=== PATIENT | male | born 1940 | race Caucasian/White ===

== ENCOUNTER → 2020-08-18 15:12 | Outpatient (BNVA) | payer MEDICARE, SELFPAY | PROVIDERS: PCP Internal Medicine; Visit Provider Internal Medicine | DX: Z13.89 Encounter for screening for other disorder (principal) | CPT/HCPCS: Q3014 ==

== ENCOUNTER 2020-11-12 16:02 | Outpatient (REF) | payer MEDICARE, SELFPAY ==
--- NOTE | ~2020-11-12 | XR_ITS ---
EXAMINATION: XR LEFT WRIST XR LEFT SHOULDER CLINICAL INFORMATION: Osteoarthritis. COMPARISON: Prior x-ray images of wrist 01/25/2014 is not available for direct comparison. Left shoulder 01/30/2020. TECHNIQUE: 3 views. FINDINGS: LEFT WRIST Severe radiocarpal arthritis, marked joint space loss, osteophytes. Moderate ulnar-carpal arthritis. Moderate distal radioulnar arthritis. Chronic appearing ossific/calcific densities in the ulnocarpal joint space. Arthritic changes to a lesser degree otherwise seen, including moderate 1st CMC arthritis. No visible acute fracture is seen. No dislocation. LEFT SHOULDER: Severe glenohumeral joint arthritis. Moderate acromioclavicular arthritis. No fracture or dislocation. Calcifications superior to the greater tuberosity, from calcific tendinitis or bursitis. Osteopenia. XR/XR shoulder LT min 2V IMPRESSION: Left Wrist: 1. No radiographic evidence of discrete acute fracture. 2. Arthritic changes present, including severe radiocarpal arthritis. Left Shoulder: 1. Severe glenohumeral joint arthritis. Moderate acromioclavicular arthritis. 2. Subtle calcification of the soft tissues suggesting calcific tendinitis/bursitis. 3. No evidence of acute fracture.
--- NOTE | ~2020-11-12 | XR_ITS ---
EXAMINATION: XR LEFT WRIST XR LEFT SHOULDER CLINICAL INFORMATION: Osteoarthritis. COMPARISON: Prior x-ray images of wrist 01/25/2014 is not available for direct comparison. Left shoulder 01/30/2020. TECHNIQUE: 3 views. FINDINGS: LEFT WRIST Severe radiocarpal arthritis, marked joint space loss, osteophytes. Moderate ulnar-carpal arthritis. Moderate distal radioulnar arthritis. Chronic appearing ossific/calcific densities in the ulnocarpal joint space. Arthritic changes to a lesser degree otherwise seen, including moderate 1st CMC arthritis. No visible acute fracture is seen. No dislocation. LEFT SHOULDER: Severe glenohumeral joint arthritis. Moderate acromioclavicular arthritis. No fracture or dislocation. Calcifications superior to the greater tuberosity, from calcific tendinitis or bursitis. Osteopenia. XR/XR wrist LT min 3V IMPRESSION: Left Wrist: 1. No radiographic evidence of discrete acute fracture. 2. Arthritic changes present, including severe radiocarpal arthritis. Left Shoulder: 1. Severe glenohumeral joint arthritis. Moderate acromioclavicular arthritis. 2. Subtle calcification of the soft tissues suggesting calcific tendinitis/bursitis. 3. No evidence of acute fracture.
--- NOTE | ~2020-11-12 | XR_ITS ---
EXAMINATION: XR HIP, LEFT CLINICAL INFORMATION: Fall. COMPARISON: X-ray 10/07/2019 TECHNIQUE: Two views of the left hip. Pelvis one view. FINDINGS: LEFT HIP: Left total hip arthroplasty present. There is normal articulation of the arthroplasty components. Multiple ossific densities medial to the proximal femoral shaft, were seen the prior study, and I suspect to be chronic. No visible acute periprosthetic fracture is seen. No evidence of hardware loosening is seen. PELVIS: Right total hip arthroplasty present with normal alignment. No acute periprosthetic fracture. No diastasis of the symphysis pubis or SI joints. No acute pelvic fracture seen. XR/XR hip LT w PEL1V IMPRESSION: 1. Stable appearance of the left total hip arthroplasty. No visible acute periprosthetic fracture is seen. 2. Right total hip arthroplasty appears intact without evidence of hardware loosening.
== END 2020-11-12 16:03 | disposition home or self-care (01) ==
LOC: HO.HMGCX 16:02
PROVIDERS: Visit Provider Nurse Practitioner Family
DX: M19.90 Unspecified osteoarthritis, unspecified site (principal); Z91.81 History of falling
CPT/HCPCS: 73030; 73110; 73502

== ENCOUNTER → 2020-11-18 13:34 | Outpatient (BNVA) | payer MEDICARE, SELFPAY | PROVIDERS: PCP Internal Medicine; Visit Provider Internal Medicine | DX: J44.9 Chronic obstructive pulmonary disease, unspecified (principal); G47.33 Obstructive sleep apnea (adult) (pediatric); Z99.89 Dependence on other enabling machines and devices; Z79.899 Other long term (current) drug therapy | CPT/HCPCS: 99212 ==

== ENCOUNTER 2020-11-24 13:51 | Outpatient (REF) | payer MEDICARE, SELFPAY ==
--- NOTE | 2020-11-24 16:44 | PFT_ITS ---
FLOWS: FEV1 90% of predicted at 2.79 L. FVC 90% of predicted at 3.89 L. FEV1 to FVC ratio of 72% of predicted. No bronchodilator response. LUNG VOLUMES: Total lung capacity 96% of predicted at 7.01 L. Residual volume 102% of predicted at 2.74 L. Slow vital capacity 93% of predicted at 4.27 L. Expiratory reserve volume 46% of predicted at 0.59 L. Diffusion capacity is moderately decreased, diffusion capacity adjust to being mildly decreased after correction for alveolar ventilation. IMPRESSION: Reversible mild obstructive ventilatory defect with no bronchodilator response. Decreased diffusion capacity suggests emphysema. MD NINA Juárez/MODL / [id number]
== END 2020-11-24 13:52 | disposition home or self-care (01) ==
LOC: HO.RESP 13:51
PROVIDERS: PCP Internal Medicine; Visit Provider Internal Medicine
DX: J44.9 Chronic obstructive pulmonary disease, unspecified (principal)
CPT/HCPCS: 94060; 94727; 94729

== ENCOUNTER → 2020-12-28 11:02 | Outpatient (BNVA) | payer MEDICARE, SELFPAY | PROVIDERS: PCP Internal Medicine; Visit Provider Internal Medicine | DX: J44.9 Chronic obstructive pulmonary disease, unspecified (principal); R06.00 Dyspnea, unspecified; G47.33 Obstructive sleep apnea (adult) (pediatric); Z99.89 Dependence on other enabling machines and devices | CPT/HCPCS: 99212 ==

== ENCOUNTER 2020-12-31 09:06 | Outpatient (REF) | payer MEDICARE, SELFPAY ==
[2020-12-31 11:16] LABS: MANUAL DIFF FLAG NO
[2020-12-31 11:24] LABS: Basophils Percent Auto 0.5 % (0-2); Eosinophils Absolute Auto 0.1 X10*3/uL (0.0-0.4); Eosinophils Percent Auto 3.2 % (0-4); Hematocrit 46.2 % (42-52); Hemoglobin 15.4 g/dl (14.0-18.0); Imm Gran Abs Auto 0.01 X10*3/uL (0.00-0.03); Imm Gran Pct Auto 0.2 % (0.0-0.4); Lymphocytes Absolute Auto 1.6 X10*3/uL (1.2-4.9); Lymphocytes Percent Auto 39.3 % (20-40); Mean Corpuscular HGB Conc 33.3 g/dl (31.0-36.0); Mean Corpuscular Hemoglobin 29.6 pg (27.0-33.0); Mean Corpuscular Volume 88.8 fL (80-98); Mean Platelet Volume 9.6 fL (9.4-12.4); Monocytes Absolute Auto 0.3 X10*3/uL (0.1-1.2); Monocytes Percent Auto 7.4 % (2-11); Neutrophils Percent Auto 49.4 % (45-73); Platelet Count 160 X10*3/uL (160-400); Red Cell Distribution Width 13.1 % (11.0-16.0); White Blood Count 4.1 X10*3/uL (4.8-10.8)
[2020-12-31 11:55] LABS: Rheumatoid Factor < 15.0 IU/mL (<15.0)
[2020-12-31 11:56] LABS: Alanine Aminotransferase 17 U/L (0-40); Albumin Level 4.5 g/dL (3.5-5.0); Alkaline Phosphatase 53 U/L (39-117); Anion Gap 14 (12-20); Aspartate Amino Transferase 22 U/L (5-37); Bilirubin Total 0.6 mg/dL (0.0-1.0); Blood Urea Nitrogen 16 mg/dL (9-16); C Reactive Protein 0.21 mg/dL (< or = 0.50); Calcium 9.8 mg/dL (8.4-10.2); Carbon Dioxide 23 mmol/L (22-29); Chloride 108 mmol/L (96-108); Estimated Glomerular Filt Rate > 60; Glucose Random 137 mg/dL (60-115); Potassium 3.6 mmol/L (3.3-5.1); Sodium 141 mmol/L (135-145); Total Protein 7.1 g/dL (6.5-8.0)
[2020-12-31 12:10] LABS: Erythrocyte Sedimentation Rate 4 MM/HR (0-15)
== END 2020-12-31 09:07 | disposition home or self-care (01) ==
LOC: HO.HMGCLDS 09:06
PROVIDERS: PCP Internal Medicine; Visit Provider Internal Medicine
DX: R41.3 Other amnesia (principal); R29.6 Repeated falls; M15.0 Primary generalized (osteo)arthritis; N40.1 Benign prostatic hyperplasia with lower urinary tract symptoms
CPT/HCPCS: 36415; 80053; 85025; 85652; 86140; 86431

== ENCOUNTER → 2021-07-05 09:46 | Outpatient (BNVA) | payer MEDICARE, SELFPAY | PROVIDERS: PCP Internal Medicine; Visit Provider Internal Medicine | DX: G47.33 Obstructive sleep apnea (adult) (pediatric) (principal); R06.00 Dyspnea, unspecified; J44.9 Chronic obstructive pulmonary disease, unspecified; Z99.89 Dependence on other enabling machines and devices | CPT/HCPCS: 99212 ==

== ENCOUNTER 2021-11-15 11:03 | Emergency (ER) | payer MEDICARE, SELFPAY ==
--- NOTE | ~2021-11-15 | CT_ITS ---
EXAMINATION: CT ABDOMEN AND PELVIS WITH CONTRAST CLINICAL INFORMATION: Epigastric pain radiating to back COMPARISON: None TECHNIQUE: Multidetector volumetric images were obtained from the superior aspect of the liver through the pubic symphysis following administration 85 mL of Omnipaque 350 intravenous contrast. Sagittal and coronal reformatted images were obtained on the technologist's workstation. Oral contrast: Yes This CT examination was performed using dose optimization techniques as appropriate, variously including the following: *Automated exposure control *Adjustment of mA and/or kV according to patient size (this includes techniques or standardized protocols for targeted exams where dose is matched to indication/reason for exam; i.e. extremities or head) *Use of iterative reconstruction technique DLP: 864 mGy-cm FINDINGS: LUNG BASES: The visualized lung bases are unremarkable. LIVER, GALLBLADDER, AND BILIARY TREE: The liver is normal in size, shape, and attenuation. No focal hepatic lesion or biliary ductal dilatation is present. The gallbladder is unremarkable with no evidence of radiopaque gallstones, gallbladder wall thickening, or obvious pericholecystic inflammatory changes. PANCREAS: Unremarkable. SPLEEN: Unremarkable. ADRENAL GLANDS: Unremarkable. KIDNEYS AND URETERS: There are multiple bilateral renal cysts. There may be bilateral hydronephrosis as well. The ureters do not appear dilated and this may represent bilateral UPJ obstructions. BLADDER: Not well evaluated due to artifact from bilateral hip replacements. The prostate gland is enlarged and protrudes into the base of the bladder. GASTROINTESTINAL TRACT: There is diverticulosis of the colon. There is a duodenal diverticulum adjacent to the head of the pancreas. Small and large bowel is otherwise normal. The appendix is normal. There is an esophageal hernia. ABDOMINAL WALL: There is a small umbilical hernia containing fat. There is a right inguinal hernia containing fat. LYMPH NODES: Normal. VASCULAR: Unremarkable. PELVIC VISCERA: Not well-visualized due to artifact from hip replacements. The prostate gland is enlarged , measures 5 x 6 cm and protrudes into the base of the bladder. OSSEOUS STRUCTURES: There is atrophy of the left rectus muscle. There are multiple calcifications low-attenuation in the left iliopsoas muscle suggestive of iliopsoas bursitis. There are are bilateral hip replacements. There are degenerative changes of the spine. CT/CT abdomen pelvis w con IMPRESSION: Diverticulosis of the colon. No evidence of diverticulitis. Esophageal hernia. Bilateral renal cysts and probable hydronephrosis, question from bilateral UPJ obstructions. Enlarged prostate gland that protrudes into the base of the bladder. Fleischner guidelines were followed.
[2021-11-15 11:11] VITALS: BP 153/76; PULSE 65; RESP 16; TEMP 35.6; O2SAT 96; BMI 26.4
--- NOTE | 2021-11-15 11:16 | PC.NURSE ---
vs on l arm [id number]
--- NOTE | 2021-11-15 11:20 | ECG_ITS ---
Test Reason : abd pain/flank pain Blood Pressure : / mmHG Vent. Rate : 062 BPM Atrial Rate : 062 BPM P-R Int : 192 ms QRS Dur : 094 ms QT Int : 426 ms P-R-T Axes : 017 -10 011 degrees QTc Int : 432 ms Sinus rhythm with Premature atrial complexes Cannot rule out Anterior infarct , age undetermined Abnormal ECG When compared with ECG of 29-JUL-2016 11:13, Premature atrial complexes are now Present Referred By: Generic ED Physician Electronically Signed By:Bret Martinez
[2021-11-15 11:36] LABS: MANUAL DIFF FLAG NO
[2021-11-15 11:38] LABS: Basophils Percent Auto 0.6 % (0-2); Eosinophils Absolute Auto 0.1 X10*3/uL (0.0-0.4); Eosinophils Percent Auto 2.5 % (0-4); Hematocrit 42.2 % (42.0-52.0); Hemoglobin 14.4 g/dl (14.0-18.0); Imm Gran Abs Auto 0.02 X10*3/uL (0.00-0.03); Imm Gran Pct Auto 0.4 % (0.0-0.4); Lymphocytes Absolute Auto 0.9 X10*3/uL (1.2-4.9); Lymphocytes Percent Auto 19.3 % (20-40); Mean Corpuscular HGB Conc 34.1 g/dl (31.0-36.0); Mean Corpuscular Hemoglobin 30.2 pg (27.0-33.0); Mean Corpuscular Volume 88.5 fL (80.0-98.0); Mean Platelet Volume 9.6 fL (9.4-12.4); Monocytes Absolute Auto 0.5 X10*3/uL (0.1-1.2); Monocytes Percent Auto 9.4 % (2-11); Neutrophils Absolute Auto 3.2 x10*3/uL (2.0-8.3); Neutrophils Percent Auto 67.8 % (45-73); Platelet Count 174 X10*3/uL (160-400); Red Blood Count 4.77 X10*6/uL (4.60-5.80); Red Cell Distribution Width 12.6 % (11.0-16.0); White Blood Count 4.8 X10*3/uL (4.8-10.8)
[2021-11-15 11:55] LABS: Alanine Aminotransferase 17 U/L (0-40); Albumin Level 4.2 g/dL (3.5-5.0); Alkaline Phosphatase 57 U/L (39-117); Anion Gap 11 (12-20); Aspartate Amino Transferase 35 U/L (5-37); Bilirubin Total 0.6 mg/dL (0.0-1.0); Blood Urea Nitrogen 17 mg/dL (9-16); Calcium 9.7 mg/dL (8.4-10.2); Carbon Dioxide 25 mmol/L (22-29); Chloride 107 mmol/L (96-108); Creatinine Clr Calc Pharmacy 58.9; Estimated Glomerular Filt Rate > 60; Glucose Random 114 mg/dL (60-115); Potassium 4.1 mmol/L (3.3-5.1); Sodium 139 mmol/L (135-145); Total Protein 6.5 g/dL (6.5-8.0)
[2021-11-15 11:58] LABS: Troponin-I High Sensitivity 9.9 ng/L (<3.5-35.0)
--- NOTE | 2021-11-15 13:28 | ED.ABDPAIN ---
HPI - Abdominal Pain General Chief Complaint: Abdominal Pain Stated Complaint: severe abd pain sweating Time Seen by Provider: 11/15/21 13:17 Source: patient Mode of arrival: ambulatory Limitations: no limitations History of Present Illness HPI narrative: Patient comes to emergency room complaining of an episode of sharp epigastric pain radiating towards the back. Patient states that he was in his appointment with Rheumatology, patient had sudden onset of intense abdominal pain as described above. Patient states it lasted for about 1/2 hour and then self resolved. Patient's states that the patient has had multiple episodes very similar to this in the past. One week ago, patient had the same symptoms, sharp epigastric pain radiating towards the back while he was sitting in religion, they had to leave the service, he went home, slept, then woke up without any pain. Patient denies any nausea vomiting or diarrhea. Denies any chest pain or shortness of breath. At this time, patient states that he feels much better than when he came in. Related Data Home Medications Medication Instructions Recorded Confirmed diclofenac sodium 1 % topical gel g TOPICAL BID 08/18/20 donepezil 10 mg tablet 10 mg PO DAILY 08/18/20 modafinil 200 mg tablet (Provigil) 200 mg PO DAILY 08/18/20 omeprazole 20 mg capsule,delayed 20 mg PO DAILY 08/18/20 release terazosin 10 mg capsule 10 mg PO BEDTIME cap 12/28/20 celecoxib 200 mg capsule (Celebrex) 200 mg PO BID 07/05/21 indomethacin 50 mg capsule 50 mg PO BEDTIME PRN cap 07/05/21 tramadol 50 mg tablet 50 mg PO BID PRN 07/05/21 Previous Rx's Medication Instructions Recorded levalbuterol tartrate 45 2 puff INHALATION Q4-6H PRN 30 07/05/21 mcg/actuation aerosol inhaler Days #15 g Allergies Allergy/AdvReac Type Severity Reaction Status Date / Time lisinopril [LISINOPRIL] Allergy Mild HEADACHES Verified 07/05/21 09:57 amoxicillin [AMOXICILLIN] Allergy Unknown UNKNOWN Verified 07/05/21 09:57 Sulfa (Sulfonamide Allergy Unknown UNKNOWN Verified 07/05/21 09:57 Antibiotics) [SULFA (SULFONAMIDE ANTIBIOTICS)] Review of Systems Review of Systems Constitutional : No Weight loss, No Fever, No Chills, No Night Sweats, No Fatigue, No Malaise ENT/Mouth : No Hearing loss, No Ear Pain, No Nasal Congestion, No Sinus Pain, No Hoarseness, No sore throat, No Rhinorrhea, No Swallowing Difficulty Eyes: No Eye Pain, No Swelling, No Redness, No Foreign Body, No Discharge, No Vision Changes Cardiovascular : No Chest Pain, No SOB, No Dyspnea on Exertion, No Orthopnea, No Edema, No Palpitations Respiratory : No Cough, No Sputum, No Wheezing, No Smoke Exposure, No Dyspnea Gastrointestinal : No Nausea, No Vomiting, No Diarrhea, No Constipation, complaining of multiple episodes of sharp pain radiating from the epigastric area towards the back. Now no pain, self-resolved. No Hematochezia, No Melena Genitourinary : no irregular bleeding, No Dysuria, No Urinary Frequency, No Hematuria, No Urinary Incontinence, No Urgency, No Flank Pain, No Urinary Flow Changes, No Hesitancy Musculoskeletal : No joint pain, No Myalgias, No Joint Swelling Skin : No Skin Lesions, No rash Neuro : No Weakness, No Numbness, No Paresthesias, No Loss of Consciousness, No Dizziness, No Headache Psych : No Anxiety/Panic, No Depression, No SI/HI/AH/VH, No Social Issues, Heme/Lymph: No Bruising, No Bleeding,No Lymphadenopathy Endocrine : No Polyuria, No Polydipsia, No Temperature Intolerance PMFSH Past Medical History Medical History COPD (chronic obstructive pulmonary disease) Dyspnea on exertion KIMBERLEY on CPAP Social History Social History Alcohol intake: never Use of substances other than those prescribed or required for medical reasons: No Advance Directives: Yes Advance Directives Information Provided: Yes Advance Directives on File: No Physical Exam ED Vital Signs: Vital Signs - 24 hr 11/15/21 11:11 11/15/21 13:51 Temperature 96.0 F L Pulse Rate 65 71 Respiratory Rate 16 14 Blood Pressure 153/76 H 162/82 H Pulse Oximetry 96 94 BMI result Body Mass Index 26.4 Const Other: Appearance: Alert. Oriented X3. No acute distress. Well-appearing Eyes: Pupils equal, round and reactive to light. ENT: Pharynx normal. Neck: Normal inspection. Neck supple. No lymph nodes noted. No crepitus CVS: Normal heart rate and rhythm. Pulses normal. Normal S1 and S2 Respiratory: No respiratory distress. Breath sounds normal. No Wheezing. No rales Abdomen: Soft and nontender. No rigidity. No distention. Large defect in the midline of the abdominal wall, every time patient is adopted ultrasound. Self reduces. Skin: Skin warm and dry. Normal skin color. Normal skin turgor. Extremities: No lower extremity edema. No Lacerations. No Rash Neuro: Oriented X 3. No motor deficit. No sensory deficit. Moving all extremities. No slurred speech. CN 2 through 12 grossly intact Psych: calm, cooperative, normal affect Course Course Course Narrative: From the triage note, since the patient came in diaphoretic. At this time that I am seeing the patient, patient is not diaphoretic, has no abdominal pain, well-appearing. Labs do not show any acute pathology, CT scan of the abdomen pending. Patient declined any pain or nausea medication. Patient feels otherwise well. I discussed the CT scans with the patient and his . No acute findings. It is possible that patient may have abdominal migraines, they will follow-up with their primary care physician. Also, I discussed the bilateral UPJ a possible obstructions. At this time, I do not think there is an obstruction, creatinine function is within normal limits MDM - Abdominal Pain Lab Data Result diagrams: 11/15/21 11:21 11/15/21 11:21 Labs: Lab Results 11/15/21 11/15/21 11/15/21 Range/Units 11:21 11:21 11:21 WBC 4.8 (4.8-10.8) X10*3/uL RBC 4.77 (4.60-5.80) X10*6/uL Hgb 14.4 (14.0-18.0) g/dl Hct 42.2 (42.0-52.0) % MCV 88.5 (80.0-98.0) fL MCH 30.2 (27.0-33.0) pg MCHC 34.1 (31.0-36.0) g/dl RDW 12.6 (11.0-16.0) % Plt Count 174 (160-400) X10*3/uL MPV 9.6 (9.4-12.4) fL Immature Gran % (Auto) 0.4 (0.0-0.4) % Neut % (Auto) 67.8 (45-73) % Lymph % (Auto) 19.3 L (20-40) % Bremer % (Auto) 9.4 (2-11) % Eos % (Auto) 2.5 (0-4) % Baso % (Auto) 0.6 (0-2) % Lymph # (Auto) 0.9 L (1.2-4.9) X10*3/uL Bremer # (Auto) 0.5 (0.1-1.2) X10*3/uL Eos # (Auto) 0.1 (0.0-0.4) X10*3/uL Baso # (Auto) 0.0 (0.0-0.2) X10*3/uL Abs Immat Gran (auto) 0.02 (0.00-0.03) X10*3/uL Absolute Neuts (auto) 3.2 (2.0-8.3) x10*3/uL Absolute Nucleated RBC 0.000 (0.0-0.012) X10*3/uL Nucleated RBC % (auto) 0.0 (0.0-0.2) /100WBC Sodium 139 (135-145) mmol/L Potassium 4.1 (3.3-5.1) mmol/L Chloride 107 (96-108) mmol/L Carbon Dioxide 25 (22-29) mmol/L Anion Gap 11 L (12-20) BUN 17 H (9-16) mg/dL Creatinine 1.10 (0.5-1.4) mg/dL Estim Creat Clear Calc 58.9 Estimated GFR > 60 Random Glucose 114 (60-115) mg/dL Calcium 9.7 (8.4-10.2) mg/dL Total Bilirubin 0.6 (0.0-1.0) mg/dL AST 35 D (5-37) U/L ALT 17 (0-40) U/L Alkaline Phosphatase 57 (39-117) U/L Troponin I High Sens 9.9 (<3.5-35.0) ng/L Total Protein 6.5 (6.5-8.0) g/dL Albumin 4.2 (3.5-5.0) g/dL Lipase 307 H (8-78) U/L Urine Color Urine Appearance Urine pH (5.0-8.0) Ur Specific [place] (1.005-1.025) Urine Protein (NEG-TRACE) MG/DL Urine Glucose (UA) (NEG) MG/DL Urine Ketones (NEG) MG/DL Urine Blood (NEG) Urine Nitrite (NEG) Ur Leukocyte Esterase (NEG) 11/15/21 11/15/21 Range/Units 13:49 14:48 WBC (4.8-10.8) X10*3/uL RBC (4.60-5.80) X10*6/uL Hgb (14.0-18.0) g/dl Hct (42.0-52.0) % MCV (80.0-98.0) fL MCH (27.0-33.0) pg MCHC (31.0-36.0) g/dl RDW (11.0-16.0) % Plt Count (160-400) X10*3/uL MPV (9.4-12.4) fL Immature Gran % (Auto) (0.0-0.4) % Neut % (Auto) (45-73) % Lymph % (Auto) (20-40) % [place]mer % (Auto) (2-11) % Eos % (Auto) (0-4) % Baso % (Auto) (0-2) % Lymph # (Auto) (1.2-4.9) X10*3/uL [place]mer # (Auto) (0.1-1.2) X10*3/uL Eos # (Auto) (0.0-0.4) X10*3/uL Baso # (Auto) (0.0-0.2) X10*3/uL Abs Immat Gran (auto) (0.00-0.03) X10*3/uL Absolute Neuts (auto) (2.0-8.3) x10*3/uL Absolute Nucleated RBC (0.0-0.012) X10*3/uL Nucleated RBC % (auto) (0.0-0.2) /100WBC Sodium (135-145) mmol/L Potassium (3.3-5.1) mmol/L Chloride (96-108) mmol/L Carbon Dioxide (22-29) mmol/L Anion Gap (12-20) BUN (9-16) mg/dL Creatinine (0.5-1.4) mg/dL Estim Creat Clear Calc Estimated GFR Random Glucose (60-115) mg/dL Calcium (8.4-10.2) mg/dL Total Bilirubin (0.0-1.0) mg/dL AST (5-37) U/L ALT (0-40) U/L Alkaline Phosphatase (39-117) U/L Troponin I High Sens 12.6 (<3.5-35.0) ng/L Total Protein (6.5-8.0) g/dL Albumin (3.5-5.0) g/dL Lipase (8-78) U/L Urine Color YELLOW Urine Appearance CLEAR Urine pH 5.5 (5.0-8.0) Ur Specific [place] <= 1.005 (1.005-1.025) Urine Protein NEG (NEG-TRACE) MG/DL Urine Glucose (UA) NEG (NEG) MG/DL Urine Ketones NEG (NEG) MG/DL Urine Blood NEG (NEG) Urine Nitrite NEG (NEG) Ur Leukocyte Esterase NEG (NEG) Imaging Data CT scan - abdomen: Radiologist's impression: FINDINGS: LUNG BASES: The visualized lung bases are unremarkable.? LIVER, GALLBLADDER, AND BILIARY TREE: The liver is normal in size, shape, and attenuation. No focal hepatic lesion or biliary ductal dilatation is present. The gallbladder is unremarkable with no evidence of radiopaque gallstones, gallbladder wall thickening, or obvious pericholecystic inflammatory changes.? PANCREAS: Unremarkable.? SPLEEN: Unremarkable.? ADRENAL GLANDS: Unremarkable.? KIDNEYS AND URETERS: There are multiple bilateral renal cysts. There may be bilateral hydronephrosis as well. The ureters do not appear dilated and this may represent bilateral UPJ obstructions. BLADDER: Not well evaluated due to artifact from bilateral hip replacements. The prostate gland is enlarged and protrudes into the base of the bladder. ? GASTROINTESTINAL TRACT: There is diverticulosis of the colon. There is a duodenal diverticulum adjacent to the head of the pancreas. Small and large bowel is otherwise normal. The appendix is normal. There is an esophageal hernia.? ABDOMINAL WALL: There is a small umbilical hernia containing fat. There is a right inguinal hernia containing fat. LYMPH NODES: Normal. VASCULAR: Unremarkable. PELVIC VISCERA: Not well-visualized due to artifact from hip replacements. The prostate gland is enlarged , measures 5 x 6 cm and protrudes into the base of the bladder. OSSEOUS STRUCTURES: There is atrophy of the left rectus muscle. There are multiple calcifications low-attenuation in the left iliopsoas muscle suggestive of iliopsoas bursitis. There are are bilateral hip replacements. There are degenerative changes of the spine. CT/CT abdomen pelvis w con IMPRESSION: Diverticulosis of the colon. No evidence of diverticulitis. Esophageal hernia. Bilateral renal cysts and probable hydronephrosis, question from bilateral UPJ obstructions. Enlarged prostate gland that protrudes into the base of the bladder. ? Fleischner guidelines were followed. Discharge Plan Discharge Clinical Impression: Abdominal pain Patient Disposition: Home, Self-Care Instructions: Abdominal Pain (ED) Additional Instructions: Please follow-up with your primary care physician tomorrow. If you have any worsening or new symptoms, please return to the emergency room or call 911 Prescriptions: No Action donepezil 10 mg tablet 10 mg PO DAILY 0RF omeprazole 20 mg capsule,delayed release(DR/EC) 20 mg PO DAILY 0RF diclofenac sodium 1 % gel topical BID 0RF modafinil [Provigil] 200 mg tablet 200 mg PO DAILY 0RF terazosin 10 mg capsule 10 mg PO BEDTIME 0RF indomethacin 50 mg capsule 50 mg PO BEDTIME PRN0RF tramadol 50 mg tablet 50 mg PO BID PRN0RF celecoxib [Celebrex] 200 mg capsule 200 mg PO BID 0RF levalbuterol tartrate 45 mcg/actuation HFA aerosol inhaler 2 puff inhalation Q4-6H PRN (Reason: shortness of breath or wheezing) 30 Days Qty: 15 3RF
[2021-11-15 13:51] VITALS: BP 162/82; PULSE 71; RESP 14; O2SAT 94
[2021-11-15 14:09] LABS: Lipase 307 U/L (8-78)
[2021-11-15] MEDS: iohexoL 350 MG/ML 100 ML INFUS..BTL 85 ML IV (14:19)
[2021-11-15 14:23] LABS: Troponin-I High Sensitivity 12.6 ng/L (<3.5-35.0)
[2021-11-15 14:56] LABS: Appearance Urine CLEAR; Color Urine YELLOW; Glucose Urine UA NEG (NEG); Leukocyte Esterase Urine NEG (NEG); Nitrite Urine NEG (NEG); PH 5.5 (5.0-8.0); Specific Gravity - Urine <= 1.005 (1.005-1.025); Urine Blood NEG (NEG); Urine Ketones NEG (NEG); Urine Protein NEG (NEG-TRACE)
--- NOTE | 2021-11-15 15:46 | PC.NURSE ---
OK FOR DC PER PRIMARY RN. PT AWAKE, ALERT AND ORIENTED X 3. SKIN WARM AND DRY. RESP UNLABORED. DENIES N/V. NO C/O PAIN PRESENTLY.
== END 2021-11-15 15:48 | disposition home or self-care (01) ==
PROVIDERS: Emergency Provider Emergency Medicine; PCP Internal Medicine
DX: R10.13 Epigastric pain (principal)
CPT/HCPCS: 36415; 74177; 80053; 81003; 83690; 84484; 85025; 93005; 99284; Q9967

== ENCOUNTER 2021-12-02 09:23 | Outpatient (REF) | payer MEDICARE, SELFPAY ==
--- NOTE | ~2021-12-02 | XR_ITS ---
EXAMINATION: XR CHEST CLINICAL INFORMATION: SOB COMPARISON: None TECHNIQUE: 2 views of the chest were obtained. FINDINGS: No significant abnormality is noted involving the heart, lungs, mediastinum, bony thorax or soft tissues. XR/XR chest 2V IMPRESSION: Unremarkable chest exam.
[2021-12-02 11:22] LABS: MANUAL DIFF FLAG NO
[2021-12-02 11:37] LABS: Basophils Percent Auto 0.7 % (0-2); Eosinophils Absolute Auto 0.2 X10*3/uL (0.0-0.4); Eosinophils Percent Auto 2.6 % (0-4); Hematocrit 48.4 % (42.0-52.0); Hemoglobin 15.9 g/dl (14.0-18.0); Imm Gran Abs Auto 0.01 X10*3/uL (0.00-0.03); Imm Gran Pct Auto 0.2 % (0.0-0.4); Lymphocytes Absolute Auto 1.4 X10*3/uL (1.2-4.9); Lymphocytes Percent Auto 24.7 % (20-40); Mean Corpuscular HGB Conc 32.9 g/dl (31.0-36.0); Mean Corpuscular Hemoglobin 29.4 pg (27.0-33.0); Mean Corpuscular Volume 89.6 fL (80.0-98.0); Mean Platelet Volume 9.6 fL (9.4-12.4); Monocytes Absolute Auto 0.5 X10*3/uL (0.1-1.2); Monocytes Percent Auto 8.9 % (2-11); Neutrophils Absolute Auto 3.6 x10*3/uL (2.0-8.3); Neutrophils Percent Auto 62.9 % (45-73); Platelet Count 222 X10*3/uL (160-400); Red Cell Distribution Width 12.6 % (11.0-16.0); White Blood Count 5.7 X10*3/uL (4.8-10.8)
[2021-12-02 12:05] LABS: Alanine Aminotransferase 12 U/L (0-40); Albumin Level 4.6 g/dL (3.5-5.0); Alkaline Phosphatase 59 U/L (39-117); Amylase 120 U/L (28-100); Anion Gap 12 (12-20); Aspartate Amino Transferase 17 U/L (5-37); Bilirubin Total 0.8 mg/dL (0.0-1.0); Blood Urea Nitrogen 21 mg/dL (9-16); C Reactive Protein 0.11 mg/dL (< or = 0.50); Carbon Dioxide 26 mmol/L (22-29); Chloride 105 mmol/L (96-108); Estimated Glomerular Filt Rate 59; Glucose Random 103 mg/dL (60-115); Lipase 77 U/L (8-78); Potassium 3.9 mmol/L (3.3-5.1); Sodium 139 mmol/L (135-145); Total Protein 7.1 g/dL (6.5-8.0)
[2021-12-02 12:08] LABS: TSH reflex Free T4 1.79 uIU/mL (0.32-4.0); Vitamin D 25-OH Total 37.4 ng/mL (>30)
[2021-12-02 12:21] LABS: Erythrocyte Sedimentation Rate 2 MM/HR (0-15)
[2021-12-02 12:22] LABS: Folate 16.3 ng/mL (> or = 4.0); Vitamin B12 389 pg/mL (200-900)
[2021-12-02 12:35] LABS: Appearance Urine CLEAR; Color Urine DK YELLOW; Glucose Urine UA NEG (NEG); Leukocyte Esterase Urine NEG (NEG); Nitrite Urine NEG (NEG); Specific Gravity - Urine 1.025 (1.005-1.025); Urine Blood NEG (NEG); Urine Ketones NEG (NEG); Urine Protein NEG (NEG-TRACE)
[2021-12-02 14:02] LABS: Mucus Urine 1+ /LPF; RBC Urine 0-2 /HPF (0); WBC Urine 0-2 /HPF (0-4)
== END 2021-12-02 09:24 | disposition home or self-care (01) ==
LOC: HO.HMGCLDS 09:23
PROVIDERS: Visit Provider Internal Medicine
DX: Q62.11 Congenital occlusion of ureteropelvic junction (principal); R42 Dizziness and giddiness; M15.0 Primary generalized (osteo)arthritis; N40.1 Benign prostatic hyperplasia with lower urinary tract symptoms; R41.3 Other amnesia; R29.6 Repeated falls; R06.02 Shortness of breath
CPT/HCPCS: 36415; 71046; 80053; 81001; 82150; 82306; 82607; 82746; 83690; 84443; 85025; 85652; 86140

== ENCOUNTER → 2022-01-04 09:50 | Outpatient (BNVA) | payer MEDICARE, SELFPAY | PROVIDERS: PCP Internal Medicine; Visit Provider Internal Medicine | DX: G47.33 Obstructive sleep apnea (adult) (pediatric) (principal); J44.9 Chronic obstructive pulmonary disease, unspecified; R06.00 Dyspnea, unspecified; Z99.89 Dependence on other enabling machines and devices | CPT/HCPCS: 99212 ==

== ENCOUNTER 2022-01-13 14:54 | Outpatient (REF) | payer MEDICARE, SELFPAY ==
--- NOTE | ~2022-01-13 | US_ITS ---
EXAMINATION: US RETROPERITONEAL LIMITED (RENAL ONLY) CLINICAL INFORMATION: Hydronephrosis with UPJ obstruction. COMPARISON: CT abdomen and pelvis with contrast 11/15/2021. US retroperitoneal complete (renal) 06/30/2014. TECHNIQUE: Real-time imaging of the kidneys. FINDINGS: RIGHT KIDNEY: 11.5 x 5.3 x 6.4 cm (SAG x AP x TRV). The kidney is normal in size, contour, and echogenicity. Renal cortical thickness is normal. There is mild right hydronephrosis. There is a 3.6 x 3 x 3 cm cyst in the lower pole. No renal calculi. LEFT KIDNEY: 14.4 x 6.7 x 6.8 cm (SAG x AP x TRV). The kidney is normal in size, contour, and echogenicity. Renal cortical thickness is normal. There is mild left hydronephrosis. There are several left renal cysts, largest measuring 4.7 x 4.9 x 4.3 cm in the upper pole. No renal calculi. US/US renal BI IMPRESSION: Mild bilateral hydronephrosis. Bilateral renal cysts.
--- NOTE | 2022-01-13 17:01 | PFT_ITS ---
INDICATION: Shortness of breath. SPIROMETRY: FEV1 to FVC of 65% with an FEV1 of 2.78 L, which is 91% predicted, an FVC of 4.29 L, 101% predicted. No significant response to bronchodilators noted. To note, the [id number] is down to 50% predicted prior to bronchodilators. The maximum voluntary ventilation 80% predicted. LUNG VOLUMES: Total lung capacity 89% predicted. DIFFUSION CAPACITY: DLCO 55% predicted. COMPARISONS: None. INTERPRETATION: There is an obstructive ventilatory defect consistent with mild COPD. The patient also has evidence of small airways disease. The maximum voluntary ventilation is within normal limits. Lung volumes are within normal limits. The patient, however, has a moderate diffusion impairment likely secondary to emphysema and/or other parenchymal lung conditions should be considered. Correction for hemoglobin should also be considered. Clinical correlation warranted. MD JOSE Aponte/DAYNA / [id number]
== END 2022-01-13 14:55 | disposition home or self-care (01) ==
LOC: HO.RESP 14:54
PROVIDERS: PCP Internal Medicine; Visit Provider Internal Medicine
DX: J44.9 Chronic obstructive pulmonary disease, unspecified (principal); R06.00 Dyspnea, unspecified; Q62.11 Congenital occlusion of ureteropelvic junction
CPT/HCPCS: 76775; 94060; 94727; 94729

== ENCOUNTER → 2022-01-25 12:57 | Outpatient (REF) | payer MEDICARE, SELFPAY ==
--- NOTE | 2022-01-25 13:01 | CA_ITS ---
Transthoracic Echocardiogram Patient (Last, First, Middle): Kenney Fernandez R Gender: Male Date of : 1940 Age: 81 Procedure Date: 01/25/2022 Procedure Type: Transthoracic Echocardiogram Location: OP Height: 180.34 cm Weight: 85.28 kg BSA: 2.05 m2 Heart Rate: 57 bpm BP: 142 / 78 mmHg Farm Management Adviser: SB Referring MD: Storm Lowry DO Energy Efficiency Finance Manager: Agus Redmond MD Symptoms: SOB ON EXERTION Study Quality: Adequate ECG Rhythm: Bradycardia Conclusions: - 1. Normal LV systolic function 2. Trivial aortic regurgitation 3. Normal RV systolic pressure 4. Mildly dilated ascending aorta at 4 cm 5. No gross pericardial effusion Findings Left Ventricle Normal left ventricular size, thickness, and systolic function. The visually estimated ejection fraction is between 65-70%. Spectral Doppler is indicative of a normal filling pattern. Right Ventricle Normal right ventricular cavity size and systolic function. Atria The left atrium is mildly dilated. Interatrial shunt cannot be excluded. The right atrium is normal in size. Aortic Valve There is mild calcification of the aortic valve. There is mild thickening of the aortic valve. There is no aortic valve stenosis. There is trace (trivial) aortic valve regurgitation. Mitral Valve There is mild anterior and posterior mitral leaflet thickening. There is trace mitral valve regurgitation. There is no mitral valve stenosis. Pulmonic Valve The pulmonic valve was not well visualized. Tricuspid Valve Likely normal tricuspid valve structure and function. There is trace tricuspid valve regurgitation. The right ventricular systolic pressure is normal. The right ventricular systolic pressure is 31 mmHg. Normal right atrial pressure. Great Vessels The pulmonary artery was not well visualized. There is mild dilatation of the ascending aorta measuring 4.00 cm. Venous The inferior vena cava is normal in size and collapses greater than 50% with inspiration. Pericardium/Pleural There is no evidence of pericardial effusion. Prior Study Comparison Changes noted compared to prior study dated: 09/27/2017. ascending aorta is measured to be mildly dilated on this study Measurements 2D Linear Measurements IVSd: 1.25 0.6-0.9/0.6-1.0 cm LVIDd: 4.96 3.9-5.3/4.2-5.9 cm LVIDd Index: 2.42 2.4-3.2/2.2-3.1 cm/m2 LVIDs: 3.15 2.0-3.6 cm LVPWd: 0.97 0.7-1.1 cm LA Diam: 3.90 2.7-3.8/3.0-4.0 cm LAIDs Index: 1.90 1.5-2.3 cm/m2 LV Mass: 258.21 67-162/88-224 g LV Mass Index: 125.96 43-95/49-115 g/m2 LVOT Diam: 2.40 3.0+(-)1.3 cm 2D Systolic Function EF 4C: 65.50 >55% EF 2C: 67.60 >55% EF BiP: 67.40 >55% Mitral Valve MV Pk E: 0.75 MV PK A: 0.63 MV Decel Time: 247.00 E/A: 1.20 E'Lateral: 5.55 E'Medial: 5.87 E/E' Med: 12.80 E/E' Lat: 13.60 PHT: 72.00 MVA PHT: 3.06 Decel [place]: 3.05 Aortic Valve AoV Pk Kamran: 1.65 AoV Mn Kamran: 1.27 AoV VTI: 0.38 AoV Pk Grad: 11.00 Aov Mn Grad: 7.00 MAHENDRA Cont.VTI: 2.28 LVOT LVOT Pk Kamran: 0.88 LVOT Mn Kamran: 0.62 LVOT VTI: 0.19 LVOT Pk Grad: 3.00 LVOT Mn Grad: 2.00 LVOT Diam: 2.40 LVOT Area: 4.52 Diastolic Function MV Pk E: 0.75 MV Pk A: 0.63 E/A: 1.20 E'Medial: 5.87 E/E' Med: 12.80 E' Laterial: 5.55 E/E' Lat: 13.60 Right Ventricle TAPSE (mm): 18.80 TVS' Kamran: 14.60 Tricuspid Valve TR Pk Kamran: 2.57 TR Pk Grad: 26.00 RA Press: 3.00 RVSP: 31.00 Great Vessels Aorta Sinus of Valsalva: 3.60 2.0-3.5 cm Ao Asc: 4.00 2.1-3.4 cm Pulmonary Veins Pulm Vein S/D 0.90 Pulmonary Valve PV Pk Kamran: 0.89 Peak PV Grad: 3.00 Updated in Other Vendor System with Status of Final Agus Redmond MD electronically signed on 01/25/2022 4:36:26 PM with status of Final
--- NOTE | 2022-01-25 13:02 | ECG_ITS ---
Test Reason : CP Blood Pressure : / mmHG Vent. Rate : 072 BPM Atrial Rate : 072 BPM P-R Int : 190 ms QRS Dur : 098 ms QT Int : 384 ms P-R-T Axes : 046 -11 018 degrees QTc Int : 420 ms Sinus rhythm with Premature atrial complexes Otherwise normal ECG When compared with ECG of 15-NOV-2021 11:18, No significant change was found Referred By: Storm Lowry Electronically Signed By:ANABEL MADDEN MD
== END ==
LOC: HO.CARD 12:57
PROVIDERS: Visit Provider Internal Medicine
DX: R06.02 Shortness of breath (principal)
CPT/HCPCS: 93005; 93306

== ENCOUNTER → 2022-07-12 10:00 | Outpatient (BNVA) | payer MEDICARE, SELFPAY | PROVIDERS: PCP Internal Medicine; Visit Provider Internal Medicine | DX: J44.9 Chronic obstructive pulmonary disease, unspecified (principal); R06.00 Dyspnea, unspecified; G47.33 Obstructive sleep apnea (adult) (pediatric); Z99.89 Dependence on other enabling machines and devices | CPT/HCPCS: 99212 ==

== ENCOUNTER 2022-09-26 16:40 | Emergency (ER) | payer MEDICARE, SELFPAY ==
--- NOTE | ~2022-09-26 | CT_ITS ---
EXAMINATION: CT ABDOMEN AND PELVIS WITHOUT CONTRAST CLINICAL INFORMATION: Abdominal pain and near-syncope COMPARISON: Ultrasound abdomen 09/26/[address] abdomen pelvis 11/15/2021 TECHNIQUE: Multidetector volumetric imaging was performed from the superior aspect of the liver through the pubic symphysis. Sagittal and coronal reformatted images were obtained on the technologist's workstation. This CT examination was performed using dose optimization techniques as appropriate, variously including the following: *Automated exposure control *Adjustment of mA and/or kV according to patient size (this includes techniques or standardized protocols for targeted exams where dose is matched to indication/reason for exam; i.e. extremities or head) *Use of iterative reconstruction technique DLP: 718 mGy-cm FINDINGS: LUNG BASES: The visualized lung bases are unremarkable. LIVER, GALLBLADDER, AND BILIARY TREE: The liver is normal in size, shape, and attenuation. No focal hepatic lesion or biliary ductal dilatation is present. The gallbladder is unremarkable with no evidence of radiopaque gallstones, gallbladder wall thickening, or obvious pericholecystic inflammatory changes. PANCREAS: Unremarkable. SPLEEN: Splenomegaly at 13.3 cm ADRENAL GLANDS: Unremarkable. KIDNEYS AND URETERS: The kidneys are normal in size, shape, and attenuation. Bilateral Bosniak class I renal cysts are present. It is difficult to exclude bilateral UPJ type obstruction No solid renal masses are seen. However there is no gross hydronephrosis, hydroureter, or calculi seen. No perinephric stranding. BLADDER: Unremarkable. GASTROINTESTINAL TRACT: A moderate-sized hiatal hernia is present The small and large bowel are unremarkable aside from colonic diverticula without diverticulitis.. The appendix is unremarkable. ABDOMINAL WALL: There is a small right inguinal hernia seen containing only fat. LYMPH NODES: No retroperitoneal lymphadenopathy. Again seen is atrophy of the right total shoulder as muscle with some chronic calcifications seen. VASCULAR: Unremarkable. Calcific aorto iliac plaque is present. PELVIC VISCERA: Mild to moderate BPH. Seminal vesicles appear normal. OSSEOUS STRUCTURES: Bilateral hip prostheses. Degenerative changes in mild biconvex scoliosis seen in the spine. CT/CT abdomen pelvis wo IV con IMPRESSION: 1. A cause for the patient's abdominal pain has not been found. 2. Incidental note made of mild splenomegaly, bilateral Bosniak class I renal cysts which need no further imaging or follow-up, possible dilated renal pelvis sees, unchanged suggesting UPJ obstruction, colonic diverticula without diverticulitis, small right inguinal hernia containing only fat, mild BPH and degenerative changes in the spine. Fleischner guidelines were followed.
--- NOTE | ~2022-09-26 | US_ITS ---
EXAMINATION: US ABDOMEN LIMITED CLINICAL INFORMATION: Elevated LFTs and abdominal pain. COMPARISON: Renal ultrasound 01/23/2022, CT abdomen pelvis performed earlier the same date TECHNIQUE: Real-time imaging of the right upper quadrant abdominal viscera. FINDINGS: PANCREAS: Significantly limited visualization due to obscuration by bowel gas. Visualized portions of the pancreas grossly unremarkable. LIVER: Enlarged measuring 19.1 cm in craniocaudal dimension. Diffusely increased echogenicity, suggesting steatosis. No liver lesion. Minimal prominence of central intrahepatic bile ducts. GALLBLADDER: Somewhat enlarged/elongate appearing measuring approximately 11.8 cm in length. There is a 1.5 x 0.7 cm sessile echogenic nodular tissue in the body of the gallbladder without internal vascularity or shadowing. This may represent a small amount of tumefactive sludge or nonshadowing stones, less likely sessile polyp. No echogenic shadowing gallstones. No pericholecystic fluid or gallbladder wall thickening. The patient did not have a sonographic Rosales sign at time of the exam per technologist report. COMMON BILE DUCT: Normal in caliber measuring 0.5 cm in diameter. RIGHT KIDNEY: Normal cortical echogenicity No hydronephrosis or renal calculi. 2.8 x 3.6 x 3.2 cm anechoic simple midpole cyst. Parapelvic renal cysts are better seen on CT. The kidney measures 12.7 cm in maximum dimension. FREE FLUID: None. Trace pericardial fluid noted incidentally. US/US abdomen limited IMPRESSION: 1. No significant biliary ductal dilation. On the comparison CT there does appear to be string of radiodense stones in the distal CBD consistent with choledocholithiasis. 2. Probable small amount of tumefactive sludge versus nonshadowing stones in the gallbladder, less likely sessile polyp. No internal vascularity. No sonographic evidence of acute cholecystitis. 3. Mild hepatomegaly and increased hepatic echotexture suggesting underlying hepatocellular disease or mild steatosis. 4. Limited visualization of the pancreas due to obscuration by bowel gas.
--- NOTE | ~2022-09-26 | XR_ITS ---
EXAMINATION: XR CHEST CLINICAL INFORMATION: Shortness of breath COMPARISON: None TECHNIQUE: Frontal view of the chest was obtained. 1733 hours FINDINGS: No significant abnormality is noted involving the heart, lungs, mediastinum, bony thorax or soft tissues. Moderate-sized hiatal hernia. No significant change since prior study. XR/XR chest 1V IMPRESSION: Unremarkable examination.
[2022-09-26 16:43] VITALS: BP 91/54; PULSE 75; RESP 18; TEMP 36.3; O2SAT 96; BMI 26.4
--- NOTE | 2022-09-26 16:44 | ECG_ITS ---
Test Reason : DYSPNEA Blood Pressure : / mmHG Vent. Rate : 065 BPM Atrial Rate : 065 BPM P-R Int : 186 ms QRS Dur : 090 ms QT Int : 430 ms P-R-T Axes : 025 -18 000 degrees QTc Int : 447 ms Normal sinus rhythm Anterior infarct , age undetermined Abnormal ECG When compared with ECG of 25-JAN-2022 13:03, Premature atrial complexes are no longer Present Referred By: Ora Sanders Electronically Signed By:ONEYDA PUGH
--- NOTE | 2022-09-26 16:44 | ED_ITS ---
HPI - General Adult General Chief complaint: Abdominal Pain <INES Yepez - Last Filed: 09/26/22 16:46> Stated complaint: Dizziness <INES Yepez - Last Filed: 09/26/22 16:46> Time Seen by Provider: 09/26/22 17:37 <INES Yepez - Last Filed: 09/26/22 16:46> Source: patient and family (Spouse) <Tana Escobar MD - Last Filed: 09/26/22 20:50> Mode of arrival: ambulatory <Tana Escobar MD - Last Filed: 09/26/22 20:50> Limitations: no limitations <Tana Escobar MD - Last Filed: 09/26/22 20:50> History of Present Illness HPI narrative: 81-year-old male came in for evaluation of abdominal pain that started this morning after he woke up patient complained to his with mid abdominal pain, that was described as severe 10/10 lasted for about 5 minutes patient became pale and diaphoretic and hyperventilating when he had this episode of pain, no nausea, no vomiting, after the pain patient had urge for bowel movement which was normal bowel movement. Patient declined any dysuria or frequency urination. No fever, no chills. By the time patient was seen by me patient has no symptoms, with improvement of the diaphoresis and the abdominal pain almost resolving. <Tana Escobar MD - Last Filed: 09/26/22 20:50> Related Data Home medications: Home Medications Medication Instructions Recorded Confirmed modafinil 200 mg tablet (Provigil) 200 mg PO DAILY 08/18/20 07/12/22 omeprazole 20 mg capsule,delayed 20 mg PO DAILY 08/18/20 07/12/22 release terazosin 10 mg capsule 10 mg PO BEDTIME 12/28/20 07/12/22 tramadol 50 mg tablet 50 mg PO BID PRN 07/05/21 07/12/22 donepezil 10 mg tablet 10 mg PO BID 07/12/22 07/12/22 sertraline 50 mg tablet 50 mg PO DAILY 07/12/22 07/12/22 Previous Rx's Medication Instructions Recorded levalbuterol tartrate 45 2 puff inhalation Q4-6H PRN 07/05/21 mcg/actuation aerosol inhaler shortness of breath or wheezing 30 days #15 grams mometasone-formoterol HFA 100 2 puff inhalation BID 30 days #13 07/12/22 mcg-5 mcg/actuation aerosol grams inhaler (Dulera) <INES Yepez - Last Filed: 09/26/22 16:46> Allergies/adverse reactions: Allergies Allergy/AdvReac Type Severity Reaction Status Date / Time lisinopril [LISINOPRIL] Allergy Mild HEADACHES Verified 07/12/22 10:28 amoxicillin [AMOXICILLIN] Allergy Unknown UNKNOWN Verified 07/12/22 10:28 Sulfa (Sulfonamide Allergy Unknown UNKNOWN Verified 07/12/22 10:28 Antibiotics) [SULFA (SULFONAMIDE ANTIBIOTICS)] <INES Yepez - Last Filed: 09/26/22 16:46> Review of Systems Review of Systems: All other systems are reviewed and are negative Constitutional: Reports as per HPI and Reports no additional constitutional complaints Eyes: Reports as per HPI and Reports no additional eye complaints Reports system reviewed and no additional complaints, except as documented Cardiovascular: Reports as per HPI and Reports no additional cardiovascular complaints Respiratory: Reports as per HPI and Reports no additional respiratory complaints Gastrointestinal: Reports as per HPI and Reports no additional gastrointestinal complaints Genitourinary: Reports no additional female genitourinary complaints Musculoskeletal: Reports no additional musculoskeletal complaints Skin/Breast: Reports system reviewed and no additional complaints, except as docu Psychiatric: Reports no additional psychiatric complaints Endocrine: Reports no additional endocrine complaints Hematologic/Lymphatic: Reports no additional hematologic/lymphatic complaints Allergic/Immunologic: Reports no additional allergic/immunologic complaints Reports system reviewed and no additional complaints, except as documented and Reports Abnormal speech present <Tana Escobar MD - Last Filed: 09/26/22 20:50> [facility] Past Medical History Medical History: Medical History COPD (chronic obstructive pulmonary disease) Dyspnea on exertion KIMBERLEY on CPAP <INES Yepez - Last Filed: 09/26/22 16:46> Social History Social History: Social History Alcohol intake: never Patient Tobacco Use Status: Former Tobacco user Advance Directives: No Advance Directives Information Provided: No <INES Yepez - Last Filed: 09/26/22 16:46> Physical Exam ED Vital Signs: Vital Signs - 24 hr 09/26/22 16:43 09/26/22 20:35 Temperature 97.4 F 97.8 F Pulse Rate 75 85 Respiratory Rate 18 20 Blood Pressure 91/54 L 178/81 H Pulse Oximetry 96 96 Oxygen Delivery Method Room Air Room Air BMI result Body Mass Index 26.4 <INES Yepez - Last Filed: 09/26/22 16:46> Vital Signs - 24 hr 09/26/22 16:43 09/26/22 20:35 Temperature 97.4 F 97.8 F Pulse Rate 75 85 Respiratory Rate 18 20 Blood Pressure 91/54 L 178/81 H Pulse Oximetry 96 96 Oxygen Delivery Method Room Air Room Air BMI result Body Mass Index 26.4 Vital signs have been reviewed as appeared to be correct. Blood pressure normal. Heart rate normal. Respiration rate normal. Temperature normal. Oxygen saturation normal. <Tana Escobar MD - Last Filed: 09/26/22 20:50> Appearance: Alert. Oriented X3. No acute distress. Head: Normal external exam. Normocephalic. Atraumatic. No Fuller signs noted. No raccoon eyes noted Eyes: PERRLA. EOMI. Conjunctiva and sclera normal. Eyelids normal. ENT: TM's Normal. Pharynx normal. Uvula midline. Moist mucous membranes. No trismus noted. No drooling noted. No muffled voice noted. Neck: Normal inspection. Neck supple. FROM. No adenopathy. Thyroid Normal. No meningeal signs. No neck mass noted. CVS: Normal heart rate and rhythm. Heart sound normal. No murmurs noted. Pulses normal throughout. Respiratory: No respiratory distress. Painless inspiration. Breath sounds normal. No wheezes/rales/rhonchi noted. Chest nontender. No accessory muscle usage noted or decreased air movement noted. Abdomen: Soft and nontender. Bowel sounds normal in all 4 quadrants. No distention noted. No organomegaly noted. No visible injury noted. Back: No CVA tenderness. Full range of motion noted. Skin: Skin warm and dry. Normal skin color. Normal skin turgor. No rashes/lesions/lacerations noted. Extremities: No lower extremity edema. Extremities exhibit normal range of motion. Extremities nontender. Neuro: Oriented X 3. Cranial nerve exam: II-XII are grossly intact No motor deficit. No sensory deficit. Reflexes normal. <Tana Escobar MD - Last Filed: 09/26/22 20:50> Course Course Course Narrative: RME - 89 y/o male with history of osteoarthritis on NSAIDs, COPD, dementia who presents to the ER with acute onset of central abdominal pain that radiates to his back along with dizziness, pallor and diaphoresis that started 10 minutes ago while he was in the waiting in the waiting room with his . [place] like he was going to pass out. He had just eaten a sandwich from the cafeteria. No chest pain, SOB or nausea. While in triage pain started to resolve and pallor started to improve, although hyperventilating at times. BP 91/54 which is his baseline BP. Will check EKG, CXR, lab workup. <INES Yepez - Last Filed: 09/26/22 16:46> Reevaluation(s) Reevaluation #1: Patient feels better, no abdominal pain, unremarkable labs including cardiac labs, because the slight elevation of LFTs patient had CTA and ultrasound which shows possible cholelithiasis, patient is asymptomatic now. Vital signs stable will reassure the patient and discharge patient was instructed to return if recurrence of his symptoms or worsening of his symptoms. <Tana Escobar MD - Last Filed: 09/26/22 20:50> Time: 20:48 <Tana Escobar MD - Last Filed: 09/26/22 20:50> Medical Decision Making Differential Diagnosis Differential Diagnoses: The differential diagnosis associated with the presentation includes (Gastritis, passing kidney stone, biliary colic, AAA.) <Tana Escobar MD - Last Filed: 09/26/22 20:50> Lab Data MDM Lab Attestation statement: I reviewed the patient's lab results. <Tana Escobar MD - Last Filed: 09/26/22 20:50> Result Diagrams: 09/26/22 17:07 09/26/22 17:07 <INES Yepez - Last Filed: 09/26/22 16:46> Labs: Lab Results 09/26/22 09/26/22 09/26/22 Range/Units 17:07 17:07 17:07 WBC 6.3 (4.8-10.8) X10*3/uL RBC 4.73 (4.60-5.80) X10*6/uL Hgb 13.8 L (14.0-18.0) g/dl Hct 42.3 (42.0-52.0) % MCV 89.4 (80.0-98.0) fL MCH 29.2 (27.0-33.0) pg MCHC 32.6 (31.0-36.0) g/dl RDW 13.0 (11.0-16.0) % Plt Count 214 (160-400) X10*3/uL MPV 9.9 (9.4-12.4) fL Immature Gran % (Auto) 0.3 (0.0-0.4) % Neut % (Auto) 67.4 (45-73) % Lymph % (Auto) 21.1 (20-40) % [place] % (Auto) 6.7 (2-11) % Eos % (Auto) 3.5 (0-4) % Baso % (Auto) 1.0 (0-2) % Lymph # (Auto) 1.3 (1.2-4.9) X10*3/uL [place] # (Auto) 0.4 (0.1-1.2) X10*3/uL Eos # (Auto) 0.2 (0.0-0.4) X10*3/uL Baso # (Auto) 0.1 (0.0-0.2) X10*3/uL Abs Immat Gran (auto) 0.02 (0.00-0.03) X10*3/uL Absolute Neuts (auto) 4.2 (2.0-8.3) x10*3/uL Absolute Nucleated RBC 0.000 (0.0-0.012) X10*3/uL Nucleated RBC % (auto) 0.0 (0.0-0.2) /100WBC Sodium 141 (135-145) mmol/L Potassium 4.4 (3.3-5.1) mmol/L Chloride 107 (96-108) mmol/L Carbon Dioxide 26 (22-29) mmol/L Anion Gap 12 (12-20) BUN 17 H (9-16) mg/dL Creatinine 1.32 (0.5-1.4) mg/dL Estim Creat Clear Calc 48.3 Estimated GFR 52 Random Glucose 162 H (60-115) mg/dL Calcium 9.5 (8.4-10.2) mg/dL Magnesium 1.6 (1.6-2.6) mg/dL Total Bilirubin 0.9 (0.0-1.0) mg/dL Direct Bilirubin 0.4 (0.0-0.5) mg/dL AST 47 H (5-37) U/L ALT 51 H (0-40) U/L Alkaline Phosphatase 118 H (39-117) U/L Troponin I High Sens 15.2 (<3.5-35.0) ng/L B-Natriuretic Peptide (<100) pg/mL Total Protein 6.2 L (6.5-8.0) g/dL Albumin 4.0 (3.5-5.0) g/dL Lipase 54 (8-78) U/L COVID-19 (KIMMIE) (Negative) COVID-19 Clin Com 09/26/22 09/26/22 Range/Units 17:07 17:07 WBC (4.8-10.8) X10*3/uL RBC (4.60-5.80) X10*6/uL Hgb (14.0-18.0) g/dl Hct (42.0-52.0) % MCV (80.0-98.0) fL MCH (27.0-33.0) pg MCHC (31.0-36.0) g/dl RDW (11.0-16.0) % Plt Count (160-400) X10*3/uL MPV (9.4-12.4) fL Immature Gran % (Auto) (0.0-0.4) % Neut % (Auto) (45-73) % Lymph % (Auto) (20-40) % [place] % (Auto) (2-11) % Eos % (Auto) (0-4) % Baso % (Auto) (0-2) % Lymph # (Auto) (1.2-4.9) X10*3/uL [place] # (Auto) (0.1-1.2) X10*3/uL Eos # (Auto) (0.0-0.4) X10*3/uL Baso # (Auto) (0.0-0.2) X10*3/uL Abs Immat Gran (auto) (0.00-0.03) X10*3/uL Absolute Neuts (auto) (2.0-8.3) x10*3/uL Absolute Nucleated RBC (0.0-0.012) X10*3/uL Nucleated RBC % (auto) (0.0-0.2) /100WBC Sodium (135-145) mmol/L Potassium (3.3-5.1) mmol/L Chloride (96-108) mmol/L Carbon Dioxide (22-29) mmol/L Anion Gap (12-20) BUN (9-16) mg/dL Creatinine (0.5-1.4) mg/dL Estim Creat Clear Calc Estimated GFR Random Glucose (60-115) mg/dL Calcium (8.4-10.2) mg/dL Magnesium (1.6-2.6) mg/dL Total Bilirubin (0.0-1.0) mg/dL Direct Bilirubin (0.0-0.5) mg/dL AST (5-37) U/L ALT (0-40) U/L Alkaline Phosphatase (39-117) U/L Troponin I High Sens (<3.5-35.0) ng/L B-Natriuretic Peptide 159 H (<100) pg/mL Total Protein (6.5-8.0) g/dL Albumin (3.5-5.0) g/dL Lipase (8-78) U/L COVID-19 (KIMMIE) Negative (Negative) COVID-19 Clin Com See Note <INES Yepez - Last Filed: 09/26/22 16:46> Lab Results 09/26/22 09/26/22 09/26/22 Range/Units 17:07 17:07 17:07 WBC 6.3 (4.8-10.8) X10*3/uL RBC 4.73 (4.60-5.80) X10*6/uL Hgb 13.8 L (14.0-18.0) g/dl Hct 42.3 (42.0-52.0) % MCV 89.4 (80.0-98.0) fL MCH 29.2 (27.0-33.0) pg MCHC 32.6 (31.0-36.0) g/dl RDW 13.0 (11.0-16.0) % Plt Count 214 (160-400) X10*3/uL MPV 9.9 (9.4-12.4) fL Immature Gran % (Auto) 0.3 (0.0-0.4) % Neut % (Auto) 67.4 (45-73) % Lymph % (Auto) 21.1 (20-40) % [place] % (Auto) 6.7 (2-11) % Eos % (Auto) 3.5 (0-4) % Baso % (Auto) 1.0 (0-2) % Lymph # (Auto) 1.3 (1.2-4.9) X10*3/uL [place] # (Auto) 0.4 (0.1-1.2) X10*3/uL Eos # (Auto) 0.2 (0.0-0.4) X10*3/uL Baso # (Auto) 0.1 (0.0-0.2) X10*3/uL Abs Immat Gran (auto) 0.02 (0.00-0.03) X10*3/uL Absolute Neuts (auto) 4.2 (2.0-8.3) x10*3/uL Absolute Nucleated RBC 0.000 (0.0-0.012) X10*3/uL Nucleated RBC % (auto) 0.0 (0.0-0.2) /100WBC Sodium 141 (135-145) mmol/L Potassium 4.4 (3.3-5.1) mmol/L Chloride 107 (96-108) mmol/L Carbon Dioxide 26 (22-29) mmol/L Anion Gap 12 (12-20) BUN 17 H (9-16) mg/dL Creatinine 1.32 (0.5-1.4) mg/dL Estim Creat Clear Calc 48.3 Estimated GFR 52 Random Glucose 162 H (60-115) mg/dL Calcium 9.5 (8.4-10.2) mg/dL Magnesium 1.6 (1.6-2.6) mg/dL Total Bilirubin 0.9 (0.0-1.0) mg/dL Direct Bilirubin 0.4 (0.0-0.5) mg/dL AST 47 H (5-37) U/L ALT 51 H (0-40) U/L Alkaline Phosphatase 118 H (39-117) U/L Troponin I High Sens 15.2 (<3.5-35.0) ng/L B-Natriuretic Peptide (<100) pg/mL Total Protein 6.2 L (6.5-8.0) g/dL Albumin 4.0 (3.5-5.0) g/dL Lipase 54 (8-78) U/L COVID-19 (KIMMIE) (Negative) COVID-19 Clin Com 09/26/22 09/26/22 Range/Units 17:07 17:07 WBC (4.8-10.8) X10*3/uL RBC (4.60-5.80) X10*6/uL Hgb (14.0-18.0) g/dl Hct (42.0-52.0) % MCV (80.0-98.0) fL MCH (27.0-33.0) pg MCHC (31.0-36.0) g/dl RDW (11.0-16.0) % Plt Count (160-400) X10*3/uL MPV (9.4-12.4) fL Immature Gran % (Auto) (0.0-0.4) % Neut % (Auto) (45-73) % Lymph % (Auto) (20-40) % [place] % (Auto) (2-11) % Eos % (Auto) (0-4) % Baso % (Auto) (0-2) % Lymph # (Auto) (1.2-4.9) X10*3/uL [place] # (Auto) (0.1-1.2) X10*3/uL Eos # (Auto) (0.0-0.4) X10*3/uL Baso # (Auto) (0.0-0.2) X10*3/uL Abs Immat Gran (auto) (0.00-0.03) X10*3/uL Absolute Neuts (auto) (2.0-8.3) x10*3/uL Absolute Nucleated RBC (0.0-0.012) X10*3/uL Nucleated RBC % (auto) (0.0-0.2) /100WBC Sodium (135-145) mmol/L Potassium (3.3-5.1) mmol/L Chloride (96-108) mmol/L Carbon Dioxide (22-29) mmol/L Anion Gap (12-20) BUN (9-16) mg/dL Creatinine (0.5-1.4) mg/dL Estim Creat Clear Calc Estimated GFR Random Glucose (60-115) mg/dL Calcium (8.4-10.2) mg/dL Magnesium (1.6-2.6) mg/dL Total Bilirubin (0.0-1.0) mg/dL Direct Bilirubin (0.0-0.5) mg/dL AST (5-37) U/L ALT (0-40) U/L Alkaline Phosphatase (39-117) U/L Troponin I High Sens (<3.5-35.0) ng/L B-Natriuretic Peptide 159 H (<100) pg/mL Total Protein (6.5-8.0) g/dL Albumin (3.5-5.0) g/dL Lipase (8-78) U/L COVID-19 (KIMMIE) Negative (Negative) COVID-19 Clin Com See Note <Tana Escobar MD - Last Filed: 09/26/22 20:50> Independent Interpretation I performed an independent interpretation of an: Ultrasound (Gallbladder: cholelithiasis.) and CT Scan (Abdomen: No acute pathology parental) <Tana Escobar MD - Last Filed: 09/26/22 20:50> Radiology Impression Discussion of test interpretation with radiology: I have reviewed the radiologist's reading. <Tana Escobar MD - Last Filed: 09/26/22 20:50> Discharge Plan Discharge Clinical Impression: Abdominal pain <INES Yepez - Last Filed: 09/26/22 16:46> Patient Disposition: Home, Self-Care <INES Yepez - Last Filed: 09/26/22 16:46> Instructions: Acute Abdominal Pain (ED) <INES Yepez - Last Filed: 02/20/23 16:46> Prescriptions: No Action omeprazole 20 mg capsule,delayed release(DR/EC) 20 mg PO DAILY modafinil [Provigil] 200 mg tablet 200 mg PO DAILY terazosin 10 mg capsule 10 mg PO BEDTIME donepezil 10 mg tablet 10 mg PO BID tramadol 50 mg tablet 50 mg PO BID PRN levalbuterol tartrate 45 mcg/actuation HFA aerosol inhaler 2 puff inhalation Q4-6H PRN (Reason: shortness of breath or wheezing) 30 Days Qty: 15 3RF sertraline 50 mg tablet 50 mg PO DAILY Dulera 100-5 mcg/actuation HFA aerosol inhaler 2 puff inhalation BID 30 Days Qty: 13 0RF <INES Yepez - Last Filed: 09/26/22 16:46> Referrals: Bia Singh PA [Primary Care Provider] - Diandra Fuchs MD [Physician] - <INES Yepez - Last Filed: 09/26/22 16:46>
[2022-09-26 17:15] LABS: MANUAL DIFF FLAG NO
[2022-09-26 17:26] LABS: Basophils Absolute Auto 0.1 X10*3/uL (0.0-0.2); Eosinophils Absolute Auto 0.2 X10*3/uL (0.0-0.4); Eosinophils Percent Auto 3.5 % (0-4); Hematocrit 42.3 % (42.0-52.0); Hemoglobin 13.8 g/dl (14.0-18.0); Imm Gran Abs Auto 0.02 X10*3/uL (0.00-0.03); Imm Gran Pct Auto 0.3 % (0.0-0.4); Lymphocytes Absolute Auto 1.3 X10*3/uL (1.2-4.9); Lymphocytes Percent Auto 21.1 % (20-40); Mean Corpuscular HGB Conc 32.6 g/dl (31.0-36.0); Mean Corpuscular Hemoglobin 29.2 pg (27.0-33.0); Mean Corpuscular Volume 89.4 fL (80.0-98.0); Mean Platelet Volume 9.9 fL (9.4-12.4); Monocytes Absolute Auto 0.4 X10*3/uL (0.1-1.2); Monocytes Percent Auto 6.7 % (2-11); Neutrophils Absolute Auto 4.2 x10*3/uL (2.0-8.3); Neutrophils Percent Auto 67.4 % (45-73); Platelet Count 214 X10*3/uL (160-400); Red Blood Count 4.73 X10*6/uL (4.60-5.80); White Blood Count 6.3 X10*3/uL (4.8-10.8)
[2022-09-26 17:37] LABS: COVID-19 Test Negative (Negative); IDNOW Serial# 16C4AD1C
[2022-09-26 17:39] LABS: Alanine Aminotransferase 51 U/L (0-40); Alkaline Phosphatase 118 U/L (39-117); Anion Gap 12 (12-20); Aspartate Amino Transferase 47 U/L (5-37); Bilirubin Direct 0.4 mg/dL (0.0-0.5); Bilirubin Total 0.9 mg/dL (0.0-1.0); Blood Urea Nitrogen 17 mg/dL (9-16); Calcium 9.5 mg/dL (8.4-10.2); Carbon Dioxide 26 mmol/L (22-29); Chloride 107 mmol/L (96-108); Creatinine Clr Calc Pharmacy 48.3; Estimated Glomerular Filt Rate 52; Glucose Random 162 mg/dL (60-115); Lipase 54 U/L (8-78); Magnesium 1.6 mg/dL (1.6-2.6); Potassium 4.4 mmol/L (3.3-5.1); Sodium 141 mmol/L (135-145); Total Protein 6.2 g/dL (6.5-8.0)
[2022-09-26 17:45] LABS: B Type Natriuretic Peptide 159 pg/mL (<100)
[2022-09-26 17:46] LABS: Troponin-I High Sensitivity 15.2 ng/L (<3.5-35.0)
[2022-09-26 20:35] VITALS: BP 178/81; PULSE 85; RESP 20; TEMP 36.6; O2SAT 96
== END 2022-09-26 21:14 | disposition home or self-care (01) ==
PROVIDERS: Physician Assistant; Emergency Provider Emergency Medicine; PCP Physician Assistant Medical
DX: R10.9 Unspecified abdominal pain (principal); F03.90 Unspecified dementia, unspecified severity, without behavioral disturbance, psychotic disturbance, mood disturbance, and anxiety; R06.02 Shortness of breath; M54.50 Low back pain, unspecified; R42 Dizziness and giddiness; Z20.822 Contact with and (suspected) exposure to COVID-19; Z20.828 Contact with and (suspected) exposure to other viral communicable diseases; Z79.899 Other long term (current) drug therapy; Z87.891 Personal history of nicotine dependence
CPT/HCPCS: 36415; 71045; 74176; 76705; 80048; 80076; 83690; 83735; 83880; 84484; 85025; 87635; 93005; 99281; 99283; 99284

== ENCOUNTER → 2022-10-06 13:30 | Outpatient (BNVA) | payer MEDICARE, SELFPAY | PROVIDERS: PCP Internal Medicine; Visit Provider Internal Medicine | DX: G47.33 Obstructive sleep apnea (adult) (pediatric) (principal); J44.9 Chronic obstructive pulmonary disease, unspecified; Z99.89 Dependence on other enabling machines and devices | CPT/HCPCS: 99212 ==

== ENCOUNTER 2022-12-07 08:49 | Outpatient (REF) | payer MEDICARE, SELFPAY ==
[2022-12-07 11:14] LABS: MANUAL DIFF FLAG NO
[2022-12-07 11:28] LABS: Basophils Absolute Auto 0.1 X10*3/uL (0.0-0.2); Basophils Percent Auto 1.5 % (0-2); Eosinophils Absolute Auto 0.3 X10*3/uL (0.0-0.4); Eosinophils Percent Auto 4.8 % (0-4); Hematocrit 46.7 % (42.0-52.0); Imm Gran Abs Auto 0.01 X10*3/uL (0.00-0.03); Imm Gran Pct Auto 0.2 % (0.0-0.4); Lymphocytes Absolute Auto 1.8 X10*3/uL (1.2-4.9); Lymphocytes Percent Auto 33.8 % (20-40); Mean Corpuscular HGB Conc 32.1 g/dl (31.0-36.0); Mean Corpuscular Volume 87.1 fL (80.0-98.0); Mean Platelet Volume 9.9 fL (9.4-12.4); Monocytes Absolute Auto 0.5 X10*3/uL (0.1-1.2); Monocytes Percent Auto 10.3 % (2-11); Neutrophils Absolute Auto 2.6 x10*3/uL (2.0-8.3); Neutrophils Percent Auto 49.4 % (45-73); Platelet Count 208 X10*3/uL (160-400); Red Blood Count 5.36 X10*6/uL (4.60-5.80); Red Cell Distribution Width 13.2 % (11.0-16.0); White Blood Count 5.2 X10*3/uL (4.8-10.8)
[2022-12-07 12:12] LABS: Alanine Aminotransferase 13 U/L (0-40); Albumin Level 4.3 g/dL (3.5-5.0); Alkaline Phosphatase 70 U/L (39-117); Anion Gap 10 (12-20); Aspartate Amino Transferase 23 U/L (5-37); Bilirubin Total 0.6 mg/dL (0.0-1.0); Blood Urea Nitrogen 23 mg/dL (9-16); Calcium 9.8 mg/dL (8.4-10.2); Carbon Dioxide 29 mmol/L (22-29); Chloride 108 mmol/L (96-108); Cholesterol 226 mg/dL; Estimated Glomerular Filt Rate 44; Glucose Fasting 98 mg/dL (60-99); HDL Cholesterol 52 mg/dL; LDL Cholesterol Calculated 154 mg/dl; Potassium 4.4 mmol/L (3.3-5.1); Sodium 143 mmol/L (135-145); Total Protein 6.8 g/dL (6.5-8.0); Triglycerides 104 mg/dL
[2022-12-07 12:16] LABS: Thyroid Stimulating Hormone 2.51 uIU/mL (0.32-4.0)
== END 2022-12-07 08:50 | disposition home or self-care (01) ==
LOC: HO.HMGCLDS 08:49
PROVIDERS: PCP Internal Medicine; Visit Provider Internal Medicine
DX: M15.0 Primary generalized (osteo)arthritis (principal); N40.1 Benign prostatic hyperplasia with lower urinary tract symptoms; R41.3 Other amnesia; F41.9 Anxiety disorder, unspecified; E78.00 Pure hypercholesterolemia, unspecified
CPT/HCPCS: 36415; 80053; 80061; 84443; 85025

== ENCOUNTER 2022-12-23 09:10 | Inpatient (IN) | payer MEDICARE, SELFPAY ==
[2022-12-23] VITALS (12 sets, daily range): BP systolic 93–118; BP diastolic 48–64; PULSE 69–89; RESP 15–18; TEMP 36.6–37.2; O2SAT 92–96; BMI 28.3; BMI 28.0
--- NOTE | ~2022-12-23 | XR_ITS ---
EXAMINATION: XR KNEE, RIGHT CLINICAL INFORMATION: Fall, swelling COMPARISON: None available. TECHNIQUE: Four views of the right knee. FINDINGS: Loss of tricompartment joint space with moderate periarticular spurring. There is calcification of the articular cartilage likely chondrocalcinosis. There is mild calcification seen superior to patella likely patellar tendon. No acute fracture or dislocation seen. XR/XR knee RT 4V IMPRESSION: Degenerative changes right knee. No visible acute fracture, dislocation or suprapatellar joint effusion.
--- NOTE | ~2022-12-23 | XR_ITS ---
EXAMINATION: XR FOREARM, RIGHT CLINICAL INFORMATION: Status post fall, ecchymosis. COMPARISON: None available. TECHNIQUE: AP and lateral views of the right forearm were obtained. An indicator arrow points to the mid diaphysis of the radius. FINDINGS: The radius and ulna are intact. Mild right elbow and mild to moderate right wrist degenerative joint changes are noted. The soft tissues are unremarkable. XR/XR forearm RT 2V IMPRESSION: 1. No acute fracture. 2. Mild right elbow and mild to moderate right wrist degenerative joint changes.
--- NOTE | ~2022-12-23 | CT_ITS ---
EXAMINATION: CT ABDOMEN AND PELVIS WITH CONTRAST CLINICAL INFORMATION: Abnormal labs. COMPARISON: CT abdomen and pelvis 09/26/2022 and 11/15/2021 TECHNIQUE: Multidetector volumetric images were obtained from the superior aspect of the liver through the pubic symphysis following administration 85 mL of Omnipaque 350 intravenous contrast. Sagittal and coronal reformatted images were obtained on the technologist's workstation. Oral contrast: No This CT examination was performed using dose optimization techniques as appropriate, variously including the following: *Automated exposure control *Adjustment of mA and/or kV according to patient size (this includes techniques or standardized protocols for targeted exams where dose is matched to indication/reason for exam; i.e. extremities or head) *Use of iterative reconstruction technique DLP: 629 mGy-cm FINDINGS: LUNG BASES: Minimal atelectatic changes or scarring seen in both lung bases. There is a small hiatal hernia. LIVER, GALLBLADDER, AND BILIARY TREE: The liver is normal in size, shape, and attenuation. No focal hepatic lesion or biliary ductal dilatation is present. The gallbladder is distended with mild luis gallbladder haziness/fat stranding but no radiopaque stones visualized. There are several hypodense stones seen in the distal CBD largest measuring 6 mm on sagittal image 78/7. Mild CBD dilatation is seen measuring 1 cm. PANCREAS: The pancreas is homogeneous in density and appears unremarkable. There is a small duodenal diverticulum suspected at the insertion of pancreatic duct SPLEEN: Unremarkable. ADRENAL GLANDS: Unremarkable. KIDNEYS AND URETERS: The kidneys are normal in size, shape, and attenuation. No hydronephrosis, hydroureter, or calculi seen. No perinephric stranding. There are bilateral cortical and parapelvic renal cyst. Largest cyst is visualized in the upper pole left kidney and peripelvic regions BLADDER: The bladder is distended. GASTROINTESTINAL TRACT: There is scattered stool, diverticula and gas seen throughout the colon without distention or diverticulitis. The small bowel loops are normal caliber. Appendix is normal caliber. No free air or inflammatory process seen. Air ABDOMINAL WALL: There is a small umbilical hernia containing fat. LYMPH NODES: No abnormal pelvic or inguinal lymph nodes seen. VASCULAR: Unremarkable. PELVIC VISCERA: There is atrophy of the left proximal ileal psoas muscle with a calcified density in the iliac crests and the psoas muscle likely old trauma and hemorrhage. It is unchanged in size and density from previous study 09/26/2022 and 11/15/2021. The lower pelvis is limited evaluation due to beam hardening artifact from bilateral hip prosthesis. OSSEOUS STRUCTURES: There is bilateral hip prosthesis in satisfactory alignment. There are degenerative disc changes with vacuum disc phenomenon at all lumbar disc levels. No visible acute fracture, dislocation or lytic process seen. CT/CT abdomen pelvis w IV con IMPRESSION: Distended gallbladder with mild pericolic haziness and mild prominence of CBD likely from obstructive distal CBD stones. Multiple bilateral cortical and peripelvic renal cysts. No hydronephrosis or radiopaque calculi. Colonic diverticulosis without diverticulitis. Normal appendix. Chronic left proximal ileal psoas atrophy with calcification likely previous injury or old hematoma. It is stable compared to 11/15/2021. Fleischner guidelines were followed.
--- NOTE | ~2022-12-23 | XR_ITS ---
EXAMINATION: XR CHEST CLINICAL INFORMATION: Multiple falls, rule out traumatic injury. COMPARISON: 09/26/2022 chest radiograph. TECHNIQUE: 2 views of the chest were obtained. FINDINGS: No significant abnormality is noted involving the heart, lungs, mediastinum, bony thorax or soft tissues. XR/XR chest 2V IMPRESSION: No acute cardiopulmonary process. No evidence for overt acute traumatic injury.
--- NOTE | ~2022-12-23 | XR_ITS ---
EXAMINATION: XR SHOULDER, RIGHT CLINICAL INFORMATION: Right shoulder pain with palpation status post fall. COMPARISON: Left shoulder radiographs dated 11/12/2020. TECHNIQUE: AP external rotation, Grashey, scapular Y, and axillary views of the right shoulder. FINDINGS: Moderate to severe right glenohumeral and moderate right acromioclavicular degenerative joint changes are seen. There is no acute fracture or dislocation. The visualized right ribs are intact. Mild calcifications are seen at the insertion of the rotator cuff on the greater tuberosity. The soft tissues are unremarkable. XR/XR shoulder RT min 2V IMPRESSION: Moderate to severe right glenohumeral and moderate right acromioclavicular degenerative joint changes. No acute fracture.
--- NOTE | ~2022-12-23 | CT_ITS ---
EXAMINATION: CT brain, CT cervical spine without contrast. Left wrist x-ray. CLINICAL INDICATION: Fall and swelling and headache. COMPARISON: CT brain 11/05/2018. TECHNIQUE: 5 mm thin axial and reformatted 2 mm thin sagittal and coronal images of cervical spine were obtained. Subsequently axial 3 mm thin and reformatted 2 mm thin sagittal and coronal images of cervical spine were obtained. DLP [address] examination was performed using dose optimization technique as appropriate, variously including the following: Automated exposure control Adjustment of MA and/or KV according to patient size(this includes techniques or standardized protocols for targeted exams where dose is matched to indication/reason for exam; extremities or head. Use of iterative reconstruction techniques. FINDINGS: BRAIN: There is no acute intra-axial, extra-axial bleed, masses or midline shift. There is no acute infarction in evolution. There is no edema. There is diffuse periventricular hypodensity in both cerebral hemispheres without mass effect. The lateral ventricles are symmetrical in size and configuration but mildly enlarged. Mild atherosclerosis of basilar artery is noted. Bone windows reveal no calvarial abnormality. There is no scalp soft tissue abnormality either. The paranasal sinuses and mastoid air cells are well-aerated. CERVICAL SPINE: There is mild straightening of cervical lordosis. The vertebral heights and alignment is normal. There is loss of C5-C6, C6-C7 disc heights with mild ventral and posterior cervical spondylosis. . Rest of the disc heights are normal. The craniovertebral junction and the C1-C2 alignment is normal. C2-C3, C3-C4 and C4-C5 facet joint arthropathy and hypertrophy. The prevertebral and paravertebral soft tissues are normal. LEFT WRIST: There is severe loss of radiocarpal joint space with moderate periarticular enthesophytes. There is mild osteopenia. No acute fracture or dislocation seen. The soft tissues are normal. CT/CT cervical spine wo IV con IMPRESSION: No acute intracranial process seen. Mild straightening of cervical lordosis likely spasm. There are degenerative disc changes and spondylosis as described above. No acute fracture or dislocation seen. Severe degenerative changes left wrist joint. No visible acute fracture or dislocation seen.
--- NOTE | 2022-12-23 09:24 | ED_ITS ---
HPI - General Adult General Chief complaint: Fall Stated complaint: fall trying to grab walker per ems Time Seen by Provider: 12/23/22 09:12 Source: patient, family, EMS, RN notes reviewed and old records reviewed Mode of arrival: EMS Limitations: no limitations History of Present Illness HPI narrative: Patient is an 82-year-old male with history of osteoarthritis, KIMBERLEY, and COPD, not anticoagulated, presenting with right shoulder, right forearm and left wrist pain after a fall at home this morning. Patient states that he was ambulating with his walker when the walker slipped, causing him to fall into the side of a closet as well as his 's sewing table. Patient's states that the sound of the patient following woke her from sleep. She denies any loss of consciousness this morning. Patient states I think I might have been dizzy right before I fell, but I can't remember. reports that patient fell outdoors yesterday afternoon as well. Patient states that he went outside to bring a bottle of water to the workers mowing his lawn, and as he was walking back up his cement stairs he fell around the railing onto rocks. reports that she was inside the condo when happened but does not believe the patient had a loss of consciousness as he returned back into the house. Patient states he is also unsure what caused this fall yesterday. Patient states he feels as though his mouth is extremely dry and this is affecting his speech. He denies any chest pain or shortness of breath, denies any abdominal pain, nausea, vomiting, diarrhea. MD complaint: fall from standing Onset (ago): hour(s) Location: upper extremity Quality: aching Pain Consistency: constant Relieving factors: rest Exacerbating factors: movement Treatments prior to arrival: none Related Data Home Medications Medication Instructions Recorded Confirmed modafinil 200 mg tablet (Provigil) 200 mg PO DAILY 08/18/20 12/23/22 omeprazole 20 mg capsule,delayed 20 mg PO DAILY 08/18/20 12/23/22 release terazosin 10 mg capsule 10 mg PO BID 12/28/20 12/23/22 sertraline 50 mg tablet 50 mg PO DAILY 07/12/22 12/23/22 donepezil 10 mg tablet 10 mg PO DAILY 12/23/22 12/23/22 indomethacin 50 mg capsule 100 mg PO BID 12/23/22 12/23/22 memantine 10 mg tablet 10 mg PO BID 12/23/22 12/23/22 Previous Rx's Medication Instructions Recorded albuterol sulfate 90 mcg/actuation 2 puff inhalation Q4-6H PRN 10/06/22 aerosol inhaler shortness of breath or wheezing 90 days #8.5 grams Allergies Allergy/AdvReac Type Severity Reaction Status Date / Time lisinopril [LISINOPRIL] Allergy Mild HEADACHES Verified 10/06/22 13:51 amoxicillin [AMOXICILLIN] Allergy Unknown UNKNOWN Verified 10/06/22 13:51 Sulfa (Sulfonamide Allergy Unknown UNKNOWN Verified 10/06/22 13:51 Antibiotics) [SULFA (SULFONAMIDE ANTIBIOTICS)] Review of Systems Review of Systems: Yes all other systems are reviewed and are negative Constitutional: Constitutional: Denies chills, Denies fatigue, Denies fever(s), Reports frequent falls, Denies headache(s), Denies lethargy and Denies weakness Eyes: Eyes: Reports no additional eye complaints and Denies loss of vision ENT: Reports system reviewed and no additional complaints, except as documented, Reports dizziness and Denies headache(s) Cardiovascular: Cardiovascular: Denies chest pain, Denies Epigastric Pain, Denies rapid heart rate, Denies irregular heart rhythm, Denies lightheadedness, Denies Loss of Consciousness, Denies dyspnea and Denies dyspnea on exertion Respiratory: Respiratory: Reports no additional respiratory complaints, Denies cough, Denies dyspnea and Denies dyspnea on exertion Gastrointestinal: Gastrointestinal: Reports no additional gastrointestinal complaints Genitourinary: Genitourinary: Reports no additional male genitourinary complaints Musculoskeletal: Musculoskeletal: Reports as per HPI Integumentary/Breasts: Skin/Breast: Reports system reviewed and no additional complaints, except as docu Neurologic: Reports Abnormal speech present, Denies confusion, Reports dizziness, Reports frequent falls, Denies headache(s), Denies focal weakness, Denies loss of vision, Denies Other visual disturbances, Denies Sensory deficit (Neuro) and Denies weakness Psychiatric: Psychiatric: Reports no additional psychiatric complaints and Denies confusion Endocrine: Endocrine: Reports no additional endocrine complaints and Denies fatigue Hematologic/Lymphatic: Hematologic/Lymphatic: Reports no additional hematologic/lymphatic complaints Allergic/Immunologic: Allergic/Immunologic: Reports no additional allergic/immunologic complaints PMFSH Past Medical History Medical History COPD (chronic obstructive pulmonary disease) Dyspnea on exertion KIMBERLEY on CPAP Social History Social History Alcohol intake: never Patient Tobacco Use Status: Former Tobacco user Smoked in Last 30 Days: No Use of substances other than those prescribed or required for medical reasons: Yes Substance Use Type: Marijuana Advance Directives: Yes Advance Directives Information Provided: Yes Advance Directives on File: No Physical Exam ED Vital Signs: Vital Signs - 24 hr 12/23/22 09:19 12/23/22 10:12 12/23/22 12:17 Temperature 98.9 F Pulse Rate 88 78 76 Respiratory Rate 16 15 16 Blood Pressure 111/64 104/61 102/60 Pulse Oximetry 94 96 93 Oxygen Delivery Method Room Air Room Air Room Air BMI result Body Mass Index 28.3 Vital signs have been reviewed and appear to be correct. Blood pressure normal. Heart rate normal. Respiratory rate normal. Temperature normal. Oxygen saturation normal. Const General: cooperative; No confusion Orientation/consciousness: patient oriented x3 and No confusion Limitations: no limitations HENDE Head: Yes normal to inspection, No No palpable skull fracture present, Yes normocephalic, Yes atraumatic, No Fuller's sign, No contusion, No hematoma, No laceration, No raccoon eyes, No scalp tenderness and No periorbital ecchymosis Ears: external ears normal and TM's normal bilaterally General nose exam: Normal external nose present Face and sinus: Yes face symmetric Mouth: oropharynx normal and moist mucous membranes abnormal (dry) Throat: Yes uvula midline Eyes Pupils: Equal, round and reactive pupils present Neck Neck: Yes normal visual inspection, Yes full ROM, Yes supple and No midline deformity Chest Chest palpation & inspection: normal inspection of the chest and normal palpation of entire chest wall Resp Effort & Inspection: normal respiratory effort and able to speak in complete sentences Auscultation: clear to auscultation bilaterally Cardio Rate: regular rate Rhythm: regular rhythm Heart sounds: S1 normal heart sound present and S2 normal heart sound present GI Inspection: Yes normal to inspection Palpation (GI): Soft to palpation, nontender, no guarding and No Rebound tenderness present Auscultation: normoactive bowel sounds General: Yes no CVA tenderness Back/Spine/Pelvis Back: no CVA tenderness and No ecchymosis Cervical Spine: cervical ROM normal, No collar present, No Cervical spine tenderness and No step off deformity Thoracic/Lumbar Spine: No thoracic spinal tenderness and No lumbar spinal tenderness Pelvis: no pain with anterior-posterior compression and no pain with lateral co mpression Skin General skin exam: elasticity normal and turgor normal Neuro General: patient oriented x3, tone normal, moves all extremities, Normal light touch and pain sensation, CN's II-XI intact bilaterally, No confusion and Unable to assess gait Cranial nerves: Yes Equal, round and reactive pupils present Cognition (Neuro): normal cognition Speech: Abnormal speech present Gait exam (Neuro): Unable to assess gait Motor exam (neuro): 5/5 motor strength present throughout, Pronator motor function not present, no tremor noted, Motor fasciculations not present and Normal motor muscle tone present throughout Sensory Exam: No Sensory deficit (Neuro) Coordination: [id number] test normal Pupils: Normal pupillary reactivity/response: bilateral Extrem General: Yes full ROM, Yes no pedal edema and Yes no calf tenderness Right upper extremity: normal to inspection, shoulder/upper arm Details: tenderness, elbow/forearm Details: tenderness Location: of the mid-shaft forearm; not of the lateral epicondyle and not of the medial epicondyle, normal ROM and ecchymosis forearm mid anterior and Extremity exam: right hand Details: normal capillary refill and normal ROM of fingers Left upper extremity: full ROM, normal capillary refill and wrist distal ulna Details: swelling Location: of the dorsal wrist, normal ROM, abrasion distal ulna - wrist distal lateral and normal vascular exam; no ecchymosis Psych Mental Status: mental status grossly normal Affect: normal affect Thought process: Normal thought process present Course Course Course Narrative: 1015 Rectal exam performed, chaperoned by Hanane Diaz RN. No danny blood or dark, tarry stool noted. Specimen sent to lab. Mag 1.3, 2g IV ordered. FINDINGS: The radius and ulna are intact. Mild right elbow and mild to moderate right wrist degenerative joint changes are noted. The soft tissues are unremarkable. XR/XR forearm RT 2V IMPRESSION: 1.? No acute fracture. 2.? Mild right elbow and mild to moderate right wrist degenerative joint changes. FINDINGS: Moderate to severe right glenohumeral and moderate right acromioclavicular degenerative joint changes are seen. There is no acute fracture or dislocation. The visualized right ribs are intact. Mild calcifications are seen at the insertion of the rotator cuff on the greater tuberosity. The soft tissues are unremarkable.? XR/XR shoulder RT min 2V IMPRESSION: Moderate to severe right glenohumeral and moderate right acromioclavicular degenerative joint changes. No acute fracture.? FINDINGS: No significant abnormality is noted involving the heart, lungs, mediastinum, bony thorax or soft tissues. XR/XR chest 2V IMPRESSION: No acute cardiopulmonary process. No evidence for overt acute traumatic injury. Significant drop in H&H and elevated LFTs from prior labs on 12/07/22, occult stool sample positive, will obtain CT abdomen pelvis, concern for GI bleed, malignancy/mass. FINDINGS: BRAIN: There is no acute intra-axial, extra-axial bleed, masses or midline shift. There is no acute infarction in evolution. There is no edema. There is diffuse periventricular hypodensity in both cerebral hemispheres without mass effect. The lateral ventricles are symmetrical in size and configuration but mildly enlarged. Mild atherosclerosis of basilar artery is noted. Bone windows reveal no calvarial abnormality. There is no scalp soft tissue abnormality either. The paranasal sinuses and mastoid air cells are well-aerated. CERVICAL SPINE: There is mild straightening of cervical lordosis. The vertebral heights and alignment is normal. There is loss of C5-C6, C6-C7 disc heights with mild ventral and posterior cervical spondylosis. . Rest of the disc heights are normal. The craniovertebral junction and the C1-C2 alignment is normal. C2-C3, C3-C4 and C4-C5 facet joint arthropathy and hypertrophy. The prevertebral and paravertebral soft tissues are normal. LEFT WRIST: There is severe loss of radiocarpal joint space with moderate periarticular enthesophytes. There is mild osteopenia. No acute fracture or dislocation seen. The soft tissues are normal. XR/XR wrist LT 2V IMPRESSION: No acute intracranial process seen. ? Mild straightening of cervical lordosis likely spasm. There are degenerative disc changes and spondylosis as described above. No acute fracture or dislocation seen. ? Severe degenerative changes left wrist joint. No visible acute fracture or dislocation seen. 11:[address] Beaver regarding results of CT abd/pelvis. Patient's now reporting that patient has been taking 5mg THC gummies for the past 4 months for his osteoarthritis. She also reports that patient's speech seemed as though he has a dry mouth yesterday afternoon but seems worse today. 12:[address] Beaver via telephone who feels patient could be admitted for ERCP or be seen in the office on Monday as he is not currently having abdominal pain, feels patient will also need a colonoscopy to assess for GI bleed causing his anemia. 13:10 Patient now complaining of right knee pain, states is unable to fully extend knee, x-ray ordered. Given patient's symptomatic anemia, feel he should be admitted at this time. Tigertexted Dr. Rhodes for admission. FINDINGS: Loss of tricompartment joint space with moderate periarticular spurring. There is calcification of the articular cartilage likely chondrocalcinosis. There is mild calcification seen superior to patella likely patellar tendon. No acute fracture or dislocation seen. XR/XR knee RT 4V IMPRESSION: Degenerative changes right knee. No visible acute fracture, dislocation or suprapatellar joint effusion. Medications Administered Discontinued Medications Generic Name Dose Route Start Last Admin Trade Name Freq PRN Reason Stop Dose Admin Magnesium Sulfate 2 gm in 50 mls @ 25 mls/hr 12/23/22 10:13 12/23/22 12:28 Magnesium Sulfate/H2o IV 12/23/22 12:12 Infused ONCE ONE Infusion Iohexol 85 ml 12/23/22 10:59 12/23/22 11:00 Iohexol 350 Mg/Ml 100 Ml Infus..Btl IV 12/23/22 11:00 85 ml ONCE ONE Administration Medical Decision Making Medical Decision Making MDM Narrative: Patient is an 82-year-old male with history of osteoarthritis and COPD presenting with right shoulder, right forearm and left wrist pain after a fall at home this morning. On exam patient is awake, A+Ox3, dry mucous membranes, no focal neurological findings, tenderness to palpation of right shoulder, ecchymosis and tenderness to right forearm, and swelling with minor abrasion to left wrist. Given patient's report of multiple falls preceded by episodes of dizziness, concern for ICH/CVA, anemia, infection, dehydration. Less likely carotid dissection, BPPV, labrynthitis, Meniere's. Plan: labs including troponin, PT/INR, UA, CXR, CT head and neck, extremity x- rays Please refer to course for remaining clinical decision making. Differential Diagnosis Differential Diagnoses: The differential diagnosis associated with the presentation includes As above Lab Data MDM Lab Attestation statement: I reviewed the patient's lab results. 12/23/22 09:41 12/23/22 09:41 Labs: Lab Results 12/23/22 12/23/22 12/23/22 Range/Units 09:41 09:41 09:41 WBC 7.9 (4.8-10.8) X10*3/uL RBC 4.54 L (4.60-5.80) X10*6/uL Hgb 12.9 L (14.0-18.0) g/dl Hct 39.6 L (42.0-52.0) % MCV 87.2 (80.0-98.0) fL MCH 28.4 (27.0-33.0) pg MCHC 32.6 (31.0-36.0) g/dl RDW 13.2 (11.0-16.0) % Plt Count 152 L D (160-400) X10*3/uL MPV 9.5 (9.4-12.4) fL Immature Gran % (Auto) 0.4 (0.0-0.4) % Neut % (Auto) 91.0 H (45-73) % Lymph % (Auto) 2.5 L (20-40) % [place] % (Auto) 5.4 (2-11) % Eos % (Auto) 0.3 (0-4) % Baso % (Auto) 0.4 (0-2) % Lymph # (Auto) 0.2 L (1.2-4.9) X10*3/uL [place] # (Auto) 0.4 (0.1-1.2) X10*3/uL Eos # (Auto) 0.0 (0.0-0.4) X10*3/uL Baso # (Auto) 0.0 (0.0-0.2) X10*3/uL Abs Immat Gran (auto) 0.03 (0.00-0.03) X10*3/uL Absolute Neuts (auto) 7.2 (2.0-8.3) x10*3/uL Absolute Nucleated RBC 0.000 (0.0-0.012) X10*3/uL Nucleated RBC % (auto) 0.0 (0.0-0.2) /100WBC Smear Tech's Comments VERIFIED PT 12.3 (10.0-13.1) SEC INR 1.1 (0.9-1.1) Sodium (135-145) mmol/L Potassium (3.3-5.1) mmol/L Chloride (96-108) mmol/L Carbon Dioxide (22-29) mmol/L Anion Gap (12-20) BUN (9-16) mg/dL Creatinine (0.5-1.4) mg/dL Estim Creat Clear Calc Estimated GFR Random Glucose (60-115) mg/dL Calcium (8.4-10.2) mg/dL Magnesium (1.6-2.6) mg/dL Total Bilirubin (0.0-1.0) mg/dL AST (5-37) U/L ALT (0-40) U/L Alkaline Phosphatase (39-117) U/L Troponin I High Sens 16.7 (<3.5-35.0) ng/L Total Protein (6.5-8.0) g/dL Albumin (3.5-5.0) g/dL Urine Color Urine Appearance Urine pH (5.0-9.0) Ur Specific [place] (1.005-1.025) Urine Protein (Neg-Trace) mg/dL Urine Glucose (UA) (Negative) mg/dL Urine Ketones (Negative) mg/dL Urine Blood (Negative) Urine Nitrite (Negative) Ur Leukocyte Esterase (Negative) Urine RBC (0-2) /HPF Urine WBC (0-5) /HPF Ur Squamous Epith Cells (0-2) /HPF Urine Bacteria (None Seen) Hyaline Casts (0-2) /LPF Stool Occult Blood (NEGATIVE) 12/23/22 12/23/22 12/23/22 Range/Units 09:41 10:17 11:13 WBC (4.8-10.8) X10*3/uL RBC (4.60-5.80) X10*6/uL Hgb (14.0-18.0) g/dl Hct (42.0-52.0) % MCV (80.0-98.0) fL MCH (27.0-33.0) pg MCHC (31.0-36.0) g/dl RDW (11.0-16.0) % Plt Count (160-400) X10*3/uL MPV (9.4-12.4) fL Immature Gran % (Auto) (0.0-0.4) % Neut % (Auto) (45-73) % Lymph % (Auto) (20-40) % [place] % (Auto) (2-11) % Eos % (Auto) (0-4) % Baso % (Auto) (0-2) % Lymph # (Auto) (1.2-4.9) X10*3/uL [place] # (Auto) (0.1-1.2) X10*3/uL Eos # (Auto) (0.0-0.4) X10*3/uL Baso # (Auto) (0.0-0.2) X10*3/uL Abs Immat Gran (auto) (0.00-0.03) X10*3/uL Absolute Neuts (auto) (2.0-8.3) x10*3/uL Absolute Nucleated RBC (0.0-0.012) X10*3/uL Nucleated RBC % (auto) (0.0-0.2) /100WBC Smear Tech's Comments PT (10.0-13.1) SEC INR (0.9-1.1) Sodium 141 (135-145) mmol/L Potassium 4.3 (3.3-5.1) mmol/L Chloride 111 H (96-108) mmol/L Carbon Dioxide 24 (22-29) mmol/L Anion Gap 10 L (12-20) BUN 21 H (9-16) mg/dL Creatinine 1.36 (0.5-1.4) mg/dL Estim Creat Clear Calc 50.2 Estimated GFR 50 Random Glucose 87 (60-115) mg/dL Calcium 8.8 D (8.4-10.2) mg/dL Magnesium 1.3 L* (1.6-2.6) mg/dL Total Bilirubin 3.7 H (0.0-1.0) mg/dL AST 270 H (5-37) U/L ALT 248 H (0-40) U/L Alkaline Phosphatase 147 H (39-117) U/L Troponin I High Sens (<3.5-35.0) ng/L Total Protein 5.6 L (6.5-8.0) g/dL Albumin 3.5 (3.5-5.0) g/dL Urine Color Dark Yellow Urine Appearance Clear Urine pH 5.5 (5.0-9.0) Ur Specific [place] 1.020 (1.005-1.025) Urine Protein Negative (Neg-Trace) mg/dL Urine Glucose (UA) Negative (Negative) mg/dL Urine Ketones Negative (Negative) mg/dL Urine Blood Negative (Negative) Urine Nitrite Negative (Negative) Ur Leukocyte Esterase Small (1+) H (Negative) Urine RBC 0-2 (0-2) /HPF Urine WBC 0-5 (0-5) /HPF Ur Squamous Epith Cells 0-2 (0-2) /HPF Urine Bacteria None Seen (None Seen) Hyaline Casts 0-2 (0-2) /LPF Stool Occult Blood POSITIVE (NEGATIVE) Independent Interpretation I performed an independent interpretation of an: EKG, Plain X-Ray and CT Scan Interpretation: EKG: normal sinus rhythm, rate 78bpm, normal QTc; I independently reviewed the x-rays and CTs and agree with the radiologist's interpretation. Radiology Impression Discussion of test interpretation with radiology: I have reviewed the radiologist's reading. Radiologist Impression: See course Independent Historian Clinical information obtained from an independent historian. History obtained from or confirmed by: Spouse and EMS External Record Review External record reviewed: Inpatient record, Office record and Outpatient record Chronic Conditions Patient?s care impacted by: Other (osteoarthritis, COPD, KIMBERLEY) Discharge Plan Discharge Clinical Impression: Anemia, Falls, Occult blood positive stool Patient Disposition: Admitted As Inpatient
--- NOTE | 2022-12-23 09:26 | ECG_ITS ---
Test Reason : fall Blood Pressure : / mmHG Vent. Rate : 078 BPM Atrial Rate : 078 BPM P-R Int : 206 ms QRS Dur : 088 ms QT Int : 376 ms P-R-T Axes : 057 003 000 degrees QTc Int : 428 ms Normal sinus rhythm Normal ECG When compared with ECG of 26-SEP-2022 16:51, No significant change was found Referred By: Dave Gould Electronically Signed By:Bret Martinez
[2022-12-23 09:47] LABS: Basophils Percent Auto 0.4 % (0-2); Eosinophils Percent Auto 0.3 % (0-4); Hematocrit 39.6 % (42.0-52.0); Hemoglobin 12.9 g/dl (14.0-18.0); Imm Gran Abs Auto 0.03 X10*3/uL (0.00-0.03); Imm Gran Pct Auto 0.4 % (0.0-0.4); Lymphocytes Absolute Auto 0.2 X10*3/uL (1.2-4.9); Lymphocytes Percent Auto 2.5 % (20-40); MANUAL DIFF FLAG SCAN; Mean Corpuscular HGB Conc 32.6 g/dl (31.0-36.0); Mean Corpuscular Hemoglobin 28.4 pg (27.0-33.0); Mean Corpuscular Volume 87.2 fL (80.0-98.0); Mean Platelet Volume 9.5 fL (9.4-12.4); Monocytes Absolute Auto 0.4 X10*3/uL (0.1-1.2); Monocytes Percent Auto 5.4 % (2-11); Neutrophils Absolute Auto 7.2 x10*3/uL (2.0-8.3); Platelet Count 152 X10*3/uL (160-400); Red Blood Count 4.54 X10*6/uL (4.60-5.80); Red Cell Distribution Width 13.2 % (11.0-16.0); SCAN SMEAR FLAG 1; White Blood Count 7.9 X10*3/uL (4.8-10.8)
[2022-12-23 09:57] LABS: INTERNATIONAL NORM RATIO 1.1 (0.9-1.1); Prothrombin Time 12.3 SEC (10.0-13.1)
[2022-12-23 10:04] LABS: Alanine Aminotransferase 248 U/L (0-40); Albumin Level 3.5 g/dL (3.5-5.0); Alkaline Phosphatase 147 U/L (39-117); Anion Gap 10 (12-20); Aspartate Amino Transferase 270 U/L (5-37); Bilirubin Total 3.7 mg/dL (0.0-1.0); Blood Urea Nitrogen 21 mg/dL (9-16); Calcium 8.8 mg/dL (8.4-10.2); Carbon Dioxide 24 mmol/L (22-29); Chloride 111 mmol/L (96-108); Creatinine Clr Calc Pharmacy 50.2; Estimated Glomerular Filt Rate 50; Glucose Random 87 mg/dL (60-115); Magnesium 1.3 mg/dL (1.6-2.6); Potassium 4.3 mmol/L (3.3-5.1); Sodium 141 mmol/L (135-145); Total Protein 5.6 g/dL (6.5-8.0)
[2022-12-23 10:09] LABS: Troponin-I High Sensitivity 16.7 ng/L (<3.5-35.0)
[2022-12-23] MEDS: Magnesium Sulfate/H2O 2 GM/50 ML PIGGYBACK IV ×2 (10:21→15:45)
[2022-12-23 10:24] LABS: SLIDE REVIEW VERIFIED
[2022-12-23 10:25] LABS: OBS Int Ctl Valid YES; OBS1 POSITIVE (NEGATIVE)
[2022-12-23] MEDS: iohexoL 350 MG/ML 100 ML INFUS..BTL 85 ML IV (11:00)
[2022-12-23 11:52] LABS: Appearance Urine Clear; Color Urine Dark Yellow; Glucose Urine UA Negative (Negative); Leukocyte Esterase Urine Small (1+) (Negative); Nitrite Urine Negative (Negative); PH 5.5 (5.0-9.0); UMIC TRIGGER UACC YES; Urine Blood Negative (Negative); Urine Ketones Negative (Negative); Urine Protein Negative (Neg-Trace)
[2022-12-23 12:04] LABS: Bacteria Urine None Seen (None Seen); Hyaline Casts Urine 0-2 /LPF (0-2); RBC Urine 0-2 /HPF (0-2); Squamous Epithelial Cell Urine 0-2 /HPF (0-2); UACC Culture Trigger YES; WBC Urine 0-5 /HPF (0-5)
--- NOTE | 2022-12-23 13:08 | P.HPHOSP_ITS ---
History of Present Illness Date of Service: 12/23/22 Attending physician on admission: Christi Pinto Chief Complaint: Falls at home Pt is an 82-year-old male with a PMH significant for?mild dementia unspecified, COPD, KIMBERLEY on CPAP, and osteoarthritis on chronic indomethacin who presents to the ED for evaluation after two recent falls yesterday and today. Pt has a history of multiple falls in the last year, for which he has often refused evaluation. 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 The mechanics of the fall are unclear: pt denies tripping over anything and does not remember any lightheadedness. This morning pt fell on the floor in his bedroom after turning around while trying to get to the bathroom. Pt says he lost his balance; denies tripping, not sure if he had any lightheadedness or dizziness. Pt denies headstrike or LOC. He stayed on the floor until EMS came to take him to the ED. Pt currently complains of new pain in his right shoulder, elbow, and knee. Complains of chronic pain in his fingers from osteoarthritis. Has not tried to stand or walk since his last fall. Patient also notes occasional abdominal pain with 1 episode of severe abdominal pain 6-7 months ago that was diagnosed as an abdominal migraine, and occasional milder pains. Pt last experienced abdominal pain approximately one month ago. Pt's notes he likely had one episode of hematochezia a few weeks ago. Denies fever, chills, N/V, diarrhea, abdominal pain. No chest pain/pressure, palpitations. In the ED labs were significant for mild anemia of H&H of 12.9/39.6, platelets 152, magnesium 1.3, elevated bilirubin of 3.7, transaminitis with AST of 270, ALT of 248, alk-phos of 147. Renal function baseline. UA negative for UTI. Stool positive for occult blood. CXR showed no acute cardiopulmonary process or evidence for acute traumatic injury. Right shoulder, forearm, and knee x-rays negative for acute fractures. Left wrist wrist x-ray negative for acute fract ure. Head CT showed no intracranial process. CT of cervical spine showed no acute fracture or dislocation but did show degenerative disc changes and spondylolysis. CT abdomen with contrast showed distended gallbladder with mild pericolic haziness and mild prominence of CBD likely from obstructive distal CBD stones. EKG demonstrated normal sinus rhythm without evidence of ST elevations or depressions. Pt was treated with magnesium sulfate. Pt will be admitted to the hospital for treatment and further evaluation of obstructing choledocholithiasis and acute GI bleed. Review of Systems Review of Systems: Falls at home Possible lightheadedness Right knee pain Numbness and shooting pain in fingers Yes all other systems are reviewed and are negative [facility] Medical History COPD (chronic obstructive pulmonary disease) Dyspnea on exertion KIMBERLEY on CPAP Social History Alcohol intake: never Patient Tobacco Use Status: Former Tobacco user Smoked in Last 30 Days: No Use of substances other than those prescribed or required for medical reasons: Yes Substance Use Type: Marijuana Advance Directives: Yes Advance Directives Information Provided: Yes Advance Directives on File: No Nutrition Risks: No Nutritional Risk Meds Allergies Allergy/AdvReac Type Severity Reaction Status Date / Time lisinopril [LISINOPRIL] Allergy Mild HEADACHES Verified 10/06/22 13:51 amoxicillin [AMOXICILLIN] Allergy Unknown UNKNOWN Verified 10/06/22 13:51 Sulfa (Sulfonamide Allergy Unknown UNKNOWN Verified 10/06/22 13:51 Antibiotics) [SULFA (SULFONAMIDE ANTIBIOTICS)] Home Medications Medication Instructions Recorded Confirmed Last Taken Type modafinil 200 mg tablet (Provigil) 200 mg PO DAILY 08/18/20 12/23/22 12/22/22 History omeprazole 20 mg capsule,delayed 20 mg PO DAILY 08/18/20 12/23/22 12/22/22 History release terazosin 10 mg capsule 10 mg PO BID 12/28/20 12/23/22 12/22/22 History sertraline 50 mg tablet 50 mg PO DAILY 07/12/22 12/23/22 Unknown History donepezil 10 mg tablet 10 mg PO DAILY 12/23/22 12/23/22 12/22/22 History indomethacin 50 mg capsule 100 mg PO BID 12/23/22 12/23/22 12/22/22 History memantine 10 mg tablet 10 mg PO BID 12/23/22 12/23/22 12/22/22 History Physical Exam Vital Signs and Narrative: Vital Signs: Last Vital Signs Temp 98.9 F 12/23/22 09:19 Pulse 76 12/23/22 12:17 Resp 16 12/23/22 12:17 BP 102/60 12/23/22 12:17 Pulse Ox 93 12/23/22 12:17 O2 Del Method Room Air 12/23/22 12:17 BMI result Body Mass Index 28.3 Constitutional: Alert, in no acute distress. Mental Status: Oriented to person, place and time. Mild short-term memory cognitive impairment Eyes: Pupils are equal, round, and reactive to light. Ear, Nose, and Throat: Oropharynx clear, mucous membranes moist. Ears and nose without deformities. Trachea midline. Respiratory: Clear to auscultation bilaterally. No wheezing, rales, or rhonchi. Cardiovascular: S1, S2 regular. No murmurs, rubs, or gallops. Gastrointestinal: Abdomen soft, non-tender, non-distended. Normal bowel sounds. Neurologic: Cranial nerves II-XII are grossly intact bilaterally. No focal neurological deficits. Moves all extremities spontaneously. Skin: Bruising on lateral aspect of right forearm and upper arm. Bruising on lower right extremity. Musculoskeletal: Diffuse right shoulder, elbow, and knee pain. Extremities: No edema. Psychiatric: Normal mood and affect. Results Labs 12/23/22 09:41 12/23/22 09:41 Labs: Laboratory Results - last 24 hr 12/23/22 12/23/22 12/23/22 09:41 09:41 09:41 MCV 87.2 MCH 28.4 MCHC 32.6 RDW 13.2 Plt Count 152 L D MPV 9.5 Immature Gran % (Auto) 0.4 Neut % (Auto) 91.0 H Lymph % (Auto) 2.5 L Isabella % (Auto) 5.4 Eos % (Auto) 0.3 Baso % (Auto) 0.4 Lymph # (Auto) 0.2 L Isabella # (Auto) 0.4 Eos # (Auto) 0.0 Baso # (Auto) 0.0 Abs Immat Gran (auto) 0.03 Absolute Neuts (auto) 7.2 Absolute Nucleated RBC 0.000 Nucleated RBC % (auto) 0.0 Smear Tech's Comments VERIFIED PT 12.3 INR 1.1 Anion Gap Estim Creat Clear Calc Estimated GFR Random Glucose Calcium Magnesium Total Bilirubin AST ALT Alkaline Phosphatase Troponin I High Sens 16.7 Total Protein Albumin Urine Color Urine Appearance Urine pH Ur Specific [place] Urine Protein Urine Glucose (UA) Urine Ketones Urine Blood Urine Nitrite Ur Leukocyte Esterase Urine RBC Urine WBC Ur Squamous Epith Cells Urine Bacteria Hyaline Casts Stool Occult Blood 12/23/22 12/23/22 12/23/22 09:41 10:17 11:13 MCV MCH MCHC RDW Plt Count MPV Immature Gran % (Auto) Neut % (Auto) Lymph % (Auto) Isabella % (Auto) Eos % (Auto) Baso % (Auto) Lymph # (Auto) Isabella # (Auto) Eos # (Auto) Baso # (Auto) Abs Immat Gran (auto) Absolute Neuts (auto) Absolute Nucleated RBC Nucleated RBC % (auto) Smear Tech's Comments PT INR Anion Gap 10 L Estim Creat Clear Calc 50.2 Estimated GFR 50 Random Glucose 87 Calcium 8.8 D Magnesium 1.3 L* Total Bilirubin 3.7 H AST 270 H ALT 248 H Alkaline Phosphatase 147 H Troponin I High Sens Total Protein 5.6 L Albumin 3.5 Urine Color Dark Yellow Urine Appearance Clear Urine pH 5.5 Ur Specific [place] 1.020 Urine Protein Negative Urine Glucose (UA) Negative Urine Ketones Negative Urine Blood Negative Urine Nitrite Negative Ur Leukocyte Esterase Small (1+) H Urine RBC 0-2 Urine WBC 0-5 Ur Squamous Epith Cells 0-2 Urine Bacteria None Seen Hyaline Casts 0-2 Stool Occult Blood POSITIVE Imaging Radiologist's Impressions: Impressions Cervical Spine CT 12/23/22 09:59 IMPRESSION: No acute intracranial process seen. Mild straightening of cervical lordosis likely spasm. There are degenerative disc changes and spondylosis as described above. No acute fracture or dislocation seen. Severe degenerative changes left wrist joint. No visible acute fracture or dislocation seen. Head CT 12/23/22 09:59 IMPRESSION: No acute intracranial process seen. Mild straightening of cervical lordosis likely spasm. There are degenerative disc changes and spondylosis as described above. No acute fracture or dislocation seen. Severe degenerative changes left wrist joint. No visible acute fracture or dislocation seen. Chest X-Ray 12/23/22 10:08 IMPRESSION: No acute cardiopulmonary process. No evidence for overt acute traumatic injury. Forearm X-Ray 12/23/22 10:08 IMPRESSION: 1. No acute fracture. 2. Mild right elbow and mild to moderate right wrist degenerative joint changes. Shoulder X-Ray 12/23/22 10:08 IMPRESSION: Moderate to severe right glenohumeral and moderate right acromioclavicular degenerative joint changes. No acute fracture. Wrist X-Ray 12/23/22 10:08 IMPRESSION: No acute intracranial process seen. Mild straightening of cervical lordosis likely spasm. There are degenerative disc changes and spondylosis as described above. No acute fracture or dislocation seen. Severe degenerative changes left wrist joint. No visible acute fracture or dislocation seen. Abdomen/Pelvis CT 12/23/22 10:58 IMPRESSION: Distended gallbladder with mild pericolic haziness and mild prominence of CBD likely from obstructive distal CBD stones. Multiple bilateral cortical and peripelvic renal cysts. No hydronephrosis or radiopaque calculi. Colonic diverticulosis without diverticulitis. Normal appendix. Chronic left proximal ileal psoas atrophy with calcification likely previous injury or old hematoma. It is stable compared to 11/15/2021. Fleischner guidelines were followed. Assessment and Plan (1) Anemia: Status: Acute (2) Falls: Status: Acute (3) Occult blood positive stool: Status: Acute (4) Choledocholithiasis with obstruction: Status: Acute Plan Pt is an 82-year-old male with a PMH significant for?mild dementia unspecified, COPD, KIMBERLEY on CPAP, and osteoarthritis on chronic indomethacin who presents to the ED for evaluation after two recent falls yesterday and today. Pt will be admitted to the hospital for treatment and further evaluation of obstructing choledocholithiasis and acute GI bleed. Choledocholithiasis with obstruction CT of abdomen/pelvis showed distended gallbladder with mild pericolic haziness and mild prominence of CBD likely from obstructive distal CBD stones Pt with intermittent abdominal pain past 6-7 months but no pain since one month ago Labs show hyperbilirubinemia and transaminitis GI consult Patient will be made and p.o. on Monday midnight in anticipation ERCP on Monday by Dr. Beaver Transaminitis Bilirubin 3.7, AST 270, ALT 248, alk-phos 147 Likely secondary to choledocholithiasis with obstruction Patient asymptomatic Repeat liver panel tomorrow Recent falls at home Patient with a long history of falling at home, most recently yesterday outside on his walkway and earlier this morning in his bedroom Pt denies tripping over anything, unclear if was lightheaded or dizzy Unlikely to be caused by anemia of 12//39.6 CT of head and abdomen/pelvis, x-rays of chest, forearm, shoulder, wrist, knee all negative for acute fracture or subluxation or trauma Acetaminophen and Oxy for pain Will check orthostatics PT evaluation New onset anemia Patient with H&H of 12.9/39.6, reduced from baseline of 15.0/40 6.0 Platelets 152, down from baseline around 200 Patient with stool positive for occult blood Source unknown: likely secondary to acute GI blood loss, possibly secondary to chronic indomethacin use Hold indomethacin GI consult Follow CBC Hypomagnesemia Mag 1.3 Pt given Mag 2g IV in ED Will receive another Mag 2g IV Check Mag in the morning Osteoarthritis Patient chronically on indomethacin for osteoarthritis Hold indomethacin for possible GI bleed Acetaminophen, oxycodone for pain management Neuropathy Patient complains of tingling and sharp shooting pains in his fingers especially while lying in bed Most likely secondary to neuropathy rather than a vascular issue: capillary refill WNL, fingers warm At home patient has been using his 's gabapentin with some relief Patient will be given gabapentin 100 mg b.i.d. Patient should follow-up outpatient with Rheumatology KIMBERLEY on CPAP Patient will be bringing in his home CPAP Continue donepezil Mood disorder Continue sertraline Early dementia unspecified Continue memantine BPH Continue terazosin DNR/DNI Attending:?Dr. Pinto DVT Prophylaxis: Pneumatic boots Pt will require a hospitalization of at least two nights for treatment and further evaluation of obstructing choledocholithiasis and acute GI bleed. Time Spent With Patient Time: Total time managing care of this patient today ____ minutes. Quality Stroke Does the patient have a stroke diagnosis?: No VTE Prior VTE?: No VTE Risk Level:: Medical - moderate - high VTE Device Contraindication: N/A - Device Ordered VTE Drug Contraindication: Treatment Not Indicated
--- NOTE | 2022-12-23 13:43 | PHA.MEDREC ---
Pharmacy Consult ? Medication Reconciliation Pharmacy has completed the medication reconciliation. spoke to patient and . patient has old list from 2019 with them so we went through each med in detail rajinder
--- NOTE | 2022-12-23 16:10 | MHC.EDTECH ---
THIS PCT ASSUMED CARE OF PT AT 1500 ,PATIENT WAS ASSIST TO WALK TO BATHROOM AND BACK TO BED ,PATIENT VITALS SIGN TAKEN ,ALSO ORTHOSTATICS VITALS TAKEN .
[2022-12-23] MEDS: oxyCODONE HCl Immed Release 5 MG TABLET PO (20:36)
[2022-12-23] MEDS: Memantine HCl 10 MG TABLET PO (20:37)
[2022-12-23] MEDS: Gabapentin 100 MG CAPSULE PO (20:37)
[2022-12-23] MEDS: Doxazosin Mesylate 2 MG TABLET 8 MG PO (20:43)
[2022-12-23] MEDS: 0.9 % Sodium Chloride Flush 3 ML SYRINGE IVFLUSH (22:32)
[2022-12-24] MEDS: traMADoL HCL 50 MG TABLET PO (00:35)
[2022-12-24 04:00] VITALS: BP 124/61; PULSE 67; RESP 16; TEMP 36.2; O2SAT 92
[2022-12-24] MEDS: Omeprazole 20 MG CAPSULE.DR PO (06:08)
[2022-12-24] MEDS: Acetaminophen 325 MG TABLET 650 MG PO ×2 (06:12→15:05)
[2022-12-24 06:51] LABS: Hematocrit 38.5 % (42.0-52.0); Hemoglobin 12.7 g/dl (14.0-18.0); Mean Corpuscular Hemoglobin 28.5 pg (27.0-33.0); Mean Corpuscular Volume 86.5 fL (80.0-98.0); Mean Platelet Volume 9.9 fL (9.4-12.4); Platelet Count 184 X10*3/uL (160-400); Red Blood Count 4.45 X10*6/uL (4.60-5.80); Red Cell Distribution Width 13.9 % (11.0-16.0); White Blood Count 8.8 X10*3/uL (4.8-10.8)
[2022-12-24 07:06] LABS: Alanine Aminotransferase 181 U/L (0-40); Albumin Level 3.6 g/dL (3.5-5.0); Alkaline Phosphatase 153 U/L (39-117); Anion Gap 12 (12-20); Aspartate Amino Transferase 143 U/L (5-37); Bilirubin Direct 1.7 mg/dL (0.0-0.5); Bilirubin Total 2.7 mg/dL (0.0-1.0); Blood Urea Nitrogen 20 mg/dL (9-16); Calcium 9.2 mg/dL (8.4-10.2); Carbon Dioxide 23 mmol/L (22-29); Chloride 109 mmol/L (96-108); Creatinine Clr Calc Pharmacy 52.7; Estimated Glomerular Filt Rate 54; Glucose Random 86 mg/dL (60-115); Magnesium 2.2 mg/dL (1.6-2.6); Potassium 4.2 mmol/L (3.3-5.1); Sodium 140 mmol/L (135-145); Total Protein 5.9 g/dL (6.5-8.0)
[2022-12-24 07:20] VITALS: BP 149/71; PULSE 76; RESP 18; TEMP 36.5; O2SAT 93
[2022-12-24] MEDS: Sertraline HCL 50 MG TABLET PO (08:28)
[2022-12-24] MEDS: Gabapentin 100 MG CAPSULE PO ×2 (08:28→20:22)
[2022-12-24] MEDS: Memantine HCl 10 MG TABLET PO ×2 (08:28→20:22)
[2022-12-24] MEDS: Doxazosin Mesylate 2 MG TABLET 8 MG PO ×2 (08:28→20:23)
[2022-12-24] MEDS: oxyCODONE HCl Immed Release 5 MG TABLET PO (08:28)
[2022-12-24] MEDS: Donepezil HCl 10 MG TABLET PO (08:29)
[2022-12-24] MEDS: modafiniL 100 MG TABLET 200 MG PO (08:29)
[2022-12-24] MEDS: 0.9 % Sodium Chloride Flush 3 ML SYRINGE IVFLUSH ×3 (08:29→20:25)
--- NOTE | 2022-12-24 10:43 | P.PNIM_ITS ---
Subjective Subjective Date of Service: 12/24/22 Interval History: being followed for elevated LFTs, low magnesium, resting comfortably in bed offers no acute complaints, tolerating diet, no nausea, no vomiting, no abdominal pain, no other acute issues overnight. Review of Systems Review of Systems: Yes all other systems are reviewed and are negative Physical Exam Vital Signs: Vital Signs: Last Vital Signs Temp 97.7 F 12/24/22 07:20 Pulse 76 12/24/22 07:20 Resp 18 12/24/22 07:20 BP 149/71 H 12/24/22 07:20 Pulse Ox 93 12/24/22 07:20 O2 Del Method Room Air 12/24/22 07:20 BMI result Body Mass Index 28.0 Const: Other: General awake alert , resting comfortably in no acute distress. Neck supple no JVD. CVS regular rate rhythm, Respiratory lungs clear to auscultation, no respiratory distress, no wheeze, no rhonchi. Gastrointestinal abdomen soft, nontender, bowel sounds audible, no guarding , no rigidity. Extremities no edema. Neuro nonfocal patient moving all 4 extremity speech clear. Skin bruising psych appropriate affect Objective Data Active Medications Acetaminophen (Acetaminophen 325 Mg Tablet) 650 mg PO Q6H PRN PRN Reason: Pain, Mild (Pain Scale 1-3) Last Admin: 12/24/22 06:12 Dose: 650 mg Documented By: OLIVER Albuterol Sulfate (Albuterol Sulfate 90 Mcg 8 Gm Inhaler) 2 puff INHALE Q4H PRN PRN Reason: shortness of breath or wheezing Docusate Sodium (Docusate Sodium 100 Mg Capsule) 100 mg PO DAILY PRN PRN Reason: Constipation Donepezil HCl (Donepezil Hcl 10 Mg Tablet) 10 mg PO DAILY REPLACED BY [facility] Last Admin: 12/24/22 08:29 Dose: 10 mg Documented By: COTEMA Doxazosin Mesylate (Doxazosin Mesylate 2 Mg Tablet) 8 mg PO BID REPLACED BY [facility] Last Admin: 12/24/22 08:28 Dose: 8 mg Documented By: COTEMA Gabapentin (Gabapentin 100 Mg Capsule) 100 mg PO BID REPLACED BY [facility] Last Admin: 12/24/22 08:28 Dose: 100 mg Documented By: COTEMA Memantine (Memantine Hcl 10 Mg Tablet) 10 mg PO BID REPLACED BY [facility] Last Admin: 12/24/22 08:28 Dose: 10 mg Documented By: JOSE Modafinil (Modafinil 100 Mg Tablet) 200 mg PO DAILY REPLACED BY [facility] Last Admin: 12/24/22 08:29 Dose: 200 mg Documented By: JOSE Omeprazole (Omeprazole 20 Mg Capsule.Dr) 20 mg PO DAILY@0630 REPLACED BY [facility] Last Admin: 12/24/22 06:08 Dose: 20 mg Documented By: OLIVER Ondansetron HCl (Ondansetron Hcl 4 Mg/2 Ml Vial) 4 mg IVPUSH Q8H PRN PRN Reason: Nausea and Vomiting Oxycodone HCl (Oxycodone Hcl Immed Release 5 Mg Tablet) 5 mg PO Q6H PRN PRN Reason: Pain, Severe (Pain Scale 7-10) Last Admin: 12/24/22 08:28 Dose: 5 mg Documented By: JOSE Pharmacy Consult (Consult Rx Perform Med Rec) 1 each MISCELLANE ONCE PRN PRN Reason: Consult order Sertraline HCl (Sertraline Hcl 50 Mg Tablet) 50 mg PO DAILY REPLACED BY [facility] Last Admin: 12/24/22 08:28 Dose: 50 mg Documented By: JOSE Sodium Chloride (0.9 % Sodium Chloride Flush 3 Ml Syringe) 3 ml IVFLUSH QSHIFT REPLACED BY [facility] Last Admin: 12/24/22 08:29 Dose: 3 ml Documented By: JOSE Labs 12/24/22 06:17 12/24/22 06:17 Labs: Laboratory Results - last 24 hr 12/23/22 12/24/22 12/24/22 11:13 06:17 06:17 MCV 86.5 MCH 28.5 MCHC 33.0 RDW 13.9 Plt Count 184 MPV 9.9 Absolute Nucleated RBC 0.000 Nucleated RBC % (auto) 0.0 Anion Gap 12 Estim Creat Clear Calc 52.7 Estimated GFR 54 Random Glucose 86 Calcium 9.2 Magnesium 2.2 Total Bilirubin 2.7 H Direct Bilirubin 1.7 H AST 143 H ALT 181 H Alkaline Phosphatase 153 H Total Protein 5.9 L Albumin 3.6 Urine Color Dark Yellow Urine Appearance Clear Urine pH 5.5 Ur Specific [place] 1.020 Urine Protein Negative Urine Glucose (UA) Negative Urine Ketones Negative Urine Blood Negative Urine Nitrite Negative Ur Leukocyte Esterase Small (1+) H Urine RBC 0-2 Urine WBC 0-5 Ur Squamous Epith Cells 0-2 Urine Bacteria None Seen Hyaline Casts 0-2 Microbiology Microbiology Results: Microbiology 12/23/22 Unknown Urine Culture - Final Urine clean catch - Urine tony top No growth. Assessment and Plan (1) Choledocholithiasis with obstruction: Status: Acute (2) Anemia: Status: Acute (3) Falls: Status: Acute (4) Occult blood positive stool: Status: Acute Plan 82-year-old male with a PMH significant for?mild dementia unspecified, COPD, KIMBERLEY on CPAP, and osteoarthritis on chronic indomethacin who presents to the ED for evaluation after two recent falls yesterday and today. Pt will be admitted to the hospital for treatment and further evaluation of obstructing choledocholithiasis and acute GI bleed. Choledocholithiasis with obstruction asymptomatic ,CT of abdomen/pelvis showed distended gallbladder with mild pericolic haziness and mild prominence of CBD likely from obstructive distal CBD stones liver enzymes trending down n. p.o. on Monday midnight in anticipation ERCP on Monday by Dr. Beaver Recent falls at home long history of falling at home, most recently yesterday outside on his walkway and earlier this morning in his bedroom Pt denies tripping over anything, unclear if was lightheaded or dizzy Unlikely to be caused by anemia of 12//39.6 CT of head and abdomen/pelvis, x-rays of chest, forearm, shoulder, wrist, knee all negative for acute fracture or subluxation or trauma continue Acetaminophen and Oxy for pain normal orthostatics PT rec STR New onset anemia H&H of 12.9/39.6, reduced from baseline of 15.0/40 6.0,Platelets 152, down from baseline around 200 stool positive for occult blood Source unknown: likely secondary to acute GI blood loss, possibly secondary to chronic indomethacin use Hold indomethacin, repeat hematocrit stable, continue PPI GI consult, follow CBC, avoid NSAIDs Hypomagnesemia Mag 1.3 on admission improved to 2.2 with replacement Osteoarthritis Patient chronically on indomethacin for osteoarthritis,Hold indomethacin for possible GI bleed Acetaminophen, oxycodone for pain management Neuropathy Patient complains of tingling and sharp shooting pains in his fingers especially while lying in bed question related to neuropathy since using wives gabapentin with some relief placed on gabapentin 100 mg b.i.d. Patient should follow-up outpatient with Rheumatology KIMBERLEY on CPAP home CPAP Mood disorder Continue sertraline Early dementia unspecified Continue memantine and Aicept BPH Continue terazosin DNR/DNI DVT Prophylaxis: Pneumatic boots Pt will require continued inpatient hospitalization for treatment and further evaluation of obstructing choledocholithiasis and acute GI bleed. Time Spent With Patient Time: Total time managing care of this patient today ____ minutes. Quality Stroke Does the patient have a stroke diagnosis?: No VTE Prior VTE?: No VTE Risk Level:: Medical - moderate - high VTE Device Contraindication: N/A - Device Ordered VTE Drug Contraindication: Treatment Not Indicated
--- NOTE | 2022-12-24 11:37 | PM.EVENT ---
Event Note Date of Service: 12/24/22 Event Note: GI consult dictated EGD/ERCP planned 12/26 for further evaluation of anemia/heme pos stools and cbd stones. Omeprazole increased to 40 mg daily. Indomethacin discontinued. Time Spent With Patient Time: Total time managing care of this patient today ____ minutes.
--- NOTE | 2022-12-24 14:11 | MHC.CM.PN ---
Lives with at home, no prior services, owns 3 pronged cane and rollator. drives him where he needs to go. At time of D/C, plan is to return home w/ via . May require in-home VNA. CM to follow.
--- NOTE | 2022-12-24 14:45 | CONS_ITS ---
DATE OF SERVICE: 12/24/2022 REFERRING PROVIDER: INES Suárez REASON FOR CONSULTATION: Anemia and Hemoccult-positive stools and common bile duct stones with elevated liver function tests. HISTORY OF PRESENT ILLNESS: The patient is a pleasant 82-year-old man who presented to the emergency room yesterday after falling at home. His evaluation included blood work, which showed elevation of his liver function tests and a slight drop in his hematocrit from previous laboratory values. Further evaluation indicated that stool was Hemoccult positive without any evidence of melena or hematochezia. CT scanning showed stones in the common bile duct, which in retrospect were also seen on a previous CT scan from earlier in the year. The patient has no complaints of abdominal pain. He did have an episode of hematochezia about a month ago, but has had no history of melena or hematochezia recently or since admission to the hospital. He was previously evaluated with colonoscopy last in December of 2014 for colon cancer screening, which was basically normal examination. He has not had upper endoscopy. He does use indomethacin for arthritic complaints and this has been held since admission. He has no epigastric or right upper quadrant pain. PAST MEDICAL HISTORY: 1. Dementia. 2. COPD. 3. Sleep apnea, for which he uses CPAP. 4. Osteoarthritis. CURRENT MEDICATIONS: Current medication list is reviewed in the chart. ALLERGIES: MULTIPLE MEDICATION ALLERGIES ARE REVIEWED. FAMILY HISTORY: This is reviewed with the patient and is noncontributory. SOCIAL HISTORY: There is no current tobacco, alcohol, or substance abuse. REVIEW OF SYSTEMS: SKIN: No pruritus. HEENT: Negative. CARDIOPULMONARY: No shortness of breath or chest pain. GASTROINTESTINAL: As above. GENITOURINARY: Negative. NEUROPSYCHIATRIC: Negative. PHYSICAL EXAMINATION: GENERAL: Shows a pleasant male, lying comfortably in bed. He is interviewed in the presence of his and his daughter. VITAL SIGNS: Stable. SKIN: Anicteric. HEENT: Shows no scleral icterus. NECK: Without lymphadenopathy or thyromegaly. LUNGS: Clear. HEART: Shows a regular rate and rhythm. S1, S2. No murmur. ABDOMEN: Soft without focal masses or tenderness. Bowel sounds are present. No organomegaly is noted. EXTREMITIES: Without edema. DIAGNOSTIC DATA: Laboratory data and CT scans are reviewed. IMPRESSION: 1. Anemia with Hemoccult-positive stools. 2. Common bile duct stones with mild elevations of his liver function tests. I discussed the ER evaluation and the findings with the patient and his . He has no symptoms of active GI bleeding. I would recommend increasing his omeprazole to 40 mg daily and holding his indomethacin as is being done. It is possible he could have a NSAID induced ulcer even with omeprazole prophylaxis. He should undergo further evaluation for this. This does not need to be done emergently. His common bile duct stones are not symptomatic. He does have mild elevations of his liver function tests and no evidence of cholangitis. I would recommend ERCP. This will be scheduled for 12/26. I have discussed risks and benefits of the procedure with the patient and his . They understand these and agreed to proceed. He will have upper endoscopy at the same time to formally evaluate for a NSAID induced gastritis or ulcer. If this is negative, we will consider elective outpatient colonoscopy, pending his clinical course. Thanks for asking me to see him. I will follow him in the hospital with you. MD CAROL Martini/DAYNA / [phone]
[2022-12-24] MEDS: ondansetron HCL 4 MG/2 ML VIAL IVPUSH (15:05)
[2022-12-24 15:16] VITALS: BP 126/64; PULSE 72; RESP 18; TEMP 36.6; O2SAT 92
[2022-12-24 19:21] VITALS: BP 158/84; PULSE 71; RESP 18; TEMP 36.8; O2SAT 92
--- NOTE | 2022-12-24 19:56 | PC.RT ---
has machine from home all set up
[2022-12-25 04:00] VITALS: BP 157/80; PULSE 65; RESP 16; TEMP 36.6; O2SAT 93
[2022-12-25] MEDS: Omeprazole 40 MG CAPSULE.DR PO (06:13)
[2022-12-25 06:57] LABS: Alanine Aminotransferase 134 U/L (0-40); Albumin Level 3.7 g/dL (3.5-5.0); Alkaline Phosphatase 145 U/L (39-117); Aspartate Amino Transferase 78 U/L (5-37); Bilirubin Direct 0.5 mg/dL (0.0-0.5); Bilirubin Total 1.1 mg/dL (0.0-1.0); Iron 32 mcg/dL (45-160); Percent Iron Saturation 15 % (15-50); Total Iron Binding Capacity 216 mcg/dL (228-428); Unsaturated Iron Binding 184 ug/dL
[2022-12-25 07:11] LABS: Ferritin 99 ng/mL (20-250)
[2022-12-25 07:21] VITALS: BP 151/78; PULSE 68; RESP 18; TEMP 36.6; O2SAT 94
[2022-12-25] MEDS: modafiniL 100 MG TABLET 200 MG PO (07:35)
[2022-12-25] MEDS: Donepezil HCl 10 MG TABLET PO (07:36)
[2022-12-25] MEDS: Memantine HCl 10 MG TABLET PO ×2 (07:36→20:45)
[2022-12-25] MEDS: Sertraline HCL 50 MG TABLET PO (07:36)
[2022-12-25] MEDS: Gabapentin 100 MG CAPSULE PO ×2 (07:36→20:45)
[2022-12-25] MEDS: Doxazosin Mesylate 2 MG TABLET 8 MG PO ×2 (07:36→20:45)
[2022-12-25] MEDS: 0.9 % Sodium Chloride Flush 3 ML SYRINGE IVFLUSH ×3 (07:39→20:46)
--- NOTE | 2022-12-25 12:05 | P.PNIM_ITS ---
Subjective Subjective Date of Service: 12/25/22 Interval History: Being followed for choledocholithiasis denies abdominal pain, no nausea, no vomiting, tolerating diet, IV site left antecubital fossa causing discomfort, otherwise no acute issues, no acute events overnight. Review of Systems Review of Systems: Yes all other systems are reviewed and are negative Physical Exam Vital Signs: Vital Signs: Last Vital Signs Temp 97.9 F 12/25/22 07:21 Pulse 68 12/25/22 07:21 Resp 18 12/25/22 07:21 BP 151/78 H 12/25/22 07:21 Pulse Ox 94 12/25/22 07:21 O2 Del Method Room Air 12/25/22 07:21 BMI result Body Mass Index 28.0 Const: Other: General awake aler t , resting comfor tably in no acute distress.? Neck? s upple no JVD. CVS? regular rate rhyt hm, Respiratory kaylee ngs clear to auscu ltation, no respir atory distress, no wheeze, no rhonch i. Gastrointestina l abdomen soft, no ntender, bowel isabel nds audible, no gu arding , no rigidi ty. Extremities no edema. Left forea rm IV site at ante cubital fossa with so surrounding re dness or swelling Neuro nonfocal pat ient moving all 4 extremity speech c lear. Skin bruisin g psych appropriat e affect Objective Data Active Medications Acetaminophen (Acetaminophen 325 Mg Tablet) 650 mg PO Q6H PRN PRN Reason: Pain, Mild (Pain Scale 1-3) Last Admin: 12/24/22 15:05 Dose: 650 mg Documented By: COTEMA Albuterol Sulfate (Albuterol Sulfate 90 Mcg 8 Gm Inhaler) 2 puff INHALE Q4H PRN PRN Reason: shortness of breath or wheezing Docusate Sodium (Docusate Sodium 100 Mg Capsule) 100 mg PO DAILY PRN PRN Reason: Constipation Donepezil HCl (Donepezil Hcl 10 Mg Tablet) 10 mg PO DAILY [facility] Last Admin: 12/25/22 07:36 Dose: 10 mg Documented By: [email or web address] Doxazosin Mesylate (Doxazosin Mesylate 2 Mg Tablet) 8 mg PO BID [facility] Last Admin: 12/25/22 07:36 Dose: 8 mg Documented By: COTEMA Gabapentin (Gabapentin 100 Mg Capsule) 100 mg PO BID [facility] Last Admin: 12/25/22 07:36 Dose: 100 mg Documented By: COTEMA Indomethacin (Indomethacin 50 Mg Supp.Rect) 100 mg WI PRE PROCEDURE ONE Stop: 12/26/22 07:01 Memantine (Memantine Hcl 10 Mg Tablet) 10 mg PO BID [facility] Last Admin: 12/25/22 07:36 Dose: 10 mg Documented By: COTEMA Modafinil (Modafinil 100 Mg Tablet) 200 mg PO DAILY [facility] Last Admin: 12/25/22 07:35 Dose: 200 mg Documented By: JOSE Omeprazole (Omeprazole 40 Mg Capsule.Dr) 40 mg PO DAILY@0630 [facility] Last Admin: 12/25/22 06:13 Dose: 40 mg Documented By: OLIVER Ondansetron HCl (Ondansetron Hcl 4 Mg/2 Ml Vial) 4 mg IVPUSH Q8H PRN PRN Reason: Nausea and Vomiting Last Admin: 12/24/22 15:05 Dose: 4 mg Documented By: JOSE Oxycodone HCl (Oxycodone Hcl Immed Release 5 Mg Tablet) 5 mg PO Q6H PRN PRN Reason: Pain, Severe (Pain Scale 7-10) Last Admin: 12/24/22 08:28 Dose: 5 mg Documented By: JOSE Pharmacy Consult (Consult Rx Perform Med Rec) 1 each MISCELLANE ONCE PRN PRN Reason: Consult order Sertraline HCl (Sertraline Hcl 50 Mg Tablet) 50 mg PO DAILY [facility] Last Admin: 12/25/22 07:36 Dose: 50 mg Documented By: JOSE Sodium Chloride (0.9 % Sodium Chloride Flush 3 Ml Syringe) 3 ml IVFLUSH QSHIFT [facility] Last Admin: 12/25/22 07:39 Dose: 3 ml Documented By: JOSE Labs 12/24/22 06:17 12/24/22 06:17 Labs: Laboratory Results - last 24 hr 12/25/22 06:01 Iron 32 L TIBC 216 L % Saturation 15 Unsat Iron Binding 184 Ferritin 99 Total Bilirubin 1.1 H Direct Bilirubin 0.5 AST 78 H ALT 134 H Alkaline Phosphatase 145 H Total Protein 6.0 L Albumin 3.7 Microbiology Microbiology Results: Microbiology 12/23/22 Unknown Urine Culture - Final Urine clean catch - Urine tony top No growth. Assessment and Plan (1) Choledocholithiasis with obstruction: Status: Acute (2) Anemia: Status: Acute (3) Falls: Status: Acute (4) Occult blood positive stool: Status: Acute Plan 82-year-old male with a PMH significant for?mild dementia unspecified, COPD, KIMBERLEY on CPAP, and osteoarthritis on chronic indomethacin who presents to the ED for evaluation after two recent falls yesterday and today. Pt will be admitted to the hospital for treatment and further evaluation of obstructing choledocholithiasis and acute GI bleed. Choledocholithiasis with obstruction asymptomatic ,CT of abdomen/pelvis showed distended gallbladder with mild luis colic haziness and mild prominence of CBD likely from obstructive distal CBD stones liver enzymes trending down n. p.o. on Monday midnight in anticipation ERCP on Monday by Dr. Beaver Recent falls at home long history of falling at home, most recently prior to admission outside on his walkway and again in his bedroom in the morning of admission Pt denies tripping over anything, unclear if was lightheaded or dizzy Unlikely to be caused by anemia of 12//39.6 CT of head and abdomen/pelvis, x-rays of chest, forearm, shoulder, wrist, knee all negative for acute fracture or subluxation or trauma continue Acetaminophen and Oxy for pain normal orthostatics PT rec STR New onset anemia H&H of 12.9/39.6, reduced from baseline of 15.0/40 6.0,Platelets 152, down from baseline around 200 stool positive for occult blood Source unknown: likely secondary to acute GI blood loss, possibly secondary g astritis due to chronic indomethacin use Hold indomethacin, repeat hematocrit stable, continue PPI avoid NSAIDs Hypomagnesemia Mag 1.3 on admission improved to 2.2 with replacement Osteoarthritis Patient chronically on indomethacin for osteoarthritis,Hold indomethacin for possible GI bleed Acetaminophen, oxycodone for pain management Neuropathy tingling and sharp shooting pains in his fingers especially while lying in bed question related to neuropathy since using wives gabapentin with some relief placed on gabapentin 100 mg b.i.d. with good relief when symptoms Patient should follow-up outpatient with Rheumatology KIMBERLEY on CPAP home CPAP Mood disorder Continue sertraline Early dementia unspecified Continue memantine and Aicept BPH Continue terazosin DNR/DNI DVT Prophylaxis: Pneumatic boots Pt will require continued inpatient hospitalization for treatment and further evaluation of obstructing choledocholithiasis and acute GI bleed. Time Spent With Patient Time: Total time managing care of this patient today ____ minutes. Quality Stroke Does the patient have a stroke diagnosis?: No VTE Prior VTE?: No VTE Risk Level:: Medical - moderate - high VTE Device Contraindication: N/A - Device Ordered VTE Drug Contraindication: Treatment Not Indicated
[2022-12-25 15:14] VITALS: BP 146/70; PULSE 69; RESP 18; TEMP 37.2; O2SAT 98
[2022-12-25 19:25] VITALS: BP 164/81; PULSE 64; RESP 17; TEMP 36.6; O2SAT 95
[2022-12-26 04:00] VITALS: BP 160/82; PULSE 65; RESP 16; TEMP 36.3; O2SAT 93
[2022-12-26] MEDS: Omeprazole 40 MG CAPSULE.DR PO (06:23)
[2022-12-26 07:36] VITALS: BP 166/86; PULSE 62; RESP 20; TEMP 36.3; O2SAT 92
[2022-12-26] MEDS: levoFLOXacin/D5W 500 MG/100 ML PIGGYBACK 100 MG IV (07:59)
[2022-12-26] MEDS: Gabapentin 100 MG CAPSULE PO ×2 (08:03→21:12)
[2022-12-26] MEDS: modafiniL 100 MG TABLET 200 MG PO (08:04)
[2022-12-26] MEDS: Doxazosin Mesylate 2 MG TABLET 8 MG PO ×2 (08:04→21:13)
[2022-12-26] MEDS: Donepezil HCl 10 MG TABLET PO (08:04)
[2022-12-26] MEDS: Memantine HCl 10 MG TABLET PO ×2 (08:04→21:12)
[2022-12-26] MEDS: Sertraline HCL 50 MG TABLET PO (08:04)
[2022-12-26] MEDS: 0.9 % Sodium Chloride Flush 3 ML SYRINGE IVFLUSH ×2 (08:07→19:50)
[2022-12-26] MEDS: Indomethacin 50 MG SUPP.RECT 100 MG PR (08:23)
--- NOTE | 2022-12-26 13:31 | MHC.CM.PN ---
NO PLAN FOR DC TODAY PLAN IS FOR ERCP
--- NOTE | 2022-12-26 13:46 | P.PNIM_ITS ---
Subjective Subjective Date of Service: 12/26/22 Interval History: NPO for ERCP and EGD, no acute symptoms, no fevers, no chills, no nausea, no vomiting, no urinary symptoms no lightheadedness, no dizziness. no events overnight noted to have elevated blood pressures with no history of hyp ertension, Review of Systems Review of Systems: Yes all other systems are reviewed and are negative Physical Exam Vital Signs: Vital Signs: Last Vital Signs Temp 97.3 F 12/26/22 07:36 Pulse 62 12/26/22 07:36 Resp 20 12/26/22 07:36 BP 166/86 H 12/26/22 07:36 Pulse Ox 92 12/26/22 07:36 O2 Del Method Room Air 12/26/22 07:36 BMI result Body Mass Index 28.0 Const: Other: General awake alert , resting comfortably in no acute distress.? Neck? supple no JVD. CVS? regular rate rhythm, Respiratory lungs clear to auscultation, no respiratory distress, no wheeze, no rhonchi. Gastrointestinal abdomen soft, non tender, bowel sounds audible, no guarding , no rigidity. Extremities no edema. Neuro non focal patient moving all 4 extremity speech clear. Skin bruising psych appropriate affect Objective Data Active Medications Acetaminophen (Acetaminophen 325 Mg Tablet) 650 mg PO Q6H PRN PRN Reason: Pain, Mild (Pain Scale 1-3) Last Admin: 12/24/22 15:05 Dose: 650 mg Documented By: COTYIFAN Albuterol Sulfate (Albuterol Sulfate 90 Mcg 8 Gm Inhaler) 2 puff INHALE Q4H PRN PRN Reason: shortness of breath or wheezing Docusate Sodium (Docusate Sodium 100 Mg Capsule) 100 mg PO DAILY PRN PRN Reason: Constipation Donepezil HCl (Donepezil Hcl 10 Mg Tablet) 10 mg PO DAILY [facility] Last Admin: 12/26/22 08:04 Dose: 10 mg Documented By: BARBARA Doxazosin Mesylate (Doxazosin Mesylate 2 Mg Tablet) 8 mg PO BID [facility] Last Admin: 12/26/22 08:04 Dose: 8 mg Documented By: BARBARA Gabapentin (Gabapentin 100 Mg Capsule) 100 mg PO BID [facility] Last Admin: 12/26/22 08:03 Dose: 100 mg Documented By: BARBARA Memantine (Memantine Hcl 10 Mg Tablet) 10 mg PO BID [facility] Last Admin: 12/26/22 08:04 Dose: 10 mg Documented By: BARBARA Modafinil (Modafinil 100 Mg Tablet) 200 mg PO DAILY [facility] Last Admin: 12/26/22 08:04 Dose: 200 mg Documented By: BARBARA Omeprazole (Omeprazole 40 Mg Capsule.Dr) 40 mg PO DAILY@0630 [facility] Last Admin: 12/26/22 06:23 Dose: 40 mg Documented By: OLIVER Ondansetron HCl (Ondansetron Hcl 4 Mg/2 Ml Vial) 4 mg IVPUSH Q8H PRN PRN Reason: Nausea and Vomiting Last Admin: 12/24/22 15:05 Dose: 4 mg Documented By: JOSE Oxycodone HCl (Oxycodone Hcl Immed Release 5 Mg Tablet) 5 mg PO Q6H PRN PRN Reason: Pain, Severe (Pain Scale 7-10) Last Admin: 12/24/22 08:28 Dose: 5 mg Documented By: JOSE Pharmacy Consult (Consult Rx Perform Med Rec) 1 each MISCELLANE ONCE PRN PRN Reason: Consult order Sertraline HCl (Sertraline Hcl 50 Mg Tablet) 50 mg PO DAILY [facility] Last Admin: 12/26/22 08:04 Dose: 50 mg Documented By: BARBARA Sodium Chloride (0.9 % Sodium Chloride Flush 3 Ml Syringe) 3 ml IVFLUSH QSHIFT [facility] Last Admin: 12/26/22 08:07 Dose: 3 ml Documented By: BARBARA Labs 12/24/22 06:17 12/24/22 06:17 Assessment and Plan (1) Choledocholithiasis with obstruction: Status: Acute (2) Anemia: Status: Acute (3) Falls: Status: Acute (4) Occult blood positive stool: Status: Acute Plan 82-year-old male with a PMH significant for?mild dementia unspecified, COPD, KIMBERLEY on CPAP, and osteoarthritis on chronic indomethacin who presents to the ED for evaluation after two recent falls yesterday and today. Pt will be admitted to the hospital for treatment and further evaluation of obstructing choledoc holithiasis and acute GI bleed. Choledocholithiasis with obstruction asymptomatic ,CT of abdomen/pelvis showed distended gallbladder with mild pericolic haziness and mild prominence of CBD likely from obstructive distal CBD stones liver enzymes trending down n. p.o. for ERCP /egd by Dr. Beaver Recent falls at home long history of falling at home, most recently prior to admission outside on his walkway and again in his bedroom in the morning of admission Pt denies tripping over anything, unclear if was lightheaded or dizzy Unlikely to be caused by anemia of 12.9/39.6 CT of head and abdomen/pelvis, x-rays of chest, forearm, shoulder, wrist, knee all negative for acute fracture or subluxation or trauma continue Acetaminophen and Oxy for pain normal orthostatics PT rec STR New onset anemia H&H of 12.9/39.6, reduced from baseline of 15.0/40 6.0,Platelets 152, down from baseline around 200 stool positive for occult blood Source unknown: likely secondary to acute GI blood loss, possibly secondary gastritis due to chronic indomethacin use Hold indomethacin, repeat hematocrit stable, continue PPI avoid NSAIDs Hypomagnesemia Mag 1.3 on admission improved to 2.2 with replacement Osteoarthritis Patient chronically on indomethacin for osteoarthritis,dc indomethacin for po ssible GI bleed Acetaminophen, oxycodone for pain management Neuropathy tingling and sharp shooting pains in his fingers especially while lying in bed question related to neuropathy since using wives gabapentin with some relief placed on gabapentin 100 mg b.i.d. with good relief in symptoms follow-up outpatient with Rheumatology KIMBERLEY on CPAP home CPAP Mood disorder Continue sertraline Early dementia unspecified Continue memantine and Aicept BPH Continue terazosin DNR/DNI DVT Prophylaxis: Pneumatic boots Pt will require continued inpatient hospitalization for treatment and further evaluation of obstructing choledocholithiasis and acute GI bleed. Time Spent With Patient Time: Total time managing care of this patient today ____ minutes. Quality Stroke Does the patient have a stroke diagnosis?: No VTE Prior VTE?: No VTE Risk Level:: Medical - moderate - high VTE Device Contraindication: N/A - Device Ordered VTE Drug Contraindication: Treatment Not Indicated
[2022-12-26 15:19] VITALS: BP 156/86; PULSE 71; RESP 17; TEMP 36.2; O2SAT 92
--- NOTE | 2022-12-26 15:26 | P.CONAN_ITS ---
HPI - Anesthesia Eval Consult details Narrative: ERCP [facility] Active Problems Active Problems: All Active Problems (Updated 12/23/22 @ 15:04 by INES Suárez) Choledocholithiasis with obstruction (Acute) Anemia (Acute) Falls (Acute) Occult blood positive stool (Acute) Dyspnea on exertion (Acute) Osteoarthritis (Acute) Fall as cause of accidental injury at home as place of occurrence (Acute) COPD (chronic obstructive pulmonary disease) (Acute) KIMBERLEY on CPAP (Acute) Past Medical History Medical History COPD (chronic obstructive pulmonary disease) Dyspnea on exertion KIMBERLEY on CPAP Family History Family history of problems with anesthesia: No Surgical History History of Problems with Anesthesia: No Social History Social History Household Members: Spouse Housing: House Do you presently have visiting nurse or other home services: No Alcohol intake: never Patient Tobacco Use Status: Former Tobacco user Substance Use Type: Marijuana Advance Directives Date on File: 12/23/22 Current occupational status: retired Meds Allergies Allergy/AdvReac Type Severity Reaction Status Date / Time lisinopril [LISINOPRIL] Allergy Mild HEADACHES Verified 12/24/22 00:38 amoxicillin [AMOXICILLIN] Allergy Unknown UNKNOWN Verified 12/24/22 00:38 Sulfa (Sulfonamide Allergy Unknown UNKNOWN Verified 12/24/22 00:38 Antibiotics) [SULFA (SULFONAMIDE ANTIBIOTICS)] Active Medications: Current Medications Acetaminophen (Acetaminophen 325 Mg Tablet) 650 mg PO Q6H PRN PRN Reason: Pain, Mild (Pain Scale 1-3) Last Admin: 12/24/22 15:05 Dose: 650 mg Albuterol Sulfate (Albuterol Sulfate 90 Mcg 8 Gm Inhaler) 2 puff INHALE Q4H PRN PRN Reason: shortness of breath or wheezing Docusate Sodium (Docusate Sodium 100 Mg Capsule) 100 mg PO DAILY PRN PRN Reason: Constipation Donepezil HCl (Donepezil Hcl 10 Mg Tablet) 10 mg PO DAILY [facility] Last Admin: 12/26/22 08:04 Dose: 10 mg Doxazosin Mesylate (Doxazosin Mesylate 2 Mg Tablet) 8 mg PO BID [facility] Last Admin: 12/26/22 08:04 Dose: 8 mg Gabapentin (Gabapentin 100 Mg Capsule) 100 mg PO BID [facility] Last Admin: 12/26/22 08:03 Dose: 100 mg Memantine (Memantine Hcl 10 Mg Tablet) 10 mg PO BID [facility] Last Admin: 12/26/22 08:04 Dose: 10 mg Modafinil (Modafinil 100 Mg Tablet) 200 mg PO DAILY [facility] Last Admin: 12/26/22 08:04 Dose: 200 mg Omeprazole (Omeprazole 40 Mg Capsule.Dr) 40 mg PO DAILY@0630 [facility] Last Admin: 12/26/22 06:23 Dose: 40 mg Ondansetron HCl (Ondansetron Hcl 4 Mg/2 Ml Vial) 4 mg IVPUSH Q8H PRN PRN Reason: Nausea and Vomiting Last Admin: 12/24/22 15:05 Dose: 4 mg Oxycodone HCl (Oxycodone Hcl Immed Release 5 Mg Tablet) 5 mg PO Q6H PRN PRN Reason: Pain, Severe (Pain Scale 7-10) Last Admin: 12/24/22 08:28 Dose: 5 mg Pharmacy Consult (Consult Rx Perform Med Rec) 1 each MISCELLANE ONCE PRN PRN Reason: Consult order Sertraline HCl (Sertraline Hcl 50 Mg Tablet) 50 mg PO DAILY [facility] Last Admin: 12/26/22 08:04 Dose: 50 mg Sodium Chloride (0.9 % Sodium Chloride Flush 3 Ml Syringe) [facility] Last Admin: 12/26/22 08:07 Dose: 3 ml Home Medications Medication Instructions Recorded Confirmed Last Taken Type modafinil 200 mg tablet (Provigil) 200 mg PO DAILY 08/18/20 12/23/22 12/22/22 History omeprazole 20 mg capsule,delayed 20 mg PO DAILY 08/18/20 12/23/22 12/22/22 History release terazosin 10 mg capsule 10 mg PO BID 12/28/20 12/23/22 12/22/22 History sertraline 50 mg tablet 50 mg PO DAILY 07/12/22 12/23/22 Unknown History donepezil 10 mg tablet 10 mg PO DAILY 12/23/22 12/23/22 12/22/22 History indomethacin 50 mg capsule 100 mg PO BID 12/23/22 12/23/22 12/22/22 History memantine 10 mg tablet 10 mg PO BID 0512/23/22 12/22/22 History Exam Exam Date and Time: December 26, 2022 1526 Height,Weight and Vital Signs: Height 5 ft 11 in Weight 91 kg Last Vital Signs Temp 97.2 F 12/26/22 15:19 Pulse 71 12/26/22 15:19 Resp 17 12/26/22 15:19 BP 156/86 H 12/26/22 15:19 Pulse Ox 92 12/26/22 15:19 O2 Del Method Room Air 12/26/22 15:19 Pertinent Lab Results Pertinent Lab Results: Laboratory Tests 12/23/22 12/23/22 12/23/22 09:41 09:41 09:41 WBC 7.9 RBC 4.54 L Hgb 12.9 L Hct 39.6 L MCV 87.2 MCH 28.4 MCHC 32.6 RDW 13.2 Plt Count 152 L D MPV 9.5 Immature Gran % (Auto) 0.4 Neut % (Auto) 91.0 H Lymph % (Auto) 2.5 L Merrick % (Auto) 5.4 Eos % (Auto) 0.3 Baso % (Auto) 0.4 Lymph # (Auto) 0.2 L Merrick # (Auto) 0.4 Eos # (Auto) 0.0 Baso # (Auto) 0.0 Abs Immat Gran (auto) 0.03 Absolute Neuts (auto) 7.2 Absolute Nucleated RBC 0.000 Nucleated RBC % (auto) 0.0 Smear Tech's Comments VERIFIED PT 12.3 INR 1.1 Sodium Potassium Chloride Carbon Dioxide Anion Gap BUN Creatinine Estim Creat Clear Calc Estimated GFR Random Glucose Calcium Magnesium Iron TIBC % Saturation Unsat Iron Binding Ferritin Total Bilirubin Direct Bilirubin AST ALT Alkaline Phosphatase Troponin I High Sens 16.7 Total Protein Albumin Urine Color Urine Appearance Urine pH Ur Specific Wiggins Urine Protein Urine Glucose (UA) Urine Ketones Urine Blood Urine Nitrite Ur Leukocyte Esterase Urine RBC Urine WBC Ur Squamous Epith Cells Urine Bacteria Hyaline Casts Stool Occult Blood 12/23/22 12/23/22 12/23/22 09:41 10:17 11:13 WBC RBC Hgb Hct MCV MCH MCHC RDW Plt Count MPV Immature Gran % (Auto) Neut % (Auto) Lymph % (Auto) Merrick % (Auto) Eos % (Auto) Baso % (Auto) Lymph # (Auto) Merrick # (Auto) Eos # (Auto) Baso # (Auto) Abs Immat Gran (auto) Absolute Neuts (auto) Absolute Nucleated RBC Nucleated RBC % (auto) Smear Tech's Comments PT INR Sodium 141 Potassium 4.3 Chloride 111 H Carbon Dioxide 24 Anion Gap 10 L BUN 21 H Creatinine 1.36 Estim Creat Clear Calc 50.2 Estimated GFR 50 Random Glucose 87 Calcium 8.8 D Magnesium 1.3 L* Iron TIBC % Saturation Unsat Iron Binding Ferritin Total Bilirubin 3.7 H Direct Bilirubin AST 270 H ALT 248 H Alkaline Phosphatase 147 H Troponin I High Sens Total Protein 5.6 L Albumin 3.5 Urine Color Dark Yellow Urine Appearance Clear Urine pH 5.5 Ur Specific Wiggins 1.020 Urine Protein Negative Urine Glucose (UA) Negative Urine Ketones Negative Urine Blood Negative Urine Nitrite Negative Ur Leukocyte Esterase Small (1+) H Urine RBC 0-2 Urine WBC 0-5 Ur Squamous Epith Cells 0-2 Urine Bacteria None Seen Hyaline Casts 0-2 Stool Occult Blood POSITIVE 12/24/22 12/24/22 12/25/22 06:17 06:17 06:01 WBC 8.8 RBC 4.45 L Hgb 12.7 L Hct 38.5 L MCV 86.5 MCH 28.5 MCHC 33.0 RDW 13.9 Plt Count 184 MPV 9.9 Immature Gran % (Auto) Neut % (Auto) Lymph % (Auto) Merrick % (Auto) Eos % (Auto) Baso % (Auto) Lymph # (Auto) Merrick # (Auto) Eos # (Auto) Baso # (Auto) Abs Immat Gran (auto) Absolute Neuts (auto) Absolute Nucleated RBC 0.000 Nucleated RBC % (auto) 0.0 Smear Tech's Comments PT INR Sodium 140 Potassium 4.2 Chloride 109 H Carbon Dioxide 23 Anion Gap 12 BUN 20 H Creatinine 1.29 Estim Creat Clear Calc 52.7 Estimated GFR 54 Random Glucose 86 Calcium 9.2 Magnesium 2.2 Iron 32 L TIBC 216 L % Saturation 15 Unsat Iron Binding 184 Ferritin 99 Total Bilirubin 2.7 H 1.1 H Direct Bilirubin 1.7 H 0.5 AST 143 H 78 H ALT 181 H 134 H Alkaline Phosphatase 153 H 145 H Troponin I High Sens Total Protein 5.9 L 6.0 L Albumin 3.6 3.7 Urine Color Urine Appearance Urine pH Ur Specific Wiggins Urine Protein Urine Glucose (UA) Urine Ketones Urine Blood Urine Nitrite Ur Leukocyte Esterase Urine RBC Urine WBC Ur Squamous Epith Cells Urine Bacteria Hyaline Casts Stool Occult Blood Airway Mallampati Class: II TM Dist: >3cm Neck ROM: Limited Loose/Missing/Broken Teeth: No Heart: rrr Lungs: cta Assessment and Plan Assessment Anesthesia Assessment: Anesthesia Plan Discussed Final Anesthetic Review Family History of Problems with Anesthesia: No History of Problems with Anesthesia: No NPO: Yes ASA Class: III Final Preanesthetic Review: No Changes in Pt Med Stat, Meds/Allgs Chart Reviewed, Consent Obtained/Reviewed and Anes Risks/Benef Reviewed Patient Risk: Intermediate Procedure Risk: Intermediate Anesthetic Plan Anesthetic Plan: GA Disposition: Standard PACU
--- NOTE | 2022-12-26 17:23 | P.EN_ITS ---
Event Note Date of Service: 12/26/22 Event Note: GI ERCP canceled for today due to malfunctioning of ERCP scope and no availability until tomorrow, 12/27/2022. Will advance diet now and then NPO after midnight. F/U labs tomorrow as well. Patient is presently quite comfortable and denies any abdominal pain. His abd ominal exam is benign. He has been afebrile. Therefore, the ERCP is not needed urgently and will plan for tomorrow. D/W patient in detail and he is comfortable with that. Thanks Time Spent With Patient Time: Total time managing care of this patient today ____ minutes.
[2022-12-26] MEDS: oxyCODONE HCl Immed Release 5 MG TABLET PO (19:49)
[2022-12-27] VITALS (11 sets, daily range): BP systolic 119–153; BP diastolic 68–90; PULSE 63–76; RESP 12–18; TEMP 35.8–36.7; O2SAT 92–99
[2022-12-27 05:59] LABS: MANUAL DIFF FLAG NO
[2022-12-27 06:08] LABS: Basophils Absolute Auto 0.1 X10*3/uL (0.0-0.2); Basophils Percent Auto 1.5 % (0-2); Eosinophils Absolute Auto 0.2 X10*3/uL (0.0-0.4); Eosinophils Percent Auto 3.8 % (0-4); Hematocrit 41.3 % (42.0-52.0); Hemoglobin 13.7 g/dl (14.0-18.0); Imm Gran Abs Auto 0.02 X10*3/uL (0.00-0.03); Imm Gran Pct Auto 0.3 % (0.0-0.4); Lymphocytes Absolute Auto 1.6 X10*3/uL (1.2-4.9); Mean Corpuscular HGB Conc 33.2 g/dl (31.0-36.0); Mean Corpuscular Hemoglobin 28.6 pg (27.0-33.0); Mean Corpuscular Volume 86.2 fL (80.0-98.0); Mean Platelet Volume 9.5 fL (9.4-12.4); Monocytes Absolute Auto 0.6 X10*3/uL (0.1-1.2); Monocytes Percent Auto 9.3 % (2-11); Neutrophils Absolute Auto 3.5 x10*3/uL (2.0-8.3); Neutrophils Percent Auto 59.1 % (45-73); Platelet Count 226 X10*3/uL (160-400); Red Blood Count 4.79 X10*6/uL (4.60-5.80); Red Cell Distribution Width 13.5 % (11.0-16.0)
[2022-12-27] MEDS: Omeprazole 40 MG CAPSULE.DR PO (06:11)
[2022-12-27 06:33] LABS: Alanine Aminotransferase 76 U/L (0-40); Albumin Level 3.7 g/dL (3.5-5.0); Alkaline Phosphatase 123 U/L (39-117); Anion Gap 12 (12-20); Aspartate Amino Transferase 39 U/L (5-37); Bilirubin Direct 0.3 mg/dL (0.0-0.5); Bilirubin Total 0.8 mg/dL (0.0-1.0); Blood Urea Nitrogen 21 mg/dL (9-16); Calcium 9.5 mg/dL (8.4-10.2); Carbon Dioxide 25 mmol/L (22-29); Chloride 107 mmol/L (96-108); Creatinine Clr Calc Pharmacy 55.2; Estimated Glomerular Filt Rate 57; Glucose Fasting 116 mg/dL (60-99); Sodium 140 mmol/L (135-145); Total Protein 6.1 g/dL (6.5-8.0)
[2022-12-27] MEDS: modafiniL 100 MG TABLET 200 MG PO (08:12)
[2022-12-27] MEDS: 0.9 % Sodium Chloride Flush 3 ML SYRINGE IVFLUSH ×2 (08:12→20:34)
[2022-12-27] MEDS: Doxazosin Mesylate 2 MG TABLET 8 MG PO ×2 (08:12→20:34)
[2022-12-27] MEDS: Donepezil HCl 10 MG TABLET PO (08:12)
[2022-12-27] MEDS: Sertraline HCL 50 MG TABLET PO (08:12)
[2022-12-27] MEDS: Memantine HCl 10 MG TABLET PO ×2 (08:12→20:34)
[2022-12-27] MEDS: Gabapentin 100 MG CAPSULE PO ×2 (08:12→20:34)
[2022-12-27] MEDS: oxyCODONE HCl Immed Release 5 MG TABLET PO ×2 (10:56→20:34)
--- NOTE | 2022-12-27 12:16 | MHC.CM.PN ---
ERCP PLANNED FOR TODAY WAS CANCELLED YESTERDAY PATIENT STATES HE WANTS TO RETURN HOME WITH NO SERVICES. (IN ROOM) TO TRANSPORT
--- NOTE | 2022-12-27 13:28 | P.CDIM_ITS ---
PROVIDER RESPONSE TEXT: To clarify, the appropriate diagnosis supported by the clinical indicators: Peripheral neuropathy QUERY TEXT: PHYSICIAN'S DOCUMENTATION REQUEST Date of Query: 12/26/2022 09:44 AM EDT Patient Name: Kenney Fernandez Admit Date: 12/23/2022 Dear Christi Pinto, A review of the medical record indicates additional documentation may be needed. Please review below and update the documentation accordingly. Clinical Indicators: PN: Neuropathy, patient complains of tingling and sharp shooting pains in his fingers especially whil e lying in bed question neuropathy, gabapentin at home. Placed on gabapentin 100 mg b.i.d Based on the above, could you clarify any specifics to the documented Neuropathy: Peripheral neuropathy Other Unable to determine Other (explain)Clinically unable to determine (explain)Thank you, Shannon Peck, CCS, CDIS Use of terms such as suspected, likely, concern for, or probable (associated with a specific diagnosi s that is being evaluated, monitored, or treated as if it exists) are acceptable and can be coded in the inpatient se tting, when documented at the time of discharge. Please use your independent medical judgment in providing your response. THIS QUERY IS PART OF THE PERMANENT MEDICAL RECORD
--- NOTE | 2022-12-27 14:57 | P.PNIM_ITS ---
Subjective Subjective Date of Service: 12/27/22 Interval History: Resting comfortably in bed NPO for ERCP his scheduled for this afternoon, denies abdominal pain no lightheadedness, no dizziness, no nausea no vomiting no abdominal pain no other acute issues overnight. Review of Systems Review of Systems: Yes all other systems are reviewed and are negative Physical Exam Vital Signs: Vital Signs: Last Vital Signs Temp 97.3 F 12/27/22 13:08 Pulse 63 12/27/22 13:08 Resp 18 12/27/22 13:08 BP 134/83 12/27/22 13:08 Pulse Ox 93 12/27/22 13:08 O2 Del Method Room Air 12/27/22 13:08 BMI result Body Mass Index 28.0 Const: Other: General awake alert , resting comfortably in no acute distress.? Neck? supple no JVD. CVS? regular rate rhythm, Respiratory lungs clear to auscultation, no respiratory distress, no wheeze, no rhonchi. Gastrointestinal abdomen soft, non tender, bowel sounds audible, no guarding , no rigidity. Extremities no edema. Neuro non focal patient moving all 4 extremity speech clear. Skin bruising psych appropriate affect Objective Data Active Medications Acetaminophen (Acetaminophen 325 Mg Tablet) 650 mg PO Q6H PRN PRN Reason: Pain, Mild (Pain Scale 1-3) Last Admin: 12/24/22 15:05 Dose: 650 mg Documented By: COTEMA Albuterol Sulfate (Albuterol Sulfate 90 Mcg 8 Gm Inhaler) 2 puff INHALE Q4H PRN PRN Reason: shortness of breath or wheezing Docusate Sodium (Docusate Sodium 100 Mg Capsule) 100 mg PO DAILY PRN PRN Reason: Constipation Donepezil HCl (Donepezil Hcl 10 Mg Tablet) 10 mg PO DAILY [facility] Last Admin: 12/27/22 08:12 Dose: 10 mg Documented By: [email or web address] Doxazosin Mesylate (Doxazosin Mesylate 2 Mg Tablet) 8 mg PO BID [facility] Last Admin: 12/27/22 08:12 Dose: 8 mg Documented By: EYAD.[email or web address] Gabapentin (Gabapentin 100 Mg Capsule) 100 mg PO BID [facility] Last Admin: 12/27/22 08:12 Dose: 100 mg Documented By: COTEMA Levofloxacin (Levaquin) 500 mg in 100 mls @ 100 mls/hr IV PREOP ONE Stop: 12/27/22 15:14 Memantine (Memantine Hcl 10 Mg Tablet) 10 mg PO BID [facility] Last Admin: 12/27/22 08:12 Dose: 10 mg Documented By: JOSE Modafinil (Modafinil 100 Mg Tablet) 200 mg PO DAILY [facility] Last Admin: 12/27/22 08:12 Dose: 200 mg Documented By: JOSE Omeprazole (Omeprazole 40 Mg Capsule.Dr) 40 mg PO DAILY@0630 [facility] Last Admin: 12/27/22 06:11 Dose: 40 mg Documented By: ESTEFANÍA Ondansetron HCl (Ondansetron Hcl 4 Mg/2 Ml Vial) 4 mg IVPUSH Q8H PRN PRN Reason: Nausea and Vomiting Last Admin: 12/24/22 15:05 Dose: 4 mg Documented By: JOSE Oxycodone HCl (Oxycodone Hcl Immed Release 5 Mg Tablet) 5 mg PO Q6H PRN PRN Reason: Pain, Severe (Pain Scale 7-10) Last Admin: 12/27/22 10:56 Dose: 5 mg Documented By: JOSE Pharmacy Consult (Consult Rx Perform Med Rec) 1 each MISCELLANE ONCE PRN PRN Reason: Consult order Sertraline HCl (Sertraline Hcl 50 Mg Tablet) 50 mg PO DAILY [facility] Last Admin: 12/27/22 08:12 Dose: 50 mg Documented By: JOSE Sodium Chloride (0.9 % Sodium Chloride Flush 3 Ml Syringe) 3 ml IVFLUSH QSHIFT [facility] Last Admin: 12/27/22 08:12 Dose: 3 ml Documented By: JOSE Labs 12/27/22 05:46 12/27/22 05:46 Labs: Laboratory Results - last 24 hr 12/27/22 12/27/22 05:46 05:46 MCV 86.2 MCH 28.6 MCHC 33.2 RDW 13.5 Plt Count 226 MPV 9.5 Immature Gran % (Auto) 0.3 Neut % (Auto) 59.1 Lymph % (Auto) 26.0 Alfalfa % (Auto) 9.3 Eos % (Auto) 3.8 Baso % (Auto) 1.5 Lymph # (Auto) 1.6 Alfalfa # (Auto) 0.6 Eos # (Auto) 0.2 Baso # (Auto) 0.1 Abs Immat Gran (auto) 0.02 Absolute Neuts (auto) 3.5 Absolute Nucleated RBC 0.000 Nucleated RBC % (auto) 0.0 Anion Gap 12 Estim Creat Clear Calc 55.2 Estimated GFR 57 Fasting Glucose 116 H Calcium 9.5 Total Bilirubin 0.8 Direct Bilirubin 0.3 AST 39 H ALT 76 H Alkaline Phosphatase 123 H Total Protein 6.1 L Albumin 3.7 Assessment and Plan (1) Choledocholithiasis with obstruction: Status: Acute (2) Anemia: Status: Acute (3) Falls: Status: Acute (4) Occult blood positive stool: Status: Acute Plan 82-year-old male with a PMH significant for?mild dementia unspecified, COPD, KIMBERLEY on CPAP, and osteoarthritis on chronic indomethacin who presents to the ED for evaluation after two recent falls yesterday and today. Pt will be admitted to the hospital for treatment and further evaluation of obstructing choledocholithiasis and acute GI bleed. Choledocholithiasis with obstruction asymptomatic ,CT of abdomen/pelvis showed distended gallbladder with mild pericolic haziness and mild prominence of CBD likely from obstructive distal CBD stones liver enzymes trending down n. p.o. for ERCP /egd by Dr. Beaver/Dr. Calles this afternoon Recent falls at home long history of falling at home, noted to have fall twice in last [address] of head and abdomen/pelvis, x-rays of chest, forearm, shoulder, wrist, knee all negative for acute fracture or subluxation or trauma continue Acetaminophen and Oxy for pain normal orthostatics PT rec STR New onset anemia H&H of 12.9/39.6, reduced from baseline of 15.0/40 6.0,Platelets 152, down from baseline around 200 stool positive for occult blood Source unknown: likely secondary to acute GI blood loss, possibly secondary gastritis due to chronic indomethacin use Hold indomethacin, repeat hematocrit stable, continue PPI avoid NSAIDs Hypomagnesemia Mag 1.3 on admission improved to 2.2 with replacement Osteoarthritis chronically on indomethacin for osteoarthritis,dc indomethacin for possible GI bleed Acetaminophen, oxycodone for pain management Peripheral Neuropathy tingling and sharp shooting pains in his fingers especially while lying in bed question related to neuropathy since using wives gabapentin with some relief placed on gabapentin 100 mg b.i.d. with good relief in symptoms follow-up outpatient with Rheumatology KIMBERLEY on CPAP home CPAP Mood disorder Continue sertraline Early dementia unspecified Continue memantine and Aicept BPH Continue terazosin DNR/DNI DVT Prophylaxis: Pneumatic boots Pt will require continued inpatient hospitalization for treatment and further evaluation of obstructing choledocholithiasis Time Spent With Patient Time: Total time managing care of this patient today ____ minutes. Quality Stroke Does the patient have a stroke diagnosis?: No VTE Prior VTE?: No VTE Risk Level:: Medical - moderate - high VTE Device Contraindication: N/A - Device Ordered VTE Drug Contraindication: Treatment Not Indicated
--- NOTE | 2022-12-27 15:54 | P.BOP_ITS ---
Brief Operative Note Date of Service: 12/27/22 Pre-op diagnosis: CBD stones Post-op diagnosis: same Procedure: EGD balloon dilation attempted ERCP Surgeon: Jason Beaver Anesthesia: MAC Was an Supervisor [employer] used for this Procedure?: No Estimated blood loss (mL): 0 Pathology: none sent Condition: stable Disposition: PACU
--- NOTE | 2022-12-27 16:02 | PM.EVENT ---
Event Note Date of Service: 12/27/22 Event Note: EGD/attempted ERCP note dictated EGD showed hiatal hernia, and a large duodenal diverticulum UES balloon dilation to 15mm performed, no definite stricture seen. Esophagus could not be intubated with the duodenoscope despite multiple attempts. Rec: Advance diet, d/c when stable I will arrange repeat ercp at tertiary facility as outpt. Time Spent With Patient Time: Total time managing care of this patient today ____ minutes.
--- NOTE | 2022-12-27 16:13 | HO.ANESPROP2 ---
[facility] Active Problems Active Problems: All Active Problems (Updated 12/23/22 @ 15:04 by INES Suárez) Choledocholithiasis with obstruction (Acute) Anemia (Acute) Falls (Acute) Occult blood positive stool (Acute) Dyspnea on exertion (Acute) Osteoarthritis (Acute) Fall as cause of accidental injury at home as place of occurrence (Acute) COPD (chronic obstructive pulmonary disease) (Acute) KIMBERLEY on CPAP (Acute) Past Medical History Medical History COPD (chronic obstructive pulmonary disease) Dyspnea on exertion KIMBERLEY on CPAP Family History Family history of problems with anesthesia: No Surgical History History of Problems with Anesthesia: No Social History Social History Household Members: Spouse Housing: House Do you presently have visiting nurse or other home services: No Alcohol intake: never Patient Tobacco Use Status: Former Tobacco user Substance Use Type: Marijuana Advance Directives Date on File: 12/23/22 Current occupational status: retired Meds Allergies Allergy/AdvReac Type Severity Reaction Status Date / Time lisinopril [LISINOPRIL] Allergy Mild HEADACHES Verified 12/24/22 00:38 amoxicillin [AMOXICILLIN] Allergy Unknown UNKNOWN Verified 12/24/22 00:38 Sulfa (Sulfonamide Allergy Unknown UNKNOWN Verified 12/24/22 00:38 Antibiotics) [SULFA (SULFONAMIDE ANTIBIOTICS)] Active Medications: Current Medications Acetaminophen (Acetaminophen 325 Mg Tablet) 650 mg PO Q6H PRN PRN Reason: Pain, Mild (Pain Scale 1-3) Last Admin: 12/24/22 15:05 Dose: 650 mg Albuterol Sulfate (Albuterol Sulfate 90 Mcg 8 Gm Inhaler) 2 puff INHALE Q4H PRN PRN Reason: shortness of breath or wheezing Docusate Sodium (Docusate Sodium 100 Mg Capsule) 100 mg PO DAILY PRN PRN Reason: Constipation Donepezil HCl (Donepezil Hcl 10 Mg Tablet) 10 mg PO DAILY [facility] Last Admin: 12/27/22 08:12 Dose: 10 mg Doxazosin Mesylate (Doxazosin Mesylate 2 Mg Tablet) 8 mg PO BID [facility] Last Admin: 12/27/22 08:12 Dose: 8 mg Gabapentin (Gabapentin 100 Mg Capsule) 100 mg PO BID [facility] Last Admin: 12/27/22 08:12 Dose: 100 mg Memantine (Memantine Hcl 10 Mg Tablet) 10 mg PO BID [facility] Last Admin: 12/27/22 08:12 Dose: 10 mg Modafinil (Modafinil 100 Mg Tablet) 200 mg PO DAILY [facility] Last Admin: 12/27/22 08:12 Dose: 200 mg Omeprazole (Omeprazole 40 Mg Capsule.Dr) 40 mg PO DAILY@0630 [facility] Last Admin: 12/27/22 06:11 Dose: 40 mg Ondansetron HCl (Ondansetron Hcl 4 Mg/2 Ml Vial) 4 mg IVPUSH Q8H PRN PRN Reason: Nausea and Vomiting Last Admin: 12/24/22 15:05 Dose: 4 mg Oxycodone HCl (Oxycodone Hcl Immed Release 5 Mg Tablet) 5 mg PO Q6H PRN PRN Reason: Pain, Severe (Pain Scale 7-10) Last Admin: 12/27/22 10:56 Dose: 5 mg Pharmacy Consult (Consult Rx Perform Med Rec) 1 each MISCELLANE ONCE PRN PRN Reason: Consult order Sertraline HCl (Sertraline Hcl 50 Mg Tablet) 50 mg PO DAILY [facility] Last Admin: 12/27/22 08:12 Dose: 50 mg Sodium Chloride (0.9 % Sodium Chloride Flush 3 Ml Syringe) [facility] [place] Last Admin: 12/27/22 08:12 Dose: 3 ml Home Medications Medication Instructions Recorded Confirmed Last Taken Type modafinil 200 mg tablet (Provigil) 200 mg PO DAILY 08/18/20 12/23/22 12/22/22 History omeprazole 20 mg capsule,delayed 20 mg PO DAILY 08/18/20 12/23/22 12/22/22 History release terazosin 10 mg capsule 10 mg PO BID 12/28/20 12/23/22 12/22/22 History sertraline 50 mg tablet 50 mg PO DAILY 07/12/22 12/23/22 Unknown History donepezil 10 mg tablet 10 mg PO DAILY 12/23/22 12/23/22 12/22/22 History indomethacin 50 mg capsule 100 mg PO BID 12/23/22 12/23/22 12/22/22 History memantine 10 mg tablet 10 mg PO BID 12/23/22 12/23/22 12/22/22 History Exam Exam Date and Time: December 27, 2022 1613 Height,Weight and Vital Signs: Height 5 ft 11 in Weight 91 kg Last Vital Signs Temp 97.3 F 12/27/22 16:07 Pulse 71 12/27/22 16:07 Resp 16 12/27/22 16:07 BP 124/70 12/27/22 16:07 Pulse Ox 98 12/27/22 16:07 O2 Del Method Simple Mask 12/27/22 16:07 O2 Flow Rate 8 12/27/22 16:07 Pertinent Lab Results Pertinent Lab Results: Laboratory Tests 12/23/22 12/23/22 12/23/22 09:41 09:41 09:41 WBC 7.9 RBC 4.54 L Hgb 12.9 L Hct 39.6 L MCV 87.2 MCH 28.4 MCHC 32.6 RDW 13.2 Plt Count 152 L D MPV 9.5 Immature Gran % (Auto) 0.4 Neut % (Auto) 91.0 H Lymph % (Auto) 2.5 L [place] % (Auto) 5.4 Eos % (Auto) 0.3 Baso % (Auto) 0.4 Lymph # (Auto) 0.2 L [place] # (Auto) 0.4 Eos # (Auto) 0.0 Baso # (Auto) 0.0 Abs Immat Gran (auto) 0.03 Absolute Neuts (auto) 7.2 Absolute Nucleated RBC 0.000 Nucleated RBC % (auto) 0.0 Smear Tech's Comments VERIFIED PT 12.3 INR 1.1 Sodium Potassium Chloride Carbon Dioxide Anion Gap BUN Creatinine Estim Creat Clear Calc Estimated GFR Random Glucose Fasting Glucose Calcium Magnesium Iron TIBC % Saturation Unsat Iron Binding Ferritin Total Bilirubin Direct Bilirubin AST ALT Alkaline Phosphatase Troponin I High Sens 16.7 Total Protein Albumin Urine Color Urine Appearance Urine pH Ur Specific [place] Urine Protein Urine Glucose (UA) Urine Ketones Urine Blood Urine Nitrite Ur Leukocyte Esterase Urine RBC Urine WBC Ur Squamous Epith Cells Urine Bacteria Hyaline Casts Stool Occult Blood 12/23/22 12/23/22 12/23/22 09:41 10:17 11:13 WBC RBC Hgb Hct MCV MCH MCHC RDW Plt Count MPV Immature Gran % (Auto) Neut % (Auto) Lymph % (Auto) [place] % (Auto) Eos % (Auto) Baso % (Auto) Lymph # (Auto) [place] # (Auto) Eos # (Auto) Baso # (Auto) Abs Immat Gran (auto) Absolute Neuts (auto) Absolute Nucleated RBC Nucleated RBC % (auto) Smear Tech's Comments PT INR Sodium 141 Potassium 4.3 Chloride 111 H Carbon Dioxide 24 Anion Gap 10 L BUN 21 H Creatinine 1.36 Estim Creat Clear Calc 50.2 Estimated GFR 50 Random Glucose 87 Fasting Glucose Calcium 8.8 D Magnesium 1.3 L* Iron TIBC % Saturation Unsat Iron Binding Ferritin Total Bilirubin 3.7 H Direct Bilirubin AST 270 H ALT 248 H Alkaline Phosphatase 147 H Troponin I High Sens Total Protein 5.6 L Albumin 3.5 Urine Color Dark Yellow Urine Appearance Clear Urine pH 5.5 Ur Specific [place] 1.020 Urine Protein Negative Urine Glucose (UA) Negative Urine Ketones Negative Urine Blood Negative Urine Nitrite Negative Ur Leukocyte Esterase Small (1+) H Urine RBC 0-2 Urine WBC 0-5 Ur Squamous Epith Cells 0-2 Urine Bacteria None Seen Hyaline Casts 0-2 Stool Occult Blood POSITIVE 12/24/22 12/24/22 12/25/22 06:17 06:17 06:01 WBC 8.8 RBC 4.45 L Hgb 12.7 L Hct 38.5 L MCV 86.5 MCH 28.5 MCHC 33.0 RDW 13.9 Plt Count 184 MPV 9.9 Immature Gran % (Auto) Neut % (Auto) Lymph % (Auto) [place] % (Auto) Eos % (Auto) Baso % (Auto) Lymph # (Auto) [place] # (Auto) Eos # (Auto) Baso # (Auto) Abs Immat Gran (auto) Absolute Neuts (auto) Absolute Nucleated RBC 0.000 Nucleated RBC % (auto) 0.0 Smear Tech's Comments PT INR Sodium 140 Potassium 4.2 Chloride 109 H Carbon Dioxide 23 Anion Gap 12 BUN 20 H Creatinine 1.29 Estim Creat Clear Calc 52.7 Estimated GFR 54 Random Glucose 86 Fasting Glucose Calcium 9.2 Magnesium 2.2 Iron 32 L TIBC 216 L % Saturation 15 Unsat Iron Binding 184 Ferritin 99 Total Bilirubin 2.7 H 1.1 H Direct Bilirubin 1.7 H 0.5 AST 143 H 78 H ALT 181 H 134 H Alkaline Phosphatase 153 H 145 H Troponin I High Sens Total Protein 5.9 L 6.0 L Albumin 3.6 3.7 Urine Color Urine Appearance Urine pH Ur Specific [place] Urine Protein Urine Glucose (UA) Urine Ketones Urine Blood Urine Nitrite Ur Leukocyte Esterase Urine RBC Urine WBC Ur Squamous Epith Cells Urine Bacteria Hyaline Casts Stool Occult Blood 12/27/22 12/27/22 05:46 05:46 WBC 6.0 RBC 4.79 Hgb 13.7 L Hct 41.3 L MCV 86.2 MCH 28.6 MCHC 33.2 RDW 13.5 Plt Count 226 MPV 9.5 Immature Gran % (Auto) 0.3 Neut % (Auto) 59.1 Lymph % (Auto) 26.0 Cas[place] % (Auto) 9.3 Eos % (Auto) 3.8 Baso % (Auto) 1.5 Lymph # (Auto) 1.6 [place] # (Auto) 0.6 Eos # (Auto) 0.2 Baso # (Auto) 0.1 Abs Immat Gran (auto) 0.02 Absolute Neuts (auto) 3.5 Absolute Nucleated RBC 0.000 Nucleated RBC % (auto) 0.0 Smear Tech's Comments PT INR Sodium 140 Potassium 4.0 Chloride 107 Carbon Dioxide 25 Anion Gap 12 BUN 21 H Creatinine 1.23 Estim Creat Clear Calc 55.2 Estimated GFR 57 Random Glucose Fasting Glucose 116 H Calcium 9.5 Magnesium Iron TIBC % Saturation Unsat Iron Binding Ferritin Total Bilirubin 0.8 Direct Bilirubin 0.3 AST 39 H ALT 76 H Alkaline Phosphatase 123 H Troponin I High Sens Total Protein 6.1 L Albumin 3.7 Urine Color Urine Appearance Urine pH Ur Specific [place] Urine Protein Urine Glucose (UA) Urine Ketones Urine Blood Urine Nitrite Ur Leukocyte Esterase Urine RBC Urine WBC Ur Squamous Epith Cells Urine Bacteria Hyaline Casts Stool Occult Blood Airway Mallampati Class: II TM Dist: >3cm Neck ROM: Full Heart: RRR Lungs: CTA Assessment and Plan Final Anesthetic Review Family History of Problems with Anesthesia: No History of Problems with Anesthesia: No ASA Class: III and Emergency Final Preanesthetic Review: Meds/Allgs Chart Reviewed, Consent Obtained/Reviewed and Anes Risks/Benef Reviewed Patient Risk: Intermediate Procedure Risk: Intermediate Anesthetic Plan Anesthetic Plan: GA Disposition: Standard PACU
--- NOTE | 2022-12-28 00:56 | OP_ITS ---
DATE OF SERVICE: 12/27/2022 SURGEON: Jason Beaver MD INDICATIONS: Common bile duct stones on CT imaging. PREOPERATIVE DIAGNOSIS: POSTOPERATIVE DIAGNOSIS: PROCEDURE PERFORMED: 1. Esophagogastroduodenoscopy with balloon dilation. 2. Attempted endoscopic retrograde cholangiopancreatography. ESTIMATED BLOOD LOSS: COMPLICATIONS: ANESTHESIA: General anesthesia. ASSISTANTS: SPECIMENS: DESCRIPTION OF PROCEDURE: A history and physical performed. The risks and benefits of the procedure explained to the patient. Informed consent was obtained. The patient was placed in the prone position with a wedge under the right shoulder. The Olympus therapeutic duodenoscope was introduced into the hypopharynx, but intubation of the esophagus was not possible. Next, the gastroscope was brought in and the esophagus was successfully intubated with minimal resistance. No definite stricture was identified. Balloon dilation was performed as described below. The gastroscope was removed from the patient and the ERCP scope was reinserted, but again could not be passed into the esophagus despite multiple attempts and repositioning the patient. At this point, the procedure was terminated. FINDINGS: Esophagus; the esophagus showed slight narrowing at the upper esophageal sphincter, but no definite stricture was identified. Balloon dilation was performed at the upper esophageal sphincter from 12 to 15 mm. No immediate complications. There was no definite Zenker's diverticulum identified, however, the ERCP scope would not enter the esophagus despite multiple attempts as above and the procedure was terminated. There was a large 6 cm hiatal hernia. Stomach; the stomach showed no evidence of masses, ulcers, or polyps. There was bile refluxing from the duodenum. Duodenum; the bulb and 2nd portion showed a large duodenal diverticulum with the ampullary orifice at about 6 o'clock on the diverticulum as viewed with the forward viewing scope. Bile was present in the duodenum. IMPRESSION: 1. Upper endoscopy with balloon dilation, hiatal hernia, duodenal diverticulum. 2. Common bile duct stones. RECOMMENDATION: Advance diet. The patient may be discharged after routine recovery. I will arrange for ERCP at a tertiary care center. MD CAROL Martini/DAYNA / [phone] MTDD
[2022-12-28 03:29] VITALS: BP 123/70; PULSE 66; RESP 16; TEMP 36.6; O2SAT 94
[2022-12-28] MEDS: Omeprazole 40 MG CAPSULE.DR PO (05:40)
[2022-12-28 07:38] VITALS: BP 134/72; PULSE 72; RESP 18; TEMP 37.1; O2SAT 95
[2022-12-28] MEDS: 0.9 % Sodium Chloride Flush 3 ML SYRINGE IVFLUSH (09:34)
[2022-12-28] MEDS: Doxazosin Mesylate 2 MG TABLET 8 MG PO (09:34)
[2022-12-28] MEDS: Donepezil HCl 10 MG TABLET PO (09:34)
[2022-12-28] MEDS: Memantine HCl 10 MG TABLET PO (09:34)
[2022-12-28] MEDS: Sertraline HCL 50 MG TABLET PO (09:35)
[2022-12-28] MEDS: Gabapentin 100 MG CAPSULE PO (09:35)
--- NOTE | 2022-12-28 10:17 | MHC.CM.PN ---
PATIENT DOES NOT WISH TO DC TO SNF OR HAVE ANY [facility] SERVICES IN THE HOME. IS HERE TO TRANSPORT. IMM 12/27/22 IN CHART
--- NOTE | 2022-12-28 10:26 | P.DS_ITS ---
DS: Providers Provider Date of Service: 12/28/22 Date of admission: 12/23/22 14:49 Primary care physician: Storm Lowry DO Consults: Consult to Gastroenterology Routine Consulting Provider: Jason Beaver Reason for consultation: Obstructing stones in CBD, heme+ stool DS: Diagnosis Discharge Diagnosis (1) Choledocholithiasis with obstruction: Status: Acute (2) Anemia: Status: Acute (3) Falls: Status: Acute (4) Occult blood positive stool: Status: Acute DS: Summary Hospital Course Hospital Course: History of presenting illness: Date of Service: 12/23/22 Attending physician on admission: Christi Pinto Chief Complaint: Falls at home Pt is an 82-year-old male with a PMH significant for?mild dementia unspecified, COPD, KIMBERLEY on CPAP, and osteoarthritis on chronic indomethacin who presents to the ED for evaluation after two recent falls yesterday and today. Pt has a history of multiple falls in the last year, for which he has often refused evaluation. 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 The mechanics of the fall are unclear: pt denies tripping over anything and does not remember any lightheadedness. This morning pt fell on the floor in his bedroom after turning around while trying to get to the bathroom. Pt says he lost his balance; denies tripping, not sure if he had any lightheadedness or dizziness. Pt denies headstrike or LOC. He stayed on the floor until EMS came to take him to the ED. Pt currently complains of new pain in his right shoulder, elbow, and knee. Complains of chronic pain in his fingers from osteoarthritis. Has not tried to stand or walk since his last fall. Patient also notes occasional abdominal pain with 1 episode of severe abdominal pain 6-7 months ago that was diagnosed as an abdominal migraine, and occasional milder pains. Pt last experienced abdominal pain approximately one month ago. Pt's notes he likely had one episode of hematochezia a few weeks ago. Denies fever, chills, N/V, diarrhea, abdominal pain. No chest pain/pressure, palpitations. In the ED labs were significant for mild anemia of H&H of 12.9/39.6, platelets 152, magnesium 1.3, elevated bilirubin of 3.7, transaminitis with AST of 270, ALT of 248, alk-phos of 147. Renal function baseline.? UA negative for UTI.? Stool positive for occult blood. CXR showed no acute cardiopulmonary process or evidence for acute traumatic injury.? Right shoulder, forearm, and knee x-rays negative for acute fractures.? Left wrist wrist x-ray negative for acute fracture.? Head CT showed no intracranial process.? CT of cervical spine showed no acute fracture or dislocation but did show degenerative disc changes and spondylolysis. CT abdomen with contrast showed distended gallbladder with mild pericolic haziness and mild prominence of CBD likely from obstructive distal CBD stones. EKG demonstrated normal sinus rhythm without evidence of ST elevations or depressions. Pt was treated with magnesium sulfate. Pt will be admitted to the hospital for treatment and further evaluation of obstructing choledocholithiasis and acute GI bleed. Hospital course: 82-year-old male with a PMH significant for?mild dementia unspecified, COPD, KIMBERLEY on CPAP, and osteoarthritis on chronic indomethacin who presents to the ED for evaluation after two recent falls yesterday and today. Pt will be admitted to the hospital for treatment and further evaluation of obstructing choledocholithiasis and acute GI bleed. Choledocholithiasis with obstruction,asymptomatic ,CT of abdomen/pelvis showed distended gallbladder with mild pericolic haziness and mild prominence of CBD likely from obstructive distal CBD stones,liver enzymes gradually improving, patient underwent upper endoscopy by Dr. Beaver that showed hiatal hernia and a large due to neural diverticulum,UES balloon dilation to 15mm performed, no definite stricture seen,Esophagus could not be intubated with the duodenoscope despite multiple attempts therefore Dr. Beaver will arrange for repeat ercp at tertiary facility as outpt. Recommend to follow up with Dr. Beaver Recent falls at home long history of falling at home, CT of head and abdomen/pelvis, x-rays of chest, forearm, shoulder, wrist, knee all negative for acute fracture or subluxation or trauma continue Acetaminophen ,normal orthostatics, patient followed by Physical therapy his functional mobility improved and seems to be back to baseline therefore being discharged home with services New onset anemia H&H of 12.9/39.6, reduced from baseline of 15.0/40 6.0,Platelets 152, down from baseline around 200 stool positive for occult blood, unremarkable iron studies Source unknown: likely secondary to acute GI blood loss, possibly secondary gastritis due to chronic indomethacin use, continue PPI avoid NSAIDs, stop using indomethacin. Recommend follow-up on CBC and outpatient and if no improvement consider GI workup Hypomagnesemia Mag 1.3 on admission improved to 2.2 with replacement Osteoarthritis chronically on indomethacin for osteoarthritis,dc indomethacin for possible GI bleed, recommend Tylenol and gabapentin Peripheral Neuropathy continue gabapentin 100 mg twice daily recommend outpatient follow-up with PCP KIMBERLEY continue CPAP Mood disorder Continue sertraline Early dementia unspecified Continue memantine and Aicept BPH Continue terazosin Status at Discharge Cognitive/behavioral status at discharge: Stable no Time Spent with Patient Time attestation: Total time managing care of this patient today ____ minutes. Discharge coordination time: Greater than 30 minutes Quality: Safe Use of Opioids Does Pt have an Active Cancer Diagnosis on the Problem List?: No Quality: Stroke Does the patient have a stroke diagnosis?: No Physical Exam Vital Signs: Vital Signs: Last Vital Signs Temp 98.7 F 12/28/22 07:38 Pulse 72 12/28/22 07:38 Resp 18 12/28/22 07:38 BP 134/72 12/28/22 07:38 Pulse Ox 95 12/28/22 07:38 O2 Del Method Room Air 12/28/22 07:38 O2 Flow Rate 3 12/27/22 20:00 BMI result Body Mass Index 28.0 Const: Other: General awake alert , resting comfortably in no acute distress.? Neck? supple no JVD. CVS? regular rate rhythm, Respiratory lungs clear to auscultation, no respiratory distress, no wheeze, no rhonchi. Gastrointestinal abdomen soft, non tender, bowel sounds audible, no guarding , no rigidity. Extremities no edema. Neuro non focal patient moving all 4 extremity speech clear. Skin bruising psych appropriate affect DS: Data Data Completed and Pending Completed studies during hospitalization [Text1]: EGD Discharge Plan Discharge Anticipated Discharge Date/Time: 12/28/22 09:35 Patient Disposition: Home Health Service Discharge Diagnosis: Choledocholithiasis with obstruction Hypomagnesemia Recurrent fall Referrals: Storm Lowry DO [Primary Care Provider] - 1 Week Discharge Medications: New gabapentin 100 mg Capsule 100 mg PO BID 60 Days Qty: 120 0RF Continued memantine 10 mg tablet 10 mg PO BID donepezil 10 mg tablet 10 mg PO DAILY omeprazole 20 mg capsule,delayed release(DR/EC) 20 mg PO DAILY modafinil [Provigil] 200 mg tablet 200 mg PO DAILY terazosin 10 mg capsule 10 mg PO BID sertraline 50 mg tablet 50 mg PO DAILY albuterol sulfate 90 mcg/actuation HFA aerosol inhaler 2 puff inhalation Q4-6H PRN (Reason: shortness of breath or wheezing) 90 Days Qty: 8.5 3RF Discontinued indomethacin 50 mg capsule 100 mg PO BID Discharge Orders: Discharge Order (Routine); Ordered 12/28/22 Ordered By: Christi Pinto Diet: Advance to usual diet Activity on Discharge: As tolerated Stand Alone Forms: Patient Portal Discharge page Care Plan Goals: Continue all home medications, avoid NSAIDs Take Neurontin 100 mg twice daily for neuropathy Health Concerns: Continue all home medications as before except stop using indomethacin. Plan of Treatment: Outpatient follow-up by Gastroenterology at [facility] for ERCP Assessment: As above
--- NOTE | 2022-12-28 11:54 | HO.POSTANES ---
Post Anesthesia Evaluation Post Anesthesia Evaluation Date of Service: 12/28/22 Vital Signs: Vital Signs Temp Pulse Resp BP Pulse Ox O2 Del Method 12/28/22 07:38 98.7 F 72 18 134/72 95 Room Air 12/28/22 03:29 97.8 F 66 16 123/70 94 CPAP Anesthesia: General Endotracheal-GETA Mental Status: Awake Pain Control: Satisfactory Nausea/Vomiting: None Hydration: Adequate Anesthesia-Related Issues: No Anes. Related Issues
== END 2022-12-28 10:52 | disposition home or self-care (01) | DRG 391 ==
LOC: HO.ED 13:42 → HO.EDOVER 15:22 → HO.S3 15:43
PROVIDERS: Internal Medicine; Internal Medicine Gastroenterology; Registered Nurse Emergency; Admitting Provider Student in an Organized Health Care Education/Training Program; Emergency Provider Emergency Medicine Emergency Medical Services; PCP Internal Medicine; Visit Provider Hospitalist
PROC: 0D718ZZ Dilation of Upper Esophagus, Via Natural or Artificial Opening Endoscopic (ICD-10-PCS; CPT 43260; principal; 2022-12-27 13:00)
DX: K22.2 Esophageal obstruction (principal); K29.71 Gastritis, unspecified, with bleeding; K57.11 Diverticulosis of small intestine without perforation or abscess with bleeding; K80.51 Calculus of bile duct without cholangitis or cholecystitis with obstruction; D62 Acute posthemorrhagic anemia; J44.9 Chronic obstructive pulmonary disease, unspecified; G47.33 Obstructive sleep apnea (adult) (pediatric); Z66 Do not resuscitate; G62.9 Polyneuropathy, unspecified; F03.A0 Unspecified dementia, mild, without behavioral disturbance, psychotic disturbance, mood disturbance, and anxiety; F39 Unspecified mood [affective] disorder; M19.90 Unspecified osteoarthritis, unspecified site; E83.42 Hypomagnesemia; Z88.0 Allergy status to penicillin; Z91.81 History of falling; Z88.2 Allergy status to sulfonamides; Z79.899 Other long term (current) drug therapy; T39.395A Adverse effect of other nonsteroidal anti-inflammatory drugs [NSAID], initial encounter
CPT/HCPCS: 36415; 70450; 71046; 72125; 73030; 73090; 73100; 73564; 74177; 80048; 80053; 80076; 81001; 82272; 82728; 83540; 83735; 84484; 85025; 85027; 85610; 87086; 93005; 94660; 97162; 99285; C1726; C1769; J1100; J1610; J1956; J2250; J2405; J3010; J3475; Q9967

== ENCOUNTER 2023-01-20 08:26 | Outpatient (REF) | payer MEDICARE, SELFPAY ==
[2023-01-20 11:17] LABS: MANUAL DIFF FLAG NO
[2023-01-20 11:31] LABS: Basophils Absolute Auto 0.1 X10*3/uL (0.0-0.2); Basophils Percent Auto 1.2 % (0-2); Eosinophils Absolute Auto 0.1 X10*3/uL (0.0-0.4); Eosinophils Percent Auto 3.3 % (0-4); Hematocrit 42.5 % (42.0-52.0); Hemoglobin 13.9 g/dl (14.0-18.0); Imm Gran Abs Auto 0.01 X10*3/uL (0.00-0.03); Imm Gran Pct Auto 0.2 % (0.0-0.4); Lymphocytes Absolute Auto 1.6 X10*3/uL (1.2-4.9); Lymphocytes Percent Auto 36.4 % (20-40); Mean Corpuscular HGB Conc 32.7 g/dl (31.0-36.0); Mean Corpuscular Hemoglobin 28.4 pg (27.0-33.0); Mean Corpuscular Volume 86.7 fL (80.0-98.0); Mean Platelet Volume 9.9 fL (9.4-12.4); Monocytes Absolute Auto 0.4 X10*3/uL (0.1-1.2); Monocytes Percent Auto 9.1 % (2-11); Neutrophils Absolute Auto 2.1 x10*3/uL (2.0-8.3); Neutrophils Percent Auto 49.8 % (45-73); Platelet Count 176 X10*3/uL (160-400); Red Cell Distribution Width 13.4 % (11.0-16.0); White Blood Count 4.3 X10*3/uL (4.8-10.8)
[2023-01-20 12:07] LABS: Erythrocyte Sedimentation Rate 7 MM/HR (0-15)
[2023-01-20 13:27] LABS: Alanine Aminotransferase 13 U/L (0-40); Albumin Level 4.1 g/dL (3.5-5.0); Alkaline Phosphatase 89 U/L (39-117); Anion Gap 13 (12-20); Aspartate Amino Transferase 22 U/L (5-37); Bilirubin Total 0.5 mg/dL (0.0-1.0); Blood Urea Nitrogen 18 mg/dL (9-16); C Reactive Protein 0.16 mg/dL (< or = 0.50); Calcium 10.2 mg/dL (8.4-10.2); Carbon Dioxide 26 mmol/L (22-29); Chloride 107 mmol/L (96-108); Estimated Glomerular Filt Rate 50; Glucose Random 123 mg/dL (60-115); Sodium 142 mmol/L (135-145); Total Protein 7.1 g/dL (6.5-8.0)
== END 2023-01-20 08:27 | disposition home or self-care (01) ==
LOC: HO.HMGCLDS 08:26
PROVIDERS: PCP Internal Medicine; Visit Provider Internal Medicine
DX: M15.0 Primary generalized (osteo)arthritis (principal); N40.1 Benign prostatic hyperplasia with lower urinary tract symptoms; R29.6 Repeated falls; R41.3 Other amnesia; R41.9 Unspecified symptoms and signs involving cognitive functions and awareness; K80.50 Calculus of bile duct without cholangitis or cholecystitis without obstruction
CPT/HCPCS: 36415; 80053; 85025; 85652; 86140

== ENCOUNTER 2023-04-11 13:34 | Outpatient (AMB) | payer MEDICARE, SELFPAY ==
--- NOTE | 2023-04-11 13:41 | MHC.OFFVIS ---
Intake Vital Signs 04/11/23 13:43 Height 5 ft 11 in Weight 190 lb BMI 26.5 BP 142/80 H Blood Pressure Location Lt brachial Position Sitting Pulse 93 Pulse Source Pulse Oximeter Pulse Oximetry (%) 94 Oxygen Delivery Method Room Air Intake Visit Reasons: Obstructive sleep apnea Intake Note: pt is here for follow up of KIMBERLEY, c-pap is going well, he uses [employer] for supplies. [employer] Required: No Allergies lisinopril [LISINOPRIL] Allergy (Mild, Verified 04/11/23 13:49) HEADACHES amoxicillin [AMOXICILLIN] Allergy (Unknown, Verified 04/11/23 13:49) UNKNOWN Sulfa (Sulfonamide Antibiotics) [SULFA (SULFONAMIDE ANTIBIOTICS)] Allergy (Unknown, Verified 04/11/23 13:49) UNKNOWN Medication List - Last Reconciled 04/11/23 by Mal Almodovar MD albuterol sulfate 90 mcg/actuation 2 puffs inhalation Q4-6H PRN 90 days donepezil 10 mg PO DAILY gabapentin 100 mg PO BID 60 days indomethacin 100 mg PO BID magnesium 200 mg PO DAILY memantine 10 mg PO BID modafinil (Provigil) 200 mg PO DAILY [id number] mcg (Centrum Silver Men) 1 tab PO DAILY omeprazole 20 mg PO DAILY potassium gluconate 500 mg PO DAILY sertraline 50 mg PO DAILY terazosin 10 mg PO BID Do you need a note to return to daycare/school/sports/work: No HPI Obstructive sleep apnea HPI Details Kenney is 82 years old gentleman who comes along with his very pleasant . Kenney has been using CPAP very regularly every night and sleeping well. He remains very alert and energetic during the daytime. It is partly because he is on modafinil 200 mg daily. He has no issues with the CPAP mask ( Nasal ) or CPAP device. He needs new had strap. Breathing has been good but about once at night and once in the morning he does end up using albuterol inhaler, He has had no acute infection. [facility] Medical History Anemia COPD (chronic obstructive pulmonary disease) Dyspnea on exertion KIMBERLEY on CPAP Social History Household Members: Spouse Housing: House Do you presently have visiting nurse or other home services: No Alcohol intake: never Patient Tobacco Use Status: Former Tobacco user Substance Use Type: Marijuana Advance Directives Date on File: 12/23/22 Current occupational status: retired Review of Systems Const All systems reviewed & are unremarkable except as noted in HPI and below Eyes Reports no additional complaints ENT Reports no additional complaints Card Denies chest pain, Denies irregular heart rhythm and Denies leg edema Resp Reports as per HPI GI Reports no additional complaints Reports no additional complaints Musc Reports back pain and Reports myalgias Skin/Breast Reports system reviewed and no additional complaints, except as documented Neuro Reports memory loss (Has mild dementia with poor memory but functions very well) Psych Reports no additional complaints and Reports memory loss (Has mild dementia with poor memory but functions very well) Endo Reports no additional complaints Physical Exam Vital Signs: Last Vital Signs Pulse 93 04/11/23 13:43 BP 142/80 H 04/11/23 13:43 Pulse Ox 94 04/11/23 13:43 Oxygen Delivery Method Room Air 04/11/23 13:43 BMI result Body Mass Index 26.5 Const General: comfortable, no acute distress, alert and awake Orientation/consciousness: patient oriented x3 HEENT Head: Yes normal to inspection General nose exam: No nasal polyps present and No nasal discharge present Face and sinus: Yes sinuses nontender Mouth: oropharynx normal Throat: Yes posterior oropharynx normal Eyes General: appearance normal, both eyes and all related structures Neck Neck: Yes normal visual inspection, Yes no lymphadenopathy, Yes trachea midline and Yes no JVD Thyroid: Thyroid normal Chest Chest palpation & inspection: normal inspection of the chest, normal palpation of entire chest wall and no tenderness Resp Effort & Inspection: normal respiratory effort Auscultation: no crackles, no wheezes and no bronchial breath sounds Percussion: percussion normal Cardio Palpation: normal PMI Rate: tachycardic (Heart rate on arrival 116 settled down to 104) Rhythm: regular rhythm Heart sounds: Gallop heart sound present and Murmur heart sound present GI Palpation (GI): Soft to palpation, nontender, No hepatosplenomegaly present and no masses Auscultation: normal bowel sounds Back/Spine/Pelvis Thoracic/Lumbar Spine: thoracic and lumbar spine normal to inspection Skin General skin exam: no rashes or lesions noted Neuro General: patient oriented x3 and no focal motor deficits Cranial nerves: Yes CN's II-XII intact bilaterally Extrem General: Yes normal to inspection, Yes no clubbing, cyanosis or edema and Yes no calf tenderness Psych Appearance: grossly normal and well kempt Speech and movement: Normal speech and movement present Results Reviewed Results Reviewed: COMPLIANCE REPORT FOR THE LAST 30 NIGHTS IS REVIEWED. HE HAS USED 30/30 NIGHTS, 100% AVERAGE USE PER NIGHT 7 HOURS 49 MINUTES, PRESSURE IS MOSTLY 7.9 CMs NO AIR LEAK. RESIDUAL AHI 1.3 Assessment & Plan Assessment & Plan (1) COPD (chronic obstructive pulmonary disease): Comment: MILD DEGREE OF COPD. DOING WELL WITH THE P.R.N. USE OF ALBUTEROL INHALER. HE DOES USE 1 OR 2 PUFFS ONCE OR TWICE A DAY. Code(s): J44.9 - Chronic obstructive pulmonary disease, unspecified (2) KIMBERLEY on CPAP: Comment: VERY COMPLIANT, AND BENEFITTING FROM THE USE OF CPAP. HE IS COMMENDED FOR THE EXCELLENT COMPLIANCE. CONTINUE TO USE CPAP REGULARLY . ORDER FOR NEW SUPPLIES IS SENT. Code(s): G47.33 - Obstructive sleep apnea (adult) (pediatric); Z99.89 - Dependence on other enabling machines and devices Coding Level of Care Code Est Pt Level 3 (73359) Diagnoses COPD (chronic obstructive pulmonary disease) J44.9 KIMBERLEY on CPAP G47.33; Z99.89
[2023-04-11 13:43] VITALS: BP 142/80; PULSE 93; O2SAT 94; BMI 26.5
== END 2023-04-11 14:09 | disposition home or self-care (01) ==
PROVIDERS: PCP Internal Medicine; Visit Provider Internal Medicine
DX: J44.9 Chronic obstructive pulmonary disease, unspecified (principal); G47.33 Obstructive sleep apnea (adult) (pediatric); Z99.89 Dependence on other enabling machines and devices
CPT/HCPCS: 99213

== ENCOUNTER → 2023-04-11 13:34 | Outpatient (BNVA) | payer MEDICARE, SELFPAY | PROVIDERS: PCP Internal Medicine; Visit Provider Internal Medicine | DX: G47.33 Obstructive sleep apnea (adult) (pediatric) (principal); J44.9 Chronic obstructive pulmonary disease, unspecified; Z99.89 Dependence on other enabling machines and devices | CPT/HCPCS: 99212 ==

== ENCOUNTER 2023-05-29 13:58 | Emergency (ER) | payer MEDICARE, SELFPAY ==
--- NOTE | ~2023-05-29 | CT_ITS ---
EXAMINATION: CT ABDOMEN AND PELVIS WITHOUT CONTRAST CLINICAL INFORMATION: Left lower abdominal pain COMPARISON: Previous CT of the abdomen and pelvis most recent December 2022 TECHNIQUE: Multidetector volumetric imaging was performed from the superior aspect of the liver through the pubic symphysis. Sagittal and coronal reformatted images were obtained on the technologist's workstation. This CT examination was performed using dose optimization techniques as appropriate, variously including the following: *Automated exposure control *Adjustment of mA and/or kV according to patient size (this includes techniques or standardized protocols for targeted exams where dose is matched to indication/reason for exam; i.e. extremities or head) *Use of iterative reconstruction technique DLP: 642 mGy-cm FINDINGS: LUNG BASES: The visualized lung bases are clear. Moderate to large esophageal hernia. LIVER, GALLBLADDER, AND BILIARY TREE: The liver is normal in size, shape, and attenuation. No focal hepatic lesion or biliary ductal dilatation is present. The gallbladder is unremarkable with no evidence of radiopaque gallstones, gallbladder wall thickening, or obvious pericholecystic inflammatory changes. PANCREAS: Unremarkable. SPLEEN: Unremarkable. ADRENAL GLANDS: Unremarkable. KIDNEYS AND URETERS: The kidneys are normal in size, shape, and attenuation. No hydronephrosis, hydroureter, or calculi seen. Bilateral renal cysts. No image follow-up recommended. No perinephric stranding. BLADDER: Limited visualization due to artifact from bilateral hip replacements. Visualized bladder appears unremarkable. GASTROINTESTINAL TRACT: Diverticulosis of question mild fat stranding adjacent to the distal left colon/proximal sigmoid colon wall thickening questionable mild diverticulitis. Duodenal diverticulum adjacent to the head of the pancreas. The small and large bowel are otherwise unremarkable. The appendix is unremarkable. Moderate to large esophageal hernia. ABDOMINAL WALL: Small umbilical hernia containing fat. Atrophy of the left psoas muscle. Calcification and low attenuation in the distal left psoas muscle and iliac is muscle probably related to old trauma/hematoma. This is stable from previous Exams. LYMPH NODES: No enlarged lymph nodes. Stable small, small bowel mesentery and periportal precaval lymph nodes and VASCULAR: Atherosclerotic disease. No aneurysm. PELVIC VISCERA: Limited visualization due to bilateral hip replacements. Enlarged prostate gland. OSSEOUS STRUCTURES: Bilateral hip replacements. Degenerative changes of the spine. CT/CT abdomen pelvis wo IV con IMPRESSION: Diverticulosis and question mild diverticulitis of the distal left and proximal sigmoid colon. Moderate to large esophageal hernia. Limited visualization of the pelvis from artifact from bilateral hip replacements. Enlarged prostate gland. Atrophy of the left psoas muscle and low attenuation and calcification of the distal left psoas muscle and iliacus muscle similar to prior exams likely related to old trauma/hematoma. Fleischner guidelines were followed.
[2023-05-29 14:03] VITALS: BP 146/74; PULSE 76; O2SAT 94
[2023-05-29 14:06] VITALS: BP 143/80; PULSE 77; RESP 18; TEMP 36.7; O2SAT 93; BMI 27.5
--- NOTE | 2023-05-29 14:22 | ED.ABDPAIN ---
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 who present with abdominal and back pain MD elicited complaint: abdominal pain Pertinent past history: other (biliary disease) Onset (ago): hour(s) Pain Consistency: intermittent Location: epigastric Severity: moderate Related Data Home Medications Medication Instructions Recorded Confirmed modafinil 200 mg tablet (Provigil) 200 mg PO DAILY 08/18/20 12/23/22 omeprazole 20 mg capsule,delayed 20 mg PO DAILY 08/18/20 12/23/22 release terazosin 10 mg capsule 10 mg PO BID 12/28/20 12/23/22 sertraline 50 mg tablet 50 mg PO DAILY 07/12/22 12/23/22 donepezil 10 mg tablet 10 mg PO DAILY 12/23/22 12/23/22 memantine 10 mg tablet 10 mg PO BID 12/23/22 12/23/22 indomethacin 50 mg capsule 100 mg PO BID 04/11/23 magnesium 200 mg tablet 200 mg PO DAILY 04/11/23 [id number] 300 mcg-K 60 1 tab PO DAILY 04/11/23 mcg-lycop 600 mcg-lutein 300 mcg tablet (Centrum Silver Men) potassium gluconate 500 mg (83 mg) 500 mg PO DAILY 04/11/23 tablet Previous Rx's Medication Instructions Recorded albuterol sulfate 90 mcg/actuation 2 puff inhalation Q4-6H PRN 10/06/22 aerosol inhaler shortness of breath or wheezing 90 days #8.5 grams gabapentin 100 mg capsule 100 mg PO BID 60 days #120 caps 12/26/22 levofloxacin 500 mg tablet 500 mg PO DAILY 7 days #7 tabs 05/29/23 metronidazole 500 mg tablet 500 mg PO Q8H 7 days #21 tabs 05/29/23 Allergies Allergy/AdvReac Type Severity Reaction Status Date / Time lisinopril [LISINOPRIL] Allergy Mild HEADACHES Verified 04/11/23 13:49 amoxicillin [AMOXICILLIN] Allergy Unknown UNKNOWN Verified 04/11/23 13:49 Sulfa (Sulfonamide Allergy Unknown UNKNOWN Verified 04/11/23 13:49 Antibiotics) [SULFA (SULFONAMIDE ANTIBIOTICS)] Review of Systems Review of Systems Yes all other systems are reviewed and are negative Denies Sensory deficit (Neuro) [facility] Past Medical History Medical History Anemia Dyspnea on exertion COPD (chronic obstructive pulmonary disease) KIMBERLEY on CPAP Social History Social History Household Members: Spouse Housing: House Do you presently have visiting nurse or other home services: No Alcohol intake: never Patient Tobacco Use Status: Former Tobacco user Substance Use Type: Marijuana Advance Directives: Yes Advance Directives on File: Yes Advance Directives Date on File: 12/23/22 Current occupational status: retired Physical Exam ED Vital Signs: Vital Signs - 24 hr 05/29/23 14:06 Temperature 98.1 F Pulse Rate 77 Respiratory Rate 18 Blood Pressure 143/80 H Pulse Oximetry 93 BMI result Body Mass Index 27.5 Const General: healthy appearing Nutritional Appearance: average body habitus Orientation/consciousness: oriented to person and patient oriented x3 Limitations: no limitations HENMT Head: Yes normal to inspection Ears: external ears normal General nose exam: Normal external nose present Mouth: Normal oral and palatal mucosa present and oropharynx normal Throat: Yes posterior oropharynx normal Eyes General: appearance normal, both eyes and all related structures Neck Neck: Yes normal visual inspection Chest Chest palpation & inspection: normal inspection of the chest Resp Auscultation: clear to auscultation bilaterally Cardio Jugular venous distension: no JVD Rate: regular rate Rhythm: regular rhythm Heart sounds: S1 normal heart sound present and S2 normal heart sound present GI Other: soft abdomen with focal guarding in the left lower abdomen Palpation (GI): Tenderness to palpation present (GI) Auscultation: normal bowel sounds General: Yes no CVA tenderness Back/Spine/Pelvis Back: no CVA tenderness Skin General skin exam: no rashes or lesions noted Neuro General: oriented to person and patient oriented x3 Cranial nerves: Yes CN's II-XII intact bilaterally Motor exam (neuro): 5/5 motor strength present throughout Sensory Exam: No Sensory deficit (Neuro) Extrem General: Yes normal to inspection Psych Appearance: grossly normal Course Reevaluation(s) Reevaluation #1: CT show hydronephrosis on left, I dont see evidence of diverticulitis at this time Time: 16:01 Reevaluation #2: radiology read the image as possible diverticulitis will treat with augmentin and dc home Time: 16:08 Medical Decision Making Differential Diagnosis Differential Diagnoses: The differential diagnosis associated with the presentation includes (AAA, biliary disease, pancreatitis, diverticulitis, renal colic) Admission/Observation Consideration of admission/observation: Escalation of care including admission/observation considered (upon arrival patient considered for admission) Lab Data MDM Lab Attestation statement: I reviewed the patient's lab results. (no elevated wBC, lfts with chronic elevation) 05/29/23 14:51 05/29/23 14:51 Labs: Lab Results 05/29/23 05/29/23 Range/Units 14:51 15:51 WBC 7.6 (4.8-10.8) X10*3/uL RBC 4.49 L (4.60-5.80) X10*6/uL Hgb 13.3 L (14.0-18.0) g/dl Hct 39.9 L (42.0-52.0) % MCV 88.9 (80.0-98.0) fL MCH 29.6 (27.0-33.0) pg MCHC 33.3 (31.0-36.0) g/dl RDW 12.8 (11.0-16.0) % Plt Count 172 (160-400) X10*3/uL MPV 9.2 L (9.4-12.4) fL Immature Gran % (Auto) 0.3 (0.0-0.4) % Neut % (Auto) 78.7 H (45-73) % Lymph % (Auto) 11.5 L (20-40) % [place] % (Auto) 7.3 (2-11) % Eos % (Auto) 1.7 (0-4) % Baso % (Auto) 0.5 (0-2) % Lymph # (Auto) 0.9 L (1.2-4.9) X10*3/uL [place] # (Auto) 0.6 (0.1-1.2) X10*3/uL Eos # (Auto) 0.1 (0.0-0.4) X10*3/uL Baso # (Auto) 0.0 (0.0-0.2) X10*3/uL Abs Immat Gran (auto) 0.02 (0.00-0.03) X10*3/uL Absolute Neuts (auto) 5.9 (2.0-8.3) x10*3/uL Absolute Nucleated RBC 0.000 (0.0-0.012) X10*3/uL Nucleated RBC % (auto) 0.0 (0.0-0.2) /100WBC Sodium 137 (135-145) mmol/L Potassium 4.6 (3.3-5.1) mmol/L Chloride 109 H (96-108) mmol/L Carbon Dioxide 22 (22-29) mmol/L Anion Gap 11 L (12-20) BUN 14 (9-16) mg/dL Creatinine 1.24 (0.5-1.4) mg/dL Estim Creat Clear Calc 50.6 Estimated GFR 56 Random Glucose 102 (60-115) mg/dL Calcium 9.4 D (8.4-10.2) mg/dL Total Bilirubin 0.6 (0.0-1.0) mg/dL AST 228 H (5-37) U/L ALT 85 H (0-40) U/L Alkaline Phosphatase 100 (39-117) U/L Total Protein 6.6 (6.5-8.0) g/dL Albumin 3.9 (3.5-5.0) g/dL Lipase 181 H (8-78) U/L Urine Color Yellow Urine Appearance Clear Urine pH 5.5 (5.0-9.0) Ur Specific [place] 1.020 (1.005-1.025) Urine Protein Negative (Neg-Trace) mg/dL Urine Glucose (UA) Negative (Negative) mg/dL Urine Ketones Negative (Negative) mg/dL Urine Blood Negative (Negative) Urine Nitrite Negative (Negative) Ur Leukocyte Esterase Small (1+) H (Negative) Urine RBC 0-2 (0-2) /HPF Urine WBC 0-5 (0-5) /HPF Ur Squamous Epith Cells 0-2 (0-2) /HPF Urine Bacteria None Seen (None Seen) Hyaline Casts 0-2 (0-2) /LPF Independent Interpretation I performed an independent interpretation of an: CT Scan (abd: left hydro no diverticulitis) Radiology Impression Discussion of test interpretation with radiology: I have reviewed the radiologist's reading. (the hydro was read as renal cyst, they feel that there is early diverticulitis) Independent Historian Clinical information obtained from an independent historian. History obtained from or confirmed by: Spouse Discharge Plan Discharge Clinical Impression: Diverticulitis Patient Disposition: Home, Self-Care Instructions: Diverticulitis (ED) Prescriptions: New levofloxacin 500 mg tablet 500 mg PO DAILY 7 Days Qty: 7 0RF metronidazole 500 mg tablet 500 mg PO Q8H 7 Days Qty: 21 0RF No Action memantine 10 mg tablet 10 mg PO BID donepezil 10 mg tablet 10 mg PO DAILY gabapentin 100 mg Capsule 100 mg PO BID 60 Days Qty: 120 0RF omeprazole 20 mg capsule,delayed release(DR/EC) 20 mg PO DAILY modafinil [Provigil] 200 mg tablet 200 mg PO DAILY terazosin 10 mg capsule 10 mg PO BID Centrum Silver Men [id number] mcg tablet 1 tab PO DAILY potassium gluconate 500 mg (83 mg) tablet 500 mg PO DAILY magnesium 200 mg tablet 200 mg PO DAILY indomethacin 50 mg capsule 100 mg PO BID sertraline 50 mg tablet 50 mg PO DAILY albuterol sulfate 90 mcg/actuation HFA aerosol inhaler 2 puff inhalation Q4-6H PRN (Reason: shortness of breath or wheezing) 90 Days Qty: 8.5 3RF Referrals: Storm Lowry DO [Primary Care Provider] - 1 week
[2023-05-29 14:55] LABS: MANUAL DIFF FLAG NO
[2023-05-29 14:56] LABS: Basophils Percent Auto 0.5 % (0-2); Eosinophils Absolute Auto 0.1 X10*3/uL (0.0-0.4); Eosinophils Percent Auto 1.7 % (0-4); Hematocrit 39.9 % (42.0-52.0); Hemoglobin 13.3 g/dl (14.0-18.0); Imm Gran Abs Auto 0.02 X10*3/uL (0.00-0.03); Imm Gran Pct Auto 0.3 % (0.0-0.4); Lymphocytes Absolute Auto 0.9 X10*3/uL (1.2-4.9); Lymphocytes Percent Auto 11.5 % (20-40); Mean Corpuscular HGB Conc 33.3 g/dl (31.0-36.0); Mean Corpuscular Hemoglobin 29.6 pg (27.0-33.0); Mean Corpuscular Volume 88.9 fL (80.0-98.0); Mean Platelet Volume 9.2 fL (9.4-12.4); Monocytes Absolute Auto 0.6 X10*3/uL (0.1-1.2); Monocytes Percent Auto 7.3 % (2-11); Neutrophils Absolute Auto 5.9 x10*3/uL (2.0-8.3); Neutrophils Percent Auto 78.7 % (45-73); Platelet Count 172 X10*3/uL (160-400); Red Blood Count 4.49 X10*6/uL (4.60-5.80); Red Cell Distribution Width 12.8 % (11.0-16.0); White Blood Count 7.6 X10*3/uL (4.8-10.8)
[2023-05-29 15:10] LABS: Alanine Aminotransferase 85 U/L (0-40); Albumin Level 3.9 g/dL (3.5-5.0); Alkaline Phosphatase 100 U/L (39-117); Anion Gap 11 (12-20); Aspartate Amino Transferase 228 U/L (5-37); Bilirubin Total 0.6 mg/dL (0.0-1.0); Blood Urea Nitrogen 14 mg/dL (9-16); Calcium 9.4 mg/dL (8.4-10.2); Carbon Dioxide 22 mmol/L (22-29); Chloride 109 mmol/L (96-108); Creatinine Clr Calc Pharmacy 50.6; Estimated Glomerular Filt Rate 56; Glucose Random 102 mg/dL (60-115); Lipase 181 U/L (8-78); Potassium 4.6 mmol/L (3.3-5.1); Sodium 137 mmol/L (135-145); Total Protein 6.6 g/dL (6.5-8.0)
[2023-05-29 15:58] LABS: Appearance Urine Clear; Color Urine Yellow; Glucose Urine UA Negative (Negative); Leukocyte Esterase Urine Small (1+) (Negative); Nitrite Urine Negative (Negative); PH 5.5 (5.0-9.0); UMIC TRIGGER UACC YES; Urine Blood Negative (Negative); Urine Ketones Negative (Negative); Urine Protein Negative (Neg-Trace)
[2023-05-29 16:10] LABS: Bacteria Urine None Seen (None Seen); Hyaline Casts Urine 0-2 /LPF (0-2); RBC Urine 0-2 /HPF (0-2); Squamous Epithelial Cell Urine 0-2 /HPF (0-2); UACC Culture Trigger YES; WBC Urine 0-5 /HPF (0-5)
[2023-05-29 16:27] VITALS: BP 141/69; PULSE 86; RESP 16; O2SAT 96
[2023-05-29] MEDS: levoFLOXacin 500 MG TABLET PO (16:28)
[2023-05-29] MEDS: metroNIDAZOLE 500 MG TABLET PO (16:28)
== END 2023-05-29 16:35 | disposition home or self-care (01) ==
PROVIDERS: Emergency Provider Emergency Medicine; PCP Internal Medicine
DX: K57.32 Diverticulitis of large intestine without perforation or abscess without bleeding (principal); R10.9 Unspecified abdominal pain; M54.50 Low back pain, unspecified; Z79.899 Other long term (current) drug therapy; Z87.891 Personal history of nicotine dependence
CPT/HCPCS: 36415; 74176; 80053; 81001; 83690; 85025; 87086; 99283; 99284

== ENCOUNTER 2023-07-25 11:28 | Outpatient (REF) | payer MEDICARE, SELFPAY ==
--- NOTE | ~2023-07-25 | XR_ITS ---
EXAMINATION: LEFT SHOULDER AND LEFT CLAVICLE X-RAY CLINICAL INFORMATION: Left shoulder pain. COMPARISON: Previous left shoulder x-ray November 2020. TECHNIQUE: One view of the left clavicle and four views of the left shoulder. FINDINGS: Left Shoulder: There is arthritis at the joints with joint space narrowing and osteophyte formation. No fracture or dislocation. Faint soft tissue calcification superior to the humeral head. Left Clavicle: No fracture or dislocation. Soft tissues are unremarkable. 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
--- NOTE | ~2023-07-25 | XR_ITS ---
EXAMINATION: LEFT SHOULDER AND LEFT CLAVICLE X-RAY CLINICAL INFORMATION: Left shoulder pain. COMPARISON: Previous left shoulder x-ray November 2020. TECHNIQUE: One view of the left clavicle and four views of the left shoulder. FINDINGS: Left Shoulder: There is arthritis at the joints with joint space narrowing and osteophyte formation. No fracture or dislocation. Faint soft tissue calcification superior to the humeral head. Left Clavicle: No fracture or dislocation. Soft tissues are unremarkable. 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
== END 2023-07-25 11:29 | disposition home or self-care (01) ==
LOC: HO.XRAY 11:28
PROVIDERS: Visit Provider Registered Nurse
DX: M25.512 Pain in left shoulder (principal)
CPT/HCPCS: 73000; 73030

== ENCOUNTER 2023-10-10 13:13 | Outpatient (AMB) | payer MEDICARE, SELFPAY ==
[2023-10-10 13:19] VITALS: BP 140/88; PULSE 90; RESP 16; O2SAT 98; BMI 26.4
--- NOTE | 2023-10-10 13:19 | MHC.OFFVIS ---
Intake Vital Signs 10/10/23 13:19 Height 5 ft 11 in Weight 189 lb 1 oz BMI 26.4 BP 140/88 H Blood Pressure Location Lt brachial Position Sitting Respiration 16 Pulse 90 Pulse Source Pulse Oximeter Pulse Oximetry (%) 98 Oxygen Delivery Method Room Air Intake Visit Reasons: Obstructive sleep apnea Allergies lisinopril [LISINOPRIL] Allergy (Mild, Verified 10/10/23 13:28) HEADACHES amoxicillin [AMOXICILLIN] Allergy (Unknown, Verified 10/10/23 13:28) UNKNOWN Sulfa (Sulfonamide Antibiotics) [SULFA (SULFONAMIDE ANTIBIOTICS)] Allergy (Unknown, Verified 10/10/23 13:28) UNKNOWN Medication List - Last Reconciled 10/10/23 by Mal Almodovar MD albuterol sulfate 90 mcg/actuation 2 puffs inhalation Q4-6H PRN 90 days donepezil 10 mg PO DAILY gabapentin 100 mg PO BID 60 days indomethacin 100 mg PO BID levofloxacin 500 mg PO DAILY 7 days magnesium 200 mg PO DAILY memantine 10 mg PO BID metronidazole 500 mg PO TID 7 days modafinil (Provigil) 200 mg PO DAILY [id number]-[id number]-[id number]-qyrxsqy-[id number] 819-19-107-300 mcg (Centrum Silver Men) 1 tab PO DAILY omeprazole 20 mg PO DAILY potassium gluconate 500 mg PO DAILY sertraline 50 mg PO DAILY terazosin 10 mg PO BID Do you need a note to return to daycare/school/sports/work: No HPI Obstructive sleep apnea HPI Details MR. 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 HE IS A CASE OF OBSTRUCTIVE SLEEP APNEA AND USES CPAP VERY RELIGIOUSLY EVERY NIGHT AND SLEEPS WELL. NO ISSUE WITH THE CPAP MASK OR CPAP MACHINE. BREATHING HAS BEEN OKAY EXCEPT FOR THE FACT THAT HE DOES GET SHORT OF BREATH WHEN HE CARRIES GROCERIES FROM THE GARAGE OR GOES TO THE 2ND FLOOR. HE HAS NO ATTACKS OF WHEEZING OR SUSTAINED COUGH. HE USES ALBUTEROL HFA ONLY TWICE A DAY. [facility] Medical History Anemia Dyspnea on exertion COPD (chronic obstructive pulmonary disease) KIMBERLEY on CPAP Social History Household Members: Spouse Housing: House Do you presently have visiting nurse or other home services: No Alcohol intake: never Patient Tobacco Use Status: Former Tobacco user Substance Use Type: Marijuana Advance Directives Date on File: 12/23/22 Current occupational status: retired Review of Systems Const All systems reviewed & are unremarkable except as noted in HPI and below Eyes Reports no additional complaints ENT Reports no additional complaints Card Denies chest pain, Denies irregular heart rhythm and Denies leg edema Resp Reports as per HPI GI Reports no additional complaints Reports no additional complaints Musc Reports back pain and Reports myalgias Skin/Breast Reports system reviewed and no additional complaints, except as documented Neuro Reports memory loss (Has mild dementia with poor memory but functions very well) Psych Reports no additional complaints and Reports memory loss (Has mild dementia with poor memory but functions very well) Endo Reports no additional complaints Physical Exam Vital Signs: Last Vital Signs Pulse 90 10/10/23 13:19 Resp 16 10/10/23 13:19 BP 140/88 H 10/10/23 13:19 Pulse Ox 98 10/10/23 13:19 Oxygen Delivery Method Room Air 10/10/23 13:19 BMI result Body Mass Index 26.4 Const General: comfortable, no acute distress, alert and awake Orientation/consciousness: patient oriented x3 HEENT Head: Yes normal to inspection General nose exam: No nasal polyps present and No nasal discharge present Face and sinus: Yes sinuses nontender Mouth: oropharynx normal Throat: Yes posterior oropharynx normal Eyes General: appearance normal, both eyes and all related structures Neck Neck: Yes normal visual inspection, Yes no lymphadenopathy, Yes trachea midline and Yes no JVD Thyroid: Thyroid normal Chest Chest palpation & inspection: normal inspection of the chest, normal palpation of entire chest wall and no tenderness Resp Effort & Inspection: normal respiratory effort Auscultation: no crackles, no wheezes and no bronchial breath sounds Percussion: percussion normal Cardio Palpation: normal PMI Rate: tachycardic (Heart rate on arrival 116 settled down to 104) Rhythm: regular rhythm Heart sounds: Gallop heart sound present and Murmur heart sound present GI Palpation (GI): Soft to palpation, nontender, No hepatosplenomegaly present and no masses Auscultation: normal bowel sounds Back/Spine/Pelvis Thoracic/Lumbar Spine: thoracic and lumbar spine normal to inspection Skin General skin exam: no rashes or lesions noted Neuro General: patient oriented x3 and no focal motor deficits Cranial nerves: Yes CN's II-XII intact bilaterally Extrem General: Yes normal to inspection, Yes no clubbing, cyanosis or edema and Yes no calf tenderness Psych Appearance: grossly normal and well kempt Speech and movement: Normal speech and movement present Results Reviewed Results Reviewed: Compliance report for the last 30 nights is reviewed he has used 30/30 nights, 100%. Average use per night is 7 hours 56 minute. Pressure used is 7 to 8 cm. Residual AHI only 1 point Assessment & Plan Assessment & Plan (1) KIMBERLEY on CPAP: Comment: VERY COMPLIANT, AND BENEFITTING FROM THE USE OF CPAP. Code(s): G47.33 - Obstructive sleep apnea (adult) (pediatric); Z99.89 - Dependence on other enabling machines and devices Plan: HE IS COMMENDED FOR THE EXCELLENT COMPLIANCE. CONTINUE TO USE CPAP REGULARLY . (2) COPD (chronic obstructive pulmonary disease): Comment: MILD DEGREE OF COPD. DOING WELL WITH THE P.R.N. USE OF ALBUTEROL INHALER. HE DOES USE 1 OR 2 PUFFS ONCE OR TWICE A DAY. Code(s): J44.9 - Chronic obstructive pulmonary disease, unspecified Plan: Prescription for albuterol HFA is renewed Medications: Refilled albuterol sulfate 90 mcg/actuation 2 puffs inhalation Q4-6H PRN 8.5 grams 3RF shortness of breath or wheezing 90 days Coding Level of Care Code Est Pt Level 3 (97952) Diagnoses KIMBERLEY on CPAP G47.33; Z99.89 COPD (chronic obstructive pulmonary disease) J44.9
== END 2023-10-10 13:30 | disposition home or self-care (01) ==
PROVIDERS: PCP Internal Medicine; Visit Provider Internal Medicine
DX: G47.33 Obstructive sleep apnea (adult) (pediatric) (principal); Z99.89 Dependence on other enabling machines and devices; J44.9 Chronic obstructive pulmonary disease, unspecified
CPT/HCPCS: 99213

== ENCOUNTER → 2023-10-10 13:13 | Outpatient (BNVA) | payer MEDICARE, SELFPAY | PROVIDERS: PCP Internal Medicine; Visit Provider Internal Medicine | DX: G47.33 Obstructive sleep apnea (adult) (pediatric) (principal); J44.9 Chronic obstructive pulmonary disease, unspecified; Z99.89 Dependence on other enabling machines and devices | CPT/HCPCS: 99212 ==

== ENCOUNTER 2024-01-11 09:30 | Outpatient (REF) | payer MEDICARE, SELFPAY ==
[2024-01-11 10:31] LABS: MANUAL DIFF FLAG NO
[2024-01-11 10:39] LABS: Basophils Absolute Auto 0.1 X10*3/uL (0.0-0.2); Basophils Percent Auto 1.5 % (0-2); Eosinophils Absolute Auto 0.2 X10*3/uL (0.0-0.4); Eosinophils Percent Auto 2.6 % (0-4); Hematocrit 40.7 % (42.0-52.0); Hemoglobin 12.9 g/dl (14.0-18.0); Imm Gran Abs Auto 0.01 X10*3/uL (0.00-0.03); Imm Gran Pct Auto 0.2 % (0.0-0.4); Lymphocytes Percent Auto 31.6 % (20-40); Mean Corpuscular HGB Conc 31.7 g/dl (31.0-36.0); Mean Corpuscular Volume 85.3 fL (80.0-98.0); Mean Platelet Volume 9.5 fL (9.4-12.4); Monocytes Absolute Auto 0.4 X10*3/uL (0.1-1.2); Monocytes Percent Auto 7.1 % (2-11); Neutrophils Absolute Auto 3.5 x10*3/uL (2.0-8.3); Platelet Count 199 X10*3/uL (160-400); Red Blood Count 4.77 X10*6/uL (4.60-5.80); Red Cell Distribution Width 14.4 % (11.0-16.0); White Blood Count 6.2 X10*3/uL (4.8-10.8)
[2024-01-11 11:15] LABS: Alanine Aminotransferase 21 U/L (0-40); Albumin Level 4.2 g/dL (3.5-5.0); Alkaline Phosphatase 64 U/L (39-117); Anion Gap 9 (12-20); Aspartate Amino Transferase 24 U/L (5-37); Bilirubin Total 0.4 mg/dL (0.0-1.0); Blood Urea Nitrogen 22 mg/dL (9-16); Calcium 9.7 mg/dL (8.4-10.2); Carbon Dioxide 27 mmol/L (22-29); Chloride 110 mmol/L (96-108); Cholesterol 212 mg/dL (<200); Estimated Glomerular Filt Rate 51; Glucose Fasting 101 mg/dL (60-99); HDL Cholesterol 53 mg/dL (>40); LDL Cholesterol Calculated 140 mg/dL (<100); Potassium 4.3 mmol/L (3.3-5.1); Sodium 142 mmol/L (135-145); Triglycerides 99 mg/dL (<150)
[2024-01-11 11:30] LABS: Thyroid Stimulating Hormone 2.11 uIU/mL (0.32-4.0)
== END 2024-01-11 09:31 | disposition home or self-care (01) ==
LOC: HO.HMGCLDS 09:30
PROVIDERS: PCP Internal Medicine; Visit Provider Internal Medicine
DX: R41.3 Other amnesia (principal); I10 Essential (primary) hypertension; N40.1 Benign prostatic hyperplasia with lower urinary tract symptoms; M15.0 Primary generalized (osteo)arthritis
CPT/HCPCS: 36415; 80053; 80061; 84443; 85025

== ENCOUNTER 2024-03-25 11:21 | Outpatient (REF) | payer MEDICARE, SELFPAY ==
--- NOTE | ~2024-03-25 | XR_ITS ---
EXAMINATION: XR ribs RT 2V (accession [id number]), XR chest 2V (accession [id number]) CLINICAL INFORMATION: RT FLANK PAIN COMPARISON: Chest radiograph 12/24/2019 TECHNIQUE: 3 views of the Right ribs. 2 view of the chest. FINDINGS: Subacute to possibly chronic appearing right lateral 12th rib fracture, recommend correlation with timing of history of trauma. Clear lungs. No pneumothorax. No pleural effusion. Unchanged cardiac mediastinal silhouette with a moderate hiatal hernia. XR/XR chest 2V IMPRESSION: 1. Subacute to possibly chronic appearing right lateral 12th rib fracture, recommend correlation with timing of history of trauma. 2. Unchanged cardiac mediastinal silhouette with a moderate hiatal hernia. Electronically signed by: Luna Funes MD 04/18/2024 09:07 PM EDT
--- NOTE | ~2024-03-25 | XR_ITS ---
EXAMINATION: XR ribs RT 2V (accession [id number]), XR chest 2V (accession [id number]) CLINICAL INFORMATION: RT FLANK PAIN COMPARISON: Chest radiograph 12/24/2019 TECHNIQUE: 3 views of the Right ribs. 2 view of the chest. FINDINGS: Subacute to possibly chronic appearing right lateral 12th rib fracture, recommend correlation with timing of history of trauma. Clear lungs. No pneumothorax. No pleural effusion. Unchanged cardiac mediastinal silhouette with a moderate hiatal hernia. XR/XR ribs RT 2V IMPRESSION: 1. Subacute to possibly chronic appearing right lateral 12th rib fracture, recommend correlation with timing of history of trauma. 2. Unchanged cardiac mediastinal silhouette with a moderate hiatal hernia. Electronically signed by: Luna Funes MD 04/18/2024 09:07 PM EDT
== END 2024-03-25 11:22 | disposition home or self-care (01) ==
LOC: HO.XRAY 11:21
PROVIDERS: PCP Internal Medicine; Visit Provider Internal Medicine
DX: R10.9 Unspecified abdominal pain (principal)
CPT/HCPCS: 71046; 71100

== ENCOUNTER 2024-04-05 12:56 | Outpatient (REF) | payer MEDICARE, SELFPAY ==
--- NOTE | ~2024-04-05 | US_ITS ---
EXAMINATION: US RETROPERITONEAL LIMITED, RIGHT (RENAL ONLY) CLINICAL INFORMATION: Right-sided flank pain. COMPARISON: CT abdomen and pelvis 05/29/2023. TECHNIQUE: Ultrasound was performed of the right kidney. FINDINGS: RIGHT KIDNEY: 11.8 x 6.3 x 5.5 cm (SAG x AP x TRV). The kidney is normal in size, contour, and echogenicity. Renal cortical thickness is normal. No calculi or hydronephrosis. Two (2) benign Bosniak class I renal cysts are noted, with a mid renal 4.0 cm cyst and a lower pole parapelvic cyst measuring 4.1 x 1.6 x 1.4 cm. These require no additional imaging or follow-up. Similar findings can be seen on the prior CT scan. No solid renal masses are seen. US/US renal RT IMPRESSION: Benign Bosniak class I renal cysts which need no further imaging or follow-up. Electronically signed by: Jonas Morrow MD 04/08/2024 09:53 PM EDT
== END 2024-04-05 12:57 | disposition home or self-care (01) ==
LOC: HO.HMGCX 12:56
PROVIDERS: PCP Internal Medicine; Visit Provider Internal Medicine
DX: R10.9 Unspecified abdominal pain (principal)
CPT/HCPCS: 76775

== ENCOUNTER 2024-04-09 13:28 | Outpatient (AMB) | payer MEDICARE, SELFPAY ==
[2024-04-09 13:32] VITALS: BP 110/80; PULSE 100; O2SAT 93; BMI 27.1
--- NOTE | 2024-04-09 13:32 | A.OFFVIS_ITS ---
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: No Allergies lisinopril [LISINOPRIL] Allergy (Mild, Verified 04/09/24 13:58) HEADACHES amoxicillin [AMOXICILLIN] Allergy (Unknown, Verified 04/09/24 13:58) UNKNOWN Sulfa (Sulfonamide Antibiotics) [SULFA (SULFONAMIDE ANTIBIOTICS)] Allergy (Unknown, Verified 04/09/24 13:58) UNKNOWN Medication List - Last Reconciled 04/09/24 by Mal Almodovar MD albuterol sulfate 90 mcg/actuation 2 puffs inhalation Q4-6H PRN 90 days donepezil 10 mg PO DAILY gabapentin 100 mg PO BID 60 days indomethacin 100 mg PO BID magnesium 200 mg PO DAILY memantine 10 mg PO BID metronidazole 500 mg PO TID 7 days modafinil (Provigil) 200 mg PO DAILY [id number]-lnq-[id number]-[id number] 484-83-212-300 mcg (Centrum Silver Men) 1 tab PO DAILY omeprazole 20 mg PO DAILY potassium gluconate 500 mg PO DAILY sertraline 50 mg PO DAILY terazosin 10 mg PO BID Do you need a note to return to daycare/school/sports/work: No HPI HPI Obstructive sleep apnea: Details: Steve is 83 years old very pleasant gentleman, comes along with his very pl easant . He is for 6 months follow-up for his obstructive sleep apnea/COPD. He is very regular user of the CPAP and sleeps at least for 7 hours every night. No issues with the CPAP. According to his if he does not put on the CPAP then she can notice some snoring and respiratory pauses, so she makes sure that Steve puts the CPAP mask on when he goes to sleep. He denies excessive daytime sleepiness . As far as COPD is concerned, he complains of getting short of breath on walking, from the house to the mailbox. But he does walk along with his at a slow pace back in forth every day. According to his he is more short of breath than walking than before. Yet Steve does not have any cough or wheezing or any chest pain. [facility] Medical History Anemia Dyspnea on exertion COPD (chronic obstructive pulmonary disease) KIMBERLEY on CPAP Social History Household Members: Spouse Housing: House Do you presently have visiting nurse or other home services: No Alcohol intake: never Patient Tobacco Use Status: Former Tobacco user Substance Use Type: Marijuana Advance Directives Date on File: 12/23/22 Current occupational status: retired Review of Systems Const All systems reviewed & are unremarkable except as noted in HPI and below Eyes Reports no additional complaints ENT Reports no additional complaints Card Denies chest pain, Denies irregular heart rhythm and Denies leg edema Resp Reports as per HPI GI Reports no additional complaints Reports no additional complaints Musc Reports back pain and Reports myalgias Skin/Breast Reports system reviewed and no additional complaints, except as documented Neuro Reports memory loss (Has mild dementia with poor memory but functions very well) Psych Reports no additional complaints and Reports memory loss (Has mild dementia with poor memory but functions very well) Endo Reports no additional complaints Physical Exam Const General: comfortable, no acute distress, alert and awake Orientation/consciousness: patient oriented x3 HEENT Head: Yes normal to inspection General nose exam: No nasal polyps present and No nasal discharge present Face and sinus: Yes sinuses nontender Mouth: oropharynx normal Throat: Yes posterior oropharynx normal Eyes General: appearance normal, both eyes and all related structures Neck Neck: Yes normal visual inspection, Yes no lymphadenopathy, Yes trachea midline and Yes no JVD Thyroid: Thyroid normal Chest Chest palpation & inspection: normal inspection of the chest, normal palpation of entire chest wall and no tenderness Resp Effort & Inspection: normal respiratory effort Auscultation: no crackles, no wheezes and no bronchial breath sounds Percussion: percussion normal Cardio Palpation: normal PMI Rate: tachycardic (Heart rate on arrival 116 settled down to 110) Rhythm: regular rhythm Heart sounds: Gallop heart sound present and Murmur heart sound present GI Palpation (GI): Soft to palpation, nontender, No hepatosplenomegaly present and no masses Auscultation: normal bowel sounds Back/Spine/Pelvis Thoracic/Lumbar Spine: thoracic and lumbar spine normal to inspection Skin General skin exam: no rashes or lesions noted Neuro General: patient oriented x3 and no focal motor deficits Cranial nerves: Yes CN's II-XII intact bilaterally Extrem General: Yes normal to inspection, Yes no clubbing, cyanosis or edema and Yes no calf tenderness Psych Appearance: grossly normal and well kempt Speech and movement: Normal speech and movement present Results Reviewed Results Reviewed: COMPLIANCE REPORT FOR THE LAST 30 NIGHTS SHOWS THAT HE USED 100% OF THE TIME. AVERAGE USAGE. 7 HOURS 53 MINUTES PRESSURE USED MOSTLY IS 7-8 CM. .NO SIGNIFICANT AIR LEAK RESIDUAL AHI 1.1 I WALKED WITH STEVE IN THE HALLWAY FOR 4 MINUTES. O2 SAT AT REST 92%,, AFTER WALKING 96% SO THERE IS NO O2 DESATURATION ON WALKING. STEVE WAS NOT VISIBLY SHORT OF BREATH. HEART RATE AT REST WHILE STANDING 116 AFTER WALKING 120 Assessment & Plan Assessment & Plan (1) KIMBERLEY on CPAP: Comment: VERY COMPLIANT, AND BENEFITTING FROM THE USE OF CPAP. Code(s): G47.33 - Obstructive sleep apnea (adult) (pediatric); Z99.89 - Dependence on other enabling machines and devices Category: Medical Plan: COMPLIANCE REPORT IS REVIEWED. HE AND HIS ARE BOTH COMMENDED FOR HIS GOOD USAGE OF THE CPAP, AND ADVISED TO CONTINUE USING IT EVERY NIGHT. (2) COPD (chronic obstructive pulmonary disease): Comment: MILD DEGREE OF COPD. DOING WELL WITH THE P.R.N. USE OF ALBUTEROL INHALER, WHICH HE USES ONLY ONCE A DAY OR SOMETIMES TWICE. Code(s): J44.9 - Chronic obstructive pulmonary disease, unspecified Category: Medical Plan: OK TO USE ALBUTEROL HFA, ONLY 1 PUFF Q 4-6 HOURS P.R.N.. TOLD THAT OVER USAGE MAY CAUSE TACHYCARDIA. (3) Dyspnea on exertion: Comment: SHORTNESS OF BREATH NOTICED BY HIS SOMEWHAT MORE THAN BEFORE. THERE IS NO WHEEZING OR CHEST PAIN. THERE IS NO O2 DESATURATION ON WALKING. TACHYCARDIA IS SOMEWHAT OUT OF PROPORTION TO THE DEGREE OF DYSPNEA ON EXERTION. Code(s): R06.00 - Dyspnea, unspecified Category: Medical Plan: EXPLAINED THAT HE SEEMS TO BE DECONDITIONED. BECAUSE OF RELATIVE TACHYCARDIA, I THINK HE SHOULD HAVE COMPLETE CARDIAC EVALUATION . HE CAN STILL WALK AT A SLOW PACE TOLERATED. DISCUSSED ABOUT USING A LONG-ACTING BRONCHODILATOR ( LAMA ) TO SEE IF IT IMPROVES HIS DYSPNEA ON EXERTION. HOWEVER STEVE SAY IS THAT , HE WOULD PREFERRED TO USE ALBUTEROL ONLY P.R.N.. Coding Level of Care Code Est Pt Level 3 (03427) Diagnoses KIMBERLEY on CPAP G47.33; Z99.89 COPD (chronic obstructive pulmonary disease) J44.9 Dyspnea on exertion R06.00
== END 2024-04-09 14:00 | disposition home or self-care (01) ==
PROVIDERS: PCP Internal Medicine; Visit Provider Internal Medicine
DX: G47.33 Obstructive sleep apnea (adult) (pediatric) (principal); Z99.89 Dependence on other enabling machines and devices; J44.9 Chronic obstructive pulmonary disease, unspecified; R06.00 Dyspnea, unspecified
CPT/HCPCS: 99213

== ENCOUNTER → 2024-04-09 13:28 | Outpatient (BNVA) | payer MEDICARE, SELFPAY | PROVIDERS: PCP Internal Medicine; Visit Provider Internal Medicine | DX: G47.33 Obstructive sleep apnea (adult) (pediatric) (principal); J44.9 Chronic obstructive pulmonary disease, unspecified; R06.00 Dyspnea, unspecified; Z99.89 Dependence on other enabling machines and devices | CPT/HCPCS: 99212 ==

== ENCOUNTER 2024-07-12 10:26 | Outpatient (AMB) | payer MEDICARE, SELFPAY ==
[2024-07-12 10:28] VITALS: BP 120/80; PULSE 83; BMI 27.4
--- NOTE | 2024-07-12 10:28 | A.OFFVIS_ITS ---
Vital Signs 07/12/24 10:28 Height 5 ft 11 in Weight 196 lb 3.382 oz BMI 27.4 BP 120/80 Blood Pressure Location Lt brachial Position Sitting Pulse 83 Intake Visit Reasons: TREER/ Nishi/ tachycardia/sob Intake Note: New patient with ekg dx tachycardia and sob getting worse having falls Pharmacy Delivery Driver Required: No Fabric Designer: Fabric Designer Present Accompanied by: Spouse Allergies lisinopril [LISINOPRIL] Allergy (Mild, Verified 04/09/24 13:58) HEADACHES amoxicillin [AMOXICILLIN] Allergy (Unknown, Verified 04/09/24 13:58) UNKNOWN Sulfa (Sulfonamide Antibiotics) [SULFA (SULFONAMIDE ANTIBIOTICS)] Allergy (Unknown, Verified 04/09/24 13:58) UNKNOWN Medication List - Last Reconciled 07/12/24 by Agus Redmond MD albuterol sulfate 90 mcg/actuation 2 puffs inhalation Q4-6H PRN 90 days donepezil 10 mg PO DAILY gabapentin 100 mg PO BID 60 days indomethacin 100 mg PO BID magnesium 200 mg PO DAILY memantine 10 mg PO BID metronidazole 500 mg PO TID 7 days modafinil (Provigil) 200 mg PO DAILY kz-tvg-kfsgi-P0-uuqtrsg-fszmkc 687-71-272-300 mcg (Centrum Silver Men) 1 tab PO DAILY omeprazole 20 mg PO DAILY potassium gluconate 500 mg PO DAILY sertraline 50 mg PO DAILY terazosin 10 mg PO BID HPI Comments Details: Thank you for referring Kenney in cardiology consultation today. Recently he has been having increasing shortness of breath as per his . He was cognitive dysfunction and does not always go out to exercise and has reduced his walking. He has underlying COPD. Recently because of increasing shortness of breath he had a walking test and was noted to have much high heart rate response to exercise without drop in his oxygen saturation that was concerning. He was referred here for further evaluation. Patient was a poor historian. Patient denies any associated chest discomfort although this is difficult to determine. Denies any orthopnea, PND, leg edema. No lightheadedness, syncope. No prolonged palpitation irregular heartbeat. As per patient's he has been using his CPAP regularly. [facility] Medical History Tachycardia with heart rate 100-120 beats per minute Anemia Dyspnea on exertion COPD (chronic obstructive pulmonary disease) KIMBERLEY on CPAP Social History Household Members: Spouse Housing: House Do you presently have visiting nurse or other home services: No Alcohol intake: never Patient Tobacco Use Status: Former Tobacco user Substance Use Type: Marijuana Advance Directives Date on File: 12/23/22 Current occupational status: retired Review of Systems Const Denies chills, Denies daytime sleepiness, Denies fatigue, Denies fever(s), Denies frequent falls, Denies poor appetite, Denies snoring, Denies stops breathing during sleep, Denies weakness, Denies weight gain and Denies weight loss Eyes Denies loss of vision ENT Denies dizziness and Denies hearing loss Card Denies chest pain, Denies claudication, Denies leg edema, Denies lightheadedness, Denies palpitations, Denies dyspnea, Denies dyspnea on exertion and Denies orthopnea Resp Denies cough, Denies excessive phlegm production, Denies dyspnea, Denies dyspnea on exertion, Denies snoring and Denies wheezing GI Denies abdominal pain, Denies hematochezia, Denies change in bowel habits, Denies nausea and Denies vomiting Denies dysuria and Denies urinary frequency Musc Denies arthralgias, Denies muscle weakness, Denies numbness and Denies other (frequent falls) Skin/Breast Denies nail changes and Denies rash Neuro Denies Abnormal speech present, Denies dizziness, Denies frequent falls, Denies loss of vision, Denies memory loss, Denies numbness and Denies weakness Psych Denies depression and Denies memory loss Endo Denies fatigue and Denies palpitations Tom/Lymph Reports easy bruising and Reports other (anemia) Aller/Immun Denies wheezing Physical Exam Vital Signs: Last Vital Signs Pulse 83 07/12/24 10:28 BP 120/80 07/12/24 10:28 BMI result Body Mass Index 27.4 Const General: cooperative, comfortable, no acute distress, alert and awake Nutritional Appearance: average body habitus Limitations: no limitations HEENT Head: Yes normocephalic and Yes atraumatic Neck Neck: Yes trachea midline, Yes supple and Yes no JVD Resp Effort & Inspection: normal respiratory effort Auscultation: clear to auscultation bilaterally and diminished lung sounds Cardio Jugular venous distension: no JVD Palpation: normal PMI Rate: regular rate Rhythm: regular rhythm Heart sounds: S1 normal heart sound present, S2 normal heart sound present, no click, no gallops, no murmurs and no rubs GI Auscultation: normal bowel sounds Skin General skin exam: no rashes or lesions noted Neuro General: no focal motor deficits Speech: No Abnormal speech present Extrem General: Yes no clubbing, cyanosis or edema Office Procedures EKG Details: EKG shows normal sinus rhythm with poor R-wave progression most likely lead placement with J-point depression [id number], Complete Assessment & Plan Assessment & Plan (1) Dyspnea on exertion: Comment: SHORTNESS OF BREATH NOTICED BY HIS SOMEWHAT MORE THAN BEFORE. THERE IS NO WHEEZING OR CHEST PAIN. THERE IS NO O2 DESATURATION ON WALKING. TACHYCARDIA IS SOMEWHAT OUT OF PROPORTION TO THE DEGREE OF DYSPNEA ON EXERTION. Code(s): R06.00 - Dyspnea, unspecified Category: Medical Plan: Patient was increasing shortness of breath of recent origin without any signs or symptoms of heart failure. Most likely related to sedentary lifestyle with reduced conditioning in the setting of underlying COPD. Although given his age and multiple risk factors obstructive coronary artery disease needs to be ruled out. Further treatment based on the findings. Would suggest exercise myocardial perfusion imaging to further assess for diagnostic as well as prognostic purposes for obstructive coronary artery disease. If this is abnormal may require further testing based on the findings. Also will obtain echocardiogram to assess LV systolic and diastolic function to evaluate for secondary pulmonary hypertension which could also cause him to have increasing shortness of breath. Otherwise most likely represents deconditioning and he was recommended to increase his activity level gradually. Continue CPAP therapy. Blood pressure is currently well optimized. Will follow up in the clinic after above-mentioned test. Thank you for allowing me to partake in his care Orders: Orders CA stress test Today R06.00 - Dyspnea, unspecified NM cardiolite stress test Today R06.00 - Dyspnea, unspecified, R07.9 - Chest pain, unspecified CA echo transthoracic complete Today R06.00 - Dyspnea, unspecified Coding Level of Care Code New Pt Level 4 (59722) Complex EM visit Add On G2211 Diagnoses Dyspnea on exertion R06.00 CPT Codes EKG - CPT: 51628-[id number], Complete ([id number])
== END 2024-07-12 11:01 | disposition home or self-care (01) ==
PROVIDERS: PCP Internal Medicine; Visit Provider Internal Medicine Cardiovascular Disease
DX: R06.00 Dyspnea, unspecified (principal); R94.31 Abnormal electrocardiogram [ECG] [EKG]
CPT/HCPCS: 93010; 99214; G2211

== ENCOUNTER → 2024-07-12 10:26 | Outpatient (BNVA) | payer MEDICARE, SELFPAY | PROVIDERS: PCP Internal Medicine; Visit Provider Internal Medicine Cardiovascular Disease | DX: R06.00 Dyspnea, unspecified (principal); R94.31 Abnormal electrocardiogram [ECG] [EKG] | CPT/HCPCS: 93005; 99212 ==

== ENCOUNTER → 2024-07-26 12:37 | Outpatient (REF) | payer MEDICARE, SELFPAY ==
--- NOTE | 2024-07-26 12:42 | CA_ITS ---
Transthoracic Echocardiogram Patient (Last, First, Middle): Kenney Fernandez R Gender: Male Date of : 1940 Age: 83 Procedure Date: 07/26/2024 Procedure Type: Transthoracic Echocardiogram Location: OP Height: 180.34 cm Weight: 88. kg BSA: 2.08 m2 Heart Rate: 63 bpm BP: 138 / 80 mmHg Group President: LOVE Referring MD: Agus Redmond MD Symptoms: R06.00 - Dyspnea, unspecified Study Quality: Adequate ECG Rhythm: Sinus Conclusions: - The left ventricular systolic function is normal. The calculated ejection fraction is 62% by biplane method. - There is moderately increased left ventricular wall thickness. - No obvious valvular pathology seen on this study. Findings Left Ventricle Normal left ventricular cavity size. There is moderately increased left ventricular wall thickness. The left ventricular systolic function is normal. The calculated ejection fraction is 62% by biplane method. There is no evidence of regional wall motion abnormalities. Diastolic function is normal for age. Right Ventricle Normal right ventricular cavity size. There is normal right ventricular systolic function. Atria Both atria are normal in size. Aortic Valve There is a normal trileaflet aortic valve. There is mild calcification of the aortic valve. There is no aortic valve stenosis. There is trace (trivial) aortic valve regurgitation. Mitral Valve The mitral valve appears normal. There is trace mitral valve regurgitation. There is no mitral valve stenosis. Pulmonic Valve The pulmonic valve is likely normal. Tricuspid Valve There is trace tricuspid valve regurgitation. There is no evidence of pulmonary hypertension. Great Vessels The aortic arch is normal in size. There is mild dilatation of the ascending aorta measuring 4.00 cm. Venous The inferior vena cava is normal in size and collapses greater than 50% with inspiration. Pericardium/Pleural There is no evidence of pericardial effusion. Prior Study Comparison No significant change compared to prior study dated: 01/25/2022. Recommendations, Care & Conclusions No obvious valvular pathology seen on this study. Measurements 2D Linear Measurements IVSd: 1.51 0.6-0.9/0.6-1.0 cm LVIDd: 4.02 3.9-5.3/4.2-5.9 cm LVIDd Index: 1.93 2.4-3.2/2.2-3.1 cm/m2 LVIDs: 2.59 2.0-3.6 cm LVPWd: 1.35 0.7-1.1 cm LA Diam: 4.10 2.7-3.8/3.0-4.0 cm LAIDs Index: 1.97 1.5-2.3 cm/m2 LV Mass: 271.12 67-162/88-224 g LV Mass Index: 130.35 43-95/49-115 g/m2 LVOT Diam: 2.20 3.0+(-)1.3 cm 2D Systolic Function EF 4C: 63.80 >55% EF 2C: 60.00 >55% EF BiP: 61.80 >55% Mitral Valve MV Pk E: 0.69 MV PK A: 0.72 MV Decel Time: 222.00 E/A: 1.00 E'Lateral: 7.51 E'Medial: 5.33 E/E' Med: 12.90 E/E' Lat: 9.10 PHT: 65.00 MVA PHT: 3.38 Decel [place]: 3.08 Aortic Valve AoV Pk Kamran: 1.57 AoV Mn Kamran: 1.13 AoV VTI: 0.30 AoV Pk Grad: 10.00 Aov Mn Grad: 6.00 MAHENDRA Cont.VTI: 2.08 LVOT LVOT Pk Kamran: 0.78 LVOT Mn Kamran: 0.59 LVOT VTI: 0.17 LVOT Pk Grad: 2.00 LVOT Mn Grad: 2.00 LVOT Diam: 2.20 LVOT Area: 3.80 Diastolic Function MV Pk E: 0.69 MV Pk A: 0.72 E/A: 1.00 E'Medial: 5.33 E/E' Med: 12.90 E' Laterial: 7.51 E/E' Lat: 9.10 Right Ventricle TAPSE (mm): 13.20 TVS' Kamran: 15.20 Tricuspid Valve TR Pk Kamran: 2.36 TR Pk Grad: 22.00 RA Press: 3.00 RVSP: 25.00 Great Vessels Aorta Sinus of Valsalva: 4.20 2.0-3.5 cm Ao Asc: 4.00 2.1-3.4 cm Ao Arch: 3.70 Pulmonary Valve PV Pk Kamran: 1.18 Peak PV Grad: 6.00 Updated in Other Vendor System with Status of Final Jayesh Mullen MD electronically signed on 07/28/2024 11:09:27 AM with status of Final
== END ==
LOC: HO.CARD 12:37
PROVIDERS: PCP Internal Medicine; Visit Provider Internal Medicine Cardiovascular Disease
DX: R06.00 Dyspnea, unspecified (principal)
CPT/HCPCS: 93306

== ENCOUNTER → 2024-07-26 12:42 | Outpatient (BNV) | payer MEDICARE, SELFPAY | PROVIDERS: PCP Internal Medicine; Visit Provider Internal Medicine | DX: I35.8 Other nonrheumatic aortic valve disorders (principal) | CPT/HCPCS: 93306 ==

== ENCOUNTER 2024-09-03 13:23 | Outpatient (AMB) | payer MEDICARE, SELFPAY ==
--- NOTE | 2024-09-03 13:20 | MHC.PC.OV ---
Vital Signs 09/03/24 13:42 Height 5 ft 8 in Weight 202 lb BMI 30.7 BP 142/72 H Blood Pressure Location Rt brachial Pulse 79 Pulse Source Pulse Oximeter Temp 97.4 F Pulse Oximetry (%) 91 L Intake Visit Reasons: 6 week follow up Intake Note: Going into another phase of the dementia Allergies lisinopril [LISINOPRIL] Allergy (Mild, Verified 09/03/24 14:23) HEADACHES amoxicillin [AMOXICILLIN] Allergy (Unknown, Verified 09/03/24 14:23) UNKNOWN Sulfa (Sulfonamide Antibiotics) [SULFA (SULFONAMIDE ANTIBIOTICS)] Allergy (Unknown, Verified 09/03/24 14:23) UNKNOWN Medication List - Last Reconciled 09/03/24 by Pamela Gonzalez PA-C albuterol sulfate 90 mcg/actuation 2 puffs inhalation Q4-6H PRN 90 days atorvastatin 10 mg PO BEDTIME donepezil 23 mg PO BEDTIME gabapentin 100 mg PO BID 60 days indomethacin 100 mg PO BID magnesium 200 mg PO DAILY melatonin 5 mg PO BEDTIME PRN memantine 10 mg PO BID metronidazole 500 mg PO TID 7 days modafinil (Provigil) 200 mg PO DAILY [id number] mcg (Centrum Silver Men) 1 tab PO DAILY omeprazole 20 mg PO DAILY potassium gluconate 500 mg PO DAILY rizatriptan (Maxalt) take 1 tab at onset of headache; if no relief may repeat 1 tab after at least 2 hrs; max = 3 tabs/24 hr PO sertraline 50 mg PO DAILY terazosin 10 mg PO BID PFSH Medical History Tachycardia with heart rate 100-120 beats per minute Anemia Dyspnea on exertion COPD (chronic obstructive pulmonary disease) KIMBERLEY on CPAP Social History Household Members: Spouse Housing: House Do you presently have visiting nurse or other home services: No Alcohol intake: never Patient Tobacco Use Status: Former Tobacco user Substance Use Type: Marijuana Advance Directives Date on File: 12/23/22 Current occupational status: retired Physical exam (Primary Care) Vital Signs: Last Vital Signs Temp 97.4 F 01/28/25 13:42 Pulse 79 09/03/24 13:42 BP 142/72 H 09/03/24 13:42 Pulse Ox 91 L 09/03/24 13:42 BMI result Body Mass Index 30.7 Tobacco/Smoking Status: Tobacco use Status Patient Tobacco Use Status Former Tobacco user 09/03/24 13:20 Coding Level of Care Code Est Pt Level 4 (52116) Complex EM visit Add On G2211 Diagnoses Memory loss R41.3 Alzheimer dementia G30.9; F02.80 Benign non-nodular prostatic hyperplasia N40.0 GERD (gastroesophageal reflux disease) K21.9 Renal lithiasis N20.0 Migraine headache G43.909 Hypertension I10 Osteoarthritis M19.90 COPD (chronic obstructive pulmonary disease) J44.9 KIMBERLEY on CPAP G47.33; Z99.89 Hyperlipidemia E78.5 Assessment & Plan Assessment & Plan (1) Memory loss: Code(s): R41.3 - Other amnesia Category: Medical Plan: Continue taking Donepezil although will increase the dose to 23 mg daily. Continue Memantine HCl Tablet, 10 MG, 1 tablet, Orally, Twice a day Continue Modafinil Tablet, 200 MG, 1 tablet in the morning, Orally, Once a day Continue Multivitamins Capsule, 1 capsule, Orally, Once a day (2) Alzheimer dementia: Code(s): G30.9 - Alzheimer's disease, unspecified; F02.80 - Dementia in other diseases classified elsewhere, unspecified severity, without behavioral disturbance, psychotic disturbance, mood disturbance, and anxiety Category: Medical Plan: Continue taking Donepezil although will increase the dose to 23 mg daily. Continue Memantine HCl Tablet, 10 MG, 1 tablet, Orally, Twice a day Continue Modafinil Tablet, 200 MG, 1 tablet in the morning, Orally, Once a day Continue Multivitamins Capsule, 1 capsule, Orally, Once a day Patient being followed by Neurology Has a josiah she has an appointment in 6 months. Condition is chronic and stable will continue to monitor. (3) Benign non-nodular prostatic hyperplasia: Code(s): N40.0 - Benign prostatic hyperplasia without lower urinary tract symptoms Category: Medical Plan: Continue taking terazosin 10 mg at bedtime. Condition is chronic and stable will continue to monitor (4) GERD (gastroesophageal reflux disease): Code(s): K21.9 - Gastro-esophageal reflux disease without esophagitis Category: Medical Plan: Continue taking omeprazole 20 mg daily. Condition is chronic and stable continue to monitor (5) Renal lithiasis: Code(s): N20.0 - Calculus of kidney Category: Medical Plan: Condition is chronic and stable no kidney related complaints at this visit. Will continue to monitor. (6) Migraine headache: Code(s): G43.909 - Migraine, unspecified, not intractable, without status migrainosus Category: Medical Plan: Patient denies any headache related complaints at this time. Condition is chronic and stable continue to monitor (7) Hypertension: Code(s): I10 - Essential (primary) hypertension Category: Medical Plan: Condition is chronic and stable continue to monitor. (8) Osteoarthritis: Code(s): M19.90 - Unspecified osteoarthritis, unspecified site Category: Medical Plan: Continue Diclofenac Sodium Gel, 1 %, 1 application to affected area as needed, Transdermal, Twice a day Continue Tylenol 8 Hour Arthritis Pain Tablet Extended Release, 650 MG, 2 tablets as needed, Orally, every 8 hrs Continue Celecoxib Capsule, 200 MG, 1 capsule with food, Orally, Twice a day, 30 day(s), 60 Capsule, Refills 1 (9) COPD (chronic obstructive pulmonary disease): Comment: MILD DEGREE OF COPD. DOING WELL WITH THE P.R.N. USE OF ALBUTEROL INHALER, WHICH HE USES ONLY ONCE A DAY OR SOMETIMES TWICE. Code(s): J44.9 - Chronic obstructive pulmonary disease, unspecified Category: Medical Plan: Condition is chronic and stable patient being followed by pulmonology will continue to monitor. (10) KIMBERLEY on CPAP: Comment: VERY COMPLIANT, AND BENEFITTING FROM THE USE OF CPAP. Code(s): G47.33 - Obstructive sleep apnea (adult) (pediatric); Z99.89 - Dependence on other enabling machines and devices Category: Medical Plan: Condition is chronic and stable patient being followed by pulmonology will continue to monitor. (11) Hyperlipidemia: Code(s): E78.5 - Hyperlipidemia, unspecified Category: Medical Plan: Patient will be started on atorvastatin 10 mg daily. Condition is chronic and stable continue to monitor. Plan Plan - Adjust Donepezil to 23 mg at bedtime to assess improvement in Alzheimer's symptoms. - Consider atorvastatin 10 mg daily to manage hypercholesterolemia. - Continue with current doses of Tylenol PM and Melatonin for sleep, evaluate efficacy. Consider trazodone if sleep disturbances persist. - Maintain osteoarthritis management; consider alternative therapies if no improvement. - Monitor potential diabetes risk, recheck fasting blood glucose in follow-up. - Follow-up visit in one month to reassess memory and overall condition. - Discuss potential home healthcare support despite patient's reluctance. Orders: Orders Comprehensive [place]. Panel Fast Today G43.909 - Migraine, unspecified, not intractable, without status migrainosus, I10 - Essential (primary) hypertension, J44.9 - Chronic obstructive pulmonary disease, unspecified, K21.9 - Gastro-esophageal reflux disease without esophagitis, M19.90 - Unspecified osteoarthritis, unspecified site, N20.0 - Calculus of kidney, R41.3 - Other amnesia Complete Blood Count Auto Diff Today F02.80 - Dementia in other diseases classified elsewhere, unspecified severity, without behavioral disturbance, psychotic disturbance, mood disturbance, and anxiety, G30.9 - Alzheimer's disease, unspecified, G43.909 - Migraine, unspecified, not intractable, without status migrainosus, G47.33 - Obstructive sleep apnea (adult) (pediatric), I10 - Essential (primary) hypertension, J44.9 - Chronic obstructive pulmonary disease, unspecified, K21.9 - Gastro-esophageal reflux disease without esophagitis, M19.90 - Unspecified osteoarthritis, unspecified site, N20.0 - Calculus of kidney, N40.0 - Benign prostatic hyperplasia without lower urinary tract symptoms, R41.3 - Other amnesia, Z99.89 - Dependence on other enabling machines and devices Magnesium Today F02.80 - Dementia in other diseases classified elsewhere, unspecified severity, without behavioral disturbance, psychotic disturbance, mood disturbance, and anxiety, G30.9 - Alzheimer's disease, unspecified, G43.909 - Migraine, unspecified, not intractable, without status migrainosus, G47.33 - Obstructive sleep apnea (adult) (pediatric), I10 - Essential (primary) hypertension, J44.9 - Chronic obstructive pulmonary disease, unspecified, K21.9 - Gastro-esophageal reflux disease without esophagitis, M19.90 - Unspecified osteoarthritis, unspecified site, N20.0 - Calculus of kidney, N40.0 - Benign prostatic hyperplasia without lower urinary tract symptoms, R41.3 - Other amnesia, Z99.89 - Dependence on other enabling machines and devices Vitamin D 25-OH Total Today F02.80 - Dementia in other diseases classified elsewhere, unspecified severity, without behavioral disturbance, psychotic disturbance, mood disturbance, and anxiety, G30.9 - Alzheimer's disease, unspecified, G43.909 - Migraine, unspecified, not intractable, without status migrainosus, G47.33 - Obstructive sleep apnea (adult) (pediatric), I10 - Essential (primary) hypertension, J44.9 - Chronic obstructive pulmonary disease, unspecified, K21.9 - Gastro-esophageal reflux disease without esophagitis, M19.90 - Unspecified osteoarthritis, unspecified site, N20.0 - Calculus of kidney, N40.0 - Benign prostatic hyperplasia without lower urinary tract symptoms, R41.3 - Other amnesia, Z99.89 - Dependence on other enabling machines and devices Liver Panel Today F02.80 - Dementia in other diseases classified elsewhere, unspecified severity, without behavioral disturbance, psychotic disturbance, mood disturbance, and anxiety, G30.9 - Alzheimer's disease, unspecified, G43.909 - Migraine, unspecified, not intractable, without status migrainosus, G47.33 - Obstructive sleep apnea (adult) (pediatric), I10 - Essential (primary) hypertension, J44.9 - Chronic obstructive pulmonary disease, unspecified, K21.9 - Gastro-esophageal reflux disease without esophagitis, M19.90 - Unspecified osteoarthritis, unspecified site, N20.0 - Calculus of kidney, N40.0 - Benign prostatic hyperplasia without lower urinary tract symptoms, R41.3 - Other amnesia, Z99.89 - Dependence on other enabling machines and devices Hemoglobin A1c Today F02.80 - Dementia in other diseases classified elsewhere, unspecified severity, without behavioral disturbance, psychotic disturbance, mood disturbance, and anxiety, G30.9 - Alzheimer's disease, unspecified, G43.909 - Migraine, unspecified, not intractable, without status migrainosus, G47.33 - Obstructive sleep apnea (adult) (pediatric), I10 - Essential (primary) hypertension, J44.9 - Chronic obstructive pulmonary disease, unspecified, K21.9 - Gastro-esophageal reflux disease without esophagitis, M19.90 - Unspecified osteoarthritis, unspecified site, N20.0 - Calculus of kidney, N40.0 - Benign prostatic hyperplasia without lower urinary tract symptoms, R41.3 - Other amnesia, Z99.89 - Dependence on other enabling machines and devices Vitamin B12 and Folate Today F02.80 - Dementia in other diseases classified elsewhere, unspecified severity, without behavioral disturbance, psychotic disturbance, mood disturbance, and anxiety, G30.9 - Alzheimer's disease, unspecified, G43.909 - Migraine, unspecified, not intractable, without status migrainosus, G47.33 - Obstructive sleep apnea (adult) (pediatric), I10 - Essential (primary) hypertension, J44.9 - Chronic obstructive pulmonary disease, unspecified, K21.9 - Gastro-esophageal reflux disease without esophagitis, M19.90 - Unspecified osteoarthritis, unspecified site, N20.0 - Calculus of kidney, N40.0 - Benign prostatic hyperplasia without lower urinary tract symptoms, R41.3 - Other amnesia, Z99.89 - Dependence on other enabling machines and devices TSH reflex Free T4 Today F02.80 - Dementia in other diseases classified elsewhere, unspecified severity, without behavioral disturbance, psychotic disturbance, mood disturbance, and anxiety, G30.9 - Alzheimer's disease, unspecified, G43.909 - Migraine, unspecified, not intractable, without status migrainosus, G47.33 - Obstructive sleep apnea (adult) (pediatric), I10 - Essential (primary) hypertension, J44.9 - Chronic obstructive pulmonary disease, unspecified, K21.9 - Gastro-esophageal reflux disease without esophagitis, M19.90 - Unspecified osteoarthritis, unspecified site, N20.0 - Calculus of kidney, N40.0 - Benign prostatic hyperplasia without lower urinary tract symptoms, R41.3 - Other amnesia, Z99.89 - Dependence on other enabling machines and devices Lipid Panel Today F02.80 - Dementia in other diseases classified elsewhere, unspecified severity, without behavioral disturbance, psychotic disturbance, mood disturbance, and anxiety, G30.9 - Alzheimer's disease, unspecified, G43.909 - Migraine, unspecified, not intractable, without status migrainosus, G47.33 - Obstructive sleep apnea (adult) (pediatric), I10 - Essential (primary) hypertension, J44.9 - Chronic obstructive pulmonary disease, unspecified, K21.9 - Gastro-esophageal reflux disease without esophagitis, M19.90 - Unspecified osteoarthritis, unspecified site, N20.0 - Calculus of kidney, N40.0 - Benign prostatic hyperplasia without lower urinary tract symptoms, R41.3 - Other amnesia, Z99.89 - Dependence on other enabling machines and devices B Type Natriuretic Peptide Today R60.0 - Localized edema Referrals [facility] Referral R41.3 - Other amnesia Medications: New donepezil 23 mg PO BEDTIME 90 tabs 1RF atorvastatin 10 mg PO BEDTIME 90 tabs 1RF melatonin 5 mg PO BEDTIME PRN 90 caps 1RF sleep Patient Instructions: Patient Instructions - Increase Donepezil dosage to 23 mg at bedtime. - Begin atorvastatin 10 mg daily for cholesterol management. - Continue current sleep aids; discuss effectiveness with follow-up. - Maintain diet and physical activity; monitor any new symptoms or medication side effects. - Follow-up in one month for reassessment. - Seek immediate care if experiencing unanticipated severe symptoms or a fall. Scribe Plan - Not visible on output: History of Present Illness The patient is an 83-year-old male presenting with concerns regarding escalating memory impairment. is at bedside who is the main historian. Patient's history includes a diagnosis of Alzheimer's Disease approximately five years prior, with reports of progressive short-term memory loss and increased repetition of questions noticed over the past two months. This regression was mentioned despite being under the care of a neurologist, with the last medication adjustment occurring four years ago. Current management includes Memantine and Donepezil, both previously stabilized without recent changes. The patient's caregiver expresses concern over the lack of medication adjustment despite observed deteriorations. Additionally, the patient has a history of severe osteoarthritis contributing to musculoskeletal pain. There is concern regarding sleep disturbances, for which the caregiver administers Tylenol PM and Melatonin at night. The patient's diet raises concerns about potential hypercholesterolemia and possible diabetes, highlighted by a diet high in sugar and a slightly elevated blood glucose noted in past laboratory tests. Recent diagnostic imaging and stress testing for dyspnea on exertion and cardiac evaluation are pending. Social History - Resides with spouse; limited social support beyond a volunteer from [employer] offering weekly respite. 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 - Reports consuming a predominantly sugar-heavy diet, including regular intake of cookies and ice cream. - Denies alcohol, tobacco, and illicit drug use. Review of Systems - Neurological: Reports progressive short-term memory loss and increased forgetfulness. - Musculoskeletal: Reports ongoing joint pain associated with severe osteoarthritis. - Cardiovascular: Reports dyspnea on exertion. - Sleep: Reports difficulty initiating sleep, responsive to [id number] medication. Physical Exam Appearance: Alert. Oriented to self. Otherwise pleasantly confused.. No acute distress. Head: Normal external exam. Normocephalic. Atraumatic. Eyes: Pupils are equal, round, and reactive to light. Extraocular movements intact. Conjunctiva and sclera normal. Eyelids normal. Ears: External auditory canal normal. Tympanic membranes normal. Throat: Pharynx normal. Uvula midline. Moist mucous membranes. Neck: Normal inspection. Neck supple. Full range of motion. No adenopathy. Thyroid Normal. No meningeal signs. No neck mass noted. Cardiovascular: Normal heart rate and rhythm. Heart sound normal. No murmurs noted. Pulses normal throughout. Respiratory: No respiratory distress. Painless inspiration. Breath sounds normal. No wheezes/rales/rhonchi noted. Chest nontender. No accessory muscle usage noted or decreased air movement noted. Abdomen: Soft and nontender. Bowel sounds normal in all 4 quadrants. No distention noted. No organomegaly noted. No visible injury noted. Back: No costovertebral angle tenderness. Full range of motion noted. Skin: Skin warm and dry. Normal skin color. Normal skin turgor. No rashes/lesions/lacerations noted. Extremities: No lower extremity edema. Extremities exhibit normal range of motion. Extremities nontender. Neuro: Oriented to self otherwise pleasantly confused. At baseline per . No motor deficit. No sensory deficit. Reflexes normal. Results - Labs: Previous labs indicate elevated blood glucose (specific values not detailed). - Echocardiogram: Past echocardiogram with an ejection fraction of 62%. - Cholesterol: Previous labs denoting a slight elevation in cholesterol. - Stress Test: Stress test pending, delayed due to logistical issues with medication availability for the test. Plan - Adjust Donepezil to 23 mg at bedtime to assess improvement in Alzheimer's symptoms. - Consider atorvastatin 10 mg daily to manage hypercholesterolemia. - Continue with current doses of Tylenol PM and Melatonin for sleep, evaluate efficacy. Consider trazodone if sleep disturbances persist. - Maintain osteoarthritis management; consider alternative therapies if no improvement. - Monitor potential diabetes risk, recheck fasting blood glucose in follow-up. - Follow-up visit in one month to reassess memory and overall condition. - Discuss potential home healthcare support despite patient's reluctance. Patient was informed and verbally consented to the use of an ambient scribe for clinic note documentation during this visit. Discussion Notes During the consultation, I discussed with the patient and his spouse the current therapy for Alzheimer's Disease and potential adjustment to medication. Increasing Donepezil to 23 mg was recommended based on current evidence of advancing disease. Concerns regarding delayed cognitive evaluations and tests were addressed with recommendations to expedite care, considering the notable decline in memory. For cholesterol, I proposed initiating atorvastatin due to previously noted hypercholesterolemia, even as minor dietary changes were discussed as adjunctive management. Sleep disturbances were elaborated, balancing current [id number] regimens with alternatives like trazodone if needed. The importance of maintaining joint function amidst arthritis and regular monitoring of potential diabetes was emphasized. Plans for follow-up and future diagnostics were confirmed. Patient Instructions - Increase Donepezil dosage to 23 mg at bedtime. - Begin atorvastatin 10 mg daily for cholesterol management. - Continue current sleep aids; discuss effectiveness with follow-up. - Maintain diet and physical activity; monitor any new symptoms or medication side effects. - Follow-up in one month for reassessment. - Seek immediate care if experiencing unanticipated severe symptoms or a fall.
[2024-09-03 13:42] VITALS: BP 142/72; PULSE 79; TEMP 36.3; O2SAT 91; BMI 30.7
--- OUTSIDE RECORDS SUMMARY | 2024-09-03 14:21 | XMS_ITS ---
Author Organization Storm Lowry DO, FACP Address [address], [place] [id number] Care Team Providers Care Power Press Supervisor Name Role Phone Storm Lowry Primary Care Provider REASON FOR VISIT 6 month f/u Encounters Encounter Location Date Provider Diagnosis Storm Lowry DO, FACP [address] [place] [address] [id number] 08/13/2024 Storm Lowry PLAN OF TREATMENT No Information
--- OUTSIDE RECORDS SUMMARY | 2024-09-03 14:21 | XMS_ITS ---
Author Organization Storm Lowry DO, FACP Address [address], [place] [id number] Care Team Providers Care Order Entry Specialist Name Role Phone Storm Lowry Primary Care Provider REASON FOR VISIT 6 week f/u Encounters Encounter Location Date Provider Diagnosis Storm Lowry DO, FACP [address] [place] [phone] 09/03/2024 Storm Lowry PLAN OF TREATMENT No Information
--- OUTSIDE RECORDS SUMMARY | 2024-09-03 14:21 | XMS_ITS ---
Author Organization [facility] Address [address] [place] [address] Care Team Providers Care Splunk Dashboard Developer Name Role Phone Storm Lowry MD Primary Care Provider Unavail able Black, Naa Unavailable [phone] Allergies Allergen (clinical drug ingredient) Drug/Non Drug Allergy documented on EMR Reaction Allergy Type Onset Date Status amoxicillin Amoxicillin Unknown Drug Allergy Act olga sulfamethoxazole / trimethoprim Bactrim Unknown Drug Allergy Active REASON FOR VISIT Painful nail(s) aggrevated by shoes causing difficulty standing/walking, Painful Toe(s) Medications Medication SIG (Take, Route, Frequency, Duration) Notes Start Date End Date Status Cephalexin 500 MG 1 capsule Orally tito ry 12 hrs for 10 day(s) 03/13/2023 Not-Taking ASA Not-Taking DULoxetine HCl Not-T aking Terazosin HCl 1 MG 1 capsule Orally Onc e a day Active Doxycycline Hyclate 100 MG 1 capsule Orally Once a day for 10 day(s) 04/25/2024 Active Maxalt 10 MG 1 tablet as needed o ne time Orally Once a day Active Omeprazole 20 MG 1 capsule Orally Onc e a day Active Modafinil 200 MG 1 tablet in the morn ing Orally Once a day Active Indomethacin 25 MG 1 capsule Orally Twi ce a day Active Sertraline HCl Activ e Multivitamin Active Donepezil HCl 10 MG 1 tablet at bedtime Orally Once a day Active Voltaren Not-Taking Gabapentin 300 MG Orally No t-Taking Irbesartan Not-Takin g Cephalexin 500 MG 1 capsule Orally BID for 10 days 05/24/2021 Not-Taking Social History Tobacco Use: Social History Observation Description Date Details (start date - stop date) Never Smoker NA - NA Tobacco use other than smoking: Question Answer Notes Are you an other tobacco user? No Tobacco Control (Standard) Question Answer Notes Tobacco use: Nonsmoker Vital Signs Height 5 ft 11 in in 08/19/2024 Weight 196 lbs 08/19/2024 BMI 27.33 kg/m2 08/19/2024 Blood pressure systolic 130 mm Hg 08/19/19 25 Blood pressure diastolic 83 mm Hg 025 Procedures Procedure Date Ordered Date Performed Result Body Sit e 52787-QZONSLN NAIL, 6 OR MORE 08/19/2024 N/A Encounters Encounter Location Date Provider Diagnosis [facility] [address] [place] [address] 08/19/2024 Naa Black Tinea unguium B35.1 ; Pain in right toe(s) M79.674 ; Pain in left toe(s) M79.675 ; Other hammer toe(s) (acquired), right foot M20.41 ; Arthritis of joint of lesser toe, right M19.071 ; Subluxation of metatarsophalangeal joint of toe, initial encounter S93.149A and 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 Assessments Encounter Date Diagnosis (ICD Code) Assessment Notes Treatment Notes Treatment Clinical Notes Section Notes 08/19/2024 Tinea unguium (ICD-1 0 - B35.1) 08/19/2024 Pain in right toe(s) (ICD-10 - M79.674) 08/19/2024 Pain in left toe(s) (ICD-10 - M79.675) 08/19/2024 Other hammer toe(s) (acquired), right foot (ICD-10 - M20.41) 08/19/2024 Arthritis of joint o f lesser toe, right (ICD-10 - M19.071) 08/19/2024 Subluxation of metatarsophalangeal joint of toe, initial encounter (ICD-10 - S93.149A) 08/19/2024 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 Therefore, debridement to affected nail(s), as described in exam (, TA, T1, T2, T3, T4, T6, T8, T9 ), was performed exclusively by the physician of record to reduce/remove overall nail length, girth, thickness, subungual debris, and necrotic tissue, by manual and/or electrical means through the use of a nail nipper and/or dremel-type crystal flat grinder, to a more viable healthy nail plate or bed tissue 6-10 nails in total. Silver nitrate was used for any petechial bleeding as necessary. Definitive antifungal treatment options, both pharmaceutical and surgical, have been reviewed and discussed with the patient. The patient solely prefers the use of intermittent/as needed professional debridement services for their nail condition and understands the need for additional periodic treatments to maintain effectiveness in symptomatic relief - [id number] Progress Notes * Kenney FERNANDEZ RDOB:1940 ( 83 yo M)Acc No.[id number]:08/19/2024 Progress Note Patient:JUNE Kenney Mcpherson Provider:?Naa Brambila DPM :1940???Age:83 Y???Sex:Male Michael e:08/19/2024 Address:[address] [place] [address] , [place], [id number] Pcp:Storm Lowry MD Subjective: * Chief Complaints: * ???Painful nail(s) aggrevate d by shoes causing difficulty standing/walkingPainful Toe(s) * HPI: ???Painful Nails:?Pt States Last PCP Visit:?Date:?07/22/2024 ???Toe pain:?Nature:?tenderness.?Location:?Right foot.?Duration:?several years.?Course:?, improved, at _80_ percent.?Aggravated by:?any pressure, shoes.?Treatments:?rest/alter normal daily activity, change in shoes to a wider toe box, Barrett's wool.? * ROS:?General/Constitutional:?Nausea?denies.?Vomiting?denies.?Hunger Thirst?denies.?Loss appetite?denies.?Chills?denies.?Fatigue?denies.?Fever?denies.?Night Sweats?denies.?Unexplained weight loss?denies.?Ophthalmologic:?Blurred vision?denies.?Red eye?denies.?HEENTM:?Dentures?denies.?Dizziness?denies.?Glasses/contacts?admits.?Retinopathy?de nies.?Blurred/double vision?denies.?TMJ?admits.?Discharge/drainage?denies.?Implants?admits.?Hard of hearing denies.?Difficulty chewing/swallowing/speaking?denies.?Nose bleeds?denies.?Sore mouth?denies.?Swollen glands?denies.?Respiratory:?On Oxygen?denies.?Pneumonia/pleurisy?denies.?Bronchitis?denies.?Emphysema?denies.?C oughing?denies.?Cough blood?denies.?Shortness of breath?denies.?Wheezing?denies.?Cardiovascular:?Pacemaker?denies.?MVP?denies.?WPW?denies.?CHF?denies.?Heart attack?denies.?Septal defect?denies.?Rapid beat?denies.?Chest pain ?denies.?Atrial Fib.?denies.?Murmur/Palpitations?denies.?Gastrointestinal:?Hemorrhoids?denies.?Stomach/Abdominal pain?denies.?Dark blood stool?denies.?Irritable bowel ?denies.?Constipation?denies.?Diarrhea?denies.?Vomiting?denies.?Hematology:?Swelling?denies.?Bruising?denies.?Bleeding problem?denies.?Genitourinary:?Blood urine?denies.?Frequent/Painfu/urination/bladder control?denies.?Kidney stones?denies.?Infection (UTI)?denies.?Nephropathy?denies.?Musculoskeletal:?Hammertoes?denies.?Bunions?denies.?Scoliosis/kyphosis?denies.?Muscle cramps / walking?denies.?Generalized aches and pains?denies.?Weakness?denies.?Integ.:?Buchanan?denies.?Scars?denies.?Corns/calluses?denies.?Ingrown nails?admits.?Painful nails?admits.?Rashes?denies.?Neurologic:?Difficulty sleeping?denies.?Bipolar?denies.?Brain disorder?denies.?Balance trouble?denies.?Confusion?denies.?Fainting/blackouts?denies.?Headache?denies.?Tr emors?denies.? * Medical History:? * Surgical History:?left hip 1 999right hip 2000right foot reconstruction 08/15/16nkle replacement 10/29/17gall stones * Hospitalization/Major Diagno stic Procedure:?[facility] [place]- fell 12/2022 * Family History:?Mother: dece ased, diagnosed with Unspecified cerebral artery occlusion with cerebral infarction, Family history of arthritis.?Father: , diagnosed with Other malignant neoplasm of unspecified site, Unspecified heart disease.? * Social History:?Tobacco Use:?Tobacco use other than smoking?Are you an other tobacco user??No ?Tobacco Control (Standard)?Tobacco use:?Nonsmoker * Medications:?TakingMultivita min Donepezil HCl 10 MG Tablet 1 tablet at bedtime Orally Once a day Modafinil 200 MG Tablet 1 tablet in the morning Orally Once a day Indomethacin 25 MG Capsule 1 capsule Orally Twice a day Maxalt 10 MG Tablet 1 tablet as needed one time Orally Once a day Omeprazole 20 MG Capsule Delayed Release 1 capsule Orally Once a day Sertraline HCl Terazosin HCl 1 MG Capsule 1 capsule Orally Once a day Doxycycline Hyclate 100 MG Capsule 1 capsule Orally Once a day Taking Multivitamin Taking Donepezil HCl 10 MG Tablet 1 tablet at bedtime Orally Once a day Taking Modafinil 200 MG Tablet 1 tablet in the morning Orally Once a day Taking Indomethacin 25 MG Capsule 1 capsule Orally Twice a day Taking Maxalt 10 MG Tablet 1 tablet as needed one time Orally Once a day Taking Omeprazole 20 MG Capsule Delayed Release 1 capsule Orally Once a day Taking Sertraline HCl Taking Terazosin HCl 1 MG Capsule 1 capsule Orally Once a day Taking Doxycycline Hyclate 100 MG Capsule 1 capsule Orally Once a day Not-Taking/PRNDULoxetine HCl Cephalexin 500 MG Capsule 1 capsule Orally every 12 hrs ASA Cephalexin 500 MG Capsule 1 capsule Orally BID Gabapentin 300 MG Capsule Orally Voltaren Irbesartan Medication List reviewed and reconciled with the patientNot-Taking/PRN DULoxetine HCl Not-Taking/PRN Cephalexin 500 MG Capsule 1 capsule Orally every 12 hrs Not-Taking/PRN ASA Not-Taking/PRN Cephalexin 500 MG Capsule 1 capsule Orally BID Not-Taking/PRN Gabapentin 300 MG Capsule Orally Not-Taking/PRN Voltaren Not-Taking/PRN Irbesartan Medication List reviewed and reconciled with the patient * Allergies:?AmoxicillinBactri myes[Allergies Verified] Objective: * Vitals:?Ht: 5 ft 11 in, Wt: 196, BMI: 27.33, Shoe size: 12, BP: 130/83 mm Hg, Wt-k.9 kg. * Examination: ???General Examination: ?GENERAL APPEARANCE:?Reveals a pleasant, alert, well nourished, well- developed, well hydrated individual, who demonstrates proper attention to hygiene/body habitus, and is in no acute distress, Pt accompanied by, , and/who is physically present in exam room at time of visit.?Nails: ?NAILS are:??Elongated, overgrown, dystrophic, lytic, greater than 3mm thick, discolored and friable with crumbly malodorous subungual debris, with pain on palpation,, , TA, T1, T2, T3, T4, T6, T8, T9.?Orthopedic: ?DIGITAL DEFORMITIES:?Digital contracture, PIPJ, 2-5 B/L, incompl-reducible with WB,multiple crossovers right 2-4.?FOOTWEAR:?good condition wide in forefoot and high in toe box.?Vascular: ?DP PULSES (B):?2/4, B/L.?PT PULSES (B):?2/4, B/L.?CAPILLARY FILL TIME:?immediate, all digits, B/L.?TROPHIC CONDITION-TEXTURE/ELASTICITY/TURGOR/HAIR GROWTH (B):?normal, B/L.?TEMPERTURE GRADIENT (C):?normal, warm to cool, proximal to distal, B/L, B/L.?Dermatologic: ?SKIN FINDINGS:?Skin exam reveals Keratotic lesion(s) located at, Lateral, PIPJ, T7.? 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 Plan: * Treatment: * Procedures:?Debride Nail 6-10:?Nail debridement?Due to the clinical pathology outlined in the exam findings, performance of this nail treatment is medically necessary as its management by an unskilled/untrained nonprofessional would put this patients foot and overall health at risk. Therefore, debridement to affected nail(s), as described in exam (, TA, T1, T2, T3, T4, T6, T8, T9 ), was performed exclusively by the physician of record to reduce/remove overall nail length, girth, thickness, subungual debris, and necrotic tissue, by manual and/or electrical means through the use of a nail nipper and/or dremel-type crystal flat grinder, to a more viable healthy nail plate or bed tissue 6-10 nails in total. Silver nitrate was used for any petechial bleeding as necessary. Definitive antifungal treatment options, both pharmaceutical and surgical, have been reviewed and discussed with the patient. The patient solely prefers the use of intermittent/as needed professional debridement services for their nail condition and understands the need for additional periodic treatments to maintain effectiveness in symptomatic relief - [id number].? * Procedure Codes:?82964 DEBRI DE NAIL, 6 OR MORE, Modifiers: XS * Preventive Medicine:? ??Counseling:?Discussion:?-12: Office or other outpatient visit for the evaluation and management of an established patient, which required a medically appropriate history and/or examination and STRAIGHTFORWARD level of MEDICAL DECISION MAKING, 1 SELF-LIMITED OR MINOR PROBLEM, MINIMAL- NO AMOUNT/COMPLEXITY OF DATA TO BE REVIEWED/ANALYZED, AND MINIMAL RISK OF COMPLICATION/MORBIDITY. The visit on the day of the encounter encompassed interpreting the data and educating the patient as to the nature of their condition, treatment options available according to their individual PMH, meds, allergies, and overall health/living conditions, as well as any potential risks or complications that may occur from a failure to adhere to, and participate in, the recommended course of therapy. The discussion included a complete verbal, and/or written explanation of the examination results, any x-rays taken, the proposed diagnosis, and outline of the treatment plan. A schedule for future care needs was also explained. The patient verbalized an understanding of the instructions at this time and agreed to be an active participant in their treatment. If the patient should think of any questions or concerns after the visit, I have encouraged the patient to call the office, Patients podiatric issue has improved, Pt should continue with the present chnage in footwear, continue with the barrett's wool between the toes.? * Follow Up:?prn * Images: * Sign off status: Completed true * Provider:?Naa Brambila DPM Date:?2024 Generated for Esperanza cleveland/Clemencia/Yelena on:?09/03/2024 02:21 PM EST History and Physical Notes * HPI (History of Present Illness) Category Sub-Category Detail Notes Category Not es Toe pain Nature: tenderness Location: Right foot Duration: several years Course: , improved, at _80_ percent Aggravated by: any pressure, shoes Treatments: rest/alter normal da duran activity, change in shoes to a wider toe box, Barrett's wool Painful Nails Pt States Last PCP Visit: Date:: 07/22/2024 Examination Category Sub-Category Detail Notes Category Not es Dermatologic SKIN FINDINGS: Skin exam reveal s Keratotic lesion(s) located at, Lateral, PIPJ, T7 Orthopedic FOOTWEAR: good condition w jose in forefoot and high in toe box DIGITAL DEFORMITIES: Digital contracture , PIPJ, 2-5 B/L, incompl-reducible with WB,multiple crossovers right 2-4 General Examination GENERAL APPEARANCE: Reveals a pleasant, alert, well nourished, well-developed, well hydrated individual, who demonstrates proper attention to hygiene/body habitus, and is in no acute distress, Pt accompanied by, , and/who is physically present in exam room at time of visit Vascular DP PULSES (B): 2/4, B/L PT PULSES (B): 2/4, B/L CAPILLARY FILL TIME: immediate, all digi ts, B/L TEMPERTURE GRADIENT (C): normal, warm to cool, proximal to distal, B/L, B/L TROPHIC CONDITION-TEXTURE/ELASTICITY/TURGOR/HAIR GROWTH (B): normal, B/L Nails NAILS are: Elongated, overg rown, dystrophic, lytic, greater than 3mm thick, discolored and friable with crumbly malodorous subungual debris, with pain on palpation,, , TA, T1, T2, T3, T4, T6, T8, T9
--- OUTSIDE RECORDS SUMMARY | 2024-09-03 14:21 | XMS_ITS ---
Author Organization Storm Lowry DO, FACP Address [address], [place] [id number] Care Team Providers Care Farmer Vegetable Name Role Phone Storm Lowry Primary Care Provider [phone] ALLERGIES Allergen (clinical drug ingredient) Drug/Non Drug Allergy documented on EMR Reaction Allergy Type Onset Date Status duloxetine Duloxetine HCl urinary retentio n, visual disturbance Drug Allergy Active sulfa ? reaction Drug Allergy Active lisinopril Lisinopril cough Drug Allergy Activ e amoxicillin Amoxicillin hives Drug Allergy Act olga REASON FOR VISIT Follow up Memory loss MEDICATIONS Medication SIG (Take, Route, Frequency, Duration) Notes Start Date End Date Status Diclofenac Sodium 1 % 1 application to a ffected area as needed Transdermal Twice a day Active Omeprazole 20 MG 1 capsule 30 minutes before morning meal Orally Once a day for 90 days Active Maxalt 10 MG 1 tablet as needed o ne time Orally Once a day for 30 days Active Terazosin HCl 10 MG 1 capsule at bedtime Orally Once a day for 90 days Active Donepezil HCl 10 MG 1 tablet at bedtime Orally Once a day Active Multivitamins 1 capsule Orally Onc e a day Active Sertraline HCl 100 MG 1 tablet Orally On ce a day Active Modafinil 200 MG 1 tablet in the morn ing Orally Once a day Active Memantine HCl 10 MG 1 tablet Orally Twic e a day Active Tylenol 8 Hour Arthritis Pain 650 MG 2 tablets as needed Orally every 8 hrs Active Celecoxib 200 MG 1 capsule with food Orally Twice a day for 30 day(s) 07/24/2024 Active SOCIAL HISTORY Tobacco Use: Social History Observation Description Date Details (start date - stop date) Former Smoker NA - NA Sex Assigned At : Social History Observation Description Sex Assigned At Unknown Tobacco Use/Smoking Question Answer Notes Patient is a former smoker How long has it been since y ou last smoked? > 10 years Additional Findings: Tobacco Non-User Fo rmer smoker, currently using no form of tobacco Alcohol Screen Question Answer Notes Did you have a drink contain ing alcohol in the past year? Yes How often did you have a dri nk containing alcohol in the past year? Monthly or less (1 point) How many drinks did you have on a typical day when you were drinking in the past year? 1 or 2 drinks (0 point) How often did you have 6 or more drinks on one occasion in the past year? 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 Advised to get up slowly, and to wait 5 seconds after standing before he begins to ambulate. 07/24/2024 Primary osteoarthritis involving multiple joints (ICD-10 - M15.0) PLAN OF TREATMENT Medication Medication Name Sig Start Date Stop Date Notes Indomethacin 25 MG 1 capsule with food or milk as needed Orally Twice a day Diclofenac Sodium 1 % 1 application to a ffected area as needed Transdermal Twice a day Omeprazole 20 MG 1 capsule 30 minutes before morning meal Orally Once a day for 90 days Maxalt 10 MG 1 tablet as needed o ne time Orally Once a day for 30 days Terazosin HCl 10 MG 1 capsule at bedtime Orally Once a day for 90 days Donepezil HCl 10 MG 1 tablet at bedtime Orally Once a day Multivitamins 1 capsule Orally Once a day Sertraline HCl 100 MG 1 tablet Orally Once a day Modafinil 200 MG 1 tablet in the morn ing Orally Once a day Memantine HCl 10 MG 1 tablet Orally Twice a day Tylenol 8 Hour Arthritis Jose Miguel n 650 MG 2 tablets as needed Orally every 8 hrs Celecoxib 200 MG 1 capsule with food Orally Twice a day for 30 day(s) 07/24/2024 Treatment Notes Assessment Notes Frequent falls Omit the morning dos e of terazosin, as Kenney gets dizzy and lightheaded upon standing. Advised to get up slowly, and to wait 5 seconds after standing before he begins to ambulate. Next Appt Details Follow Up: 6 Weeks, Reason: follow up visit Progress Notes * Examination Category Sub-Category Detail Notes General Examination GENERAL APPEARANCE: in no ac [place] distress, well developed, well nourished HEAD: normocephalic, atrau matic HEART: no murmurs, regular rate and rhythm, S1, S2 normal LUNGS: clear to auscultatio n bilaterally ABDOMEN: normal, bowel sounds present, soft, nontender, nondistended SKIN: warm and dry EXTREMITIES: no edema BACK: PSYCH: alert, oriented, cog nitive function intact History and Physical Notes * HPI (History of Present Illness) Category Sub-Category Detail Notes Depression Screening PHQ-9 Little inte rest or pleasure in doing things: Not at all Feeling down, depressed, or hopeless: No t at all Trouble falling or staying asleep, or sl eeping too much: Not at all Feeling tired or having little energy: N ot at all Poor appetite or overeating: Not at all Feeling bad about yourself o r that you are a failure, or have let yourself or your family down: Not at all Trouble concentrating on thi ngs, such as reading the newspaper or watching television: Not at all Moving or speaking so slowly that other people could have noticed; or the opposite, being so fidgety or restless that you have been moving around a lot more than usual: Not at all Thoughts that you would be b ismael off or of hurting yourself in some way: Not at all Total Score: 0 Interpretation and Intervention Depression Emery werner Findings: Negative Follow-Up for Depression: : Review of Q-9 found negative result; no follow-up needed Treatment Goals Continue current med ication Self-Managment Goals Exercise at least 3 xs per week Fall Risk Fall History Have you had two or more fal ls in the past year?: Yes Have you had any falls with injury in e past year?: No Fall Risk Assessment:: Two or more falls without injury in the past year
--- OUTSIDE RECORDS SUMMARY | 2024-09-03 14:22 | XMS_ITS ---
Author Organization [facility] Address [address] [facility] [place] [address] Care Team Providers Care Social Security Benefits Interviewer Name Role Phone Storm Lowry MD Primary Care Provider Unavail Naa Rojas [phone] Encounters Encounter Location Date Provider Diagnosis [facility] [address] [place] [address] 05/02/2024 Naa Brambila Plan Of Treatment Next Appt Details Provider Name:Naa Shepard Kosta , 11/25/2024 01:30:00 PM, [address] [place], [address], Progress Notes * Kenney FERNANDEZ RDOB:1940 ( 83 yo M)Acc No.[id number]:05/02/2024 Progress Note Patient:?Kenney FERNANDEZ Provider:?Naa Brambila DPM :1940???Age:83 Y???Sex:Male Michael e:05/02/2024 Address:[address] [place] [address] , [id number] Pcp:Storm Lowry MD Subjective: * Chief Complaints: * ??? * Medical History:? Objective: * Vitals:? Assessment: Plan: * Treatment: * Images: * The named appointment provid er may or may not be the originator of this progress note, and it is not deemed complete until electronically signed by the appointment provider. Sign off status: Pending * Provider:?Naa Brambila DPM Date:?2023 Generated for Esperanza cleveland/Clemencia/Yelena on:?09/03/2024 02:21 PM EST
--- OUTSIDE RECORDS SUMMARY | 2024-09-03 14:22 | XMS_ITS ---
Author Organization [facility] Lala audra [place] Address [address] [place] [address] Care Team Providers Care Licensed Mental Health Counselor Name Role Phone Storm Lowry MD Primary Care Provider Unavail able Kosta, Naa Unavailable [phone] REASON FOR VISIT BUY 2 bags [employer] Encounters Encounter Location Date Provider Diagnosis [address] [address] 08/19/2024 Naa Brambila Plan Of Treatment Next Appt Details Provider Name:Ana A Kosta , 11/25/2024 01:30:00 PM, [address] [place], [address], Progress Notes * Kenney FERNANDEZ RDOB:1940 ( 83 yo M)Acc No.[id number]:08/19/2024 Patient:?Kenney FERNANDEZ Vida :1940???Age:83 Y???Sex:Male Address:[address] [place] [address] , [place], [address] * true * Date:? Generated for Yaeli cristofer/Favirgiliog/eTransmitting on:?09/03/2024 02:21 PM EST
--- OUTSIDE RECORDS SUMMARY | 2024-09-03 14:22 | XMS_ITS | Patient Health Record ---
Author Organization [facility] [place] Address [address] [facility] [place] [address] Care Team Providers Care Sales And Marketing Intern Name Role Phone Storm Lowry MD Primary Care Provider Unavail able Black, Naa Unavailable [phone] Allergies Allergen (clinical drug ingredient) Drug/Non Drug Allergy documented on EMR Reaction Allergy Type Onset Date Status amoxicillin Amoxicillin Unknown Drug Allergy Act olga sulfamethoxazole / trimethoprim Bactrim Unknown Drug Allergy Active Reason For Referral No Information Medications Medication SIG (Take, Route, Frequency, Duration) Notes Start Date End Date Status Multivitamin Active Cephalexin 500 MG 1 capsule Orally tito ry 12 hrs for 10 day(s) 03/13/2023 Not-Taking Donepezil HCl 10 MG 1 tablet at bedtime Orally Once a day Active ASA Not-Taking DULoxetine HCl Not-T aking Maxalt 10 MG 1 tablet as needed o ne time Orally Once a day Active Voltaren Not-Taking Omeprazole 20 MG 1 capsule Orally Onc e a day Active Modafinil 200 MG 1 tablet in the morn ing Orally Once a day Active Cephalexin 500 MG 1 capsule Orally BID for 10 days 05/24/2021 Not-Taking Indomethacin 25 MG 1 capsule Orally Twi ce a day Active Gabapentin 300 MG Orally No t-Taking Terazosin HCl 1 MG 1 capsule Orally Onc e a day Active Doxycycline Hyclate 100 MG 1 capsule Orally Once a day for 10 day(s) 04/25/2024 Active Irbesartan Not-Takin g Sertraline HCl Activ e Immunizations Vaccine Route Administration Date Status Comme nts COVID-19 Moderna Vaccine Unknown 10/17/2020 Administered First Dose: 09/19/2020 Influenza Unknown 05/07/2021 Administered Social History Tobacco Use: Social History Observation Description Date Details (start date - stop date) Never Smoker NA - NA Alcohol Screen Question Answer Notes Did you have a drink containing alcohol in the p ast year? No Points 0 Interpretation Negative Tobacco use other than smoking: Question Answer Notes Are you an other tobacco user? No Tobacco Control (Standard) Question Answer Notes Tobacco use: Nonsmoker Problems Problem Type SNOMED Code ICD Code Onset Dates Problem Status W/U Status Risk Notes Problem Localized, primary osteoarthritis of the ankle and/or foot (202680465) Primary osteoarthritis, right ankle and foot (M19.071) Active confirmed Problem Localized, primary osteoarthritis of the ankle and/or foot (803301228) Primary osteoarthritis, left ankle and foot (M19.072) Active confirmed Problem Ulcer of toe (930352134) Non-pressure chronic ulcer of other part of left foot limited to breakdown of skin (L97.521) Active confirmed Problem Ulcer of toe (324807038) 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.511) Active confirmed Problem Acquired hammer toe of right foot (9679984848420193) Other hammer toe(s) (acquired), right foot (M20.41) Active confirmed Problem Acquired hammer toe of right foot (1406673980140762) Other hammer toe(s) (acquired), right foot (M20.41) Active confirmed Problem Acquired hammer toe of left foot (9735465761662475) Other hammer toe(s) (acquired), left foot (M20.42) Active confirmed Problem Neuropathy (751991316) Neuropathy (G62.9) Active confirmed Problem Degenerative joint disease of ankle AND/OR foot (75293207) Arthritis of ankle or foot, degenerative (M19.079) Active confirmed Problem Localized, primary osteoarthritis of the ankle and/or foot (162620230) Arthritis of joint of lesser toe, right (M19.071) Active confirmed Vital Signs Blood pressure diastolic 83 mm Hg 08/19/2024 Height 5 ft 11 in in 08/19/2024 Blood pressure systolic 130 mm Hg 08/19/2024 Weight 196 lbs 08/19/2024 BMI 27.33 kg/m2 08/19/2024 Procedures Procedure Date Ordered Date Performed Result Body Sit e 44055-XDSDDQL NAIL, 6 OR MORE 10/09/2023 N/A 82588-Kagnxqoy Plate 10/09/2023 N/A 18649- Debride <25 sq cm 10/09/2023 N/A 65172-SFJRLZY NAIL, 6 OR MORE 01/22/2024 N/A 21441- Debride <25 sq cm 01/22/2024 N/A 58412-TUVYIQJ NAIL, 6 OR MORE 04/25/2024 N/A 71859 I&D ABSCESS- SIMPLE,SINGLE 04/25/2024 N/A 09994-UMJXSYG NAIL, 6 OR MORE 08/19/2024 N/A Encounters Encounter Location Date Provider Diagnosis [address] [address] 10/09/2023 Naa Black Ingrown nail L60.0 ; Tinea unguium B35.1 ; Pain in right toe(s) M79.674 ; Pain in left toe(s) M79.675 and Non-pressure chronic ulcer of other part of right foot limited to breakdown of skin L97.[address] [address] 01/22/2024 Naa Black Tinea unguium B35.1 ; Pain in right toe(s) M79.674 ; Pain in left toe(s) M79.675 and Non-pressure chronic ulcer of other part of right foot limited to breakdown of skin L97.[address] [address] 04/25/2024 Naa Black Tinea unguium B35.1 ; Pain in right toe(s) M79.674 ; Pain in left toe(s) M79.675 ; Non-pressure chronic ulcer of other part of right foot limited to breakdown of skin L97.511 ; Abscess of toe, right L02.611 ; Other hammer toe(s) (acquired), right foot M20.41 ; Arthritis of joint of lesser toe, right M19.071 ; Subluxation of metatarsophalangeal joint of toe, initial encounter S93.149A and 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 [facility] [address] 08/19/2024 Naa Brambila Tinea unguium B35.1 ; Pain in right toe(s) M79.674 ; Pain in left toe(s) M79.675 ; Other hammer toe(s) (acquired), right foot M20.41 ; Arthritis of joint of lesser toe, right M19.071 ; Subluxation of metatarsophalangeal joint of toe, initial encounter S93.149A and 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 [facility] [address] 10/09/2023 Naa Brambila [facility] [address] 08/19/2024 Naa Brambila Assessments Encounter Date Diagnosis (ICD Code) Assessment Notes Treatment Notes Treatment Clinical Notes Section Notes 10/09/2023 Tinea unguium (ICD-1 0 - B35.1) 10/09/2023 Ingrown nail (ICD-10 - L60.0) 01/22/2024 Tinea unguium (ICD-1 0 - B35.1) 01/22/2024 Pain in right toe(s) (ICD-10 - M79.674) 04/25/2024 Tinea unguium (ICD-1 0 - B35.1) 08/19/2024 Tinea unguium (ICD-1 0 - B35.1) 08/19/2024 Pain in right toe(s) (ICD-10 - M79.674) 08/19/2024 Pain in left toe(s) (ICD-10 - M79.675) 01/22/2024 Pain in left toe(s) (ICD-10 - M79.675) 04/25/2024 Pain in right toe(s) (ICD-10 - M79.674) 10/09/2023 Pain in right toe(s) (ICD-10 - M79.674) 10/09/2023 Pain in left toe(s) (ICD-10 - M79.675) 01/22/2024 Non-pressure chronic ulcer of other part of right foot limited to breakdown of skin (ICD-10 - L97.511) 04/25/2024 Pain in left toe(s) (ICD-10 - M79.675) 08/19/2024 Other hammer toe(s) (acquired), right foot (ICD-10 - M20.41) 04/25/2024 Non-pressure chronic ulcer of other part of right foot limited to breakdown of skin (ICD-10 - L97.511) 10/09/2023 Non-pressure chronic ulcer of other part of right foot limited to breakdown of skin (ICD-10 - L97.511) 08/19/2024 Arthritis of joint o f lesser toe, right (ICD-10 - M19.071) 08/19/2024 Subluxation of metatarsophalangeal joint of toe, initial encounter (ICD-10 - S93.149A) 04/25/2024 Other hammer toe(s) (acquired), right foot (ICD-10 - M20.41) 04/25/2024 Abscess of toe, righ t (ICD-10 - L02.611) Patient Educated with: WOUND CARE INSTRUCTIONS. pdf (WOUND CARE INSTRUCTIONS. 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 (ICD-10 - M20.5X1) 04/25/2024 Arthritis of joint o f lesser toe, right (ICD-10 - M19.071) 04/25/2024 Subluxation of metatarsophalangeal joint of toe, initial encounter (ICD-10 - S93.149A) 04/25/2024 Crossover toe deform ity of right foot (ICD-10 - M20.5X1) 08/19/2024 Other Plan Of Treatment Pending Test Test Name Order Date 33634-BHPDJHN NAIL, 6 OR MORE 01/10/2019 71064-OHAVZCZ NAIL, 6 OR MORE 07/15/2019 92583-WPQLDRE NAIL, 6 OR MORE 01/13/2020 95191-KFFHQKU NAIL, 6 OR MORE 07/13/2020 82601-JVVCUNU NAIL, 6 OR MORE 10/29/2020 24488-LRLTPRQ NAIL, 6 OR MORE 02/01/2021 67527-VXWZTXT NAIL, 6 OR MORE 05/24/2021 73460-PKXXTZE NAIL, 6 OR MORE 08/30/2021 78237-EEZJQOK NAIL, 6 OR MORE 03/14/2022 17973-JQCOPRX NAIL, 6 OR MORE 06/16/2022 07222-WKSJPXV NAIL, 6 OR MORE 10/31/2022 41745-FOWKMUP NAIL, 6 OR MORE 03/13/2023 42752-JSKASLM NAIL, 6 OR MORE 06/22/2023 64293-QWZJRAB NAIL, 6 OR MORE 10/09/2023 26404-ZMKVLUK NAIL, 6 OR MORE 01/22/2024 71922-PUIBHUG NAIL, 6 OR MORE 04/25/2024 06641-NATIYCE NAIL, 6 OR MORE 08/19/2024 25608-IPJYEHQ NAIL, 1-5 09/24/2015 06143-KSTVVKG NAIL, 1-5 11/04/2015 58819-IOPAVTT NAIL, 1-5 03/16/2018 42700-Wtavamlh Plate 03/16/2018 48493-Dyuqkoaj Plate 02/01/2021 68337-Duamgduc Plate 03/14/2022 59541-Pldljcmw Plate 05/24/2021 97128-Kxhygkqe Plate 06/22/2023 15675-Rgnrmluu Plate 10/31/2022 68840-Lnsatbzp Plate 10/09/2023 72561-Nloabdfb Plate Each Additional 03/2022 57199- Debride <25 sq cm 03/14/2022 61911- Debride <25 sq cm 06/07/2021 41571- Debride <25 sq cm 04/02/2018 85573- Debride <25 sq cm 06/16/2022 11924- Debride <25 sq cm 01/22/2024 29927- Debride <25 sq cm 10/09/2023 77700 I&D ABSCESS- SIMPLE,SINGLE 024 33079 I&D ABSCESS- SIMPLE,SINGLE 023 07053 I&D ABSCESS- SIMPLE,SINGLE 021 Next Appt Details Provider Name:Naa Brambila , 11/25/2024 01:30:00 PM, [address] [place] [address], [place], [address], Insurance Providers Payer Name Payer Address Payer Phone Subscriber Number Group Number Insured Name Patient Relationship to Insured Coverage Start Date Coverage End Date Medicare National [employer] [address] [place] [address] [id number] Kenney Fernandez Self - patient is the insured 8 [employer] [address] [place] [address] [id number] Kenney Fernandez Self - patient is the insured Medical (General) History Medical History History ICD Code osteoarthritis Cataracts Reflux Measles Mumps Chicken pox Joint implants/screws Surgical History Surgery Date(Month/Year) left hip 1998 right hip 1999 right foot reconstruction 08/15/16 ankle replacement 10/29/17 gall stones Hospitalization History Reason Date(Month/Year) [facility] [place]22
== END 2024-09-03 14:28 | disposition home or self-care (01) ==
LOC: HO.HMCSH 13:23
PROVIDERS: PCP Internal Medicine; Visit Provider Physician Assistant Medical
DX: R41.3 Other amnesia (principal); G30.9 Alzheimer's disease, unspecified; F02.80 Dementia in other diseases classified elsewhere, unspecified severity, without behavioral disturbance, psychotic disturbance, mood disturbance, and anxiety; N40.0 Benign prostatic hyperplasia without lower urinary tract symptoms; K21.9 Gastro-esophageal reflux disease without esophagitis; N20.0 Calculus of kidney; G43.909 Migraine, unspecified, not intractable, without status migrainosus; I10 Essential (primary) hypertension; M19.90 Unspecified osteoarthritis, unspecified site; J44.9 Chronic obstructive pulmonary disease, unspecified; G47.33 Obstructive sleep apnea (adult) (pediatric); Z99.89 Dependence on other enabling machines and devices; E78.5 Hyperlipidemia, unspecified

== ENCOUNTER → 2024-09-03 13:23 | Outpatient (BNVA) | payer MEDICARE, SELFPAY | PROVIDERS: PCP Internal Medicine; Visit Provider Physician Assistant Medical | DX: R41.3 Other amnesia (principal); G30.9 Alzheimer's disease, unspecified; F02.80 Dementia in other diseases classified elsewhere, unspecified severity, without behavioral disturbance, psychotic disturbance, mood disturbance, and anxiety; N40.0 Benign prostatic hyperplasia without lower urinary tract symptoms; K21.9 Gastro-esophageal reflux disease without esophagitis; N20.0 Calculus of kidney; G43.909 Migraine, unspecified, not intractable, without status migrainosus; I10 Essential (primary) hypertension; M19.90 Unspecified osteoarthritis, unspecified site; J44.9 Chronic obstructive pulmonary disease, unspecified; G47.33 Obstructive sleep apnea (adult) (pediatric); Z99.89 Dependence on other enabling machines and devices; E78.5 Hyperlipidemia, unspecified | CPT/HCPCS: 99212 ==

== ENCOUNTER 2024-10-01 13:25 | Outpatient (AMB) | payer MEDICARE, SELFPAY ==
--- NOTE | 2024-10-01 13:41 | A.OFFPC_ITS ---
Vital Signs 10/01/24 13:49 Height 5 ft 8 in Weight 197 lb BMI 30.0 BP 152/64 H Blood Pressure Location Rt brachial Pulse 87 Pulse Source Pulse Oximeter Temp 97.0 F Pulse Oximetry (%) 94 Intake Visit Reasons: 1 month follow up memory Intake Note: no other issues Allergies lisinopril [LISINOPRIL] Allergy (Mild, Verified 10/01/24 14:09) HEADACHES amoxicillin [AMOXICILLIN] Allergy (Unknown, Verified 10/01/24 14:09) UNKNOWN Sulfa (Sulfonamide Antibiotics) [SULFA (SULFONAMIDE ANTIBIOTICS)] Allergy (Unknown, Verified 10/01/24 14:09) UNKNOWN Medication List - Last Reconciled 10/01/24 by Pamela Gonzalez PA-C albuterol sulfate 90 mcg/actuation 2 puffs inhalation Q4-6H PRN 90 days atorvastatin 10 mg PO BEDTIME donepezil 23 mg PO BEDTIME gabapentin 100 mg PO BID 60 days indomethacin 100 mg PO BID magnesium 200 mg PO DAILY melatonin 5 mg PO BEDTIME PRN memantine 10 mg PO BID modafinil (Provigil) 200 mg PO DAILY [id number]-[id number]-ejwdvpt-tufkcu [id number] mcg (Centrum Silver Men) 1 tab PO DAILY omeprazole 20 mg PO DAILY potassium gluconate 500 mg PO DAILY rizatriptan (Maxalt) take 1 tab at onset of headache; if no relief may repeat 1 tab after at least 2 hrs; max = 3 tabs/24 hr PO sertraline 50 mg PO DAILY terazosin 10 mg PO BID [facility] Medical History Tachycardia with heart rate 100-120 beats per minute Anemia Dyspnea on exertion COPD (chronic obstructive pulmonary disease) KIMBERLEY on CPAP Social History Household Members: Spouse Housing: House Do you presently have visiting nurse or other home services: No Alcohol intake: never Patient Tobacco Use Status: Former Tobacco user Substance Use Type: Marijuana Advance Directives Date on File: 12/23/22 Current occupational status: retired Physical exam (Primary Care) Vital Signs: Last Vital Signs Temp 97.0 F 10/01/24 13:49 Pulse 87 10/01/24 13:49 BP 152/64 H 10/01/24 13:49 Pulse Ox 94 10/01/24 13:49 Care Plan Goal for BP management: 130/80; will monitor blood pressure at home she was hesitant about starting him on blood pressure medication as she reported he normally has low blood pressure and she believes it might be related to white coat syndrome at this time BMI result Body Mass Index 30.0 BMI Assessment/Plan discussion: High BMI High, discussed plan: lifestyle, weight reduction, dietary and physical activity Tobacco/Smoking Status: Tobacco use Status Patient Tobacco Use Status Former Tobacco user 10/01/24 13:42 Coding Level of Care Code Est Pt Level 4 (02824) Complex EM visit Add On G2211 Diagnoses Alzheimer dementia G30.9; F02.80 Benign non-nodular prostatic hyperplasia N40.0 Obstructive sleep apnea on CPAP G47.33 Hypertension I10 KIMBERLEY on CPAP G47.33; Z99.89 COPD (chronic obstructive pulmonary disease) J44.9 Hyperlipidemia E78.5 Assessment & Plan Assessment & Plan (1) Alzheimer dementia: Code(s): G30.9 - Alzheimer's disease, unspecified; F02.80 - Dementia in other diseases classified elsewhere, unspecified severity, without behavioral disturbance, psychotic disturbance, mood disturbance, and anxiety Category: Medical Plan: Continue taking Donepezil although will increase the dose to 23 mg daily. Continue Memantine HCl Tablet, 10 MG, 1 tablet, Orally, Twice a day Continue Modafinil Tablet, 200 MG, 1 tablet in the morning, Orally, Once a day Continue Multivitamins Capsule, 1 capsule, Orally, Once a day (2) Benign non-nodular prostatic hyperplasia: Code(s): N40.0 - Benign prostatic hyperplasia without lower urinary tract symptoms Category: Medical Plan: Continue taking terazosin 10 mg at bedtime. Condition is chronic and stable will continue to monitor (3) Obstructive sleep apnea on CPAP: Code(s): G47.33 - Obstructive sleep apnea (adult) (pediatric) Category: Medical Plan: Condition is chronic and stable patient being followed by pulmonology will con tinue to monitor. (4) Hypertension: Code(s): I10 - Essential (primary) hypertension Category: Medical Plan: Patient's blood pressure was noted to be elevated today. Denies any cardiac related complaints. reports that he normally has low blood pressure and was hesitant about starting him on any blood pressure medication. She reports she will monitor his blood pressure and call us if his blood pressure remains elevated and bring a diary his next visit. Patient is on terazosin 10 mg daily although this is for his BPH. Condition is chronic and stable continue to monitor. (5) KIMBERLEY on CPAP: Comment: VERY COMPLIANT, AND BENEFITTING FROM THE USE OF CPAP. Code(s): G47.33 - Obstructive sleep apnea (adult) (pediatric); Z99.89 - Dependence on other enabling machines and devices Category: Medical Plan: Condition is chronic and stable continue to monitor. (6) COPD (chronic obstructive pulmonary disease): Comment: MILD DEGREE OF COPD. DOING WELL WITH THE P.R.N. USE OF ALBUTEROL INHALER, WHICH HE USES ONLY ONCE A DAY OR SOMETIMES TWICE. Code(s): J44.9 - Chronic obstructive pulmonary disease, unspecified Category: Medical Plan: Condition is chronic and stable continue to monitor. (7) Hyperlipidemia: Code(s): E78.5 - Hyperlipidemia, unspecified Category: Medical Plan: Patient currently on atorvastatin 10 mg. Condition is chronic and stable continue to monitor. Plan Plan - Continue donepezil 23 mg for Alzheimer's management; monitor for further changes in sleep and cognitive function. - Monitor and adjust atorvastatin dosage next visit if Restless Legs Syndrome symptoms persist. - Blood pressure monitoring advised to track any further elevation or stability. - Increase monitoring for hypercholesterolemia and associated symptoms. - Encourage completion of pending blood work for comprehensive evaluation. - Schedule follow-up to reassess all symptoms and blood pressure in six months. Orders: Orders Vitamin B1 Today Z00.00 - Encounter for general adult medical examination without abnormal findings Patient Instructions: Patient Instructions - Monitor blood pressure regularly at home using the wristwatch monitor; report any consistent elevations immediately. - Observe and record any changes in sleep patterns or the frequency and severity of Restless Legs Syndrome. - Continue medications as prescribed and note any side effects. - Plan for and complete fasting blood work at a convenient time prior to the next scheduled visit. - Return for follow-up in six months, or sooner if symptoms worsen. - Seek assistance if blood pressure readings are consistently high or if Restless Legs Syndrome becomes unmanageable. Scribe Plan - Not visible on output: History of Present Illness The patient is an 83-year-old male presenting a follow-up for his chronic medical conditions. Patient has Alzheimer's dementia and recently his donepezil was increased to 23 mg. Although reports that no improvement in his memory or repetitive questions he is asking. Patient has a history of hyperlipidemia and is on atorvastatin for hypercholesterolemia. He is currently on terazosin for BPH with lower urinary tract symptoms. He is currently on gabapentin. Despite the management with these medications, the patient reports significant sleep disturbances, including prolonged sleeping periods of up to 15 hours, coupled with daytime fatigue. He has recently developed symptoms of Restless Legs Syndrome, which have been causing discomfort, notably at night, although the frequency and intensity appear sporadic. The onset of these symptoms coincides with the adjustment of his medication regimen. The patient has a history of cognitive decline due to Alzheimer's disease, and recent observations indicate a worsening of short-term memory. Additionally, his blood pressure today was elevated, deviating from his usual normotensive readings. Although believes this may be related to white coat syndrome as she reports he normally has low blood pressure and she is hesitant about him starting a blood pressure medication that can make his blood pressure goes too low. His blood work has not been updated since January 2024. Social History - for nearly 60 years. - The patient is typically cared for by his , who assists with managing his medications and monitors his condition regularly. - Appears to experience lower physical activity as he spends extensive periods in bed. Review of Systems - Neurological: Reports worsening short-term memory. - Musculoskeletal: Reports restless legs and muscle spasms. - Cardiovascular: Denies other changes except for today?s elevated blood pre ssure. Physical Exam Appearance: Alert. Oriented to self. No acute distress. Head: Normal external exam. Normocephalic. Atraumatic. Eyes: Pupils are equal, round, and reactive to light. Extraocular movements intact. Conjunctiva and sclera normal. Eyelids normal. Ears: External auditory canal normal. Tympanic membranes normal. No wax noted. Throat: Pharynx normal. Uvula midline. Moist mucous membranes. Neck: Normal inspection. Neck supple. Full range of motion. No adenopathy. Thyroid Normal. No meningeal signs. No neck mass noted. Cardiovascular: Normal heart rate and rhythm. Heart sound normal. No murmurs noted. Pulses normal throughout. Respiratory: No respiratory distress. Painless inspiration. Breath sounds normal. No wheezes/rales/rhonchi noted. Chest nontender. No accessory muscle u cornell noted or decreased air movement noted. Abdomen: Soft and nontender. Bowel sounds normal in all 4 quadrants. No distention noted. No organomegaly noted. No visible injury noted. Back: No costovertebral angle tenderness. Full range of motion noted. Skin: Skin warm and dry. Normal skin color. Normal skin turgor. No rashes/lesions/lacerations noted. Extremities: No lower extremity edema noted in the morning, slight swelling at night. Extremities exhibit normal range of motion. Extremities nontender. Neuro: Oriented to self. No motor deficit. No sensory deficit. Reflexes normal. Restless leg syndrome noted at night. Results - Echocardiogram: Ejection fraction of 62%, with moderate left ventricular wall thickness; no valvular pathology detected. - Blood work: No recent lab work; last completed in January 2024 (exact date noted was incorrect). Plan - Continue donepezil 23 mg for Alzheimer's management; monitor for further changes in sleep and cognitive function. - Monitor and adjust atorvastatin dosage next visit if Restless Legs Syndrome symptoms persist. - Blood pressure monitoring advised to track any further elevation or stability. - Increase monitoring for hypercholesterolemia and associated symptoms. - Encourage completion of pending blood work for comprehensive evaluation. - Schedule follow-up to reassess all symptoms and blood pressure in six months. Patient was informed and verbally consented to the use of an ambient scribe for clinic note documentation during this visit. Discussion Notes I discussed with the patient and caregiver the current challenges with sleep and possible medication side effects. We deliberated on the recent dosage increase of donepezil and its potential contribution to sleep disturbances and Restless Legs Syndrome. The potential relationship between atorvastatin and muscle symptoms was also explored. I emphasized the importance of blood pressure monitoring given today's unexpected elevation and recommended maintaining current medications for Alzheimer's disease. We agreed on a strategy to reassess symptoms regularly, and I suggested obtaining updated blood work within the next few months for further evaluation. Patient Instructions - Monitor blood pressure regularly at home using the wristwatch monitor; report any consistent elevations immediately. - Observe and record any changes in sleep patterns or the frequency and severity of Restless Legs Syndrome. - Continue medications as prescribed and note any side effects. - Plan for and complete fasting blood work at a convenient time prior to the next scheduled visit. - Return for follow-up in six months, or sooner if symptoms worsen. - Seek assistance if blood pressure readings are consistently high or if Restless Legs Syndrome becomes unmanageable.
[2024-10-01 13:49] VITALS: BP 152/64; PULSE 87; TEMP 36.1; O2SAT 94
--- OUTSIDE RECORDS SUMMARY | 2024-10-01 16:30 | XMS_ITS ---
Author Organization Storm Lowry DO, FACP Address [address] [place], [place] [id number] Care Team Providers Care Air Boatswain Name Role Phone Storm Lowry Primary Care Provider REASON FOR VISIT 6 week f/u Encounters Encounter Location Date Provider Diagnosis Storm Lowry DO, FACP [address] [place] [phone] 09/03/2024 Storm Lowry PLAN OF TREATMENT No Information
--- OUTSIDE RECORDS SUMMARY | 2024-10-01 16:31 | XMS_ITS ---
Author Organization [facility] [place] Address [address] [place] [address] Care Team Providers Care Financial Associate Name Role Phone Storm Lowry MD Primary Care Provider Unavail able Black, Naa Unavailable [phone] Allergies Allergen (clinical drug ingredient) Drug/Non Drug [...] Ordered Date Performed Result Body Sit e 26029-PVXZMXE NAIL, 6 OR MORE 08/19/2024 N/A Encounters Encounter Location Date Provider Diagnosis [facility] [place] [address] [place] [address] 08/19/2024 Naa Black Tinea unguium B35.1 ; [...] Treatment Pending Test Test Name Order Date 01695-ESWXQOU NAIL, 6 OR MORE 08/19/2024 Next Appt Details Follow Up: prn, Reason: Provider Name:Naa Brambila , 11/25/2024 01:30:00 PM, [address] [place], [address], Procedure Notes * Category Sub-Category Detail Notes [...] use of a nail nipper and/or dremel-type metal grinder, to a more viable healthy nail [...] to maintain effectiveness in symptomatic relief - 07517 Progress Notes * Kenney FERNANDEZ RDOB:1940 ( 83 yo M)Acc No.[id number]:08/19/2024 Progress Note Patient:JUNE Kenney Mcpherson Provider:?Naa Brambila DPM :1940???Age:83 Y???Sex:Male Michael e:08/19/2024 Address:[address] [place] [address] , [place], [id number] Pcp:Storm Lowry MD Subjective: * Chief Complaints: [...] replacement 10/29/17gall stones * Hospitalization/Major Diagno stic Procedure:?[facility] [place] [place] 12[place]2022 * Family History:?Mother: dece ased, [...] use of a nail nipper and/or dremel-type metal grinder, to a more viable healthy nail [...] to maintain effectiveness in symptomatic relief - 51483.? * Procedure Codes:?22173 DEBRI DE NAIL, 6 OR MORE, Modifiers: [...] Brambila DPM Date:?2024 Generated for Esperanza cleveland/Clemencia/Yelena on:?10/01/2024 04:30 PM EST History and Physical Notes * [...]
--- OUTSIDE RECORDS SUMMARY | 2024-10-01 16:31 | XMS_ITS ---
Author Organization [facility] [place] Address [address] [facility] [place] [address] Care Team Providers Care Visual Developer Name Role Phone Storm Lowry MD Primary Care Provider Unavail able Kosta, Naa Unavailable [phone] REASON FOR VISIT BUY 2 bags [employer] [employer] Encounters Encounter Location Date Provider Diagnosis [address] [address] 08/19/2024 Naa Brambila Plan Of Treatment Next Appt Details Provider Name:Naa A Kosta , 11/25/2024 01:30:00 PM, [address] [place], [address], Progress Notes * Kenney FERNANDEZ RDOB:1940 ( 83 yo M)Acc No.[id number]:08/19/2024 Patient:?Kenney FERNANDEZ Vida :1940???Age:83 Y???Sex:Male Address:[address] [place] [address] , [place], [address] * true * Date:? Generated for Yaeli cristofer/Clemencia/eTransmitting on:?10/01/2024 04:31 PM EST
--- OUTSIDE RECORDS SUMMARY | 2024-10-01 16:31 | XMS_ITS ---
Author Organization Storm Lowry DO, FACP Address [address] [place], [place] [id number] Care Team Providers Care Application Systems Administrator Name Role Phone Storm Lowry Primary Care Provider [phone] REASON FOR VISIT 6 month f/u Encounters Encounter Location Date Provider Diagnosis Storm Lowry DO, FACP [address] [place] [phone] 08/13/2024 Storm Lowry PLAN OF TREATMENT No Information
--- OUTSIDE RECORDS SUMMARY | 2024-10-01 16:31 | XMS_ITS | Patient Health Record ---
Author Organization [facility] [place] Address [address] [place] [address] Care Team Providers Care Answering Service Agent Name Role Phone Storm Lowry MD Primary Care Provider Unavail able Black, Naa Unavailable [phone] Allergies Allergen (clinical drug ingredient) Drug/Non Drug [...] primary osteoarthritis of the ankle and/or foot (712798675) Primary osteoarthritis, right ankle and foot (M19.071) Active confirmed Problem Localized, primary osteoarthritis of the ankle and/or foot (527686602) Primary osteoarthritis, left ankle and foot (M19.072) Active confirmed Problem Ulcer of toe (413627058) Non-pressure chronic ulcer of other part of left foot limited to breakdown of skin (L97.521) Active confirmed Problem Ulcer of toe (473527653) 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.511) Active confirmed Problem Acquired hammer toe of right foot (5506394908613671) Other hammer toe(s) (acquired), right foot (M20.41) Active confirmed Problem Acquired hammer toe of right foot (3114167988850852) Other hammer toe(s) (acquired), right foot (M20.41) Active confirmed Problem Acquired hammer toe of left foot (7449510392243773) Other hammer toe(s) (acquired), left foot (M20.42) Active confirmed Problem Neuropathy (215672020) Neuropathy (G62.9) Active confirmed Problem Degenerative joint disease of ankle AND/OR foot (35050172) Arthritis of ankle or foot, degenerative (M19.079) Active confirmed Problem Localized, primary osteoarthritis of the ankle and/or foot (915701704) Arthritis of joint of lesser toe, right (M19.071) Active confirmed Vital Signs Blood pressure diastolic 83 mm Hg 08/19/2024 Height 5 ft 11 in in 08/19/2024 Blood pressure systolic 130 mm Hg 08/19/2024 Weight 196 lbs 08/19/2024 BMI 27.33 kg/m2 08/19/2024 Procedures Procedure Date Ordered Date Performed Result Body Sit e 51873-GDOJQDS NAIL, 6 OR MORE 10/09/2023 N/A 32684-Oatcqxkr Plate 10/09/2023 N/A 10342- Debride <25 sq cm 10/09/2023 N/A 29869-WFEYZQU NAIL, 6 OR MORE 01/22/2024 N/A 99198- Debride <25 sq cm 01/22/2024 N/A 77487-ROFRDCB NAIL, 6 OR MORE 04/25/2024 N/A 43050 I&D ABSCESS- SIMPLE,SINGLE 04/25/2024 N/A 47320-JUBJGDG NAIL, 6 OR MORE 08/19/2024 N/A Encounters Encounter Location Date Provider Diagnosis [address] [address] 10/09/2023 Naa Black Ingrown nail L60.0 ; Tinea unguium B35.1 ; Pain in right toe(s) M79.674 ; Pain in left toe(s) M79.675 and Non-pressure chronic ulcer of other part of right foot limited to breakdown of skin L97.[address] [address] 01/22/2024 Naa Black Tinea unguium B35.1 ; Pain in right toe(s) M79.674 ; Pain in left toe(s) M79.675 and Non-pressure chronic ulcer of other part of right foot limited to breakdown of skin L97.[address] [address] 04/25/2024 Naa Black Tinea unguium B35.1 ; [...] 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 [facility] [address] 08/19/2024 Naa Brambila Tinea unguium B35.1 ; Pain in right toe(s) M79.674 ; Pain in left toe(s) M79.675 ; Other hammer toe(s) (acquired), right foot M20.41 ; Arthritis of joint of lesser toe, right M19.071 ; Subluxation of metatarsophalangeal joint of toe, initial encounter S93.149A and 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 [facility] [address] 10/09/2023 Naa Brambila [facility] [address] 08/19/2024 Naa Brambila Assessments Encounter Date Diagnosis [...] Treatment Pending Test Test Name Order Date 23388-ABTHMVR NAIL, 6 OR MORE 01/10/2019 39402-KEBWXVW NAIL, 6 OR MORE 07/15/2019 10643-LHWFVCN NAIL, 6 OR MORE 01/13/2020 59132-XHFMLYC NAIL, 6 OR MORE 07/13/2020 77147-EVZSQHO NAIL, 6 OR MORE 10/29/2020 87588-UEFSGVL NAIL, 6 OR MORE 02/01/2021 81839-BYWUEBY NAIL, 6 OR MORE 05/24/2021 01683-HHARYND NAIL, 6 OR MORE 08/30/2021 77780-QBTGFSQ NAIL, 6 OR MORE 03/14/2022 08582-GZCFAXS NAIL, 6 OR MORE 06/16/2022 42164-SJFOHZA NAIL, 6 OR MORE 10/31/2022 69298-RRYIJAM NAIL, 6 OR MORE 03/13/2023 45816-ASTLXTU NAIL, 6 OR MORE 06/22/2023 85271-BQINGOY NAIL, 6 OR MORE 10/09/2023 79890-UWCSBJX NAIL, 6 OR MORE 01/22/2024 70705-HDUXLKM NAIL, 6 OR MORE 04/25/2024 95129-IMPQRDH NAIL, 6 OR MORE 08/19/2024 04218-PYGHFHW NAIL, 1-5 09/24/2015 30231-DWGOORH NAIL, 1-5 11/04/2015 47518-JCLOVXP NAIL, 1-5 03/16/2018 65060-Yjqbrkms Plate 03/16/2018 96290-Bwhnppvn Plate 02/01/2021 30247-Pikcwwiz Plate 03/14/2022 20588-Yfloqqha Plate 05/24/2021 59169-Htgbwwfk Plate 06/22/2023 00635-Naignkni Plate 10/31/2022 49585-Bhduuxht Plate 10/09/2023 89296-Chbyfilk Plate Each Additional 03/2022 28827- Debride <25 sq cm 03/14/2022 28859- Debride <25 sq cm 06/07/2021 96511- Debride <25 sq cm 04/02/2018 16838- Debride <25 sq cm 06/16/2022 42719- Debride <25 sq cm 01/22/2024 09449- Debride <25 sq cm 10/09/2023 54929 I&D ABSCESS- SIMPLE,SINGLE 024 09545 I&D ABSCESS- SIMPLE,SINGLE 023 73015 I&D ABSCESS- SIMPLE,SINGLE 021 Next Appt Details Provider Name:Naa Brambila , 11/25/2024 01:30:00 PM, [address] [place] [address], [place], [address], Insurance Providers Payer Name Payer Address Payer Phone Subscriber Number Group Number Insured Name Patient Relationship to Insured Coverage Start Date Coverage End Date Medicare National [employer] [address] [place] [address] [id number] Kenney Fernandez Self - patient is the insured 8 [employer] [address] [place] [address] [id number] Kenney Fernandez Self - patient is the insured Medical (General) History Medical History History ICD Code osteoarthritis Cataracts Reflux Measles Mumps Chicken pox Joint implants/screws Surgical History Surgery Date(Month/Year) left hip 1998 right hip 1999 right foot reconstruction 08/15/16 ankle replacement 10/29/17 gall stones Hospital[place] History Reason [place] [facility] [place] [facility] [place]
--- OUTSIDE RECORDS SUMMARY | 2024-10-01 16:31 | XMS_ITS ---
Author Organization [facility] Address [address] [facility] [place] [address] Care Team Providers Care Fabric Worker Fitter Name Role Phone Storm Lowry MD Primary Care Provider Unavail Naa Rojas [phone] Encounters Encounter Location Date Provider Diagnosis [facility] [address] [place] [address] 05/02/2024 Naa Brambila Plan Of Treatment Next Appt Details Provider Name:Naa Shepard Kosta , 11/25/2024 01:30:00 PM, [address] [place], [address], Progress Notes * Kenney FERNANDEZ RDOB:1940 ( 83 yo M)Acc No.[id number]:05/02/2024 Progress Note Patient:?Kenney FERNANDEZ Provider:?Naa Brambila DPM :1940???Age:83 Y???Sex:Male Michael e:05/02/2024 Address:[address] [place] [address] , [id number] Pcp:Storm Lowry MD Subjective: * Chief Complaints: [...] Brambila DPM Date:?2023 Generated for Esperanza cleveland/Clemencia/Yelena on:?10/01/2024 04:30 PM EST
--- OUTSIDE RECORDS SUMMARY | 2024-10-01 16:31 | XMS_ITS ---
Author Organization Storm Lowry DO, FACP Address [address] [place], [place] [address] Care Team Providers Care Hydro Technician Name Role Phone Storm Lowry Primary Care Provider [phone] ALLERGIES Allergen (clinical drug ingredient) Drug/Non Drug [...] Location Date Provider Diagnosis Storm Lowry DO, [address] [phone] 07/24/2024 Storm Lowry Benign non-nodular prostatic hyperplasia [...] General Examination GENERAL APPEARANCE: in no ac ottoniel distress, well developed, well nourished HEAD: normocephalic, [...]
== END 2024-10-01 14:12 | disposition home or self-care (01) ==
LOC: HO.HMCSH 13:25
PROVIDERS: PCP Internal Medicine; Visit Provider Physician Assistant Medical
DX: G30.9 Alzheimer's disease, unspecified (principal); F02.80 Dementia in other diseases classified elsewhere, unspecified severity, without behavioral disturbance, psychotic disturbance, mood disturbance, and anxiety; N40.0 Benign prostatic hyperplasia without lower urinary tract symptoms; G47.33 Obstructive sleep apnea (adult) (pediatric); I10 Essential (primary) hypertension; Z99.89 Dependence on other enabling machines and devices; J44.9 Chronic obstructive pulmonary disease, unspecified; E78.5 Hyperlipidemia, unspecified

== ENCOUNTER → 2024-10-01 13:25 | Outpatient (BNVA) | payer MEDICARE, SELFPAY | PROVIDERS: PCP Internal Medicine; Visit Provider Physician Assistant Medical | DX: J44.9 Chronic obstructive pulmonary disease, unspecified (principal); G47.33 Obstructive sleep apnea (adult) (pediatric); Z99.89 Dependence on other enabling machines and devices; G30.9 Alzheimer's disease, unspecified; F02.80 Dementia in other diseases classified elsewhere, unspecified severity, without behavioral disturbance, psychotic disturbance, mood disturbance, and anxiety; N40.0 Benign prostatic hyperplasia without lower urinary tract symptoms; I10 Essential (primary) hypertension; E78.5 Hyperlipidemia, unspecified | CPT/HCPCS: 99212 ==

== ENCOUNTER 2024-10-01 14:45 | Outpatient (AMB) | payer MEDICARE, SELFPAY ==
[2024-10-01 14:51] VITALS: BP 152/80; PULSE 91; O2SAT 97; BMI 29.8
--- NOTE | 2024-10-01 14:51 | MHC.OFFVIS ---
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: No Allergies lisinopril [LISINOPRIL] Allergy (Mild, Verified 10/01/24 15:10) HEADACHES amoxicillin [AMOXICILLIN] Allergy (Unknown, Verified 10/01/24 15:10) UNKNOWN Sulfa (Sulfonamide Antibiotics) [SULFA (SULFONAMIDE ANTIBIOTICS)] Allergy (Unknown, Verified 10/01/24 15:10) UNKNOWN Medication List - Last Reconciled 10/01/24 by Mal Almodovar MD albuterol sulfate 90 mcg/actuation 2 puffs inhalation Q4-6H PRN 90 days atorvastatin 10 mg PO BEDTIME donepezil 23 mg PO BEDTIME gabapentin 100 mg PO BID 60 days indomethacin 100 mg PO BID magnesium 200 mg PO DAILY melatonin 5 mg PO BEDTIME PRN memantine 10 mg PO BID modafinil (Provigil) 200 mg PO DAILY [id number]-kchxr-[id number]-ktfoywu-utzxyq [phone] mcg (Centrum Silver Men) 1 tab PO DAILY omeprazole 20 mg PO DAILY potassium gluconate 500 mg PO DAILY rizatriptan (Maxalt) take 1 tab at onset of headache; if no relief may repeat 1 tab after at least 2 hrs; max = 3 tabs/24 hr PO sertraline 50 mg PO DAILY terazosin 10 mg PO BID Do you need a note to return to daycare/school/sports/work: No HPI HPI dyspnea: Details: Kenney is 83 years old gentleman and he comes along with his very pleasant , who actually keeps track of all his meds. Kenney uses CPAP very regularly every night and sleeps well. He has no issue with the CPAP device. He has mild intermittent bronchial asthma, and uses albuterol inhaler 1 or 2 puffs sometime once a day sometime twice a day. He has not been on any long-acting bronchodilator or inhaled steroids, as he feels more comfortable with just albuterol. He walks around with a walker. According to his he sometime tends to lose balance and has to be careful. There are both living peacefully in [facility], and do not have to do any maintenance for the house. [facility] Medical History Tachycardia with heart rate 100-120 beats per minute Anemia Dyspnea on exertion COPD (chronic obstructive pulmonary disease) AZAEL on CPAP Surgical History History of colonoscopy (~12/31/14) Social History Household Members: Spouse Housing: House Do you presently have visiting nurse or other home services: No Alcohol intake: never Patient Tobacco Use Status: Former Tobacco user Substance Use Type: Marijuana Advance Directives Date on File: 12/23/22 Current occupational status: retired Review of Systems Const All systems reviewed & are unremarkable except as noted in HPI and below Eyes Reports no additional complaints ENT Reports no additional complaints Card Denies chest pain, Denies irregular heart rhythm and Denies leg edema Resp Reports as per HPI GI Reports no additional complaints Reports no additional complaints Musc Reports back pain and Reports myalgias Skin/Breast Reports system reviewed and no additional complaints, except as documented Neuro Reports memory loss (Has mild dementia with poor memory but functions very well) Psych Reports no additional complaints and Reports memory loss (Has mild dementia with poor memory but functions very well) Endo Reports no additional complaints Physical Exam Vital Signs: Last Vital Signs Pulse 91 10/01/24 14:51 BP 152/80 H 10/01/24 14:51 Pulse Ox 97 10/01/24 14:51 Oxygen Delivery Method Room Air 10/01/24 14:51 BMI result Body Mass Index 29.8 Const General: comfortable, no acute distress, alert and awake Orientation/consciousness: patient oriented x3 HEENT Head: Yes normal to inspection General nose exam: No nasal polyps present and No nasal discharge present Face and sinus: Yes sinuses nontender Mouth: oropharynx normal Throat: Yes posterior oropharynx normal Eyes General: appearance normal, both eyes and all related structures Neck Neck: Yes normal visual inspection, Yes no lymphadenopathy, Yes trachea midline and Yes no JVD Thyroid: Thyroid normal Chest Chest palpation & inspection: normal inspection of the chest, normal palpation of entire chest wall and no tenderness Resp Effort & Inspection: normal respiratory effort Auscultation: no crackles, no wheezes and no bronchial breath sounds Percussion: percussion normal Cardio Palpation: normal PMI Rate: tachycardic (Heart rate on arrival 116 settled down to 110) Rhythm: regular rhythm Heart sounds: Gallop heart sound present and Murmur heart sound present GI Palpation (GI): Soft to palpation, nontender, No hepatosplenomegaly present and no masses Auscultation: normal bowel sounds Back/Spine/Pelvis Thoracic/Lumbar Spine: thoracic and lumbar spine normal to inspection Skin General skin exam: no rashes or lesions noted Neuro General: patient oriented x3 and no focal motor deficits Cranial nerves: Yes CN's II-XII intact bilaterally Extrem General: Yes normal to inspection, Yes no clubbing, cyanosis or edema and Yes no calf tenderness Psych Appearance: grossly normal and well kempt Speech and movement: Normal speech and movement present Results Reviewed Results Reviewed: Compliance report for the last 30 nights is reviewed. His usage of the CPAP is 100%, average use it per night 8 hours 9 minutes. Pressure used mostly 7-8 cm. Very little air leak and residual AHI only 2.8 Assessment & Plan Assessment & Plan (1) AZAEL on CPAP: Comment: VERY COMPLIANT, AND BENEFITTING FROM THE USE OF CPAP. Code(s): G47.33 - Obstructive sleep apnea (adult) (pediatric); Z99.89 - Dependence on other enabling machines and devices Category: Medical Plan: Commended for good compliance and advised to continue using the CPAP every night. (2) COPD (chronic obstructive pulmonary disease): Comment: MILD DEGREE OF COPD. DOING WELL WITH THE P.R.N. USE OF ALBUTEROL INHALER, WHICH HE USES ONLY ONCE A DAY OR SOMETIMES TWICE. Code(s): J44.9 - Chronic obstructive pulmonary disease, unspecified Category: Medical Plan: OK to use albuterol, only p.r.n. for any bouts of cough or wheezing, Mostly 1 puff , once or twice a day . Is enough .Prescription renewed Medications: Refilled albuterol sulfate 90 mcg/actuation 2 puffs inhalation Q4-6H 90 days PRN 8.5 grams 3RF shortness of breath or wheezing Coding Level of Care Code Est Pt Level 3 (12028) Diagnoses AZAEL on CPAP G47.33; Z99.89 COPD (chronic obstructive pulmonary disease) J44.9
--- OUTSIDE RECORDS SUMMARY | 2024-10-01 18:29 | XMS_ITS | Patient Health Record ---
Author Organization Storm Lowry DO, FACP Address [address], [place] [id number] Care Team Providers Care Multi Needle Machine Operator Name Role Phone Storm Lowry Primary Care Provider ALLERGIES Allergen (clinical drug ingredient) Drug/Non Drug Allergy documented on EMR Reaction Allergy Type Onset Date Status duloxetine Duloxetine HCl urinary retentio n, visual disturbance Drug Allergy Active sulfa ? reaction Drug Allergy Active lisinopril Lisinopril cough Drug Allergy Activ e amoxicillin Amoxicillin hives Drug Allergy Act olga RESULTS Component Value Reference Range Notes Complete Blood Count Auto Di ff Reviewed date:01/11/2024 05:10:07 PM Interpretation:Abnormal Performing Lab:[facility], [address] [place] [id number] Notes/Report: White Blood Count 6.2 4.8-10.8 X10*3/uL Red Blood Count 4.77 4.60-5.80 X10*6/uL Hemoglobin 12.9 14.0-18.0 g/dl Hematocrit 40.7 42.0-52.0 % Mean Corpuscular Volume 85.3 80.0-98.0 fL Mean Corpuscular Hemoglobin 27.0 27.0-33.0 pg Mean Corpuscular HGB Conc 31.7 31.0-36.0 g/dl Red Cell Distribution Width 14.4 11.0-16.0 % Platelet Count 199 160-400 X10*3/uL Mean Platelet Volume 9.5 9.4-12.4 fL Neutrophils Percent Auto 57.0 45-73 % Imm Gran Pct Auto 0.2 0.0-0.4 % Lymphocytes Percent Auto 31.6 20-40 % Monocytes Percent Auto 7.1 2-11 % Eosinophils Percent Auto 2.6 0-4 % Basophils Percent Auto 1.5 0-2 % NRBC Pct Auto 0.0 0.0-0.2 /100WBC Neutrophils Absolute Auto 3.5 2.0-8.3 x10*3/u L Imm Gran Abs Auto 0.01 0.00-0.03 X10*3/uL Lymphocytes Absolute Auto 2.0 1.2-4.9 X10*3/u L Monocytes Absolute Auto 0.4 0.1-1.2 X10*3/uL Eosinophils Absolute Auto 0.2 0.0-0.4 X10*3/u L Basophils Absolute Auto 0.1 0.0-0.2 X10*3/uL NRBC Abs Auto 0.000 0.0-0.012 X10*3/uL Comprehensive [place]. Panel Fa st Reviewed date:01/11/2024 05:11:41 PM Interpretation:Abnormal Performing Lab:[facility], [address] [place] [phone] Notes/Report: Sodium 142 135-145 mmol/L Potassium 4.3 3.3-5.1 mmol/L Chloride 110 96-108 mmol/L Carbon Dioxide 27 22-29 mmol/L Anion Gap 9 12-20 Blood Urea Nitrogen 22 9-16 mg/dL Creatinine 1.34 0.5-1.4 mg/dL Estimated Glomerular Filt Rate 51 NOTE: For -Canadian individuals, multiply the result by 1.210. Chronic Kidney Disease: Estimated GFR < 60 mL/min/1.73m2 Severe Kidney Disease: Estimated GFR < 15 mL/min/1.73m2 Glucose Fasting 101 60-99 mg/dL A fasting glucose from 100-125 mg/dl is considered impaired (pre-diabetes). Calcium 9.7 8.4-10.2 mg/dL Bilirubin Total 0.4 0.0-1.0 mg/dL Aspartate Amino Transferase 24 5-37 U/L Alanine Aminotransferase 21 0-40 U/L Total Protein 7.0 6.5-8.0 g/dL Albumin Level 4.2 3.5-5.0 g/dL Alkaline Phosphatase 64 39-117 U/L Lipid Panel Reviewed date:01/11/2024 05:09:55 PM Interpretation:Abnormal Performing Lab:[facility], [address] [place] [phone] Notes/Report: Triglycerides 99 <150 mg/dL Desirable Triglyceride: less than 150 mg/dL Borderline High Triglyceride 150-199 mg/dL High Triglyceride: 200-499 mg/dL Very High Triglyceride: greater than or equal to 5OO mg/dL Cholesterol 212 <200 mg/dL Desirable Cholesterol: less than 200 mg/dL Borderline High Cholesterol: 200-239 mg/dL High Cholesterol: greater than 239 mg/dL LDL Cholesterol Calculated 140 <100 mg/dL Desirable LDL: less than 100 mg/dL Near Optimal/Above Optimal LDL: 110-129 mg/dL Borderline High LDL: 130-159 mg/dL High LDL: 160-189 mg/dL Very High LDL: greater than or equal to 190 mg/dL HDL Cholesterol 53 >40 mg/dL Desirable HDL: greater than 40 mg/dL Note: This HDL assay may give artificially low results in patients with liver disease. Thyroid Stimulating Hormone Reviewed date:01/11/2024 05:09:38 PM Interpretation:Normal Performing Lab:[facility], [address] [place] [phone] Notes/Report: Thyroid Stimulating Hormone 2.11 0.32-4.0 uIU/ mL TSH 3rd Generation ([facility]) XR chest 2V Reviewed date:04/19/2024 09:23:43 AM Interpretation:Abnormal Performing Lab: Notes/Report: [address] [address] XRay Report Signed Patient: Kenney Fernandez MR#: [id number] : 1940 Acct:[id number] Age/Sex: 83 / M ADM Date: 03/25/24 Loc: [facility] Attending Dr: Storm Lowry DO Ordering Physician: Storm Lowry DO Date of Service: 03/25/24 Procedure(s): XR chest 2V Accession Number(s): [id number] cc: Storm Lowry DO EXAMINATION: XR ribs RT 2V (accession [id number]), XR chest 2V (accession [id number]) CLINICAL INFORMATION: RT FLANK PAIN COMPARISON: Chest radiograph 12/24/2019 TECHNIQUE: 3 views of the Right ribs. 2 view of the chest. FINDINGS: Subacute to possibly chronic appearing right lateral 12th rib fracture, recommend correlation with timing of history of trauma. Clear lungs. No pneumothorax. No pleural effusion. Unchanged cardiac mediastinal silhouette with a moderate hiatal hernia. XR/XR chest 2V IMPRESSION: 1. Subacute to possibly chronic appearing right lateral 12th rib fracture, recommend correlation with timing of history of trauma. 2. Unchanged cardiac mediastinal silhouette with a moderate hiatal hernia. Electronically signed by: Luna Funes MD 04/18/2024 09:07 PM EDT RP Dictated By: Luna Funes MD Signed By: <Electronically signed by Luna Funes MD in OV> 04/18/242106 DD/ 120 TD/TT: 03/25/24 1234 Electrophysiology Tech: XR ribs RT 2V Reviewed date:04/19/2024 09:19:37 AM Interpretation:Abnormal Performing Lab: Notes/Report: [address] [address] XRay Report Signed Patient: Kenney Fernandez MR#: [id number] : 1940 Acct:[id number] Age/Sex: 83 / M ADM Date: 03/25/24 Loc: [facility] Attending Dr: Storm Lowry DO Ordering Physician: Storm Lowry DO Date of Service: 03/25/24 Procedure(s): XR ribs RT 2V Accession Number(s): [id number] cc: Storm Lowry DO EXAMINATION: XR ribs RT 2V (accession [id number]), XR chest 2V (accession [id number]) CLINICAL INFORMATION: RT FLANK PAIN COMPARISON: Chest radiograph 12/24/2019 TECHNIQUE: 3 views of the Right ribs. 2 view of the chest. FINDINGS: Subacute to possibly chronic appearing right lateral 12th rib fracture, recommend correlation with timing of history of trauma. Clear lungs. No pneumothorax. No pleural effusion. Unchanged cardiac mediastinal silhouette with a moderate hiatal hernia. XR/XR ribs RT 2V IMPRESSION: 1. Subacute to possibly chronic appearing right lateral 12th rib fracture, recommend correlation with timing of history of trauma. 2. Unchanged cardiac mediastinal silhouette with a moderate hiatal hernia. Electronically signed by: Luna Funes MD 04/18/2024 09:07 PM EDT RP Dictated By: Luna Funes MD Signed By: <Electronically signed by Luna Funes MD in OV> 04/18/24 2107 DD/ 1204 TD/TT: 03/25/24 1234 Electrophysiology Tech: US renal RT Reviewed date:04/09/2024 11:33:28 AM Interpretation:Abnormal Performing Lab: Notes/Report: [facility] [address] [place] [address] [place] [address] Ultrasound Report Signed Patient: Kenney Fernandez MR#: [id number] : 1940 Acct:[id number] Age/Sex: 83 / M ADM Date: 04/05/24 [id number] Attending Dr: Storm Lowry DO Ordering Physician: Storm Lowry DO Date of Service: 04/05/24 Procedure(s): US renal RT Accession Number(s): [id number] cc: Storm Lowry DO EXAMINATION: US RETROPERITONEAL LIMITED, RIGHT (RENAL ONLY) CLINICAL INFORMATION: Right-sided flank pain. COMPARISON: CT abdomen and pelvis 05/29/2023. TECHNIQUE: Ultrasound was performed of the right kidney. FINDINGS: RIGHT KIDNEY: 11.8 x 6.3 x 5.5 cm (SAG x AP x TRV). The kidney is normal in size, contour, and echogenicity. Renal cortical thickness is normal. No calculi or hydronephrosis. Two (2) benign Bosniak class I renal cysts are noted, with a mid renal 4.0 cm cyst and a lower pole parapelvic cyst measuring 4.1 x 1.6 x 1.4 cm. These require no additional imaging or follow-up. Similar findings can be seen on the prior CT scan. No solid renal masses are seen. US/US renal RT IMPRESSION: Benign Bosniak class I renal cysts which need no further imaging or follow-up. Electronically signed by: Jonas Morrow MD 04/08/2024 09:53 PM EDT RP Dictated By: Jonas Morrow MD Signed By: <Electronically signed by Jonas Morrow MD in OV> 04/08/24 2153 DD/ 1309 TD/TT: 04/05/24 1315 Electrophysiology Tech: ROGELIO REASON FOR REFERRAL No Information MEDICATIONS Medication SIG (Take, Route, Frequency, Duration) Notes Start Date End Date Status Donepezil HCl 10 MG 1 tablet at bedtime Orally Once a day Active Tylenol 8 Hour Arthritis Pain 650 MG 2 tablets as needed Orally every 8 hrs Active Multivitamins 1 capsule Orally Onc e a day Active Diclofenac Sodium 1 % 1 application to a ffected area as needed Transdermal Twice a day Active Sertraline HCl 100 MG 1 tablet Orally On ce a day Active Modafinil 200 MG 1 tablet in the morn ing Orally Once a day Active Omeprazole 20 MG 1 capsule 30 minutes before morning meal Orally Once a day for 90 days Active Celecoxib 200 MG 1 capsule with food Orally Twice a day for 30 day(s) 07/24/2024 Active Memantine HCl 10 MG 1 tablet Orally Twic e a day Active Maxalt 10 MG 1 tablet as needed o ne time Orally Once a day for 30 days Active Terazosin HCl 10 MG 1 capsule at bedtime Orally Once a day for 90 days Active IMMUNIZATIONS Vaccine Route Administration Date Status Comme nts Pneumococcal - PPSV23 Unknown 02/01/2010 Administered Td (adult) Unknown 02/01/2010 Administered Influenza IM Intramuscular 05/15/2014 Administered Influenza High Dose IM Intramuscular 06/01/2015 Administer ed Influenza High Dose IM Intramuscular 04/13/2016 Administer ed Influenza Quad IM Intramuscular 06/08/2017 Administered Influenza High Dose IM Intramuscular 04/12/2018 Administer ed Influenza High Dose IM Intramuscular 05/31/2019 Administer ed Influenza High Dose IM Intramuscular 04/27/2020 Administer ed Influenza High Dose IM Intramuscular 06/01/2021 Administer ed COVID-19 Moderna Vaccine Unknown 06/21/2021 Administere d COVID-19 Moderna Vaccine Unknown 09/19/2020 Administere d COVID-19 Moderna Vaccine Unknown 10/17/2020 Administere d COVID-19 Moderna Bivalent Unknown 05/04/2022 Administer ed Influnza High Dose Quad Unknown 05/04/2022 Administered Flu-aIIV4 Unknown 05/29/2023 Administered SOCIAL HISTORY Tobacco Use: Social History Observation [...] Never (0 point) Points 1 Interpretation Negative PROBLEMS Problem Type ICD Code Onset Dates Problem Status W/U Status Risk SNOMED Code Notes Problem Anxiety (F41.9) Active confirmed 573791 02 Problem Essential hypertension (I10) Active confirmed 19335280 Problem Primary osteoarthritis involving multiple joints (M15.0) Active confirmed 289750794 Problem Benign non-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) Active confirmed 704083895 Problem SOB (shortness of breath) on exertion (R06.02) Active confirmed 63408096 Problem Frequent falls (R29.6) Active confirmed 151233168 Problem Memory loss (R41.3) Active confirmed 38 0998404 Problem Cataract of both eyes, unspecified cataract type (H26.9) Active confirmed 21811592 VITAL SIGNS Blood pressure diastolic 74 mm Hg 07/24/2024 Height 71 in 07/24/2024 Blood pressure systolic 128 mm Hg 07/24/2024 Weight 194 lbs 07/24/2024 BMI 27.05 kg/m2 07/24/2024 Encounters Encounter Location Date Provider Diagnosis Storm Lowry DO, FACP [address], [place] [id number] 12/19/2023 Storm Lowry Memory loss R41.3 ; Essential hypertension I10 ; Benign non-nodular prostatic hyperplasia with lower urinary tract symptoms N40.1 and Primary osteoarthritis involving multiple joints M15.0 Storm Lowry DO, FACP [address], [place] [id number] 02/13/2024 Storm Lowry Memory loss R41.3 ; Anxiety F41.9 ; Primary osteoarthritis involving multiple joints M15.0 ; Benign non-nodular prostatic hyperplasia with lower urinary tract symptoms N40.1 and Right flank pain R10.9 Storm Segundo Alen VARGAS, [address] [id number] 08/13/2024 Storm Lowry Storm Rayomnd Alen VARGAS, [address] [id number] 07/24/2024 Storm Lowry Benign non-nodular prostatic hyperplasia with lower urinary tract symptoms N40.1 ; Memory loss R41.3 ; Anxiety F41.9 ; Frequent falls R29.6 and Primary osteoarthritis involving multiple joints M15.0 Storm Lowry DO, [address] [id number] 09/03/2024 Storm Inman Segundo Alen VARGAS, [address] [id number] 12/26/2023 Storm Lowry Primary osteoarthrit is involving multiple joints M15.0 Storm Lowry DO, [address] [id number] 05/07/2024 Storm Lowry ASSESSMENTS Encounter Date Diagnosis Assessment Notes Treatment Notes Treatment Clinical Notes 12/19/2023 Essential hypertension (ICD-10 - I10) Low salt diet 12/19/2023 Memory loss (ICD-10 - R41.3) 02/13/2024 Anxiety (ICD-10 - F41.9) 02/13/2024 Memory loss (ICD-10 - R41.3) 07/24/2024 Benign non-nodular prostatic hyperplasia with lower urinary tract symptoms (ICD-10 - N40.1) 07/24/2024 Memory loss (ICD-10 - R41.3) 12/26/2023 Primary osteoarthritis involving multiple joints (ICD-10 - M15.0) 12/19/2023 Benign non-nodular prostatic hyperplasia with lower urinary tract symptoms (ICD-10 - N40.1) 02/13/2024 Primary osteoarthritis involving multiple joints (ICD-10 - M15.0) 07/24/2024 Anxiety (ICD-10 - F41.9) 12/19/2023 Primary osteoarthritis involving multiple joints (ICD-10 - M15.0) 02/13/2024 Benign non-nodular prostatic hyperplasia with lower urinary tract symptoms (ICD-10 - N40.1) 07/24/2024 Frequent falls (ICD-10 - R29.6) Omit the morning dose of terazosin, as eKnney gets dizzy and lightheaded upon standing. Advised to get up slowly, and to wait 5 seconds after standing before he begins to ambulate. 02/13/2024 Right flank pain (ICD-10 - R10.9) 07/24/2024 Primary osteoarthritis involving multiple joints (ICD-10 - M15.0) PLAN OF TREATMENT No Information Insurance Providers Payer Name Payer Address Payer Phone Subscriber Number Group Number Insured Name Patient Relationship to Insured Coverage Start Date Coverage End Date [place]IC[place] [address] [place] [phone] [id number] Kenney Fernandez Self - patient is the insured MEDEX [address] [place] [address] [phone] [id number] Kenney Fernandez Self - patient is the insured MEDICAL (GENERAL) HISTORY Medical History History ICD Code osteoarthritis hypertension migraine headache pneumonia renal lithiasis gastroesophageal reflux disease (GERD) obstructive sleep apnea on CPAP Benign non-nodular prostatic hyperplasia with lower urinary tract symptoms N40.1 Memory loss R41.3 Surgical History Surgery Date(Month/Year) tonsillectomy wisdom teeth extraction herniorraphy 1976 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
== END 2024-10-01 15:09 | disposition home or self-care (01) ==
LOC: HO.HPS 14:45
PROVIDERS: PCP Internal Medicine; Visit Provider Internal Medicine
DX: G47.33 Obstructive sleep apnea (adult) (pediatric) (principal); Z99.89 Dependence on other enabling machines and devices; J44.9 Chronic obstructive pulmonary disease, unspecified
CPT/HCPCS: 99213

== ENCOUNTER 2025-05-05 13:50 | Outpatient (AMB) | payer MEDICARE, SELFPAY ==
[2025-05-05 13:59] VITALS: BP 130/80; PULSE 78; O2SAT 95; BMI 29.3
--- NOTE | 2025-05-05 13:59 | MHC.OFFVIS ---
Vital Signs 05/05/25 13:59 Height 5 ft 8 in Weight 192 lb 14.472 oz BMI 29.3 BP 130/80 Blood Pressure Location Lt brachial Position Sitting Pulse 78 Pulse Source Pulse Oximeter Pulse Oximetry (%) 95 Oxygen Delivery Method Room Air Intake Visit Reasons: dyspnea Intake Note: pt is here for follow up and states he has a dry cough all the time. Cleaner And Presser Required: No Cleaner And Presser Services: Cleaner And Presser Offered & Declined Baby Stroller Rental Clerk: Baby Stroller Rental Clerk offered & declined Allergies lisinopril (LISINOPRIL) Allergy (Mild, Verified 05/05/25 14:27) HEADACHES amoxicillin (AMOXICILLIN) Allergy (Unknown, Verified 05/05/25 14:27) UNKNOWN Sulfa (Sulfonamide Antibiotics) (SULFA (SULFONAMIDE ANTIBIOTICS)) Allergy (Unknown, Verified 05/05/25 14:27) UNKNOWN Medication List - Last Reconciled 05/05/25 by Mal Almodovar MD albuterol sulfate 90 mcg/actuation 2 puffs inhalation Q4-6H PRN 90 days atorvastatin 10 mg PO BEDTIME donepezil 23 mg PO BEDTIME gabapentin 100 mg PO BID 60 days indomethacin 100 mg PO BID magnesium 200 mg PO DAILY melatonin 10 mg PO BEDTIME memantine 10 mg PO BID 90 days modafinil (Provigil) 200 mg PO DAILY [id number] [phone] mcg (Centrum Silver Men) 1 tab PO DAILY omeprazole 20 mg PO DAILY potassium gluconate 500 mg PO DAILY rizatriptan (Maxalt) take 1 tab at onset of headache; if no relief may repeat 1 tab after at least 2 hrs; max = 3 tabs/24 hr PO sertraline 100 mg PO DAILY terazosin 10 mg PO BID Do you need a note to return to daycare/school/sports/work: No HPI HPI dyspnea: Details: STEVE IS 84 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 WALKS WITH WALKER BECAUSE HE HAS TENDENCY TO FALL DOWN. HE HAS A SKIN AVULSION ON THE RIGHT FOREARM FROM A RECENT FALL. HIS TAKES CARE OF THE SMALL THINGS AT HOME. STEVE IS KNOWN TO HAVE OBSTRUCTIVE SLEEP APNEA AND HAS BEEN USING CPAP FOR THE LAST 20-25 YEARS. HE REMAINS VERY COMPLIANT AND BENEFITS FROM THE USE OF CPAP. THERE ARE NO ISSUES WITH THE MASK ( FULLFACE) OR THE CPAP DEVICE. BREATHING BLOCK REMAINS VERY STABLE BUT HE DOES DEVELOP SOME COUGH ON TIGHT FEELING IN THE CHEST MORNING AND EVENING AND HE ENDS UP USING ALBUTEROL 1 OR 2 PUFFS TWICE A DAY. 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 [facility] Medical History Tachycardia with heart rate 100-120 beats per minute Anemia Dyspnea on exertion COPD (chronic obstructive pulmonary disease) KIMBERLEY on CPAP Surgical History History of colonoscopy (~12/31/14) Social History Household Members: Spouse Housing: House Do you presently have visiting nurse or other home services: No Alcohol intake: never Patient Tobacco Use Status: Former Tobacco user Substance Use Type: Marijuana Advance Directives Date on File: 12/23/22 Current occupational status: retired Review of Systems Const All systems reviewed & are unremarkable except as noted in HPI and below Eyes Reports no additional complaints ENT Reports no additional complaints Card Denies chest pain, Denies irregular heart rhythm and Denies leg edema Resp Reports as per HPI GI Reports no additional complaints Reports no additional complaints Musc Reports back pain and Reports myalgias Skin/Breast Reports system reviewed and no additional complaints, except as documented Neuro Reports memory loss (Has mild dementia with poor memory but functions very well) Psych Reports no additional complaints and Reports memory loss (Has mild dementia with poor memory but functions very well) Endo Reports no additional complaints Physical Exam Vital Signs: Last Vital Signs Pulse 78 05/05/25 13:59 BP 130/80 05/05/25 13:59 Pulse Ox 95 05/05/25 13:59 Oxygen Delivery Method Room Air 05/05/25 13:59 BMI result Body Mass Index 29.3 Const General: comfortable, no acute distress, alert and awake Orientation/consciousness: patient oriented x3 HEENT Head: Yes normal to inspection General nose exam: No nasal polyps present and No nasal discharge present Face and sinus: Yes sinuses nontender Mouth: oropharynx normal Throat: Yes posterior oropharynx normal Eyes General: appearance normal, both eyes and all related structures Neck Neck: Yes normal visual inspection, Yes no lymphadenopathy, Yes trachea midline and Yes no JVD Thyroid: Thyroid normal Chest Chest palpation & inspection: normal inspection of the chest, normal palpation of entire chest wall and no tenderness Resp Effort & Inspection: normal respiratory effort Auscultation: no crackles, no wheezes and no bronchial breath sounds Percussion: percussion normal Cardio Palpation: normal PMI Rate: tachycardic (Heart rate on arrival 116 settled down to 110) Rhythm: regular rhythm Heart sounds: Gallop heart sound present and Murmur heart sound present GI Palpation (GI): Soft to palpation, nontender, No hepatosplenomegaly present and no masses Auscultation: normal bowel sounds Back/Spine/Pelvis Thoracic/Lumbar Spine: thoracic and lumbar spine normal to inspection Skin General skin exam: no rashes or lesions noted Neuro General: patient oriented x3 and no focal motor deficits Cranial nerves: Yes CN's II-XII intact bilaterally Extrem General: Yes normal to inspection, Yes no clubbing, cyanosis or edema and Yes no calf tenderness Psych Appearance: grossly normal and well kempt Speech and movement: Normal speech and movement present Results Reviewed Results Reviewed: COMPLIANCE REPORT FOR THE LAST 30 NIGHTS REVIEWED HE HAS USED 100% OF THE NIGHTS, AVERAGE USE IT PER NIGHT IS 8 HOURS 5 MINUTES, PRESSURE SETTING: AUTO PAP 5-8 CM. NO AIR LEAK IS REPORTED AND IS RESIDUAL AHI IS 1.8 Assessment & Plan Assessment & Plan (1) KIMBERLEY on CPAP: Comment: VERY COMPLIANT, AND BENEFITTING FROM THE USE OF CPAP. Code(s): G47.33 - Obstructive sleep apnea (adult) (pediatric); Z99.89 - Dependence on other enabling machines and devices Category: Medical Plan: COMMENDED FOR GOOD COMPLIANCE AND ADVISED TO CONTINUE USING THE CPAP EVERY NIGHT. (2) COPD (chronic obstructive pulmonary disease): Comment: MILD DEGREE OF COPD. DOING WELL WITH THE P.R.N. USE OF ALBUTEROL INHALER, WHICH HE USES ONLY ONCE OR TWICE A DAY . Code(s): J44.9 - Chronic obstructive pulmonary disease, unspecified Category: Medical Plan: OK TO USE ALBUTEROL 1 OR 2 PUFFS TWICE A DAY (3) Dyspnea on exertion: Comment: SHORTNESS OF BREATH NOTICED BY HIS SOMEWHAT MORE THAN BEFORE. THERE IS NO WHEEZING OR CHEST PAIN. THERE IS NO O2 DESATURATION ON WALKING. Code(s): R06.00 - Dyspnea, unspecified Category: Medical Plan: ADVISED TO GO SLOW WHEN STARTING TO WALK AROUND AND THEN GRADUALLY INCREASE THE SPEED Medications: Changed From melatonin 5 mg PO BEDTIME PRN 90 caps 1RF sleep To melatonin 10 mg PO BEDTIME Coding Level of Care Code Est Pt Level 3 (43200) Diagnoses KIMBERLEY on CPAP G47.33; Z99.89 COPD (chronic obstructive pulmonary disease) J44.9 Dyspnea on exertion R06.00
--- OUTSIDE RECORDS SUMMARY | 2025-05-05 15:33 | XMS_ITS | Clinical Summary ---
Author Organization [facility] Address [address] [place] [address] Phone Care Team Providers Care Magneto Specialist Name Role Phone Alen Storm Raymond Primary Care Provider Allergies Active Allergy Reactions Criticality Noted Date Comments Amoxicillin Rash Low 02/09/2023 Lisinopril Cough 02/09/2023 Sulfa (Sulfonamide Antibiotics) Hives 01/2023 Medications omeprazole (PRILOSEC) 20 MG capsule Take 20 mg by mouth daily. 3 Active terazosin (HYTRIN) 10 MG capsule Take 1 capsule by mouth 2 (two) times a day (once in the morning and once in the afternoon). 3 Active modafiniL (PROVIGIL) 200 MG tablet Take 200 mg by mouth. 3 Active donepeziL (ARICEPT) 10 MG tablet Take 10 mg by mouth 2 (two) times a day. 3 Active sertraline (ZOLOFT) 50 MG tablet Take 50 mg by mouth daily. 3 Active memantine (NAMENDA) 10 MG tablet 2 (two) times a day. 3 Active rizatriptan (MAXALT) 10 MG tablet Take 10 mg by mouth as needed for migraine. May repeat in 2 hours if needed Active therapeutic multivitamin tablet Take 1 tablet by mouth daily. Active magnesium oxide 400 mg magnesium Cap Take by mouth. Active diclofenac sodium (VOLTAREN) 1 % Gel as needed. Active Medication-Free Text Cbd gummie 2 per day Active POTASSIUM ORAL Take by mouth daily. Active indomethacin (INDOCIN) 50 MG capsuleIndications: Primary osteoarthritis involving multiple joints Take 2 capsules (100 mg total) by mouth 2 (two) times a day with meals. 360 capsule 1 5 Active Active Problems Problem Noted Date Diagnosed Date NSAID long-term use 07/15/2024 Assessment & Plan (07/15/2024 5:25 PM EST): Take the lowest dose, with least frequency, for shortest time. Remember to take it always with food. Favor topical over oral preparations. Primary osteoarthritis involving multiple joints 02/09/2023 Assessment & Plan (07/15/2024 5:16 PM EST): Procedure: After an informed written consent, under sterile conditions I have injected 40 mg Kenalog and 2 cc 1% Lidocaine into Right deltoid muscle uneventfully. Details of post-procedure care were explained to the patient in the office and given in writing. Provider: Comfort Corbin MD Patient: Kenney Fernandez : 1940 Date: 07/15/2024 Assessment & Plan (03/26/2024 2:05 PM EDT): Advanced osteoarthritis in multiple areas with audible clicking in both shoulders. Given intramuscular injection of triamcinolone 80 mg which controls his symptoms relatively well for several months. Continue with Tylenol 4 times a day, indomethacin as needed and CBD Gummies as needed. Assessment & Plan (01/06/2024 6:44 PM EDT): Advanced degenerative arthritis in multiple areas with stiffness but no swelling. He gets periodic intramuscular injections of triamcinolone which relieves his symptoms significantly for several months. Gave him an intramuscular injection of triamcinolone 80 mg today. Continue with Tylenol and indomethacin as well as CBD Gummies as needed. Assessment & Plan (10/20/2023 10:20 AM EDT): Advanced osteoarthritis in multiple areas most bothersome in his neck shoulders and knees. Given intramuscular injection of triamcinolone 80 mg to relieve his symptoms. He can also continue with Tylenol 650 mg, indomethacin as needed and his CBD Gummies as needed. Assessment & Plan (06/18/2023 6:05 PM EST): Fairly advanced degenerative arthritis in multiple joints, most bothersome in the neck shoulders hands wrists and feet. Gave him an intramuscular steroid injection of triamcinolone 60 mg which should relieve his symptoms for several months. Continue with Tylenol 650 mg as needed as well as indomethacin 100 mg twice a day. He can continue with CBD Gummies as long as they do not leave him excessively drowsy. Assessment & Plan (02/16/2023 1:22 PM EDT): Fairly advanced degenerative disease in multiple joints most bothersome in the neck and shoulders as well as the knees and feet. He takes Tylenol 650 as needed for pain control but gets better relief from using CBD Gummies. He has not taken tramadol in a very long time and does not seem to need it. For his overall stiffness I gave him an IM injection of Depo-Medrol which should last him several months. 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 Gave him some stretching exercises for the neck. Start Salonpas with lidocaine 4% gel patches. 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 02/19/2025 Telephone [facility], Allergy [facility] Critical Care Medicine [address] [place] [address] Sade Patricia cortisone shot 02/12/2025 Orders Only [facility] [address] [place] [address] Maureen hSah MA from Last 3 Months Family History Medical History Relation Comments Rheumatoid arthritis Mother Relation Status Comments Mother Social History Tobacco Use Types Packs/Day Years Used Date Smoking Tobacco: Former Cigarettes Smokeless Tobacco: Never Tobacco Cessation:Counseling Given: Not Answered Alcohol Use Standard Drinks/Week Comments Yes 1 (1 standard drink = 0.6 oz pur e alcohol) month Education Answer Date Recorded Are you interested in more education? Not on randy e 02/06/2023 Are you concerned about learning? Not on file 02/06/2023 No 02/06/2023 No 02/06/2023 Digital Access Answer Date Recorded No 02/06/2023 No 02/06/2023 Reliable internet access at home? Not on file 02/06/2023 Device with a working camera? Not on file Sex and Gender Information Value Date Recorded Sex Assigned at Not on file Legal Sex Male 7:25 PM EST Gender Identity Not on file Sexual Orientation Not on file Last Filed Vital Signs Vital Sign Reading Time Taken Comments Blood Pressure 134/60 02/19/2025 1:00 PM EDT Pulse 88 02/19/2025 1:00 PM EDT Temperature - - Respiratory Rate - - Oxygen Saturation 94% 02/19/2025 1:00 PM EDT Inhaled Oxygen Concentration - - Weight 90.7 kg (200 lb) 02/19/2025 1:00 PM EDT Height 180.3 cm (5' 10.98 ) 07/15/2024 4:[address] Body Mass Index 27.91 07/15/2024 4:46 PM EST Plan of Treatment Health Maintenance Due Date Last Done Comments Adult Td,Tdap Booster 1940 POTASSIUM LEVEL 1940 DEPRESSION SCREENING 1954 PNEUMOCOCCAL VACCINES (50+ years) (1 of 1 - PCV) 1992 ZOSTER VACCINES (1 of 2) 1992 RSV VACCINE (1 - 1-dose 75+ series) 2017 INFLUENZA VACCINE (#1) 2025 , 05/29/2023, 05/04/2022, Additional history exists COVID-19 VACCINE ( season) 2025 04/15/2024, 05/29/2023, 05/04/2022, Additional history exists HEPATITIS A VACCINES Aged Out No long er eligible based on patient's age to complete this topic HIB VACCINES Aged Out No longer eligi ble based on patient's age to complete this topic MENINGOCOCCAL VACCINES (ACWY) Aged Out No longer eligible based on patient's age to complete this topic MENINGOCOCCAL VACCINES (B) Aged Out N o longer eligible based on patient's age to complete this topic Medical Devices Not on file Insurance [employer] MEDEX SUPPLEMENT MEDICARE PART A & B [employer] MEDEX SUPPLEMENT MEDICARE PART A & B [employer] MEDEX SUPPLEMENT MEDICARE PART A & B [employer] MEDEX SUPPLEMENT MEDICARE PART A & B [employer] MEDEX SUPPLEMENT MEDICARE PART A & B [employer] MEDEX SUPPLEMENT MEDICARE PART A & B Care Teams Magneto Specialist Relationship Specialty Start Date End Date Storm Lowry DO [address] [place] [id number] PCP - General Internal Medicine 09/21/23 Additional Source Comments The information contained in this document represents components of the legal health record. It is not the complete legal health record.[facility]
--- OUTSIDE RECORDS SUMMARY | 2025-05-05 15:33 | XMS_ITS | Encounter Summary ---
Author Organization [facility] Address [address] [place] [address] Phone Care Team Providers Care Die Cast Die Maker Name Role Phone AlenStorm barba Primary Care Provider Reason for Visit * Reason Onset Date Comments cortisone shot 02/19/2025 Encounter Details Date Type Department Care Team ([facility] st Contact Info) Description 02/19/2025 Telephone [facility] Pulmonary, Allergy and Critical Care Medicine [address] [facility] [address] [place], [place] [id number] Sade cortisone shot Social History Tobacco Use Types Packs/Day Years Used Date Smoking Tobacco: Former Cigarettes Smokeless Tobacco: Never Alcohol Use Standard Drinks/Week Comments Yes 1 [...] on file Sexual Orientation Not on file documented as of this encounter Progress Notes * Maricarmen Dos Santos RN - 02/19/2025 10:24 AM EDT Spoke to patient who reports his is in the hospital so needs to reschedule to another day. Rebooked to 03/13. * Sade Patricia - 02/19/2025 10:07 AM EDT Pt would like to reschedule today???s 1?pm appointment for the cortisone shot to a later time today. Please contact and advise. Central Support On Site Coordinator (Please do not reply to this user; this inbox is not monitored.) Thank you. documented in this encounter Plan of Treatment Not on file documented as of this encounter Visit Diagnoses Not on filedocumented in this encounter Care Teams Die Cast Die Maker Relationship Specialty Start Date End Date Storm Lowry DO [address] [place] [id number] PCP - General Internal Medicine 09/21/23 documented as of this encounter Additional Source Comments The information contained in this document represents components of the legal health record. It is not the complete legal health record.[facility]
== END 2025-05-05 14:28 | disposition home or self-care (01) ==
LOC: HO.HPS 13:51
PROVIDERS: PCP Internal Medicine; Visit Provider Internal Medicine
DX: G47.33 Obstructive sleep apnea (adult) (pediatric) (principal); Z99.89 Dependence on other enabling machines and devices; J44.9 Chronic obstructive pulmonary disease, unspecified; R06.00 Dyspnea, unspecified
CPT/HCPCS: 99213

== ENCOUNTER → 2025-05-05 13:50 | Outpatient (BNVA) | payer MEDICARE, SELFPAY | PROVIDERS: PCP Internal Medicine; Visit Provider Internal Medicine | DX: R06.00 Dyspnea, unspecified (principal); G47.33 Obstructive sleep apnea (adult) (pediatric); Z99.89 Dependence on other enabling machines and devices; Z87.891 Personal history of nicotine dependence | CPT/HCPCS: 99212 ==

== ENCOUNTER 2025-05-06 10:05 | Outpatient (REF) | payer MEDICARE, SELFPAY ==
--- NOTE | ~2025-05-06 | XR_ITS ---
EXAMINATION: XR SHOULDER, LEFT CLINICAL INFORMATION: M25.512 - Pain in left shoulder COMPARISON: July 25, 2023 TECHNIQUE: Two views of the left shoulder. FINDINGS: The appearance is similar to the prior. There is severe narrowing of the glenohumeral joint. There is subchondral sclerosis. There are marginal osteophytes. There is chondrocalcinosis involving the superior humeral head. No dislocation or fracture is identified. AC joint also demonstrates marginal osteophytes. There is also chondral calcinosis in the AC joint and superior acromioclavicular ligament. 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 There are moderate degenerative changes in the AC joint. Electronically signed by: Manuel Wilson MD 05/06/2025 12:03 PM EDT
--- NOTE | ~2025-05-06 | XR_ITS ---
EXAMINATION: XR KNEE, LEFT CLINICAL INFORMATION: Left knee pain. S/P fall. COMPARISON: None available. TECHNIQUE: Four views of the left knee. FINDINGS: There is osteopenia. There is a joint effusion. There is moderate narrowing of the medial joint space and mild narrowing of the lateral. There is chondrocalcinosis in the medial and lateral joint lines and in a gastrocnemius tendon posterior to the femoral condyles on the lateral. There are tricompartmental marginal osteophytes. No fractures identified. Vascular calcifications are evident. 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 Joint effusion. Electronically signed by: Manuel Wilson MD 05/06/2025 12:01 PM EDT
--- NOTE | ~2025-05-06 | XR_ITS ---
EXAMINATION: XR HIP, LEFT CLINICAL INFORMATION: W19.XXXA - Unspecified fall, initial encounter COMPARISON: None available. TECHNIQUE: AP upright, AP supine, and frog-leg lateral views of the left hip. FINDINGS: X-rays the pelvis demonstrates sclerosis along the upper left SI joint. Bilateral total hip replacements are seen. Mild degenerative changes are present in the pubic symphysis joint. Striated calcifications are present in bilateral hamstring tendons near the tuberosities. Right hip arthroplasty is incompletely imaged. Lobulated calcific density projecting over the left iliac bone could represent bowel content or possibly a bone island. Left hip demonstrates changes from total hip arthroplasty. Acetabular cup is secured with a single screw. Femoral component is well aligned and makes good cortical contact distally. There is granular soft tissue calcification medial to the neck and lesser trochanter. XR/XR hip LT w PEL1V IMPRESSION: Bilateral total hip arthroplasty. No fracture is identified. Electronically signed by: Manuel Wilson MD 05/06/2025 11:59 AM EDT
--- NOTE | ~2025-05-06 | XR_ITS ---
EXAMINATION: XR RIBS, LEFT CLINICAL INFORMATION: Left side rib pain. S/p fall COMPARISON: March 25, 2024 TECHNIQUE: Frontal chest x-ray and 3 views of the left ribs were obtained. FINDINGS: Lungs are clear. Heart size is normal. Moderate size hiatal hernia is visible with air-fluid level. There is a fracture with mild offset involving posterior fourth-eighth ribs. No abnormalities are seen. There is moderate severe degenerative changes in the left shoulder joint with sclerosis, joint space narrowing, and marginal osteophytes. There is calcific density projecting in the left rotator cuff tendon near the greater tuberosity. XR/XR ribs LT min 3V w CXR1V IMPRESSION: Posterior left fourth-eighth rib fractures. Moderate-sized hiatal hernia. Severe degenerative change in the left shoulder joint. Rotator cuff calcific tendinitis on the left. Electronically signed by: Manuel Wilson MD 05/06/2025 12:07 PM EDT
[2025-05-06 13:49] LABS: Appearance Urine Clear; Glucose Urine UA Negative (Negative); PH 6.0 (5.0-9.0); Specific Gravity - Urine 1.020 (1.005-1.025); UMIC TRIGGER UACC YES
[2025-05-06 14:09] LABS: UACC Culture Trigger YES
[2025-05-06 14:55] LABS: Alanine Aminotransferase 15 U/L (0-40); Albumin Level 4.3 g/dL (3.5-5.0); Alkaline Phosphatase 95 U/L (39-117); Anion Gap 12 (12-20); Aspartate Amino Transferase 24 U/L (5-37); Blood Urea Nitrogen 20 mg/dL (9-16); Calcium 9.4 mg/dL (8.4-10.2); Carbon Dioxide 25 mmol/L (22-29); Chloride 109 mmol/L (96-108); Estimated Glomerular Filt Rate 47; Potassium 4.4 mmol/L (3.3-5.1); Sodium 142 mmol/L (135-145); Total Protein 7.0 g/dL (6.5-8.0)
== END 2025-05-06 10:06 | disposition home or self-care (01) ==
LOC: HO.HMGCX 10:05
PROVIDERS: PCP Internal Medicine; Visit Provider Physician Assistant Medical
DX: Z00.00 Encounter for general adult medical examination without abnormal findings (principal); Z28.89 Immunization not carried out for other reason; M25.512 Pain in left shoulder; M25.562 Pain in left knee; M25.552 Pain in left hip; S22.42XA Multiple fractures of ribs, left side, initial encounter for closed fracture; W19.XXXA Unspecified fall, initial encounter; G30.9 Alzheimer's disease, unspecified; F02.80 Dementia in other diseases classified elsewhere, unspecified severity, without behavioral disturbance, psychotic disturbance, mood disturbance, and anxiety; I10 Essential (primary) hypertension; G47.33 Obstructive sleep apnea (adult) (pediatric); Y92.009 Unspecified place in unspecified non-institutional (private) residence as the place of occurrence of the external cause; R07.81 Pleurodynia; R07.89 Other chest pain; Z79.899 Other long term (current) drug therapy
CPT/HCPCS: 36415; 71101; 73030; 73502; 73564; 80053; 81001; 87086; 90471; 96127; 99212

== ENCOUNTER 2025-05-06 10:05 | Outpatient (AMB) | payer MEDICARE, SELFPAY ==
--- NOTE | 2025-05-06 10:02 | A.OFFPC_ITS ---
Vital Signs 05/06/25 10:10 Height 5 ft 8 in Weight 194 lb 6 oz BMI 29.6 BP 161/76 H Blood Pressure Location Rt brachial Position Sitting Respiration 20 Pulse 77 Pulse Source Pulse Oximeter Temp 97.2 F Temp Source Temporal Artery Scan Pulse Oximetry (%) 95 Oxygen Delivery Method Room Air Intake Visit Reasons: 6 month f/u Intake Note: no other issues Hand Cell Tuber Required: No Accompanied by: Spouse Allergies lisinopril (LISINOPRIL) Allergy (Mild, Verified 05/06/25 12:58) HEADACHES amoxicillin (AMOXICILLIN) Allergy (Unknown, Verified 05/06/25 12:58) UNKNOWN Sulfa (Sulfonamide Antibiotics) (SULFA (SULFONAMIDE ANTIBIOTICS)) Allergy (Unknown, Verified 05/06/25 12:58) UNKNOWN Medication List - Last Reconciled 05/06/25 by Pamela Gonzalez PA-C albuterol sulfate 90 mcg/actuation 2 puffs inhalation Q4-6H PRN 90 days atorvastatin 10 mg PO BEDTIME donepezil 23 mg PO BEDTIME gabapentin 100 mg PO BID 60 days indomethacin 100 mg PO BID losartan 50 mg PO DAILY magnesium 200 mg PO DAILY melatonin 10 mg PO BEDTIME memantine 10 mg PO BID 90 days modafinil (Provigil) 200 mg PO DAILY [id number] mcg (Centrum Silver Men) 1 tab PO DAILY omeprazole 20 mg PO DAILY potassium gluconate 500 mg PO DAILY sertraline 100 mg PO DAILY terazosin 10 mg PO BID Tobacco use date assessed: 05/06/25 Fall risk assessment: 2 + Falls in past year Last assessed Fall Risk: 05/06/25 Dental Screening Dental Screen Date: 05/06/25 Did you have a dental visit in the last 12 months?: Yes Was dental information given to patient?: Patient has dentist HPI 6 month f/u HPI Details The patient is an 84-year-old male presenting with a follow-up for recent falls. The patient experienced two falls, one in the morning and one in the evening, resulting in bruising on the left side and possible rib fractures. The falls occurred when the patient lost balance while bending down and a ttempting to stabilize himself against a table, leading to impact injuries on the sternum and left side. The patient has a history of Chronic Obstructive Pulmonary Disease (COPD) and is currently using albuterol for management. Additionally, the patient is on atorvastatin for cholesterol management and donepezil for Alzheimer's disease. The patient has a history of hypertension, previously managed with lisinopril, which was discontinued due to a cough. The current blood pressure readings are elevated, and a new medication, losartan, is being considered. The patient also has a history of sleep apnea, for which modafinil is prescribed. The patient has not experienced sleep apnea symptoms in the past six months. Social History - Family status: for 60 years. FOR[facility]LY [facility] Medical History Rib pain on left side Sternum pain Left hip pain Left knee pain Left shoulder pain Tachycardia with heart rate 100-120 beats per minute Anemia Dyspnea on exertion COPD (chronic obstructive pulmonary disease) KIMBERLEY on CPAP Surgical History History of colonoscopy (~12/31/14) Social History Household Members: Spouse Housing: [facility] Do you presently have visiting nurse or other home services: No Alcohol intake: never Patient Tobacco Use Status: Former Tobacco user Substance Use Type: Marijuana Advance Directives Date on File: 12/23/22 service: No Current occupational status: retired Cognitive needs: Yes Hearing needs: No Vision needs: Yes (reading glasses) Questionnaire PHQ-9 Over the last 2 weeks, how often have you been bothered by any of the following problems? 1. Little interest or pleasure in doing things: not at all 2. Feeling down, depressed, or hopeless: not at all 3. Trouble falling or staying asleep, or sleeping too much: not at all 4. Feeling tired or having little energy: not at all 5. Poor appetite or overeating: not at all 6. Feeling bad about yourself - or that you are a failure or have let yourself or your family down: not at all 7. Trouble concentrating on things, such as reading the newspaper or watching television: not at all 8. Moving or speaking so slowly that other people could have noticed. Or the opposite - being so fidgety or restless that you have been moving around a lot more than usual: not at all 9. Thoughts that you would be better off or of hurting yourself in some way: not at all Total score: 0 Depression Screening Interpretation: Negative Depression Screening Done: Yes 96413 - PHQ-9 Billing: Yes Source: Developed by Drs. Storm Hart, Bharti Boyd, Geoff Macias and colleagues, with an educational geoff from [employer]. Thrive Questionnaire Date Thrive assessed: 05/06/25 I am a: Patient What is your living situation today?: I have a steady place to live Within the past 12 months, did the food you bought not last and you didn't have the money to get more?: Never true Within the past 12 months, did you worry whether your food would run out before you got money to buy more?: Never true Do you have trouble paying for medicines?: No Do you have trouble getting transportation to medical appointments?: No Do you have trouble paying your heating and electricity bill?: No Do you have trouble taking care of your child, family member or friend?: No Do you have trouble with day-to-day activities such as bathing, preparing meals, shopping, managing finances, etc.?: No Are you currently unemployed and looking for a job?: No Are you interested in more education?: No THRIVE Score: 0 AUDIT C Alcohol Use Questionnaire (AUDIT-C) 1. How often do you have a drink containing alcohol?: Never Total Score: 0 Score Reviewed/Action Taken: No SALO-7 AMB Questionnaire SALO-7 Date SALO - 7 assessed: 05/06/25 Feeling nervous, anxious, or on edge: 0 = Not at all Not being able to stop or control worryin = Not at all Worrying too much about different things: 0 = Not at all Trouble relaxin = Not at all Being so restless that it is hard to sit still: 0 = Not at all Becoming easily annoyed or irritable: 0 = Not at all Feeling afraid as if something awful might happen: 0 = Not at all Total SALO-7 score (0-4 normal; 5-9 mild; 10-14 moderate; 15-21 severe): 0 Source: Developed by Bharti Roberts Kurt Kroenke and colleagues, with an educational geoff from [employer]. SALO-7 Assessment Billing SALO-7 Assessment Tool: SALO-7 Assessment 19111 Review of Systems Const Details: - Musculoskeletal: Reports bruising on the left side and knee pain. - Neurological: Denies loss of consciousness during falls. - Respiratory: Reports no current symptoms of sleep apnea. - Cardiovascular: Reports elevated blood pressure readings. All systems reviewed & are unremarkable except as noted in HPI and below Physical exam (Primary Care) Vital Signs: Last Vital Signs Temp 97.2 F 05/06/25 10:10 Pulse 77 05/06/25 10:10 Resp 20 05/06/25 10:10 BP 161/76 H 05/06/25 10:10 Pulse Ox 95 05/06/25 10:10 Oxygen Delivery Method Room Air 05/06/25 10:10 Care Plan Goal for BP management: <140/90 patient will be started on 50 mg of losartan and return in 6 weeks for blood pressure check BMI result Body Mass Index 29.6 BMI Assessment/Plan discussion: High BMI High, discussed plan: lifestyle, weight reduction, dietary and physical activity Tobacco/Smoking Status: Tobacco use Status Tobacco use date assessed 05/06/25 05/06/25 10:04 Patient Tobacco Use Status Former Tobacco user 05/06/25 10:04 PHQ-9: PHQ-9 Score PHQ-9: Total score 0 05/06/25 10:16 Depression Screening Interpretation: Negative Thrive Assessment: Date of Thrive Assessment Date Thrive assessed 05/06/25 05/06/25 10:04 Const Other: Appearance: Alert. Pleasantly confused at baseline history of Alzheimer's dementia.. No acute distress. Head: Normal external exam. Normocephalic. Atraumatic. Eyes: Pupils are equal, round, and reactive to light. Extraocular movements intact. Conjunctiva and sclera normal. Eyelids normal. Ears: External auditory canal normal. Tympanic membranes normal. Throat: Pharynx normal. Uvula midline. Moist mucous membranes. Neck: Normal inspection. Neck supple. Full range of motion. Cardiovascular: Normal heart rate and rhythm. Heart sound normal. No murmurs noted. Pulses normal throughout. Respiratory: No respiratory distress. Painless inspiration. Breath sounds normal. No wheezes/rales/rhonchi noted. Chest tenderness to palpation to left anterior chest wall and mid to lower sternum. Also has tenderness to palpation to left lateral and left upper and mid posterior chest wall. No crepitus is noted. Not consistent with flail chest. Some bruising noted to the posterior chest no bruising is noted to the anterior chest. No accessory muscle usage noted or decreased air movement noted. Abdomen: Soft and nontender. Bowel sounds normal in all 4 quadrants. No distention noted. No organomegaly noted. No visible injury noted. Back: No costovertebral angle tenderness. Full range of motion noted. Skin: Skin warm and dry. Normal skin color. Normal skin turgor. Patient had bruising to left posterior chest wall/shoulder, left knee posterior aspect and left hip. Otherwise no lesions/lacerations or rashes noted. Extremities: No lower extremity edema. Patient has mild soft tissue swelling and tenderness to palpation to the left knee anterior and posterior aspect with mild bruising. Has good range of motion. No obvious ligamentous or tendon injury is noted. Patient has mild tenderness to the left shoulder with some bruising to the posterior aspect has good range of motion. No obvious ligamentous or tendon injury. All other extremities exhibit normal range of motion nontender. Neuro: Oriented to self although pleasantly confused at baseline due to Alzheimer's dementia. No motor deficit. No sensory deficit. Reflexes normal. Normal steady gait with cane at baseline per . Office Procedures Flu Questionnaire Does the patient have a severe egg allergy?: No Does the patient have severe life threatening allergies?: No Does the patient have a fever or illness today?: No Has the patient ever had Guillain-Bitely Syndrome?: No Has the patient ever had any past reaction to a flu shot?: No Immunizations Fluarix [id number] (PF) 45 mcg (15 mcg x 3)/0.5 mL IM syringe Performing Provider: Pamela Gonzalez PA-C [facility] [place] [facility] Documented (not given) by: Nneka Cerna CMA on 05/06/25 10:16 Reason Not Given: Received Previously Results Reviewed Results Reviewed: - Imaging: X-rays of the chest, ribs, left knee, left hip, and left shoulder were ordered. Coding Level of Care Code Est Pt Level 4 (26964) Complex EM visit Add On G2211 Diagnoses Alzheimer dementia G30.9; F02.80 Hypertension I10 KIMBERLEY on CPAP G47.33; Z99.89 COPD (chronic obstructive pulmonary disease) J44.9 Falls W19.XXXA Left hip pain M25.552 Left knee pain M25.562 Left shoulder pain M25.512 Rib pain on left side R07.81 Sternum pain R07.89 Additional Codes PHQ-9 - 14569 - PHQ-9 Billing: Yes ([id number]) ASLO-7 Assessment Billing - SALO-7 Assessment Tool: SALO-7 Assessment 04621 ([id number]) Time Spent (min) 60 Assessment & Plan Assessment & Plan (1) Alzheimer dementia: Code(s): G30.9 - Alzheimer's disease, unspecified; F02.80 - Dementia in other diseases classified elsewhere, unspecified severity, without behavioral disturbance, psychotic disturbance, mood disturbance, and anxiety Category: Medical Plan: Continue taking Donepezil dose 23 mg daily. Continue Memantine HCl Tablet, 10 MG, 1 tablet, Orally, Twice a day Continue Modafinil Tablet, 200 MG, 1 tablet in the morning, Orally, Once a day Continue Multivitamins Capsule, 1 capsule, Orally, Once a day (2) Hypertension: Code(s): I10 - Essential (primary) hypertension Category: Medical Plan: Blood pressure noted to be elevated today will start the patient on losartan 50 mg patient to return in 6 weeks for blood pressure check. (3) KIMBERELY on CPAP: Comment: VERY COMPLIANT, AND BENEFITTING FROM THE USE OF CPAP. Code(s): G47.33 - Obstructive sleep apnea (adult) (pediatric); Z99.89 - Dependence on other enabling machines and devices Category: Medical Plan: Patient to continue albuterol inhaler as needed. Condition is chronic and stable continue to monitor. (4) COPD (chronic obstructive pulmonary disease): Comment: MILD DEGREE OF COPD. DOING WELL WITH THE P.R.N. USE OF ALBUTEROL INHALER, WHICH HE USES ONLY ONCE OR TWICE A DAY . Code(s): J44.9 - Chronic obstructive pulmonary disease, unspecified Category: Medical Plan: Patient to continue albuterol inhaler as needed. Condition is chronic and stable continue to monitor. (5) Falls: Code(s): W19.XXXA - Unspecified fall, initial encounter Category: Medical Plan: The patient experienced two falls resulting in bruising and possible rib fractures. X-rays of the chest, ribs, left knee, left hip, and left shoulder were ordered to assess for fractures or other injuries. (6) Left hip pain: Code(s): M25.552 - Pain in left hip Category: Medical Plan: Patient reports left hip pain no obvious deformity only mild bruising and has a normal steady gait with full range motion x-ray ordered. (7) Left knee pain: Code(s): M25.562 - Pain in left knee Category: Medical Plan: Patient reports left knee pain no obvious deformity only mild bruising and has a normal steady gait with full range motion x-ray ordered. (8) Left shoulder pain: Code(s): M25.512 - Pain in left shoulder Category: Medical Plan: Patient reports left shoulder pain no obvious deformity only mild bruising and has a normal steady gait with full range motion x-ray ordered. (9) Rib pain on left side: Code(s): R07.81 - Pleurodynia Category: Medical Plan: Patient reports left anterior and posterior midsternal chest wall pain since the fall 3 weeks ago only upon palpation. X-ray ordered at this time (10) Sternum pain: Code(s): R07.89 - Other chest pain Category: Medical Plan: Patient reports left anterior and posterior midsternal chest wall pain since the fall 3 weeks ago only upon palpation. X-ray ordered at this time Plan Plan Patient was informed and verbally consented to the use of an ambient scribe for clinic note documentation during this visit. 1. Falls The patient experienced two falls resulting in bruising and possible rib fractures. X-rays of the chest, ribs, left knee, left hip, and left shoulder were ordered to assess for fractures or other injuries. 2. Chronic Obstructive Pulmonary Disease (Copd) The patient is currently using albuterol for management of COPD. 3. Alzheimer's Disease The patient is on donepezil for management of Alzheimer's disease. 4. Hypertension The patient's blood pressure is elevated, and losartan 50 mg is being considered as a new medication. 5. Sleep Apnea The patient is prescribed modafinil for sleep apnea, although no symptoms have been reported in the past six months. I discussed with the patient the need for x-rays to assess for possible fractures due to recent falls. We also reviewed the management of COPD with albuterol and the continuation of donepezil for Alzheimer's disease. The patient's elevated blood pressure was addressed, and we considered starting losartan as a new medication. Additionally, we discussed the use of modafinil for sleep apnea, noting the absence of symptoms in the past six months. Orders: Orders UA CC w/rflx Micro + Cult Today Z00.00 - Encounter for general adult medical examination without abnormal findings XR ribs LT min 3V w CXR1V Today M25.512 - Pain in left shoulder, M25.552 - Pain in left hip, M25.562 - Pain in left knee, R07.81 - Pleurodynia, R07.89 - Other chest pain, W19.XXXA - Unspecified fall, initial encounter, Y92.009 - Unspecified place in unspecified non-institutional (private) residence as the place of occurrence of the external cause XR hip LT w PEL1V Today M25.512 - Pain in left shoulder, M25.552 - Pain in left hip, M25.562 - Pain in left knee, R07.81 - Pleurodynia, R07.89 - Other chest p ain, W19.XXXA - Unspecified fall, initial encounter XR knee LT 4V Today M25.512 - Pain in left shoulder, M25.552 - Pain in left hip, M25.562 - Pain in left knee, R07.89 - Other chest pain, W19.XXXA - Unspecified fall, initial encounter, Y92.009 - Unspecified place in unspecified non-institutional (private) residence as the place of occurrence of the external cause Influenza [id number] Immunization Today Z23 - Encounter for immunization Comprehensive Met. Panel Today Z00.00 - Encounter for general adult medical examination without abnormal findings XR shoulder LT min 2V Today M25.512 - Pain in left shoulder, M25.552 - Pain in left hip, M25.562 - Pain in left knee, R07.81 - Pleurodynia, R07.89 - Other chest pain, W19.XXXA - Unspecified fall, initial encounter, Y92.009 - Unspecified place in unspecified non-institutional (private) residence as the place of occurrence of the external cause Medications: New losartan 50 mg PO DAILY 30 tabs 0RF Patient Instructions: - Schedule and complete x-rays of the chest, ribs, left knee, left hip, and left shoulder. - Continue using albuterol as prescribed for COPD management. - Continue taking donepezil for Alzheimer's disease. - Monitor blood pressure regularly and start losartan as prescribed. - Discuss with your doctor the continued need for modafinil for sleep apnea.
[2025-05-06 10:10] VITALS: BP 161/76; PULSE 77; RESP 20; TEMP 36.2; O2SAT 95; BMI 29.6
--- OUTSIDE RECORDS SUMMARY | 2025-05-06 11:10 | XMS_ITS | Clinical Summary ---
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 [facility] [place] [address] Sade Patricia cortisone shot 02/12/2025 Orders Only [facility] [address] [place] [address] Maureen Shah MA from Last 3 Months Family History [...] topic Medical Devices Not on file Insurance [employer] MEDEX SUPPLEMENT MEDICARE PART A & B [employer] MEDEX SUPPLEMENT MEDICARE PART A & B [employer] MEDEX SUPPLEMENT MEDICARE PART A & B [employer] MEDEX SUPPLEMENT MEDICARE PART A & B [employer] MEDEX SUPPLEMENT MEDICARE PART A & B [employer] MEDEX SUPPLEMENT MEDICARE PART A & B Care Teams Manager Performance Improvement Relationship Specialty Start Date End Date Storm Lowry DO [address] [place] [id number] PCP - General Internal Medicine 09/21/23 Additional Source Comments The information contained in this document represents components of the legal health record. It is not the complete legal health record.[facility]
--- OUTSIDE RECORDS SUMMARY | 2025-05-06 11:10 | XMS_ITS | Encounter Summary ---
Author Organization [facility] Address [address] [place] [address] Phone Care Team Providers Care Preschool Teacher Name Role Phone AlenStorm barba Primary Care Provider [phone] Reason for Visit * Reason Onset Date Comments cortisone shot 02/19/2025 Encounter Details Date Type Department Care Team ([facility] st Contact Info) Description 02/19/2025 Telephone [facility] Pulmonary, Allergy and Critical Care Medicine [address] [facility] [address] [place], [place] [id number] Sade cortisone shot Social History Tobacco Use [...] today. Please contact and advise. Central Support Building Mechanic (Please do not reply to this user; this inbox is not monitored.) Thank you. documented in this encounter Plan of Treatment Not on file documented as of this encounter Visit Diagnoses Not on filedocumented in this encounter Care Teams Preschool Teacher Relationship Specialty Start Date End Date Storm Lowry DO [address] [place] [id number] PCP - General Internal Medicine 09/21/23 documented as of this encounter Additional Source Comments The information contained in this document represents components of the legal health record. It is not the complete legal health record.[facility]
== END 2025-05-06 10:41 | disposition home or self-care (01) ==
LOC: HO.HMCSH 10:05
PROVIDERS: PCP Internal Medicine; Visit Provider Physician Assistant Medical
DX: G30.9 Alzheimer's disease, unspecified (principal); F02.80 Dementia in other diseases classified elsewhere, unspecified severity, without behavioral disturbance, psychotic disturbance, mood disturbance, and anxiety; I10 Essential (primary) hypertension; G47.33 Obstructive sleep apnea (adult) (pediatric); Z99.89 Dependence on other enabling machines and devices; J44.9 Chronic obstructive pulmonary disease, unspecified; W19.XXXA Unspecified fall, initial encounter; M25.552 Pain in left hip; M25.562 Pain in left knee; M25.512 Pain in left shoulder; R07.81 Pleurodynia; R07.89 Other chest pain; Z23 Encounter for immunization

== ENCOUNTER → 2025-05-06 11:14 | Outpatient (BNV) | payer MEDICARE, SELFPAY | PROVIDERS: PCP Internal Medicine; Visit Provider Radiology Diagnostic Radiology | DX: S22.42XA Multiple fractures of ribs, left side, initial encounter for closed fracture (principal); S46.002A Unspecified injury of muscle(s) and tendon(s) of the rotator cuff of left shoulder, initial encounter; K44.9 Diaphragmatic hernia without obstruction or gangrene; M19.012 Primary osteoarthritis, left shoulder; M17.12 Unilateral primary osteoarthritis, left knee; M25.462 Effusion, left knee; M25.552 Pain in left hip; W19.XXXA Unspecified fall, initial encounter; Z96.643 Presence of artificial hip joint, bilateral; M11.262 Other chondrocalcinosis, left knee; M11.812 Other specified crystal arthropathies, left shoulder | CPT/HCPCS: 71101; 73030; 73502; 73564 ==

== ENCOUNTER 2025-06-16 13:39 | Outpatient (AMB) | payer MEDICARE, SELFPAY ==
[2025-06-16 13:40] VITALS: BP 122/58; PULSE 68; TEMP 36.4; O2SAT 98; BMI 30.1
--- NOTE | 2025-06-16 13:40 | MHC.PC.OV ---
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 Required: No Accompanied by: Spouse Allergies lisinopril (LISINOPRIL) Allergy (Mild, Verified 06/16/25 15:47) HEADACHES amoxicillin (AMOXICILLIN) Allergy (Unknown, Verified 06/16/25 15:47) UNKNOWN Sulfa (Sulfonamide Antibiotics) (SULFA (SULFONAMIDE ANTIBIOTICS)) Allergy (Unknown, Verified 06/16/25 15:47) UNKNOWN Medication List - Last Reconciled 06/16/25 by Pamela Gonzalez PA-C albuterol sulfate 90 mcg/actuation 2 puffs inhalation Q4-6H PRN 90 days atorvastatin 10 mg PO BEDTIME diclofenac potassium 50 mg PO Q8H PRN donepezil 23 mg PO BEDTIME gabapentin 100 mg PO BID 60 days magnesium 200 mg PO DAILY melatonin 10 mg PO BEDTIME memantine 10 mg PO BID 90 days modafinil (Provigil) 200 mg PO DAILY cc-vwv-xlxbi-N4-zrnausf-mbtzkq [id number] mcg (Centrum Silver Men) 1 tab PO DAILY omeprazole 20 mg PO DAILY potassium gluconate 500 mg PO DAILY sertraline 100 mg PO DAILY terazosin 10 mg PO BID Tobacco use date assessed: 05/06/25 Dental Screening Dental Screen Date: 05/06/25 HPI 6 weeks follow up HPI Details The patient is an 84-year-old male presenting for a follow-up on his blood pressure and osteoarthritis. Regarding his hypertension, a previous medication caused significant dizziness to the point where he could not walk, and his blood pressure was fluctuating. His blood pressure has since normalized at home without medication. For osteoarthritis, the patient has been taking indomethacin but reports it is no longer effective and his pain is worsening. He describes recent symptoms of terrible joint pain with sharp, stabbing sensations, but denies any swelling. 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 Previously, he received cortisone injections in his shoulder approximately every three months. Social History - Substance use: The patient uses cannabis gummies as needed for pain, particularly when it is exacerbated by weather changes. - Financial: He and his pay $110.50 each per month for their prescription coverage with [employer]. - Family History: His daughter has osteoarthritis. [facility] Medical History Rib pain on left side Sternum pain Left hip pain Left knee pain Left shoulder pain Tachycardia with heart rate 100-120 beats per minute Anemia Dyspnea on exertion COPD (chronic obstructive pulmonary disease) KIMBERLEY on CPAP Surgical History History of colonoscopy (~12/31/14) Social History Household Members: Spouse Housing: [facility] Do you presently have visiting nurse or other home services: No Alcohol intake: never Patient Tobacco Use Status: Former Tobacco user Substance Use Type: Marijuana Advance Directives Date on File: 12/23/22 service: No Current occupational status: retired Cognitive needs: Yes Hearing needs: No Vision needs: Yes (reading glasses) Questionnaire PHQ-9 Over the last 2 weeks, how often have you been bothered by any of the following problems? 1. Little interest or pleasure in doing things: not at all 2. Feeling down, depressed, or hopeless: not at all 3. Trouble falling or staying asleep, or sleeping too much: not at all 4. Feeling tired or having little energy: not at all 5. Poor appetite or overeating: not at all 6. Feeling bad about yourself - or that you are a failure or have let yourself or your family down: not at all 7. Trouble concentrating on things, such as reading the newspaper or watching television: not at all 8. Moving or speaking so slowly that other people could have noticed. Or the opposite - being so fidgety or restless that you have been moving around a lot more than usual: not at all 9. Thoughts that you would be better off or of hurting yourself in some way: not at all Total score: 0 Depression Screening Interpretation: Negative Depression Screening Done: Yes 89696 - PHQ-9 Billing: Yes Source: Developed by Drs. Storm Hart, Bharti Boyd, Geoff Macias and colleagues, with an educational geoff from [employer]. Thrive Questionnaire Date Thrive assessed: 05/06/25 I am a: Patient What is your living situation today?: I have a steady place to live Within the past 12 months, did the food you bought not last and you didn't have the money to get more?: Never true Within the past 12 months, did you worry whether your food would run out before you got money to buy more?: Never true Do you have trouble paying for medicines?: No Do you have trouble getting transportation to medical appointments?: No Do you have trouble paying your heating and electricity bill?: No Do you have trouble taking care of your child, family member or friend?: No Do you have trouble with day-to-day activities such as bathing, preparing meals, shopping, managing finances, etc.?: No Are you currently unemployed and looking for a job?: No Are you interested in more education?: No THRIVE Score: 0 AUDIT C Alcohol Use Questionnaire (AUDIT-C) 1. How often do you have a drink containing alcohol?: Never 3. How often do you have six or more drinks on one occasion?: Never Total Score: 0 Score Reviewed/Action Taken: No SALO-7 AMB Questionnaire SALO-7 Date SALO - 7 assessed: 05/06/25 Feeling nervous, anxious, or on edge: 0 = Not at all Not being able to stop or control worryin = Not at all Worrying too much about different things: 0 = Not at all Trouble relaxin = Not at all Being so restless that it is hard to sit still: 0 = Not at all Becoming easily annoyed or irritable: 0 = Not at all Feeling afraid as if something awful might happen: 0 = Not at all Total SALO-7 score (0-4 normal; 5-9 mild; 10-14 moderate; 15-21 severe): 0 Source: Developed by Drs. Storm Hart, Bharti Boyd, Geoff Macias and colleagues, with an educational geoff from [employer]. SALO-7 Assessment Billing SALO-7 Assessment Tool: SALO-7 Assessment 68991 Review of Systems Const Details: - Cardiovascular: Reports blood pressure has been fine at home. - Musculoskeletal: Reports terrible joint pain characterized by sharp, stabbing pains. - Denies joint swelling. - Neurological: Denies dizziness since stopping his blood pressure medication. All systems reviewed & are unremarkable except as noted in HPI and below Physical exam (Primary Care) Vital Signs: Last Vital Signs Temp 97.6 F 06/16/25 13:40 Pulse 68 06/16/25 13:40 BP 122/58 L 06/16/25 13:40 Pulse Ox 98 06/16/25 13:40 Oxygen Delivery Method Room Air 06/16/25 13:40 Care Plan Goal for BP management: <140/90 at Goal BMI result Body Mass Index 30.1 BMI Assessment/Plan discussion: High BMI High, discussed plan: lifestyle, weight reduction, dietary, physical activity, alcohol moderation and other Tobacco/Smoking Status: Tobacco use Status Tobacco use date assessed 05/06/25 06/16/25 13:43 Patient Tobacco Use Status Former Tobacco user 06/16/25 13:43 PHQ-9: PHQ-9 Score PHQ-9: Total score 0 06/16/25 13:54 Depression Screening Interpretation: Negative Thrive Assessment: Date of Thrive Assessment Date Thrive assessed 05/06/25 06/16/25 13:43 Const Other: Appearance: Alert. Oriented X3. No acute distress. Head: Normal external exam. Normocephalic. Atraumatic. Eyes: Pupils are equal, round, and reactive to light. Extraocular movements intact. Conjunctiva and sclera normal. Eyelids normal. Throat: Pharynx normal. Uvula midline. Moist mucous membranes. Neck: Normal inspection. Neck supple. Full range of motion. Cardiovascular: Normal heart rate and rhythm. Respiratory: No respiratory distress. Painless inspiration. Back: Full range of motion noted. Skin: Skin warm and dry. Normal skin color. Extremities: Extremities exhibit normal range of motion. Coding Level of Care Code Est Pt Level 4 (21232) Complex EM visit Add On G2211 Diagnoses Hypertension I10 Osteoarthritis M19.90 Additional Codes SALO-7 Assessment Billing - SALO-7 Assessment Tool: SALO-7 Assessment 31959 ([id number]) PHQ-9 - 85506 - PHQ-9 Billing: Yes ([id number]) Assessment & Plan Assessment & Plan (1) Hypertension: Code(s): I10 - Essential (primary) hypertension Category: Medical Plan: The patient's previous antihypertensive medication caused significant dizziness, and his blood pressure has been well-controlled at home since discontinuing it. The plan is to continue holding all antihypertensive medications and have him continue monitoring his blood pressure at home. (2) Osteoarthritis: Code(s): M19.90 - Unspecified osteoarthritis, unspecified site Category: Medical Plan: The patient reports worsening, sharp, stabbing joint pain despite using indomethacin. Indomethacin will be discontinued. He will be started on diclofenac 50 mg PO every 8 hours, based on a recommendation from his daughter who found it effective. A prescription for 90 tablets with 3 refills was sent to [facility]. The patient was advised to take the medication with food. A referral to a new roller inspector and mender was offered but deferred, as the patient prefers to try the new medication first. Follow up will be in 2-3 months. Plan Plan Patient was informed and verbally consented to the use of an ambient scribe for clinic note documentation during this visit. 1. Hypertension The patient's previous antihypertensive medication caused significant dizziness, and his blood pressure has been well-controlled at home since discontinuing it. The plan is to continue holding all antihypertensive medications and have him continue monitoring his blood pressure at home. 2. Osteoarthritis The patient reports worsening, sharp, stabbing joint pain despite using indomethacin. Indomethacin will be discontinued. He will be started on diclofenac 50 mg PO every 8 hours, based on a recommendation from his daughter who found it effective. A prescription for 90 tablets with 3 refills was sent to [facility]. The patient was advised to take the medication with food. A referral to a new roller inspector and mender was offered but deferred, as the patient prefers to try the new medication first. Follow up will be in 2-3 months. I spoke with the patient and his about his blood pressure, which has stabilized since stopping his prior medication that caused severe dizziness. We agreed to continue holding off on antihypertensive therapy and monitor his readings at home. We also discussed his worsening osteoarthritis pain, which has not been well-controlled with indomethacin. I explained we would switch his medication to diclofenac, as it has been effective for his daughter and may work better for him due to genetics. I counseled him to take it with food to protect his stomach. We discussed a referral to a new roller inspector and mender, but the patient wishes to try the new medication first before considering further interventions like injections. We will reassess his condition in 2-3 months. Medications: New diclofenac potassium 50 mg PO Q8H PRN 90 tabs 3RF pain Patient Instructions: - Do not take any medication for your blood pressure at this time. - Continue to check your blood pressure at home. - You may use your remaining indomethacin pills until your new prescription arrives. - Once the new medication arrives, stop taking indomethacin and start taking diclofenac 50 mg every 8 hours as needed for pain. - Always take diclofenac with food in your stomach. - Your prescription has been sent to [facility] and should arrive in a few days. - You can continue to use cannabis gummies for pain when needed. - Please schedule a follow-up appointment in 2 to 3 months.
--- OUTSIDE RECORDS SUMMARY | 2025-06-16 15:48 | XMS_ITS | Clinical Summary ---
Author Organization [facility] Address [address] [place] [address] Phone Care Team Providers Care Superintendent Of Generation Name Role Phone Alen Storm Raymond Primary Care Provider [phone] Allergies Active Allergy Reactions Criticality Noted Date [...] Start Salonpas with lidocaine 4% gel patches. Family History Medical History Relation Comments Rheumatoid [...] topic Medical Devices Not on file Insurance [employer] MEDEX SUPPLEMENT MEDICARE PART A & B [employer] MEDEX SUPPLEMENT MEDICARE PART A & B [employer] MEDEX SUPPLEMENT MEDICARE PART A & B [employer] MEDEX SUPPLEMENT MEDICARE PART A & B [employer]UE [employer] MEDEX SUPPLEMENT MEDICARE PART A & B [employer] MEDEX SUPPLEMENT MEDICARE PART A & B Care Teams Superintendent Of Generation Relationship Specialty Start Date End Date Storm Lowry DO [address] [place] [id number] PCP - General Internal Medicine 09/21/23 Additional Source Comments The information contained in this document represents components of the legal health record. It is not the complete legal health record.[facility]
== END 2025-06-16 14:16 | disposition home or self-care (01) ==
LOC: HO.HMCSH 13:39
PROVIDERS: PCP Physician Assistant Medical; Visit Provider Physician Assistant Medical
DX: I10 Essential (primary) hypertension (principal); M19.90 Unspecified osteoarthritis, unspecified site

== ENCOUNTER → 2025-06-16 13:39 | Outpatient (BNVA) | payer MEDICARE, SELFPAY | PROVIDERS: PCP Physician Assistant Medical; Visit Provider Physician Assistant Medical | DX: I10 Essential (primary) hypertension (principal); M19.90 Unspecified osteoarthritis, unspecified site | CPT/HCPCS: 96127; 99212 ==

== ENCOUNTER 2025-07-01 10:45 | Outpatient (AMB) | payer MEDICARE, SELFPAY ==
--- NOTE | 2025-07-01 10:54 | A.OFFVIS_ITS ---
Intake Visit Reasons: 6m f/u Allergies lisinopril (LISINOPRIL) Allergy (Mild, Verified 06/16/25 15:47) HEADACHES amoxicillin (AMOXICILLIN) Allergy (Unknown, Verified 06/16/25 15:47) UNKNOWN Sulfa (Sulfonamide Antibiotics) (SULFA (SULFONAMIDE ANTIBIOTICS)) Allergy (Unknown, Verified 06/16/25 15:47) UNKNOWN Medication List - Last Reconciled 07/01/25 by Mal Severino MD albuterol sulfate 90 mcg/actuation 2 puffs inhalation Q4-6H PRN 90 days atorvastatin 10 mg PO BEDTIME diclofenac potassium 50 mg PO Q8H PRN donepezil 23 mg PO BEDTIME magnesium 200 mg PO DAILY melatonin 10 mg PO BEDTIME memantine 10 mg PO BID 90 days modafinil (Provigil) 200 mg PO DAILY va-ruj-ldtai-F2-ifwwffg-ozknjw [id number] mcg (Centrum Silver Men) 1 tab PO DAILY omeprazole 20 mg PO DAILY potassium gluconate 500 mg PO DAILY sertraline 100 mg PO DAILY terazosin 10 mg PO BID HPI Comments Details: 84 yr old man here with his of 6o y rs . More forgetful and can't find anything. Spends his time watching history channel or sleeping. Repetitive and asks the same questions. No agitation or aggression. Eats well Balance off at times, uses walker. Falls about once a month against door frames. One fall with 4 cracked ribs about 4 months ago. Sleeps a lot, using CPAP at night. Gets jerking in legs and torso during sleep off and on, has been happening consistently for about 2 weeks. Stopped Aricept about 1 week ago and jerking was better,?but more depressed without medication. Depressed at times. Lot of arthritis pain and following with rheumatology. Diclofenac is helping his arthritic pains. Using less CBD gummies for OA and helping.Taking modafinil, paying out of pocket. Rare jerking movement in sleep for 1+ years currently about 1-2 x / month. H/O Migraines with and without aura since age 6, but none for several years. In the past some of his migraines have been associated with some shimmering lights in his peripheral vision. His youngest daughter also has migraines. He doesn't identify any triggers. He has never had lateralized weakness or numbness or speech problems. No history of cerebrovascular disease or cardiac disease. [facility] Medical History Rib pain on left side Sternum pain Left hip pain Left knee pain Left shoulder pain Tachycardia with heart rate 100-120 beats per minute Anemia Dyspnea on exertion COPD (chronic obstructive pulmonary disease) KIMBERLEY on CPAP Surgical History History of colonoscopy (~12/31/14) Social History Household Members: Spouse Housing: [facility] Do you presently have visiting nurse or other home services: No Alcohol intake: never Patient Tobacco Use Status: Former Tobacco user Substance Use Type: Marijuana Advance Directives Date on File: 12/23/22 service: No Current occupational status: retired Cognitive needs: Yes Hearing needs: No Vision needs: Yes (reading glasses) Review of Systems Const Details: General/Constitutional:? Change in appetitedenies.? Chillsdenies.? Fatiguedenies.? Feverdenies.? Weight gaindenies.? Weight lossdenies. ???Sleep:? Difficulty getting to sleepdenies.? Difficulty maintaining sleepdenies?.? Urge to move legsdenies.? Teeth grindingdenies.? Shouting or Kicking during sleep admits.? Abnormal behavior during sleepdenies.? Excessive sleepdenies.? Snoring denies.? Daytime sleepinessdenies. ???Respiratory:? Shortness of breathadmits.? Chest paindenies.? Coughadmits. ???Cardiovascular:? Chest pain at restdenies.? Chest pain with exertiondenies.? Claudicationdenies .? Dizzinessdenies.? Fluid accumulation in the legsdenies.? Irregular heartbeat denies.? Palpitationsdenies. ???Gastrointestinal:? Abdominal paindenies.? Constipationdenies.? Diarrheadenies.? Difficulty swallowingdenies.? Heartburndenies.? Nauseadenies.? Rectal bleedingdenies. ???Genitourinary:? Frequent urinationadmits.? Urgencydenies.? Incontinencedenies.? Erectile Dysfunctiondenies. ???Musculoskeletal:? Neck paindenies.? Back paindenies.? Muscle achesdenies.? Painful jointsadmits.? Sciaticadenies.? Weaknessdenies. ???Neurologic:? Difficulty swallowingdenies.? Balance difficultydenies.? Coordinationnormal.? Difficulty speakingdenies.? Dizzinessdenies.? Faintingdenies.? Gait abnormality denies.? Headachedenies.? Loss of strengthdenies.? Loss of use of extremity denies.? Low back paindenies.? Memory lossadmits.? Seizuresdenies.? Ticsdenies.? Tingling/Numbnessdenies.? Transient loss of visiondenies.? Tremordenies. ???Psychiatric:? Anxietydenies.? Auditory/visual hallucinationsdenies.? Delusionsdenies.? Depressed moodadmits.? Stressorsdenies.? Substance abusedenies.? Suicidal thoughtsdenies. Physical Exam Neuro Other: Neurological: Abnormal neurological findings:??MMS 19/30, walking with walker.?Mental Status:??alert?as below.?Cranial Nerves:??Pupils are equal, round and reactive to light. Fundoscopy shows normal disc bilaterally. External occular muscles are intact. Visual jaquez are full, no ptosis. Face is symmetrical, no facial weakness or droop. Facial sensations are normal. Tongue protrudes in midline. Palate elevates symmetrically. Shoulder shrugging is normal..?Motor Examination:??Normal muscle tone, bulk and strength,?No atrophy or fasciculations,?No drift of the extended upper extremities,?Deep tendon reflexes are 2+?,?Plantars are flexor?.?Straight Leg Raising:??90 degrees.?Sensory Exam:??Normal light touch, temperature, pinprick, vibration and joint-position sensations?,?Rhomberg sign is absent.?Coordination:??no ataxia,?no titubation,?ozlmhy-rg-enjl, vpwy-hbjs-ucgi test and rapid alternating movements were normal.?Gait Exam:??walking with walker.?Cerebellar Signs:??Rddbia-im-iyeb and aajz-uv-feez is normal,?no dysdiadochokinesia?.?Extrapyramidal System:??No tremor, rigidity with normal facial expressions,?No bradykinesia, no bradyphrenia. Normal arm swing and posture. No propulsion or retropulsion.?Speech:??Normal,?no dysphasia or dysarthria..? Mini Mental Status Exam: Level of Consciousness:??Alert.?Orientation:??Knows correct season.?Knows correct city, county and state. Knows correct location. Does not know year, month, day, or date. Does not know floor.?Registration:??Able to register 3 objects.?Attention:??Serial 7's performed accurately to 93.?Recall:??Able to recall 3 out of 3 objects.?Language:??Normal spontaneous speech, fluency, repetition,naming, comprehension, reading and writing.?Total Score:??.? Assessment & Plan Assessment & Plan (1) Alzheimer dementia: Code(s): G30.9 - Alzheimer's disease, unspecified; F02.80 - Dementia in other diseases classified elsewhere, unspecified severity, without behavioral disturbance, psychotic disturbance, mood disturbance, and anxiety Category: Medical (2) KIMBERLEY on CPAP: Comment: VERY COMPLIANT, AND BENEFITTING FROM THE USE OF CPAP. Code(s): G47.33 - Obstructive sleep apnea (adult) (pediatric); Z99.89 - Dependence on oth er enabling machines and devices Category: Medical (3) REM sleep behavior disorder: Code(s): G47.52 - REM sleep behavior disorder Category: Medical Plan Continue current meds but switched Donepezil 23mg to 10mg bid for cost reasons Medications: New donepezil 10 mg PO BID 180 tabs 3RF 90 days Discontinued donepezil Discontinued Reason: Doctor's Order 23 mg PO BEDTIME 90 tabs 3RF Coding Level of Care Code Est Pt Level 4 (47343) Diagnoses Alzheimer dementia G30.9; F02.80 KIMBERLEY on CPAP G47.33; Z99.89 REM sleep behavior disorder G47.52
--- OUTSIDE RECORDS SUMMARY | 2025-07-01 13:55 | XMS_ITS | Clinical Summary ---
Author Organization [facility] Address [address] [place] [address] Phone Care Team Providers Care Jacquard Card Cutter Name Role Phone Alen Storm Raymond Primary Care Provider [phone] Allergies Active Allergy Reactions Criticality Noted Date [...] on patient's age to complete this topic IPV VACCINES Aged Out No longer eligi ble based on patient's age to complete this topic MENINGOCOCCAL VACCINES (ACWY) Aged Out No longer eligible based on patient's age to complete this topic MENINGOCOCCAL VACCINES (B) Aged Out N o longer eligible based on patient's age to complete this topic Medical Devices Not on file Insurance [employer] MEDEX SUPPLEMENT MEDICARE PART A & B [employer] MEDEX SUPPLEMENT MEDICARE PART A & B [employer]UE [employer] MEDEX SUPPLEMENT MEDICARE PART A & B [employer] MEDEX SUPPLEMENT MEDICARE PART A & B [employer] MEDEX SUPPLEMENT MEDICARE PART A & B [employer] MEDEX SUPPLEMENT MEDICARE PART A & B Care Teams Jacquard Card Cutter Relationship Specialty Start Date End Date Storm Lowry DO [address] [place] [phone] PCP - General Internal Medicine 09/21/23 Additional Source Comments The information contained in this document represents components of the legal health record. It is not the complete legal health record.[facility]
== END 2025-07-01 11:22 | disposition home or self-care (01) ==
LOC: HO.HSM 10:46
PROVIDERS: PCP Internal Medicine; Visit Provider Psychiatry & Neurology Neurology
DX: G30.9 Alzheimer's disease, unspecified (principal); F02.80 Dementia in other diseases classified elsewhere, unspecified severity, without behavioral disturbance, psychotic disturbance, mood disturbance, and anxiety; G47.33 Obstructive sleep apnea (adult) (pediatric); Z99.89 Dependence on other enabling machines and devices; G47.52 REM sleep behavior disorder
CPT/HCPCS: 99214

== ENCOUNTER → 2025-07-01 10:45 | Outpatient (BNVA) | payer MEDICARE, SELFPAY | PROVIDERS: PCP Internal Medicine; Visit Provider Psychiatry & Neurology Neurology | DX: G30.9 Alzheimer's disease, unspecified (principal); F02.80 Dementia in other diseases classified elsewhere, unspecified severity, without behavioral disturbance, psychotic disturbance, mood disturbance, and anxiety; G47.33 Obstructive sleep apnea (adult) (pediatric); G47.52 REM sleep behavior disorder | CPT/HCPCS: 99212 ==